=== PATIENT | male | born 1935 | race Caucasian/White ===

== ENCOUNTER → 2016-10-26 | Outpatient (CLI) | payer OTHER ==
[~2016-10-26] MED LIST: ACET-1256 PO; CHOL1000 PO; CYAN500T PO; Enteral Nutrition Formula PO; FLM4 PO; HYDR-3983 PO; NUTR-7 PO; SILO4CAP PO; THIA50TA3 PO
[2016-10-26 16:58] LABS: MEAN PLATELET VOLUME 10.1 fL (7.4-10.4); PLATELET COUNT 310 K/uL (130-400)
[2016-10-26 17:02] LABS: URINE APPEARANCE CLEAR (CLEAR); URINE BILIRUBIN NEG (NEG); URINE COLOR YELLOW; URINE EPITHELIAL CELL AUTO >30 /lpf (0-5); URINE NITRITE NEG (NEG); URINE SPECIFIC GRAVITY 1.007 (1.000-1.030); UROBILINOGEN NEG (NEG); ZZUR CULT IF INDIC CLEAN CATCH YES
[2016-10-26 17:05] LABS: MANUAL MICROSCOPIC REQUIRED? NO; REVIEW REQ? YES
[2016-10-26 17:27] LABS: BASO % 0.4 %; BASO ABS # 0.03 K/uL (0-0.2); COMPLETE YES; HEMATOCRIT 34.8 % (42-52); IG% 0.1 %; LYMPH % 36.6 %; LYMPH ABS # 2.55 K/uL (1.2-3.4); MEAN CELL VOLUME 92.8 fL (80-100); MEAN CORPUSCULAR HEMOGLOBIN 30.7 pg (25-34); MONO % 6.3 %; NEUT % 53.6 %; RED BLOOD COUNT 3.75 M/uL (4.7-6.1); WHITE BLOOD COUNT 6.97 K/uL (4.8-10.8)
[2016-10-26 17:58] LABS: BLOOD UREA NITROGEN 43 mg/dl (7-18); BUN/CREATININE RATIO 15.5 (10-20); CALCIUM 8.6 mg/dl (8.5-10.1); CARBON DIOXIDE 25 mmol/L (21-32); CHLORIDE 103 mmol/L (98-107); GLUCOSE 100 mg/dl (70-99); POTASSIUM 4.4 mmol/L (3.5-5.1); SODIUM 139 mmol/L (136-145)
== END | disposition home or self-care (01) ==
LOC: C.LABBC 12:56
PROVIDERS: ATTEND Internal Medicine Geriatric Medicine
DX: N18.3 Chronic kidney disease, stage 3 (moderate) (principal); I12.9 Hypertensive chronic kidney disease with stage 1 through stage 4 chronic kidney disease, or unspecified chronic kidney disease; M19.90 Unspecified osteoarthritis, unspecified site; E55.9 Vitamin D deficiency, unspecified; F09 Unspecified mental disorder due to known physiological condition; I48.0 Paroxysmal atrial fibrillation; R73.9 Hyperglycemia, unspecified

== ENCOUNTER 2016-11-11 14:41 | Inpatient (IN) | payer OTHER ==
[~2016-11-11] VITALS: Ht 165.1 cm; Wt 57.2 kg
[~2016-11-11 14:41] MED LIST changes: -ACET-1256 PO; -CHOL1000 PO; -CYAN500T PO; -NUTR-7 PO; -SILO4CAP PO; -THIA50TA3 PO
--- NOTE | 2016-11-11 15:22 | EMERGENCY ROOM VISIT NOTE ---
History Report prepared by Kunal: Beth Maria Under the Supervision of: Dr. Rafat Smith D.O. First contact with patient: 15:11 Chief Complaint: CONFUSION Stated Complaint: CONFUSION Nursing Triage Summary: Pt lives at [facility], EMS reports confusion x3 days and poor appetite x2 days. Pt oriented to person, , and place only. EMS also reports he fell 2 days ago. History of Present Illness The patient is an 81 year old male who presents to the Emergency Room with complaints of persistent confusion that began three days ago. The patient's family notes that the patient has had a decrease in appetite as well. They note that the patient was recently in the emergency department and evaluated for dehydration. The family notes that the patient was sent to the [facility] and then was discharged from there. They note that the patient fell and hit his head two days ago. The patient denies any headaches, fever, nausea, vomiting, melena, or hematochezia. He notes a productive cough today. The patient is a previous heavy drinker. Source of History: patient, family Onset: three days ago Position: other (global) Quality: other (confusion) Timing: other (persistent) Associated Symptoms: + cough, No fevers, No headache, No hematochezia, No melena, No nausea, No vomiting Note: Associated Symptoms: decrease in appetite, recent fall Review of Systems See HPI for pertinent positives & negatives. A total of 10 systems reviewed and were otherwise negative. Past Medical & Surgical Medical Problems: (1) Acute on chronic renal failure (2) Altered mental status (3) UTI (urinary tract infection) Family History Cancer (prostate, laryngeal) Diabetes mellitus Heart disease Social History Smoking Status: Never Smoker Alcohol Use: none Drug Use: none Marital Status: Housing Status: lives with significant other Occupation Status: retired Current/Historical Medications Scheduled Cholecalciferol (Vitamin D3), 2 TABS PO DAILY Nutritional Supplements (Boost), 1-2 CAN PO DAILY Silodosin (Rapaflo), 4 MG PO DAILY Scheduled PRN Acetaminophen (Tylenol), 1,000 MG PO BID PRN for Pain or Fever Allergies Coded Allergies: Finasteride (Verified Allergy, Unknown, GYNOCOMASTIA, 11/11/16) FROM [facility] Gabapentin (Verified Allergy, Unknown, UNKNOWN, 11/11/16) [facility] Levofloxacin (Verified Allergy, Unknown, SWELLINNG, 11/11/16) INFO FORM [facility] Sulfamethoxazole w/Trimethoprim (Verified Allergy, Unknown, SWELLING, 11/11) Tamsulosin (Verified Allergy, Unknown, GYNOCOMASTIA, 11/11/16) [facility] Tramadol (Verified Allergy, Unknown, PURITIS, 11/11/16) [facility] Uncoded Allergies: IV DYE (Allergy, Unknown, [facility], 11/11/16) Physical Exam Vital Signs Date Time Temp Pulse Resp B/P Pulse Ox O2 Delivery O2 Flow Rate FiO2 11/11/16 17:32 66 109/67 95 Room Air 11/11/16 15:40 74 92/56 78 89/49 11/11/16 15:33 97 Room Air 11/11/16 15:11 82 11/11/16 14:54 36.7 90 20 106/56 98 Room Air 11/11/16 14:54 98 Room Air Physical Exam GENERAL: Patient is cachectic and listless appearing. Answers to verbal commands intermittently. Follows commands somewhat. EYES: The pupils are equal round and reactive to light. Cloudy appearance to the left pupil. EARS, NOSE, MOUTH AND THROAT: The nose is without any evidence of any deformity. Mucous membranes are dry tongue is midline NECK: The neck is nontender and supple. RESPIRATORY: Lung sounds are diminished throughout with scattered rhonchi noted. CARDIOVASCULAR: Regular rate and rhythm noted there no murmurs rubs or gallops normal S1 normal S2 GASTROINTESTINAL: The abdomen is soft. Bowel sounds are present in all quadrants. Abdomen is nontender MUSCULOSKELETAL/EXTREMITIES: There is no evidence of gross deformity full range of motion is noted in the hips and shoulders SKIN: There is no obvious evidence of any rash. There are no petechiae, pallor or cyanosis noted. NEUROLOGIC: Patient is oriented to person and place, but not time or situation. Strength is symmetric, but diminished. Medical Decision & Procedures ER Provider Diagnostic Interpretation: Radiology results as stated below per my review and radiologist interpretation: PELVIS 1 OR 2 VIEW ROUTINE CLINICAL HISTORY: fall pain COMPARISON: None. DISCUSSION: Generalized degenerative change of the sacroiliac joints and hips bilaterally. No well-defined acute bony abnormality. Cortical margins are intact. There is no evidence for soft tissue swelling. IMPRESSION: Degenerative change. No acute bony abnormality. Electronically signed by: Norberto Haddad M.D. 11/11/2016 4:17 PM Dictated Date/Time: 11/11/2016 4:[address] NON[address]AST CT DOSE: 614.27 mGy.cm HISTORY: Mental status change EVALUATE ALTERED MENTAL STATUS/WEAKNESS TECHNIQUE: Multiaxial CT images of the head were performed without the use of intravenous contrast. Comparison: 10/05/2016 Findings: The paranasal sinuses and mastoid air cells are clear. Generalized atrophy. Old left frontal infarct. Mild compensatory prominence left lateral ventricle. No midline shift. No acute intracranial hemorrhage. Impression: Chronic change. No acute process. Electronically signed by: Norberto Haddad M.D. 11/11/2016 4:20 PM Dictated Date/Time: 11/11/2016 4:18 PM CHEST ONE VIEW PORTABLE CLINICAL HISTORY: EVALUATE ALTERED MENTAL STATUS/WEAKNESS COMPARISON STUDY: No previous studies for comparison. FINDINGS: The bones soft tissues and hemidiaphragms are normal. The cardiomediastinal silhouette is normal. The lungs are clear. The pulmonary vasculature is normal. IMPRESSION: Negative chest. Electronically signed by: Norberto Haddad M.D. 11/11/2016 4:17 PM Dictated Date/Time: 11/11/2016 4:16 PM Laboratory Results Test 11/11/16 14:35 11/11/16 15:44 11/11/16 18:20 Osmolality 310 mOsm/kg (280-300) Phosphorus Level 2.5 mg/dl (2.5-4.9) Total Creatine Kinase 45 U/L (39-308) Creatine Kinase MB 0.9 ng/ml (0.5-3.6) Creatine Kinase MB Ratio 2.0 (0-3.0) Troponin I < 0.015 ng/ml (0-0.045) Lipase 242 U/L (73-393) Thyroid Stimulating Hormone (TSH) 1.380 uIu/ml (0.300-4.500) Venous Blood pH 7.42 (7.36-7.41) Venous Blood Partial Pressure CO2 35 mmHg (38.0-50.0) Venous Blood Partial Pressure O2 27 mmHg Venous Blood HCO3 22 mmol/L Venous Blood Oxygen Saturation < 60.0 % Venous Blood Base Excess -1.8 mmol/L Ammonia 24.0 umol/L (11-32) Urine Color YELLOW Urine Appearance TURBID (CLEAR) Urine pH 6.0 (4.5-7.5) Urine Specific [place] 1.010 (1.000-1.030) Urine Protein 2+ (NEG) Urine Glucose (UA) NEG (NEG) Urine Ketones NEG (NEG) Urine Occult Blood 2+ (NEG) Urine Nitrite NEG (NEG) Urine Bilirubin NEG (NEG) Urine Urobilinogen NEG (NEG) Urine Leukocyte Esterase LARGE (NEG) Urine WBC (Auto) >30 /hpf (0-5) Urine RBC (Auto) 10-30 /hpf (0-4) Urine Hyaline Casts (Auto) /lpf (0-5) Urine Epithelial Cells (Auto) 0-5 /lpf (0-5) Urine Bacteria (Auto) 4+ (NEG) Urine Pathogenic Casts /lpf (0) Urine Yeast (Auto) (NONE PRSENT) Urine Osmolality 332 mOms/kg (500-800) Urine Opiates Screen NEG (NEG) Urine Methadone, Qualitative NEG (NEG) Urine Barbiturates NEG (NEG) Urine Phencyclidine (PCP) Level NEG (NEG) Ur Amphetamine/Methamphetamine NEG (NEG) MDMA (Ecstasy) Screen NEG (NEG) Urine Benzodiazepines Screen NEG (NEG) Urine Cocaine Metabolite NEG (NEG) Urine Marijuana (THC) NEG (NEG) Laboratory results per my review. Medications Administered Medications (Trade) Dose Ordered Sig/Naima Route Start Time Stop Time Status Last Admin Dose Admin Sodium Chloride 1,000 ml @ 999 mls/hr Q1H1M STAT IV 11/11/16 16:32 11/11/16 17:32 DC 11/11/16 16:45 999 MLS/HR Sodium Chloride (Nss 1000ml) 1,000 ml @ 250 mls/hr Q4H STAT IV 11/11/16 16:32 11/11/16 19:16 DC 11/11/16 17:31 250 MLS/HR Ceftriaxone Sodium (Rocephin Inj) 1 gm NOW STAT IV 11/11/16 18:20 11/11/16 18:21 DC 11/11/16 19:03 1 GM ECG Indication: other (confusion) Rate (beats per minute): 80 Rhythm: normal sinus Findings: no ectopy, other (no acute ST segment abnormalities) Comparison ECG Date: 10/05/16 Change: no significant change ED Course 1512: The patient was evaluated in room B11A. A complete history and physical examination were performed. 1632: Ordered Sodium Chloride 1000 ml @ 250 mls/hr IV, Sodium Chloride 1000 ml @ 999 mls/hr IV. 1716: I reevaluated the patient and he is resting comfortably. I discussed the exam findings with him and his family and I discussed the treatment plan. They verbalized complete understanding and agreement. The patient will be evaluated for further treatment. 1720: I discussed the patients case with DANNA Vargas. He is going to evaluate the patient for further treatment. Medical Decision Differential diagnosis: Etiologies such as metabolic, infection, hypoglycemia, electrolyte abnormalities , cardiac sources, intracerebral event, toxicologic, neurologic, as well as others were entertained. Nursing notes reviewed. Additional history is obtained from the patient's significant other as well as other family matters. The patient is an 81-year-old male who presented to the emergency department for an evaluation of confusion. The patient presented to the [facility] department with family members for confusion. The patient had a similar episode at the beginning of the year. At that time it sounds as though he was found have a urinary tract infection with obstructive uropathy. The patient was placed on prostate medications but it does not sound as though he started these medications. The patient was treated with IV fluids in the emergency department. He was also placed on IV antibiotics for presumed urinary tract infection. A Flores catheter was placed. The patient was reevaluated multiple times and was feeling much better. I discussed the patient's laboratory and radiographic studies with the family members as well as the patient. I also discussed his case with the on-call [facility] hospitalist group. They have agreed to evaluate the patient in the emergency department for further management and disposition. Consults Time Called: 1716 Consulting Physician: DANNA Vargas Returned Call: 1720 I discussed the patients case with DANNA Vargas. He is going to evaluate the patient for further treatment. Impression Primary Impression: Altered mental status Additional Impressions: Dehydration Kidney failure Scribe Attestation The scribe's documentation has been prepared under my direction and personally reviewed by me in its entirety. I confirm that the note above accurately reflects all work, treatment, procedures, and medical decision making performed by me. Departure Information Dispostion Being Evaluated By Hospitalist Referrals Rudi Cueva M.D. (PCP) Problem Qualifiers Primary Impression: Altered mental status Altered mental status type: unspecified Qualified Codes: R41.82 - Altered mental status, unspecified
[2016-11-11 16:11] LABS: INR 1.2 (0.9-1.1); PROTHROMBIN TIME (PATIENT) 12.4 SECONDS (9.0-12.0)
--- NOTE | 2016-11-11 16:18 | DIAGNOSTIC IMAGING REPORT ---
CHEST ONE VIEW PORTABLE CLINICAL HISTORY: EVALUATE ALTERED MENTAL STATUS/WEAKNESS COMPARISON STUDY: No previous studies for comparison. FINDINGS: The bones soft tissues and hemidiaphragms are normal. The cardiomediastinal silhouette is normal. The lungs are clear. The pulmonary vasculature is normal. IMPRESSION: Negative chest. Electronically signed by: Norberto Haddad M.D. 11/11/2016 4:17 PM Dictated Date/Time: 11/11/2016 4:16 PM
--- NOTE | 2016-11-11 16:19 | DIAGNOSTIC IMAGING REPORT ---
PELVIS 1 OR 2 VIEW ROUTINE CLINICAL HISTORY: fall pain COMPARISON: None. DISCUSSION: Generalized degenerative change of the sacroiliac joints and hips bilaterally. No well-defined acute bony abnormality. Cortical margins are intact. There is no evidence for soft tissue swelling. IMPRESSION: Degenerative change. No acute bony abnormality. Electronically signed by: Norberto Haddad M.D. 11/11/2016 4:17 PM Dictated Date/Time: 11/11/2016 4:17 PM
--- NOTE | 2016-11-11 16:21 | DIAGNOSTIC IMAGING REPORT ---
HEAD CT NONCONTRAST CT DOSE: 614.27 mGy.cm HISTORY: Mental status change EVALUATE ALTERED MENTAL STATUS/WEAKNESS TECHNIQUE: Multiaxial CT images of the head were performed without the use of intravenous contrast. Comparison: 10/05/2016 Findings: The paranasal sinuses and mastoid air cells are clear. Generalized atrophy. Old left frontal infarct. Mild compensatory prominence left lateral ventricle. No midline shift. No acute intracranial hemorrhage. Impression: Chronic change. No acute process. Electronically signed by: Norberto Haddad M.D. 11/11/2016 4:20 PM Dictated Date/Time: 11/11/2016 4:18 PM
[2016-11-11 16:27] LABS: VEN BLD GAS O2 SATURATION < 60.0 %; VEN BLOOD GAS BASE EXCESS -1.8 mmol/L; VENOUS BLOOD GAS PCO2 35 mmHg (38.0-50.0); VENOUS BLOOD GAS PO2 27 mmHg
[2016-11-11 16:29] LABS: ALKALINE PHOSPHATASE 101 U/L (45-117); ALT/SGPT 41 U/L (12-78); AST/SGOT 26 U/L (15-37); BLOOD UREA NITROGEN 107 mg/dl (7-18); BUN/CREATININE RATIO 20.5 (10-20); CARBON DIOXIDE 22 mmol/L (21-32); CHLORIDE 93 mmol/L (98-107); GLUCOSE 150 mg/dl (70-99); MAGNESIUM 2.1 mg/dl (1.8-2.4); PHOSPHORUS 2.5 mg/dl (2.5-4.9); POTASSIUM 5.2 mmol/L (3.5-5.1); SODIUM 129 mmol/L (136-145)
[2016-11-11] MEDS ORDERED: SODIUM CHLORIDE 0.9% 1000ML 1,000 ML IV STA ×2 (16:32)
[2016-11-11] MEDS ORDERED: SILO4CAP PO (17:12)
[2016-11-11] MEDS ORDERED: ACET-1256 PO (17:12)
[2016-11-11] MEDS ORDERED: NUTR-7 PO (17:12)
[2016-11-11] MEDS ORDERED: CHOL1000 PO (17:12)
[2016-11-11 17:42] LABS: HEMATOCRIT 29.9 % (42-52); MEAN CELL VOLUME 88.5 fL (80-100); MEAN CORPUSCULAR HEMOGLOBIN 30.2 pg (25-34); MEAN CORPUSCULAR HGB CONC 34.1 g/dl (32-36); MEAN PLATELET VOLUME 9.4 fL (7.4-10.4); PLATELET COUNT 503 K/uL (130-400); RED BLOOD COUNT 3.38 M/uL (4.7-6.1); WHITE BLOOD COUNT 24.25 K/uL (4.8-10.8)
[2016-11-11 18:04] LABS: BASO ABS # 0.01 K/uL (0-0.2); COMPLETE YES; IG% 0.7 %; LYMPH % 5.2 %; LYMPH ABS # 1.25 K/uL (1.2-3.4); MONO % 2.8 %; NEUT % 91.3 %
[2016-11-11] MEDS ORDERED: CEFTRIAXONE SOD INJ 1 GM ADDVIAL IV STA (18:20)
[2016-11-11 18:36] LABS: URINE APPEARANCE TURBID (CLEAR); URINE BILIRUBIN NEG (NEG); URINE COLOR YELLOW; URINE NITRITE NEG (NEG); UROBILINOGEN NEG (NEG); ZZURINE CULT IF INDIC CATH YES
[2016-11-11] MEDS ORDERED: ZOLPIDEM TARTRATE 5 MG TAB PO PRN (18:45)
[2016-11-11] MEDS ORDERED: ENOXAPARIN 40 MG/0.4 ML SYR SQ SCH (18:45)
[2016-11-11 18:50] LABS: MANUAL MICROSCOPIC REQUIRED? NO; REVIEW REQ? YES
[2016-11-11 18:57] LABS: URINE EPITHELIAL CELL AUTO 0-5 /lpf (0-5)
[2016-11-11] MEDS ORDERED: ONDANSETRON INJ 2 MG/ML 2 ML VIAL IV PRN (19:00)
[2016-11-11 19:30] LABS: BENZODIAZEPINE, URINE NEG (NEG); COCAINE,URINE NEG (NEG); PHENCYCLIDINE, URINE NEG (NEG)
[2016-11-11 19:31] LABS: INR 1.2 (0.9-1.1); PARTIAL THROMBOPLASTIN RATIO 1.1; PROTHROMBIN TIME (PATIENT) 12.6 SECONDS (9.0-12.0)
[2016-11-11] MEDS: SODIUM CHLORIDE 0.9% 1000ML 1,000 ML IV SCH (19:37)
[2016-11-11] MEDS: ACETAMINOPHEN 325 MG TAB PO PRN (19:47)
[2016-11-11 19:54] VITALS: BP 129/86; PULSE 86; TEMP 36.5; O2SAT 98; Ht 165.1 cm; Wt 57.2 kg
--- NOTE | 2016-11-11 20:13 | History and Physical ---
History & Physical Date & Time of Service: Nov 11, 2016 at 19:51 Chief Complaint: Acute On Chronic Renal Failure, Uti Primary Care Physician: Rudi Cueva M.D. History of Present Illness Source: patient, family, spouse The patient is an 81-year-old male, who was most recently hospitalized from October 05 to October 09 for symptoms of confusion secondary to UTI and acute renal failure, who was then discharged to [facility], then discharged home, who presents to the emergency department with similar symptoms. When in the emergency department today, a Flores catheter was eventually able to be placed, which reportedly drained a puslike urine. The patient did reportedly fall and hit his head 2 days ago. He has a history of being a previous heavy drinker. Family History Cancer (prostate, laryngeal) Diabetes mellitus Heart disease Social History Smoking Status: Never Smoker Smokeless Tobacco Use: No Alcohol Use: none Drug Use: none Marital Status: Housing status: lives with family, lives with significant other Occupational Status: retired Multi-Drug Resistant Organisms History of MDRO: No Allergies Coded Allergies: Finasteride (Verified Allergy, Unknown, GYNOCOMASTIA, 11/11/16) [facility] Gabapentin (Verified Allergy, Unknown, UNKNOWN, 11/11/16) [facility] Levofloxacin (Verified Allergy, Unknown, SWELLINNG, 11/11/16) INFO FORM [facility] Sulfamethoxazole w/Trimethoprim (Verified Allergy, Unknown, SWELLING, 11/11) Tamsulosin (Verified Allergy, Unknown, GYNOCOMASTIA, 11/11/16) [facility] Tramadol (Verified Allergy, Unknown, PURITIS, 11/11/16) [facility] Uncoded Allergies: IV DYE (Allergy, Unknown, [facility], 11/11/16) Home Medications Scheduled Cholecalciferol (Vitamin D3), 2 TABS PO DAILY Nutritional Supplements (Boost), 1-2 CAN PO DAILY Silodosin (Rapaflo), 4 MG PO DAILY Scheduled PRN Acetaminophen (Tylenol), 1,000 MG PO BID PRN for Pain or Fever Review of Systems The patient denies chest pain, palpitations, shortness of breath, cough, lower extremity swelling, vision change, hearing change, sore throat, fevers, chills, sweats, weight change, fatigue, nausea, vomiting, abdominal pain, pelvic pain, blood in urine or stool, dysuria, rash, abnormal bruising or bleeding, imbalance, focal weakness, numbness or tingling in arms or legs, arthralgias or myalgias, back or neck pain, night sweats, or allergy symptoms. His responses are not necessarily reliable, but his family who is present, does agree with his answering. The review of systems is otherwise negative other than for that already noted above, and at least 10 systems have been reviewed. Physical Exam Vital Signs Date Time Temp Pulse Resp B/P Pulse Ox O2 Delivery O2 Flow Rate FiO2 11/11/16 18:57 71 19 113/61 99 11/11/16 18:38 71 19 113/61 99 Room Air 11/11/16 17:32 66 109/67 95 Room Air 11/11/16 15:40 74 92/56 78 89/49 11/11/16 15:33 97 Room Air 11/11/16 15:11 82 11/11/16 14:54 36.7 90 20 106/56 98 Room Air 11/11/16 14:54 98 Room Air The patient is awake, disoriented, minimally responsive, normocephalic and atraumatic, lying in bed and in no acute distress. HEENT--PERRL, EOMI, mucous membranes and oropharynx dry. Neck--supple, no JVD or bruits, thyroid normal, trachea midline, no adenopathy. Heart--normal S1 and S2, no extra beats, no murmurs, rubs or gallops. Lungs--clear bilaterally, no respiratory distress, no accessory muscle use. Abdomen--normal bowel sounds and soft, nontender and nondistended, urinary bladder palpated and feels distended. Extremities--no cyanosis, clubbing or edema. There are good distal pulses b/l. Dermatologic--normal skin turgor, normal color, warm and dry, no abnormal lymph nodes, no rash. Neurologic--cranial nerves II through XII grossly intact, motor and sensory examination normal. Psychiatric--flat affect. Diagnostics Laboratory Results Results Past 24 Hours Test 11/11/16 14:35 11/11/16 15:44 11/11/16 17:20 11/11/16 18:20 Range/Units Sodium Level 129 136-145 mmol/L Potassium Level 5.2 3.5-5.1 mmol/L Chloride Level 93 98-107 mmol/L Carbon Dioxide Level 22 21-32 mmol/L Anion Gap 14.0 3-11 mmol/L Blood Urea Nitrogen 107 7-18 mg/dl Creatinine 5.20 0.60-1.40 mg/dl Est Creatinine Clear Calc Drug Dose 7.1 ml/min Estimated GFR () 10.9 Estimated GFR (Non- 9.4 BUN/Creatinine Ratio 20.5 10-20 Random Glucose 150 70-99 mg/dl Osmolality 310 280-300 mOsm/kg Calcium Level 9.0 8.5-10.1 mg/dl Phosphorus Level 2.5 2.5-4.9 mg/dl Magnesium Level 2.1 1.8-2.4 mg/dl Total Bilirubin 0.4 0.2-1 mg/dl Direct Bilirubin 0.2 0-0.2 mg/dl Aspartate Amino Transf (AST/SGOT) 26 15-37 U/L Alanine Aminotransferase (ALT/SGPT) 41 12-78 U/L Alkaline Phosphatase 101 45-117 U/L Total Creatine Kinase 45 39-308 U/L Creatine Kinase MB 0.9 0.5-3.6 ng/ml Creatine Kinase MB Ratio 2.0 0-3.0 Troponin I < 0.015 0-0.045 ng/ml Total Protein 7.9 6.4-8.2 gm/dl Albumin 2.3 3.4-5.0 gm/dl Lipase 242 73-393 U/L Thyroid Stimulating Hormone (TSH) 1.380 0.300-4.500 uIu/ml Prothrombin Time 12.4 9.0-12.0 SECONDS Prothromb Time International Ratio 1.2 0.9-1.1 Activated Partial Thromboplast Time 26.8 21.0-31.0 SECONDS Partial Thromboplastin Ratio 1.0 Venous Blood pH 7.42 7.36-7.41 Venous Blood Partial Pressure CO2 35 38.0-50.0 mmHg Venous Blood Partial Pressure O2 27 mmHg Venous Blood HCO3 22 mmol/L Venous Blood Oxygen Saturation < 60.0 % Venous Blood Base Excess -1.8 mmol/L Ammonia 24.0 11-32 umol/L White Blood Count 24.25 4.8-10.8 K/uL Red Blood Count 3.38 4.7-6.1 M/uL Hemoglobin 10.2 14.0-18.0 g/dL Hematocrit 29.9 42-52 % Mean Corpuscular Volume 88.5 80-100 fL Mean Corpuscular Hemoglobin 30.2 25-34 pg Mean Corpuscular Hemoglobin Concent 34.1 32-36 g/dl Platelet Count 503 130-400 K/uL Mean Platelet Volume 9.4 7.4-10.4 fL Neutrophils (%) (Auto) 91.3 % Lymphocytes (%) (Auto) 5.2 % Monocytes (%) (Auto) 2.8 % Eosinophils (%) (Auto) 0.0 % Basophils (%) (Auto) 0.0 % Neutrophils # (Auto) 22.12 1.4-6.5 K/uL Lymphocytes # (Auto) 1.25 1.2-3.4 K/uL Monocytes # (Auto) 0.69 0.11-0.59 K/uL Eosinophils # (Auto) 0.01 0-0.5 K/uL Basophils # (Auto) 0.01 0-0.2 K/uL RDW Standard Deviation 42.7 36.4-46.3 fL RDW Coefficient of Variation 13.2 11.5-14.5 % Immature Granulocyte % (Auto) 0.7 % Immature Granulocyte # (Auto) 0.17 0.00-0.02 K/uL Urine Color YELLOW Urine Appearance TURBID CLEAR Urine pH 6.0 4.5-7.5 Urine Specific [place] 1.010 1.000-1.030 Urine Protein 2+ NEG Urine Glucose (UA) NEG NEG Urine Ketones NEG NEG Urine Occult Blood 2+ NEG Urine Nitrite NEG NEG Urine Bilirubin NEG NEG Urine Urobilinogen NEG NEG Urine Leukocyte Esterase LARGE NEG Urine WBC (Auto) >30 0-5 /hpf Urine RBC (Auto) 10-30 0-4 /hpf Urine Hyaline Casts (Auto) 0-5 /lpf Urine Epithelial Cells (Auto) 0-5 0-5 /lpf Urine Bacteria (Auto) 4+ NEG Urine Pathogenic Casts 0 /lpf Urine Yeast (Auto) NONE PRSENT Urine Osmolality 332 500-800 mOms/kg Urine Opiates Screen NEG NEG Urine Methadone, Qualitative NEG NEG Urine Barbiturates NEG NEG Urine Phencyclidine (PCP) Level NEG NEG Ur Amphetamine/Methamphetamine NEG NEG MDMA (Ecstasy) Screen NEG NEG Urine Benzodiazepines Screen NEG NEG Urine Cocaine Metabolite NEG NEG Urine Marijuana (THC) NEG NEG Test 11/11/16 18:40 Range/Units Prothrombin Time 12.6 9.0-12.0 SECONDS Prothromb Time International Ratio 1.2 0.9-1.1 Activated Partial Thromboplast Time 27.5 21.0-31.0 SECONDS Partial Thromboplastin Ratio 1.1 Microbiology Results 11/11/16 Blood Culture, Received Pending 11/11/16 Blood Culture, Received Pending 11/11/16 Urine Culture, Received Pending Diagnostic Radiology Patient Name: MANASA DIXON Unit Number: [id number] Dictated: 11/11/161616 Transcribed: 11/11/161616 MS Printed Date/Time: [~ rep prt dt]/[~ rep prt tm] [~ rep ct labl] - [~ rep ct ivnm] [facility] [place] [address] Dictated: 11/11/161616 Transcribed: 11/11/161616 MS Printed Date/Time: [~ rep prt dt]/[~ rep prt tm] [~ rep ct labl] - [~ rep ct ivnm] PELVIS 1 OR 2 VIEW ROUTINE CLINICAL HISTORY: fall pain COMPARISON: None. DISCUSSION: Generalized degenerative change of the sacroiliac joints and hips bilaterally. No well-defined acute bony abnormality. Cortical margins are intact. There is no evidence for soft tissue swelling. IMPRESSION: Degenerative change. No acute bony abnormality. Electronically signed by: Norberto Haddad M.D. 11/11/2016 4:17 PM Dictated Date/Time: 11/11/2016 4:17 PM The status of this report is Signed. Draft = Not yet reviewed or approved by Radiologist. Signed = Reviewed and approved by Radiologist. <AttendingPhy></AttendingPhy> <FamilyPhy>Rudi Cueva M.D.</FamilyPhy> < PrimaryPhy>Rudi Cueva M.D.</PrimaryPhy> <UnitNumber>[id number]</UnitNumber > <VisitNumber>[id number]</VisitNumber> <PatientName>MANASA DIXON</ PatientName> <DateOfBirth>1935</DateOfBirth> <Location>C.EDB</Location> < ServiceDate>11/11/16</ServiceDate> <MNE>ESINDI</MNE> <OrderingPhy>Rafat Smith D.O.</OrderingPhy> <OrderingPhyMNE>f rep ord dr lacy</OrderingPhyMNE> <DictatingPhyMNE>f rep dict dr lacy</DictatingPhyMNE> <CCListMNE>f rep ct mnt[place]</ CCListMNE> <AdmittingPhyMNE>f pt admit dr lacy</AdmittingPhyMNE> <AttendingPhyMNE >f pt attend dr lacy</AttendingPhyMNE> <ConsultingPhyMNE>f pt consult dr lacy</ConsultingPhyMNE> <FamilyPhyMNE>f pt fam dr lacy</FamilyPhyMNE> <OtherPhyMNE>f pt other dr lacy</OtherPhyMNE> < PrimaryPhyMNE>f pt prim care dr lacy</PrimaryPhyMNE> <ReferringPhyMNE>f pt referring dr lacy</ReferringPhyMNE> Patient Name: MANASA DIXON Unit Number: [id number] Dictated: 11/11/161617 Transcribed: 11/11/161617 MS Printed Date/Time: [~ rep prt dt]/[~ rep prt tm] [~ rep ct labl] - [~ rep ct ivnm] [facility] [place] [address] Dictated: 11/11/161617 Transcribed: 11/11/161617 MS Printed Date/Time: [~ rep prt dt]/[~ rep prt tm] [~ rep ct labl] - [~ rep ct ivnm] [~ rep ct add3]] HEAD CT NONCONTRAST CT DOSE: 614.27 mGy.cm HISTORY: Mental status change EVALUATE ALTERED MENTAL STATUS/WEAKNESS TECHNIQUE: Multiaxial CT images of the head were performed without the use of intravenous contrast. Comparison: 10/05/2016 Findings: The paranasal sinuses and mastoid air cells are clear. Generalized atrophy. Old left frontal infarct. Mild compensatory prominence left lateral ventricle. No midline shift. No acute intracranial hemorrhage. Impression: Chronic change. No acute process. Electronically signed by: Norberto Haddad M.D. 11/11/2016 4:20 PM Dictated Date/Time: 11/11/2016 4:18 PM The status of this report is Signed. Draft = Not yet reviewed or approved by Radiologist. Signed = Reviewed and approved by Radiologist. <AttendingPhy></AttendingPhy> <FamilyPhy>Rudi Cueva M.D.</FamilyPhy> < PrimaryPhy>Rudi Cueva M.D.</PrimaryPhy> <UnitNumber>[id number]</UnitNumber > <VisitNumber>[id number]</VisitNumber> <PatientName>MANASA DIXON</ PatientName> <DateOfBirth>1935</DateOfBirth> <Location>C.EDB</Location> < ServiceDate>11/11/16</ServiceDate> <MNE>ESINDI</MNE> <OrderingPhy>Rafat Smith D.O.</OrderingPhy> <OrderingPhyMNE>f rep ord dr lacy</OrderingPhyMNE> <DictatingPhyMNE>f rep dict dr lacy</DictatingPhyMNE> <CCListMNE>f rep ct mne</ CCListMNE> <AdmittingPhyMNE>f pt admit dr lacy</AdmittingPhyMNE> <AttendingPhyMNE >f pt attend dr lacy</AttendingPhyMNE> <ConsultingPhyMNE>f pt consult dr lacy</ConsultingPhyMNE> <FamilyPhyMNE>f pt fam dr lacy</FamilyPhyMNE> <OtherPhyMNE>f pt other dr lacy</OtherPhyMNE> < PrimaryPhyMNE>f pt prim care dr lacy</PrimaryPhyMNE> <ReferringPhyMNE>f pt referring dr lacy</ReferringPhyMNE> Patient Name: MANASA DIXON Unit Number: [id number] Dictated: 11/11/16 1616 Transcribed: 11/11/16 1616 MS Printed Date/Time: [~ rep prt dt]/[~ rep prt tm] [~ rep ct labl] - [~ rep ct ivnm] [facility] [place] [address] Dictated: 11/11/166 Transcribed: 11/11/16 1616 MS Printed Date/Time: [~ rep prt dt]/[~ rep prt tm] [~ rep ct labl] - [~ rep ct ivnm] CHEST ONE VIEW PORTABLE CLINICAL HISTORY: EVALUATE ALTERED MENTAL STATUS/WEAKNESS COMPARISON STUDY: No previous studies for comparison. FINDINGS: The bones soft tissues and hemidiaphragms are normal. The cardiomediastinal silhouette is normal. The lungs are clear. The pulmonary vasculature is normal. IMPRESSION: Negative chest. Electronically signed by: Norberto Haddad M.D. 11/11/2016 4:17 PM Dictated Date/Time: 11/11/2016 4:16 PM The status of this report is Signed. Draft = Not yet reviewed or approved by Radiologist. Signed = Reviewed and approved by Radiologist. <AttendingPhy></AttendingPhy> <FamilyPhy>Rudi Cueva M.D.</FamilyPhy> < PrimaryPhy>Rudi Cueva M.D.</PrimaryPhy> <UnitNumber>[id number]</UnitNumber > <VisitNumber>[id number]</VisitNumber> <PatientName>MANASA DIXON</ PatientName> <DateOfBirth>1935</DateOfBirth> <Location>C.EDB</Location> < ServiceDate>11/11/16</ServiceDate> <MNE>ESINDI</MNE> <OrderingPhy>Rafat Smith D.O.</OrderingPhy> <OrderingPhyMNE>f rep ord dr lacy</OrderingPhyMNE> <DictatingPhyMNE>f rep dict dr lacy</DictatingPhyMNE> <CCListMNE>f rep ct mne</ CCListMNE> <AdmittingPhyMNE>f pt admit dr lacy</AdmittingPhyMNE> <AttendingPhyMNE >f pt attend dr lacy</AttendingPhyMNE> <ConsultingPhyMNE>f pt consult dr lacy</ConsultingPhyMNE> <FamilyPhyMNE>f pt fam dr lacy</FamilyPhyMNE> <OtherPhyMNE>f pt other dr lacy</OtherPhyMNE> < PrimaryPhyMNE>f pt prim care dr lacy</PrimaryPhyMNE> <ReferringPhyMNE>f pt referring dr lacy</ReferringPhyMNE> EKG EKG shows normal sinus rhythm at 80 bpm, with sinus arrhythmia, and no acute ST- T changes Impression Assessment and Plan Acute renal failure/urinary tract infection/prostate cancer with bladder outlet obstruction dehydration/SIRS/confusion--the patient be admitted to the medical floor. We'll continue the ceftriaxone 1 g IV daily begun emergency department, and place on normal saline at 150 ML's per hour. Sodium was 129, potassium is 5.2, creatinine is 5.2 and serum osmolality is 310. We'll follow serial BMP and magnesium levels. He hasn't noted side effect of gynecomastia when on tamsulosin and finasteride. 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 He'll be restarted on tamsulosin 0.4 mg every evening. We'll consult urology. The patient may need to be ultimately discharged with an indwelling Flores catheter. Nutrition--we'll place patient on nutritional drinks 3 times a day. He had not been eating or drinking anything for family over the past 4 days. Level of Care Telemetry Advanced Directives Existing Advance Directive: No Existing Living Will: No Existing Power of Director Television News: No Resuscitation Status FULL RESUSCITATION VTE Prophylaxis VTE Risk Assessment Done? Y/N: Yes Risk Level: High Given or contraindicated: SCD's
[2016-11-11] MEDS ORDERED: TAMSULOSIN HCL 0.4 MG CAP PO SCH (21:00)
[2016-11-11] MEDS: BOOST VANILLA PO SCH ×2 (21:10)
[2016-11-11] MEDS: HEPARIN SOD 5000 UNIT/0.5 ML CARP SQ SCH (21:14)
[2016-11-11 22:54] VITALS: BP 102/50; PULSE 56; TEMP 36.4; O2SAT 97
[2016-11-12] VITALS: O2SAT 98
[2016-11-12] MEDS: SODIUM CHLORIDE 0.9% 1000ML 1,000 ML IV SCH ×3 (01:50→13:49)
[2016-11-12] MEDS: HEPARIN SOD 5000 UNIT/0.5 ML CARP SQ SCH ×2 (06:03→13:33)
[2016-11-12 07:24] VITALS: BP 110/74; PULSE 91; TEMP 37.1; O2SAT 95
--- NOTE | 2016-11-12 08:05 | Clinical Documentation Query ---
QUERY 1 OF [address] RHODES, In your clinical opinion is this patient being managed for: ( x ) possible Sepsis ( ) Other explanation of clinical findings (Please Explain) ( ) Unable to determine (Please Define) ( ) Need to Discuss ( ) Not Agree The medical record reflects the following clinical findings, treatment, and risk factors. Clinical Indicators: 81 yo male presenting with an altered mental status, UTI. WBC 24.25, some hypotension 89/49. H/P indicates pt with SIRS Treatment: 2L NSS bolus then continuous, blood and urine cx, IV rocephin, Risk Factors: age, UTI QUERY 2 OF 3 In your clinical opinion is this patient being managed for: ( x ) possible Metabolic encephalopathy, ( ) Other explanation of clinical findings (Please Explain) ( ) Unable to determine (Please Define) ( ) Need to Discuss ( ) Not Agree The medical record reflects the following clinical findings, treatment, and risk factors. Clinical Indicators: Presented with altered mental status. CT head showed no acute process. Na 129, BUN 107, Cr 5.20, WBC 24.25 Treatment: CT head, IV rocephin, IV fluid bolus then continous, serial CBC/PRP's Risk Factors: UTI, hyponatremia, RAFAT, sepsis QUERY 3 OF 3 In your clinical opinion is this patient being managed for: ( x ) Hyponatremia, ( ) Other explanation of clinical findings (Please Explain) ( ) Unable to determine (Please Define) ( ) Need to Discuss ( ) Not Agree The medical record reflects the following clinical findings, treatment, and risk factors. Clinical Indicators: Na 129 Treatment: IV fluid boluses then continuous, serial PRP's Risk Factors: sepsis, dehydration, RAFAT Please clarify and document your clinical opinion in the progress notes and discharge summary. Terms such as "probable", "suspected", "likely", "questionable", "possible", or "still to be ruled out" are acceptable. IF IN AGREEMENT, YOU MUST DOCUMENT ABOVE DIAGNOSTIC STATEMENT IN DAILY PROGRESS NOTES AND DISCHARGE SUMMARY. This document is not part of the patient's record. Thank You, Kalani Goodwin RN [phone]
[2016-11-12] MEDS: BOOST VANILLA PO SCH ×4 (08:12→13:34)
[2016-11-12] MEDS ORDERED: CHOLECALCIFEROL 1000 INTER.UNIT TAB PO SCH (09:00)
[2016-11-12 09:10] LABS: INR 1.1 (0.9-1.1)
[2016-11-12 09:22] LABS: HEMATOCRIT 35.5 % (42-52); MEAN CELL VOLUME 89.4 fL (80-100); MEAN CORPUSCULAR HEMOGLOBIN 30.5 pg (25-34); MEAN CORPUSCULAR HGB CONC 34.1 g/dl (32-36); MEAN PLATELET VOLUME 9.7 fL (7.4-10.4); PLATELET COUNT 588 K/uL (130-400); RED BLOOD COUNT 3.97 M/uL (4.7-6.1); WHITE BLOOD COUNT 30.83 K/uL (4.8-10.8)
[2016-11-12 09:29] LABS: BASO ABS # 0.01 K/uL (0-0.2); COMPLETE YES; IG% 0.6 %; LYMPH % 2.7 %; LYMPH ABS # 0.84 K/uL (1.2-3.4); MONO % 3.2 %; NEUT % 93.5 %
[2016-11-12 09:33] LABS: ALKALINE PHOSPHATASE 98 U/L (45-117); ALT/SGPT 30 U/L (12-78); AST/SGOT 17 U/L (15-37); BLOOD UREA NITROGEN 90 mg/dl (7-18); BUN/CREATININE RATIO 21.4 (10-20); CALCIUM 8.8 mg/dl (8.5-10.1); CARBON DIOXIDE 18 mmol/L (21-32); CHLORIDE 106 mmol/L (98-107); GLUCOSE 150 mg/dl (70-99); MAGNESIUM 2.1 mg/dl (1.8-2.4); POTASSIUM 4.1 mmol/L (3.5-5.1); SODIUM 137 mmol/L (136-145)
[2016-11-12 10:39] VITALS: O2SAT 98
--- NOTE | 2016-11-12 11:02 | DIAGNOSTIC IMAGING REPORT ---
CT SCAN OF THE ABDOMEN AND PELVIS WITHOUT IV CONTRAST CLINICAL HISTORY: Leukocytosis. Prostate cancer. COMPARISON STUDY: Abdominal CT dated 05/09/2010. TECHNIQUE: CT scan of the abdomen and pelvis is performed from the lung bases to the proximal femora. Images are reviewed in the axial, sagittal, and coronal planes. IV contrast was not administered for this examination as per the referring clinician. Note that the examination was performed in significantly suboptimal fashion without oral and IV contrast. The examination is also degraded by motion artifact. Automated dose control exposure was utilized. CT DOSE: 472.11 mGy.cm FINDINGS: Lung bases: The heart is enlarged and there is a small to moderate pericardial effusion. The coronary arteries are calcified. Emphysema is suspected. There are trace pleural effusions with bibasilar atelectasis. No airspace consolidation is seen typical for pneumonia. Liver: The unenhanced liver is normal in size, contour, and attenuation. Small hepatic cysts measure up to 11 mm. There is no intrahepatic biliary ductal dilatation. Gallbladder: There are numerous calcified gallstones. There is no CT evidence of acute cholecystitis. The gallbladder is mildly distended. Spleen: Normal in size and attenuation. Pancreas: The unenhanced pancreas is moderately atrophic and grossly unremarkable. Adrenal glands: Unremarkable. Kidneys: The left kidney is surgically absent. The unenhanced right kidney is normal in size. There is mild to moderate right hydroureteronephrosis with associated right-sided perinephric stranding. No renal calculi are identified. The ureter is distended to the level of the bladder. There is no evidence of contour deforming renal mass lesion. Abdominal vasculature: The abdominal aorta is normal in course and caliber noting moderate atherosclerotic calcification. Bowel: The small bowel and colon are normal in course and caliber. There is mild to moderate colonic diverticulosis without CT evidence of acute diverticulitis. There is moderate colonic fecal retention. The appendix is not clearly identified. Peritoneum: There is no intraperitoneal free air or abdominal ascites. There is diffuse mesenteric edema, greatest in the left upper quadrant. Lymphadenopathy: None. Pelvic viscera: The bladder is partially decompressed around a Flores catheter. Foci of intraluminal gas are likely related to instrumentation. The bladder wall is markedly thickened and there is significant pericystic inflammatory stranding. The prostate gland is markedly enlarged and heterogeneous. There is significant median lobe hypertrophy. The prostate gland measures 6 cm in transverse diameter. Skeletal structures: The skeletal structures are osteopenic. There is moderate lumbosacral spondylosis. No lytic or blastic lesions are seen. Soft tissues: The patient is cachectic. There is mild body wall edema. IMPRESSION: 1. Significantly suboptimal examination without oral and IV contrast. The examination is also degraded by motion artifact. 2. Although partially decompressed around a Flores catheter, the bladder wall is markedly thickened and there is significant pericystic inflammatory stranding. The appearance is typical for cystitis. Correlation with clinical findings and urinalysis will be required. 3. The left kidney is surgically absent. 4. The right kidney is normal in size. There is mild to moderate right hydroureteronephrosis with associated right-sided perinephric and periureteric stranding. No renal calculi are identified. This may be related to ascending urinary tract infection and/or obstruction at the level of the right ureteropelvic junction. Follow-up with urology is recommended. 5. The prostate gland is markedly enlarged and there is significant median lobe hypertrophy. 6. Cholelithiasis without CT evidence of acute cholecystitis. 7. Cardiomegaly noting a small to moderate pericardial effusion. Emphysema is suspected. 8. Trace pleural effusions with bibasilar atelectasis. 9. There is diffuse nonspecific mesenteric edema, greatest in the left upper abdomen. 10. Mild to moderate colonic diverticulosis without CT evidence of acute diverticulitis. Electronically signed by: Dajuan Carter M.D. 11/12/2016 11:01 AM Dictated Date/Time: 11/12/2016 10:50 AM
--- NOTE | 2016-11-12 11:54 | Medical Consult ---
Consultation Date of Consultation: Nov 12, 2016. Attending Physician: Antione Cruz MD, PhD Reason for Consultation: Leukocytosis History of Present Illness Patient is a very pleasant 81-year-old male who presented to the emergency department with complaints of confusion that began approximately 3 days prior to admission. The patient states that prior to admission, he was not feeling well and had a decreased appetite. He had been in his normal state of health prior. According to previous records, there was slight difficulty placing a Flores catheter on this patient in the emergency department. Since admission, the patient did have a urine culture completed, which is growing gram-negative bacilli. Blood cultures are pending. His white blood cell count on admission was 24.25, and is now 30.83. The patient was initially placed on IV Zosyn and daptomycin, but is currently on IV ceftriaxone alone. His creatinine was 5.20 on admission, and is now 4.20. He has been afebrile since admission. The patient did also report of the have a fall prior to admission, and since admission had a pelvic x-ray, which showed degenerative changes but no bony abnormality. A head CT showed no acute process. A chest x-ray showed no acute process as well. He then had an abdominal/pelvic CT scan completed today, which showed markedly thickened bladder wall with christina cystic inflammatory stranding along with mild to moderate right hydroureteronephrosis with a right- sided perinephric and periureteric stranding. The prostate gland was also noted to be markedly enlarged, and there was also diffuse nonspecific mesenteric edema noted in the left upper abdomen. Upon review of the patient' s past records, it is noted that he has had urinary tract infections in the past with the E coli, Enterococcus, and Klebsiella. These have mostly been santos sensitive. Past Medical/Surgical History Medical Problems: (1) Dehydration Status: Acute (2) Kidney failure Status: Acute (3) Metabolic encephalopathy Status: Acute (4) Sepsis Status: Acute Medical Problems: (1) Acute on chronic renal failure (2) Altered mental status (3) UTI (urinary tract infection) Family History Cancer (prostate, laryngeal) Diabetes mellitus Heart disease Noncontributory Social History Smoking Status: Never Smoker Smokeless Tobacco Use: No Alcohol Use: none Drug Use: none Marital Status: Housing Status: lives with significant other Occupation Status: retired Allergies Coded Allergies: Finasteride (Verified Allergy, Unknown, GYNOCOMASTIA, 11/11/16) FROM [facility] Gabapentin (Verified Allergy, Unknown, UNKNOWN, 11/11/16) [facility] Levofloxacin (Verified Allergy, Unknown, SWELLINNG, 11/11/16) INFO FORM [facility] Sulfamethoxazole w/Trimethoprim (Verified Allergy, Unknown, SWELLING, 11/11) Tamsulosin (Verified Allergy, Unknown, GYNOCOMASTIA, 11/11/16) [facility] Tramadol (Verified Allergy, Unknown, PURITIS, 11/11/16) [facility] Uncoded Allergies: IV DYE (Allergy, Unknown, [facility], 11/11/16) Home Medications Reported Home Medications Medications Dose Route/Sig Max Daily Dose Days Date Category Vitamin D3 (Cholecalciferol) 1,000 Unit Tab 2 Tabs PO DAILY 90 11/11/16 Reported Tylenol (Acetaminophen) 500 Mg Tab 1,000 Mg PO BID PRN 11/11/16 Reported Rapaflo (Silodosin) 4 Mg Cap 4 Mg PO DAILY 11/11/16 Reported Boost (Nutritional Supplements) 1 Liq Liq 1-2 Can PO DAILY 11/11/16 Reported Current Inpatient Medications Current Inpatient Medications Medications (Trade) Dose Ordered Sig/Naima Route Start Time Stop Time Status Last Admin Dose Admin Acetaminophen (Tylenol Tab) 650 mg Q4H PRN PO 11/11/16 18:45 12/11/16 18:44 11/11/16 19:47 650 MG Zolpidem Tartrate (Ambien Tab) 5 mg HSZ PRN PO 11/11/16 18:45 12/11/16 18:44 Cholecalciferol (Vitamin D Tab) 2,000 inter.unit DAILY PO 11/12/16 09:00 12/12/16 08:59 11/12/16 08:07 2,000 INTER.UNIT Enteral Nutritional Formula (Boost) 1 can TID PO 11/11/16 21:00 12/11/16 20:59 11/12/16 08:12 1 CAN Tamsulosin HCl 0.4 mg 0.4 mg HS PO 11/11/16 21:00 12/11/16 20:59 11/11/16 21:14 0.4 MG Ceftriaxone Sodium/Dextrose (Rocephin Inj/ Dextrose Add-[place] 50ML) 50 ml @ 100 mls/hr Q24H IV 11/12/16 19:00 11/20/16 19:29 Ondansetron HCl 4 mg 4 mg Q6H PRN IV 11/11/16 19:00 12/11/16 18:59 Sodium Chloride (Nss 1000ml) 1,000 ml @ 150 mls/hr Q6H40M IV 11/11/16 19:00 12/11/16 18:59 11/12/16 08:08 150 MLS/HR Heparin Sodium (Porcine) (Heparin Sq 5000 Unit/0.5ml) 5,000 unit Q8 SQ 11/11/16 22:00 12/11/16 21:59 11/12/16 06:03 5,000 UNIT Review of Systems Constitutional: + chills, + weakness, No fever Eyes: No worsening of vision ENT: No hearing loss Respiratory: No cough, No shortness of breath Cardiovascular: No chest pain Abdomen: No nausea, No pain, No vomiting Musculoskeletal: No muscle pain Genitourinary - Male: + problem reported (Flores catheter in place-from ER) Integumentary: No itch, No rash Physical Exam Date Time Temp Pulse Resp B/P Pulse Ox O2 Delivery O2 Flow Rate FiO2 11/12/16 10:39 98 Room Air 11/12/16 07:24 37.1 91 16 110/74 95 Room Air 11/12/16 00:00 98 Room Air 11/11/16 22:54 36.4 56 14 102/50 97 Room Air 11/11/16 19:54 36.5 86 18 129/86 98 Room Air 11/11/16 18:57 71 19 113/61 99 11/11/16 18:38 71 19 113/61 99 Room Air 11/11/16 17:32 66 109/67 95 Room Air 11/11/16 15:40 74 92/56 78 89/49 11/11/16 15:33 97 Room Air 11/11/16 15:11 82 11/11/16 14:54 36.7 90 20 106/56 98 Room Air 11/11/16 14:54 98 Room Air General Appearance: no apparent distress, + thin Head: normocephalic, atraumatic Eyes: normal inspection, sclerae normal ENT: hearing grossly normal Neck: supple, trachea midline Respiratory/Chest: chest non-tender, lungs clear, normal breath sounds, no respiratory distress, no accessory muscle use Cardiovascular: regular rate, rhythm Abdomen/GI: normal bowel sounds, non tender, soft Genitourinary - Male: + pertinent finding (Flores catheter in place) Back: normal inspection, no CVA tenderness Neurologic/Psych: alert, normal mood/affect Skin: normal color, warm/dry, no rash Laboratory Results CT SCAN OF THE ABDOMEN AND PELVIS WITHOUT IV CONTRAST CLINICAL HISTORY: Leukocytosis. Prostate cancer. COMPARISON STUDY: Abdominal CT dated 05/09/2010. TECHNIQUE: CT scan of the abdomen and pelvis is performed from the lung bases to the proximal femora. Images are reviewed in the axial, sagittal, and coronal planes. IV contrast was not administered for this examination as per the referring clinician. Note that the examination was performed in significantly suboptimal fashion without oral and IV contrast. The examination is also degraded by motion artifact. Automated dose control exposure was utilized. CT DOSE: 472.11 mGy.cm FINDINGS: Lung bases: The heart is enlarged and there is a small to moderate pericardial effusion. The coronary arteries are calcified. Emphysema is suspected. There are trace pleural effusions with bibasilar atelectasis. No airspace consolidation is seen typical for pneumonia. Liver: The unenhanced liver is normal in size, contour, and attenuation. Small hepatic cysts measure up to 11 mm. There is no intrahepatic biliary ductal dilatation. Gallbladder: There are numerous calcified gallstones. There is no CT evidence of acute cholecystitis. The gallbladder is mildly distended. Spleen: Normal in size and attenuation. Pancreas: The unenhanced pancreas is moderately atrophic and grossly unremarkable. Adrenal glands: Unremarkable. Kidneys: The left kidney is surgically absent. The unenhanced right kidney is normal in size. There is mild to moderate right hydroureteronephrosis with associated right-sided perinephric stranding. No renal calculi are identified. The ureter is distended to the level of the bladder. There is no evidence of contour deforming renal mass lesion. Abdominal vasculature: The abdominal aorta is normal in course and caliber noting moderate atherosclerotic calcification. Bowel: The small bowel and colon are normal in course and caliber. There is mild to moderate colonic diverticulosis without CT evidence of acute diverticulitis. There is moderate colonic fecal retention. The appendix is not clearly identified. Peritoneum: There is no intraperitoneal free air or abdominal ascites. There is diffuse mesenteric edema, greatest in the left upper quadrant. Lymphadenopathy: None. Pelvic viscera: The bladder is partially decompressed around a Flores catheter. Foci of intraluminal gas are likely related to instrumentation. The bladder wall is markedly thickened and there is significant pericystic inflammatory stranding. The prostate gland is markedly enlarged and heterogeneous. There is significant median lobe hypertrophy. The prostate gland measures 6 cm in transverse diameter. Skeletal structures: The skeletal structures are osteopenic. There is moderate lumbosacral spondylosis. No lytic or blastic lesions are seen. Soft tissues: The patient is cachectic. There is mild body wall edema. IMPRESSION: 1. Significantly suboptimal examination without oral and IV contrast. The examination is also degraded by motion artifact. 2. Although partially decompressed around a Flores catheter, the bladder wall is markedly thickened and there is significant pericystic inflammatory stranding. The appearance is typical for cystitis. Correlation with clinical findings and urinalysis will be required. 3. The left kidney is surgically absent. 4. The right kidney is normal in size. There is mild to moderate right hydroureteronephrosis with associated right-sided perinephric and periureteric stranding. No renal calculi are identified. This may be related to ascending urinary tract infection and/or obstruction at the level of the right ureteropelvic junction. Follow-up with urology is recommended. 5. The prostate gland is markedly enlarged and there is significant median lobe hypertrophy. 6. Cholelithiasis without CT evidence of acute cholecystitis. 7. Cardiomegaly noting a small to moderate pericardial effusion. Emphysema is suspected. 8. Trace pleural effusions with bibasilar atelectasis. 9. There is diffuse nonspecific mesenteric edema, greatest in the left upper abdomen. 10. Mild to moderate colonic diverticulosis without CT evidence of acute diverticulitis. RUN DATE: 11/12/16 [facility] LAB PAGE 1 RUN TIME: 5273 Specimen Inquiry PATIENT: MANASA DIXON LOC: [facility] U # : [id number] AGE/SX: 81/M ROOM: [facility] REG : 11/11/[address]: Antione Cruz MD, PhD : 1935 BED: 1 DIS : STATUS: ADM IN TLOC: SPEC #: [id number] LARISSA: 11/11/16 STATUS: RES REQ #: [id number] RECD: 11/11/[address]: Rafat Smith DO SOURCE: URINE CATH ENTR: 11/11/16 [facility] DR: Rudi Cueva M.D. SPDC: Casey Farrell M.D. ORDERED: CULTURE UR CATH Procedure Result Verified Site URINE CULTURE Preliminary 11/12/16-1428 Organism 1 GRAM NEGATIVE BACILLI COLONY COUNT >100,000 CFU/ml SENS SENSITIVITY TO FOLLOW Item Value Date Time Blood Culture Received 11/11/16 1847 Blood Pending Blood Culture Received 11/11/16 1840 Blood Pending Urine Culture - Preliminary Resulted 11/11/16 1820 Urine,Catheterized Gram Negative Bacilli Last 24 Hours Test 11/11/16 14:35 11/11/16 15:44 11/11/16 17:20 11/11/16 18:20 Sodium Level 129 mmol/L Potassium Level 5.2 mmol/L Chloride Level 93 mmol/L Carbon Dioxide Level 22 mmol/L Anion Gap 14.0 mmol/L Blood Urea Nitrogen 107 mg/dl Creatinine 5.20 mg/dl Est Creatinine Clear Calc Drug Dose 7.1 ml/min Estimated GFR () 10.9 Estimated GFR (Non- 9.4 BUN/Creatinine Ratio 20.5 Random Glucose 150 mg/dl Osmolality 310 mOsm/kg Calcium Level 9.0 mg/dl Phosphorus Level 2.5 mg/dl Magnesium Level 2.1 mg/dl Total Bilirubin 0.4 mg/dl Direct Bilirubin 0.2 mg/dl Aspartate Amino Transf (AST/SGOT) 26 U/L Alanine Aminotransferase (ALT/SGPT) 41 U/L Alkaline Phosphatase 101 U/L Total Creatine Kinase 45 U/L Creatine Kinase MB 0.9 ng/ml Creatine Kinase MB Ratio 2.0 Troponin I < 0.015 ng/ml Total Protein 7.9 gm/dl Albumin 2.3 gm/dl Lipase 242 U/L Thyroid Stimulating Hormone (TSH) 1.380 uIu/ml Prothrombin Time 12.4 SECONDS Prothromb Time International Ratio 1.2 Activated Partial Thromboplast Time 26.8 SECONDS Partial Thromboplastin Ratio 1.0 Venous Blood pH 7.42 Venous Blood Partial Pressure CO2 35 mmHg Venous Blood Partial Pressure O2 27 mmHg Venous Blood HCO3 22 mmol/L Venous Blood Oxygen Saturation < 60.0 % Venous Blood Base Excess -1.8 mmol/L Ammonia 24.0 umol/L White Blood Count 24.25 K/uL Red Blood Count 3.38 M/uL Hemoglobin 10.2 g/dL Hematocrit 29.9 % Mean Corpuscular Volume 88.5 fL Mean Corpuscular Hemoglobin 30.2 pg Mean Corpuscular Hemoglobin Concent 34.1 g/dl Platelet Count 503 K/uL Mean Platelet Volume 9.4 fL Neutrophils (%) (Auto) 91.3 % Lymphocytes (%) (Auto) 5.2 % Monocytes (%) (Auto) 2.8 % Eosinophils (%) (Auto) 0.0 % Basophils (%) (Auto) 0.0 % Neutrophils # (Auto) 22.12 K/uL Lymphocytes # (Auto) 1.25 K/uL Monocytes # (Auto) 0.69 K/uL Eosinophils # (Auto) 0.01 K/uL Basophils # (Auto) 0.01 K/uL RDW Standard Deviation 42.7 fL RDW Coefficient of Variation 13.2 % Immature Granulocyte % (Auto) 0.7 % Immature Granulocyte # (Auto) 0.17 K/uL Urine Color YELLOW Urine Appearance TURBID Urine pH 6.0 Urine Specific [place] 1.010 Urine Protein 2+ Urine Glucose (UA) NEG Urine Ketones NEG Urine Occult Blood 2+ Urine Nitrite NEG Urine Bilirubin NEG Urine Urobilinogen NEG Urine Leukocyte Esterase LARGE Urine WBC (Auto) >30 /hpf Urine RBC (Auto) 10-30 /hpf Urine Hyaline Casts (Auto) /lpf Urine Epithelial Cells (Auto) 0-5 /lpf Urine Bacteria (Auto) 4+ Urine Pathogenic Casts /lpf Urine Yeast (Auto) Urine Osmolality 332 mOms/kg Urine Opiates Screen NEG Urine Methadone, Qualitative NEG Urine Barbiturates NEG Urine Phencyclidine (PCP) Level NEG Ur Amphetamine/Methamphetamine NEG MDMA (Ecstasy) Screen NEG Urine Benzodiazepines Screen NEG Urine Cocaine Metabolite NEG Urine Marijuana (THC) NEG Test 11/11/16 18:40 11/12/16 06:56 11/12/16 08:40 11/12/16 11:19 Prothrombin Time 12.6 SECONDS 12.0 SECONDS Prothromb Time International Ratio 1.2 1.1 Activated Partial Thromboplast Time 27.5 SECONDS 26.8 SECONDS Partial Thromboplastin Ratio 1.1 1.0 Bedside Glucose 117 mg/dl 222 mg/dl White Blood Count 30.83 K/uL Red Blood Count 3.97 M/uL Hemoglobin 12.1 g/dL Hematocrit 35.5 % Mean Corpuscular Volume 89.4 fL Mean Corpuscular Hemoglobin 30.5 pg Mean Corpuscular Hemoglobin Concent 34.1 g/dl Platelet Count 588 K/uL Mean Platelet Volume 9.7 fL Neutrophils (%) (Auto) 93.5 % Lymphocytes (%) (Auto) 2.7 % Monocytes (%) (Auto) 3.2 % Eosinophils (%) (Auto) 0.0 % Basophils (%) (Auto) 0.0 % Neutrophils # (Auto) 28.79 K/uL Lymphocytes # (Auto) 0.84 K/uL Monocytes # (Auto) 1.00 K/uL Eosinophils # (Auto) 0.00 K/uL Basophils # (Auto) 0.01 K/uL RDW Standard Deviation 44.2 fL RDW Coefficient of Variation 13.4 % Immature Granulocyte % (Auto) 0.6 % Immature Granulocyte # (Auto) 0.19 K/uL Sodium Level 137 mmol/L Potassium Level 4.1 mmol/L Chloride Level 106 mmol/L Carbon Dioxide Level 18 mmol/L Anion Gap 13.0 mmol/L Blood Urea Nitrogen 90 mg/dl Creatinine 4.20 mg/dl Est Creatinine Clear Calc Drug Dose 10.8 ml/min Estimated GFR () 14.2 Estimated GFR (Non- 12.2 BUN/Creatinine Ratio 21.4 Random Glucose 150 mg/dl Calcium Level 8.8 mg/dl Magnesium Level 2.1 mg/dl Total Bilirubin 0.3 mg/dl Direct Bilirubin < 0.1 mg/dl Aspartate Amino Transf (AST/SGOT) 17 U/L Alanine Aminotransferase (ALT/SGPT) 30 U/L Alkaline Phosphatase 98 U/L Total Protein 7.3 gm/dl Albumin 2.0 gm/dl Assessment & Plan Patient with confusion on presentation and now found to have UTI with probable right-sided pyelonephritis. Urine culture is growing gram negative bacilli, and blood cultures is pending. He is currently on IV Ceftriaxone, but will change to IV Zosyn pending culture results. We will follow. PROVIDER ADDENDUM: Patient examined and reviewed with Ms. Rico. Agree with above assessment.
[2016-11-12] MEDS ORDERED: PIPERACILL/TAZOBAC CONSULT ACTIVE PRN (12:30)
[2016-11-12] MEDS ORDERED: PIPERACILL/TAZOBAC IV 3.375 GM in DEXTROSE 5% 100ML 100 ML IV SCH (13:00)
--- NOTE | 2016-11-12 15:23 | Discharge Instructions ---
Discharge Instructions Admission Reason for Admission: Acute On Chronic Renal Failure, Uti Discharge Discharge Diagnosis / Problem: urosepsis , renal failure, ureter retention, prostate enlargement Discharge Goals Goal(s): Decrease discomfort, Improve function, Increase independence, Improve disease control, Improve nutritional status, Learn about illness, Diagnostic testing, Therapeutic intervention, Prevent Disease Progression, Specific goals Activity Recommendations Activity Limitations: as noted below (bed rest) . Instructions / Follow-Up Instructions / Follow-Up you have urosepsis , renal failure, ureter retention, prostate enlargement we are transferring you to [facility] hospitalist service please follow up with your pcp after discharging from [facility] Current Hospital Diet Patient's current hospital diet: Diabetes Type 2 Diet Discharge Diet Recommended Diet: N/A (NPO) Pending Studies Studies pending at discharge: no Medical Emergencies . Who to Call and When: Medical Emergencies: If at any time you feel your situation is an emergency, please call 911 immediately. . Non-Emergent Contact Non-Emergency issues call your: Primary Care Provider . . "Provider Documentation" section prepared by Antione Cruz. VTE Core Measure Inpt VTE Proph given/why not?: SCD's
[2016-11-12 16:02] LABS: FREE PSA 1.08 ng/ml; PROSTATE SPECIFIC ANTIGEN 7.18 ng/ml (0.000-4.000)
--- NOTE | 2016-11-12 16:13 | GENITOURINARY CONSULTATION ---
DATE OF CONSULTATION: 11/12/2016 REASON FOR THE CONSULT: Pyelonephritis, hydronephrosis, presumed prostate cancer, and urosepsis. HISTORY OF PRESENTATION: The patient is an 81-year-old male who had increasing difficulties voiding with a slowly rising creatinine. He was admitted a month ago with an elevated white blood cell count and a creatinine that was elevated at the 2 range who has been losing weight and appeared chronically ill. He also was noted to have altered mental status on his admission a month ago. He was given antibiotics and appeared to improve. Urology was not consulted even though he did at that time have a renal sonogram that showed right hydronephrosis and a solitary kidney. 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 More recently, the patient has continued to be sick. His creatinine worsened and he was admitted last night increasingly ill appearing with increasing confusion and decreased appetite, weight loss and dehydration. The patient apparently fell and hit his head several days ago. He denies any headaches, fever, nausea, vomiting, or melena. He does have a productive cough. The patient has a previous history of heavy drinking. Source of this information was from the family in the Emergency Room. On admission, his white blood cell count was 24,000 and overnight has increased to 30,000. His creatinine yesterday on admission was 5.2 and has improved somewhat to 4.2. They had a lot of trouble getting a catheter in the patient but the Emergency Room doctor was and the patient has pyuria and is growing out gram negative rods in initial culture results. ALLERGIES: THE PATIENT HAS AN ALLERGY TO FINASTERIDE, GABAPENTIN, IV DIET, LEVOFLOXACIN, SULFAMETHOXAZOLE, TRIMETHOPRIM, TAMSULOSIN, AND TRAMADOL. PAST MEDICAL HISTORY: Includes chronic renal failure, altered mental status, and previous UTI. MEDICATIONS: Include vitamin D3, and Rapaflo. PHYSICAL EXAMINATION: GENERAL: The patient looks remarkably well considering ileus, although he is quite thin. HEENT: Dentition is poor with majority of his teeth being gone. HEENT is unremarkable. ABDOMEN: He has no definite flank pain to percussion. Abdomen is somewhat distended without significant focal tenderness and is certainly not rigid. He has a Flores catheter in place. GENITALIA: Normal male phallus. Testes descended bilaterally without mass. RECTAL: Shows a massively enlarged prostate without distinct induration but clearly enlarged. EXTREMITIES: Unremarkable. NEUROLOGIC: The patient is alert and responsive but appears to be somewhat confused. IMAGING DATA: The patient's CAT scan shows solitary right kidney, hydronephrosis and stranding that goes all the way down to the bladder with stranding. He is not completely obstructed because he is making some urine with a solitary kidney, but there is clearly significant inflammation around the bladder. Inside the bladder is a massively enlarged prostate, which would make finding the ureteral orifice impossible, especially given the inflammation certainly going to be there. ASSESSMENT AND PLAN: The patient has urosepsis with a chronically obstructed kidney secondary to probable prostate cancer. He is clearly uroseptic with the rising white blood cell count. I have discussed the situation with Dr. Bazan from [facility] and requested that the patient be transferred for percutaneous nephrostomy and treatment there. The hospitalists have accepted the patient. The patient is to be transferred there this evening. Dr. Bazan understands the severity and is going to contact interventional radiology. 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 I have discussed with the family explained why the patient needs to be transferred. Certainly after the patient has a nephrostomy tube, consideration may be given to giving him a treatment with Lupron and some hormonal therapy, although the patient does note significant amount of blood loss and this could be ultimately long-term problematic for him. We appreciate the help and input from [facility]. FRANCESCA
--- NOTE | 2016-11-12 16:44 | Discharge Summary ---
Discharge Summary Admission Date: Nov 11, 2016 at 18:37 Discharge Date: Nov 12, 2016 Discharge Disposition: Acute care facility Principal Diagnosis: chronically obstructed, ureteral blockages with hydronephros possible from Problems/Secondary Diagnoses: chronically obstructed kidney secondary to probable prostate cancer. uroseptic with worsening leukocytosis. Acute kidney failure Procedures: No Consultations: Urologist Discharge Exam Frail, chronically ill-looking, but awake and alert and orientated, conversational Review of Systems: Constitutional: + fatigue, + weakness, + weight loss, No fever Eyes: No diplopia, No discharge, No eye pain, No problem reported, No redness, No worsening of vision ENT: No dental problems, No hearing loss, No nasal symptoms, No problem reported, No sore throat, No tinnitus, No trouble swallowing, No unusual epistaxis Respiratory: No cough, No dyspnea at rest, No dyspnea on exertion, No hemoptysis, No problem reported, No shortness of breath, No sputum, No wheezing Cardiovascular: No PND, No chest pain, No claudication, No edema, No orthopnea, No palpitations, No problem reported Abdomen: No GI bleeding, No constipation, No diarrhea, No nausea, No pain, No problem reported, No vomiting Musculoskeletal: No calf pain, No joint pain, No muscle pain, No problem reported, No swelling Genitourinary - Male: + urinary retention Neurologic: + memory loss Psychiatric: No anhedonism, No anxiety, No depression symptoms, No insomnia , No problem reported, No substance abuse Endocrine: No excessive thirst, No excessive urination, No fatigue, No problem reported Hematologic / Lymphatic: No abnormal bleeding/bruising, No clotting problems , No night sweats, No problem reported, No swollen lymph nodes Physical Exam: General Appearance: + cachetic, + thin, + pertinent finding (chronic ill- looking, cooperative in physical exam) Eyes: normal inspection, PERRL ENT: normal ENT inspection, hearing grossly normal Neck: supple, no adenopathy Respiratory/Chest: chest non-tender, normal breath sounds, no respiratory distress, no accessory muscle use, + decreased breath sounds Cardiovascular: regular rate, rhythm, no edema, no gallop, no JVD Abdomen / GI: normal bowel sounds, non tender, soft, no organomegaly, no pulsatile mass, + pertinent finding (urologist did the rectal exam report ed has enlarged prostate) Extremities: normal inspection, no calf tenderness Neurologic/Psychiatric: nurse transition II-XII nml as tested, no motor/sensory deficits , normal mood/affect, normal reflexes Skin: normal color, warm/dry Hospital Course 81-year-old white female admitted on November 022016 because of Acute renal failure/urinary tract infection/prostate cancer with bladder outlet obstruction dehydration/SIRS/confusion the patient be admitted to the medical floor. has been continue the ceftriaxone 1 g IV daily changed to Zosyn cont normal saline at 150 ML's per hour. Sodium was 129, potassium is 5.2, acute renal failure with a creatinine is 5.2 which ended up improving today's morning that Hyponatremia with serum osmolality is 310, which is a little be improving Urology saw patient, he recommend to transfer to convincing current [facility] for subcutaneous percutaneous nephrostomy for drainage and release of there ureter obstruction and hydronephrosis. Urology talked to Dr. Bazan from [facility] and requested that the patient be transferred for percutaneous nephrostomy and treatment there. Discussed with patient and family about care plan, discussed the risk and benefit of transferring, and he understood and agreed, and consent is signed Hyponatremia, possible Metabolic encephalopathy, possible Sepsis during this hospitalization I did told him to follow-up with primary care physician after discharging from [facility] Total Time Spent: Greater than 30 minutes This includes examination of the patient, discharge planning, medication reconciliation, and communication with other providers. Discharge Instructions Please refer to the electronic Patient Visit Report (Discharge Instructions) for additional information. Additional Copies To Rudi Cueva M.D.
[2016-11-12 18:30] VITALS: BP 110/74; PULSE 91; TEMP 37.1; O2SAT 98
[2016-11-12 18:52] VITALS: BP 110/74; PULSE 91; TEMP 37.1; O2SAT 98
[2016-11-12] MEDS ORDERED: CEFTRIAXONE SOD INJ 1 GM in DEXTROSE 5% ADD-VANTAGE 50ML 50 ML IV SCH (19:00)
[2016-11-12] MEDS: ACETAMINOPHEN 325 MG TAB PO PRN (19:19)
== END 2016-11-12 20:15 | disposition short-term general hospital (02) | DRG 871 ==
LOC: ENRESERVDT → ENRESERVTM → EDBD 14:41 → C.EDB 14:44 → C.MS2W 18:37
PROVIDERS: ADMIT Hospitalist; ATTEND Hospitalist
DX: A41.9 Sepsis, unspecified organism (principal); G93.41 Metabolic encephalopathy; N17.9 Acute kidney failure, unspecified; E87.1 Hypo-osmolality and hyponatremia; N13.30 Unspecified hydronephrosis; N12 Tubulo-interstitial nephritis, not specified as acute or chronic; Z68.1 Body mass index [BMI] 19.9 or less, adult; C61 Malignant neoplasm of prostate; N28.89 Other specified disorders of kidney and ureter; N32.0 Bladder-neck obstruction; E86.0 Dehydration; R63.4 Abnormal weight loss; N18.9 Chronic kidney disease, unspecified; Z91.81 History of falling; Z90.5 Acquired absence of kidney; Z79.899 Other long term (current) drug therapy

== ENCOUNTER → 2016-12-09 | Outpatient (CLI) | payer OTHER ==
[~2016-12-09] MED LIST changes: +ACET-1256 PO; +CHOL1000 PO; -Enteral Nutrition Formula PO; -FLM4 PO; -HYDR-3983 PO; +NUTR-7 PO; +SILO4CAP PO
[2016-12-09 12:55] LABS: BLOOD UREA NITROGEN 44 mg/dl (7-18); BUN/CREATININE RATIO 18.2 (10-20); CALCIUM 8.9 mg/dl (8.5-10.1); CARBON DIOXIDE 26 mmol/L (21-32); CHLORIDE 101 mmol/L (98-107); GLUCOSE 100 mg/dl (70-99); POTASSIUM 4.4 mmol/L (3.5-5.1); SODIUM 135 mmol/L (136-145)
== END | disposition home or self-care (01) ==
LOC: C.LABSPEC 12:02
PROVIDERS: ATTEND Urology
DX: N39.0 Urinary tract infection, site not specified (principal)

== ENCOUNTER → 2017-04-28 | Outpatient (CLI) | payer OTHER ==
[2017-04-28 16:59] LABS: HEMATOCRIT 41.1 % (42-52); MEAN CELL VOLUME 93.8 fL (80-100); MEAN CORPUSCULAR HGB CONC 30.9 g/dl (32-36); MEAN PLATELET VOLUME 9.9 fL (7.4-10.4); PLATELET COUNT 342 K/uL (130-400); RED BLOOD COUNT 4.38 M/uL (4.7-6.1); WHITE BLOOD COUNT 9.78 K/uL (4.8-10.8)
[2017-04-28 17:08] LABS: BLOOD UREA NITROGEN 39 mg/dl (7-18); BUN/CREATININE RATIO 20.4 (10-20); CALCIUM 9.1 mg/dl (8.5-10.1); CARBON DIOXIDE 32 mmol/L (21-32); CHLORIDE 110 mmol/L (98-107); GLUCOSE 102 mg/dl (70-99); POTASSIUM 4.7 mmol/L (3.5-5.1); SODIUM 144 mmol/L (136-145)
[2017-04-29 06:17] LABS: ESTIMATED AVERAGE GLUCOSE 126 mg/dl; HA1C FLAG Normal (Normal)
--- NOTE | 2017-05-04 12:40 | CODING QUERY MEDICAL NECESSITY ---
SUPPORTING DIAGNOSIS NEEDED A supporting diagnosis is required for the test/procedure performed on this patient in order for us to be reimbursed by the patient's insurance. Please provide a supporting diagnosis for the following test/procedure listed below next to the test name along with your signature. *If there is no additional diagnosis for this patient that would support the following test/procedure please document that below next to the test/procedure. Test(s)/Procedure(s) that require a supporting diagnosis: * VITAMIN B12 DIAGNOSIS: Provider Signature: Date: Thank you Amna Bennett [employer] Once completed, please kindly fax back to [phone] For questions please call [phone]
== END | disposition home or self-care (01) ==
LOC: C.LABBC 14:59
PROVIDERS: ATTEND Internal Medicine Geriatric Medicine
DX: R73.9 Hyperglycemia, unspecified (principal); N18.4 Chronic kidney disease, stage 4 (severe); R26.9 Unspecified abnormalities of gait and mobility

== ENCOUNTER 2017-11-27 15:00 | Inpatient (IN) | payer OTHER ==
[2017-11-27] VITALS (7 sets, daily range): BP systolic 88–113; BP diastolic 39–63; PULSE 66–83; TEMP 36.5–36.6; O2SAT 97–99; BMI 18.3
[~2017-11-27] VITALS: Ht 165.1 cm; Wt 56.0 kg
[2017-11-27] MEDS ORDERED: SODIUM CHLORIDE 0.9% 1000ML 1,000 ML IV STA ×4 (15:10→18:29)
--- NOTE | 2017-11-27 15:10 | EMERGENCY ROOM VISIT NOTE ---
History Report prepared by Kunal: Ricky Lees Under the Supervision of: Dr. Christiano Milton M.D. First contact with patient: 15:02 Stated Complaint: FALL/ HYPOTENSION History of Present Illness The patient is an 82 year old male who presents to the Emergency Room via EMS with a sudden presumed fall that occurred prior to arrival earlier today. Per EMS, the patient was found in his apartment on the bathroom floor by his who had been taking a nap and who is also a poor historian as well. The patient upon EMS arrival was hypotensive and tachycardic, with sinus arrhythmia. The patient states that he does not know how he got on the floor. He says that nothing is bothering him currently. Per EMS, the patient had a prior Flores catheter inserted a few weeks ago which has been torn out since then. He has not been seen by a physician since this was pulled out. History limited secondary to patient's altered mental status. 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 Denies any current pain or discomfort. Review of Systems ROS limited secondary to patient's poor responsiveness. Past Medical & Surgical Medical Problems: (1) Acute on chronic renal failure (2) Altered mental status (3) sepsis, UTI, acute kidney failure, hyperkalemia, acidosis (4) UTI (urinary tract infection) Family History Cancer (prostate, laryngeal) Diabetes mellitus Heart disease Social History Smoking Status: Never Smoker Alcohol Use: none Drug Use: none Marital Status: Housing Status: lives with significant other Occupation Status: retired Current/Historical Medications Scheduled Cholecalciferol (Vitamin D3), 2 TABS PO DAILY Nutritional Supplements (Boost), 1-2 CAN PO DAILY Silodosin (Rapaflo), 4 MG PO DAILY Scheduled PRN Acetaminophen (Tylenol), 1,000 MG PO BID PRN for Pain or Fever Allergies Coded Allergies: Finasteride (Verified Allergy, Unknown, GYNOCOMASTIA, 11/11/16) [facility] Gabapentin (Verified Allergy, Unknown, UNKNOWN, 11/11/16) [facility] Levofloxacin (Verified Allergy, Unknown, SWELLINNG, 11/11/16) INFO FORM [facility] Sulfamethoxazole w/Trimethoprim (Verified Allergy, Unknown, SWELLING, 11/11) Tamsulosin (Verified Allergy, Unknown, GYNOCOMASTIA, 11/11/16) [facility] Tramadol (Verified Allergy, Unknown, PURITIS, 11/11/16) [facility] Uncoded Allergies: IV DYE (Allergy, Unknown, [facility], 11/11/16) Physical Exam Vital Signs Date Time Temp Pulse Resp B/P (MAP) Pulse Ox O2 Delivery O2 Flow Rate FiO2 11/27/17 18:02 68 20 121/60 100 Room Air 11/27/17 17:38 68 100 11/27/17 17:32 114/66 11/27/17 16:38 90 21 100 11/27/17 16:36 89 11/27/17 16:33 36.5 113 18 121/67 100 Room Air 11/27/17 16:19 83 19 100 11/27/17 16:14 104 18 115/74 100 Room Air 11/27/17 16:00 79 16 100 11/27/17 15:31 93/64 11/27/17 15:27 35.7 144 20 93/64 98 Room Air 11/27/17 15:05 142/107 Physical Exam GENERAL: Awake, alert, fatigued and cachetic appearing. HENT: Normocephalic, atraumatic. Dry cracked mucous membranes. Poor dentition. EYES: Normal conjunctiva. Sclera non-icteric. NECK: Supple. No nuchal rigidity. FROM. No JVD. RESPIRATORY: Clear to auscultation. CARDIAC: Irregularly irregular, tachycardic. Extremities warm and well perfused. Pulses equal. ABDOMEN: Soft, non-distended. No tenderness to palpation. No rebound or guarding. No masses. RECTAL: Deferred. MUSCULOSKELETAL: Chest examination reveals no tenderness. The back is symmetrical on inspection without obvious abnormality. There is no CVA tenderness to palpation. No joint edema. LOWER EXTREMITIES: Calves are equal size bilaterally and non-tender. No edema. No discoloration. NEURO: Normal sensorium. No sensory or motor deficits noted. SKIN: No rash or jaundice noted. Medical Decision & Procedures ER Provider Diagnostic Interpretation: Radiology results as stated below per my review and radiologist interpretation: HEAD WITHOUT CONTRAST (CT) CLINICAL HISTORY: 82 years-old Male presenting with Altered mental status, fall. TECHNIQUE: Multidetector CT imaging of the head was performed without the use of intravenous contrast. IV contrast: None. A dose lowering technique was used consistent with the principles of ALARA (as low as reasonably achievable). COMPARISON: 11/11/2016. CT DOSE (mGy.cm): The estimated cumulative dose is 1055.69. FINDINGS: Verification Lead topogram: Unremarkable. Proportional ventricular and sulcal prominence, likely age-related parenchymal volume loss. 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 This is unchanged from prior. No mass effect or midline shift. No hemorrhage or acute territorial infarct. Unchanged bilateral low density collections over the bilateral cerebellar hemispheres unchanged in size from prior. Paranasal sinuses and mastoid air cells clear. Calvarium intact. IMPRESSION: 1. 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 2. Chronic bilateral subdural hematomas/hygromas. 3. No acute intracranial abnormality. No acute hemorrhage. Electronically signed by: Kulwant Bledsoe M.D. 11/27/2017 3:52 PM Dictated Date/Time: 11/27/2017 3:49 PM CHEST ONE VIEW PORTABLE CLINICAL HISTORY: 82 years-old Male presenting with Evaluate Fever/Sepsis. TECHNIQUE: Portable upright AP view of the chest was obtained. COMPARISON: 11/11/2016. FINDINGS: Atherosclerosis of the aortic arch. Cardiac silhouette normal in size. Lungs and pleural spaces clear. Degenerative changes of the thoracic spine. Degenerative changes of the right acromioclavicular joint. Upper abdomen normal. IMPRESSION: 1. No acute cardiopulmonary disease. Electronically signed by: Kulwant Bledsoe M.D. 11/27/2017 4:47 PM Dictated Date/Time: 11/27/2017 4:46 PM CERVICAL SPINE W/O CLINICAL HISTORY: 82 years-old Male presenting with pain falls. TECHNIQUE: Multidetector CT of the cervical spine was performed without the use of intravenous contrast. IV contrast: None. A dose lowering technique was used consistent with the principles of ALARA (as low as reasonably achievable). COMPARISON: Plain radiographs from 2010. CT DOSE (mGy.cm): The estimated cumulative dose is 1055.69 mGy.cm. FINDINGS: Verification Lead topogram: Unremarkable. Straightening of normal cervical lordosis. Vertebral bodies maintain normal height and alignment. Diffuse intervertebral disc height loss secondary to the presence of disc osteophyte complexes at nearly every level. Multilevel osseous neural foraminal narrowing noted. Mild posterior bony spurring also noted at nearly every level to varying degrees. No acute fracture or subluxation. Degenerative changes of the atlantoaxial articulation. IMPRESSION: 1. No acute osseous injury of the cervical spine. 2. Multilevel degenerative changes. Electronically signed by: Kulwant Bledsoe M.D. 11/27/2017 3:55 PM Dictated Date/Time: 11/27/2017 3:52 PM (CHEST) THORAX WITHOUT CLINICAL HISTORY: 82 years-old Male presenting with sepsis/syncope. TECHNIQUE: Multidetector CT imaging of the chest was performed without the use of intravenous contrast. IV contrast: None. A dose lowering technique was used consistent with the principles of ALARA (as low as reasonably achievable). COMPARISON: Chest x-ray performed earlier the same day. CT DOSE (mGy.cm): The estimated cumulative dose is 670.41. FINDINGS: Verification Lead topogram: Cachexia. On soft tissue windows, normal thyroid and thoracic inlet. No axillary, supraclavicular, or mediastinal lymphadenopathy. Evaluation of the tiffanie limited without intravenous contrast. Atherosclerosis of the aorta. Normal heart size. Coronary artery calcification. No pericardial or pleural effusion. Upper abdomen normal. On lung windows, minimal dependent changes likely atelectasis. No other focal nodule or infiltrate. Airways patent. On bone windows, degenerative changes of the spine. IMPRESSION: 1. No acute intrathoracic pathology. Electronically signed by: Kulwant Bledsoe M.D. 11/27/2017 5:13 PM Dictated Date/Time: 11/27/2017 5:10 PM ABD/PELVIS NO IV OR ORAL CONT CLINICAL HISTORY: 82 years-old Male presenting with urosepsis,right hip, RLQ pain, found down. TECHNIQUE: Multidetector CT of the abdomen and pelvis was performed without the use of intravenous contrast. IV contrast: None. A dose lowering technique was used consistent with the principles of ALARA (as low as reasonably achievable). COMPARISON: 11/12/2016. CT DOSE (mGy.cm): The estimated cumulative dose is 670.41 mGy.cm. FINDINGS: Verification Lead topogram: Cachexia. Lung bases: Minimal basilar opacities, likely atelectasis. Normal heart size. Coronary artery calcification. No pericardial or pleural effusion. Liver: Normal morphology. Normal density. Subcentimeter hypodensity at the inferior right hepatic lobe, indeterminate but likely hepatic cyst or hamartoma. Biliary: No gross biliary ductal dilatation allowing for noncontrast technique. Gallbladder contains gallstones. The gallbladder is physiologically distended. Pancreas: Normal noncontrast appearance. Spleen: Normal noncontrast appearance. Adrenal glands: Normal noncontrast appearance. Kidneys and ureters: The left kidney is surgically absent. Interval decrease in right perinephric fat infiltration and decreased right pelvocaliectasis. Persistent urothelial thickening. The right ureter is only mildly dilated. Bladder: Polypoid intraluminal mass may be the exophytic median lobe hypertrophy of the prostate. Significant circumferential bladder wall thickening likely indicating chronic outlet obstruction. Pelvic organs: Prostate enlargement likely secondary to benign prostatic hyperplasia. Bowel: Diverticulosis of the sigmoid colon. Scattered diverticula elsewhere in the colon. No bowel obstruction. Peritoneal cavity: No free fluid or intraperitoneal gas. Lymph nodes: No gross lymphadenopathy allowing for noncontrast technique. Vasculature: Atherosclerosis of the normal caliber abdominal aorta. Abdominal wall: Cachexia. Musculoskeletal: Degenerative changes of the spine. Degenerative changes of the sacral iliac joints and hips. IMPRESSION: 1. No acute intra-abdominal pathology. 2. Interval resolution of right hydroureteronephrosis. Persistent right urothelial thickening may indicate acute or chronic infection or or chronic inflammation such as secondary to reflux. 3. Significant circumferential bladder wall thickening may be due to chronic bladder outlet obstruction. Underlying neoplasm is difficult to exclude. The apparent intraluminal mass likely represents median lobe hypertrophy of the prostate. 4. Prostatomegaly. 5. Diverticulosis. 6. Cholelithiasis. 7. Cachexia. Electronically signed by: Kulwant Bledsoe M.D. 11/27/2017 5:20 PM Dictated Date/Time: 11/27/2017 5:13 PM Laboratory Results 11/27/17 17:26 Red Blood Count 4.53, Mean Corpuscular Volume 84.1, Mean Corpuscular Hemoglobin 30.0, Mean Corpuscular Hemoglobin Concent 35.7, Mean Platelet Volume 10.4, Neutrophils (%) (Auto) 93.5, Lymphocytes (%) (Auto) 3.7, Monocytes (%) (Auto) 2.5, Eosinophils (%) (Auto) 0.0, Basophils (%) (Auto) 0.0, Neutrophils # (Auto) 17.09, Lymphocytes # (Auto) 0.67, Monocytes # (Auto) 0.46, Eosinophils # (Auto) 0.00, Basophils # (Auto) 0.00 Test 11/27/17 15:40 11/27/17 16:03 11/27/17 16:07 11/27/17 16:15 Influenza Type A Antigen Neg for Influ A (NEG) Influenza Type B Antigen Neg for Influ B (NEG) Prothrombin Time 10.3 SECONDS (9.0-12.0) Prothromb Time International Ratio 1.0 (0.9-1.1) Venous Blood pH 7.22 (7.36-7.41) Venous Blood Partial Pressure CO2 46 mmHg (38.0-50.0) Venous Blood Partial Pressure O2 28 mmHg Venous Blood HCO3 18 mmol/L Venous Blood Oxygen Saturation < 60.0 % Venous Blood Base Excess -9.4 mEq/L Total Bilirubin 0.6 mg/dl (0.2-1) Direct Bilirubin 0.1 mg/dl (0-0.2) Aspartate Amino Transf (AST/SGOT) 29 U/L (15-37) Alanine Aminotransferase (ALT/SGPT) 23 U/L (12-78) Alkaline Phosphatase 79 U/L (45-117) Pro-B-Type Natriuretic Peptide 2057 pg/ml (0-1800) Total Protein 8.5 gm/dl (6.4-8.2) Albumin 3.7 gm/dl (3.4-5.0) Lipase 805 U/L (73-393) Ethyl Alcohol mg/dL < 3.0 mg/dl (0-3) Bedside Hemoglobin 16.7 g/dl (14.0-18.0) Bedside Hematocrit 49 % (42-52) Bedside Sodium 123 mEq/L (135-144) Bedside Potassium 6.8 mEq/L (3.3-5.0) Bedside Chloride 93 mEq/L (101-112) Bedside Total CO2 19 mEq/l (24-31) Bedside Blood Urea Nitrogen > 140 mg/dl (7-18) Bedside Creatinine 5.8 mg/dl (0.6-1.3) Bedside Glucose (other) 207 mg/dl (70-99) Bedside Ionized Calcium (Zachary) 1.14 mmol/l (1.12-1.32) Urine Color DK YELLOW Urine Appearance TURBID (CLEAR) Urine pH 5.5 (4.5-7.5) Urine Specific Girard 1.013 (1.000-1.030) Urine Protein 3+ (NEG) Urine Glucose (UA) NEG (NEG) Urine Ketones TRACE (NEG) Urine Occult Blood 3+ (NEG) Urine Nitrite NEG (NEG) Urine Bilirubin NEG (NEG) Urine Urobilinogen NEG (NEG) Urine Leukocyte Esterase LARGE (NEG) Urine WBC (Auto) >30 /hpf (0-5) Urine RBC (Auto) >30 /hpf (0-4) Urine Hyaline Casts (Auto) /lpf (0-5) Urine Epithelial Cells (Auto) >30 /lpf (0-5) Urine Bacteria (Auto) 4+ (NEG) Urine Pathogenic Casts /lpf (0) Urine Yeast (Auto) (NONE PRSENT) Test 11/27/17 17:26 White Blood Count 18.27 K/uL (4.8-10.8) Red Blood Count 4.53 M/uL (4.7-6.1) Hemoglobin 13.6 g/dL (14.0-18.0) Hematocrit 38.1 % (42-52) Mean Corpuscular Volume 84.1 fL (80-100) Mean Corpuscular Hemoglobin 30.0 pg (25-34) Mean Corpuscular Hemoglobin Concent 35.7 g/dl (32-36) Platelet Count 239 K/uL (130-400) Mean Platelet Volume 10.4 fL (7.4-10.4) Neutrophils (%) (Auto) 93.5 % Lymphocytes (%) (Auto) 3.7 % Monocytes (%) (Auto) 2.5 % Eosinophils (%) (Auto) 0.0 % Basophils (%) (Auto) 0.0 % Neutrophils # (Auto) 17.09 K/uL (1.4-6.5) Lymphocytes # (Auto) 0.67 K/uL (1.2-3.4) Monocytes # (Auto) 0.46 K/uL (0.11-0.59) Eosinophils # (Auto) 0.00 K/uL (0-0.5) Basophils # (Auto) 0.00 K/uL (0-0.2) RDW Standard Deviation 39.4 fL (36.4-46.3) RDW Coefficient of Variation 13.0 % (11.5-14.5) Immature Granulocyte % (Auto) 0.3 % Immature Granulocyte # (Auto) 0.05 K/uL (0.00-0.02) Hypersegmented Polys 1+ Laboratory results reviewed by me Medications Administered Medications (Trade) Dose Ordered Sig/Naima Route Start Time Stop Time Status Last Admin Dose Admin Sodium Chloride 1,000 ml @ 999 mls/hr Q1H1M STAT IV 11/27/17 15:10 11/27/17 16:10 DC 11/27/17 15:51 999 MLS/HR Sodium Chloride 1,000 ml @ 999 mls/hr Q1H1M STAT IV 11/27/17 16:14 11/27/17 17:14 DC 11/27/17 16:46 999 MLS/HR Piperacillin Sod/ Tazobactam Sod (Zosyn Iv) 3.375 gm NOW STAT IV 11/27/17 16:21 11/27/17 16:24 DC 11/27/17 17:23 3.375 GM Vancomycin HCl (Vancomycin 1gm/ 270ml Nss) 1 gm NOW STAT IV 11/27/17 16:21 11/27/17 16:24 DC 11/27/17 16:46 1 GM Calcium Gluconate 2000 mg/Sodium Chloride 70 ml @ 240 mls/hr TODAY@1614 IV 11/27/17 16:14 11/27/17 20:00 DC 11/27/17 17:23 240 MLS/HR Sodium Chloride 1,000 ml @ 999 mls/hr Q1H1M STAT IV 11/27/17 16:46 11/27/17 17:46 DC 11/27/17 17:33 999 MLS/HR Insulin Human Regular 10 units/ Syringe 10 ml @ 20 mls/min NOW STAT IV 11/27/17 17:41 11/27/17 17:44 DC 11/27/17 17:41 20 MLS/MIN Dextrose (Dextrose 50% 50ML Syringe) 50 ml NOW STAT IV 11/27/17 17:41 11/27/17 17:45 DC 11/27/17 18:59 50 ML Sodium Polystyrene Sulfonate (Kayexalate Susp) 15 gm NOW STAT PO 11/27/17 17:41 11/27/17 17:45 DC 11/27/17 19:00 15 GM Sodium Chloride 1,000 ml @ 125 mls/hr Q8H STAT IV 11/27/17 18:29 11/27/17 21:14 DC 11/27/17 18:59 125 MLS/HR Sodium Chloride 1,000 ml @ 200 mls/hr Q5H IV 11/27/17 18:27 12/27/17 18:26 11/27/17 18:27 200 MLS/HR Morphine Sulfate (MoRPHine SULFATE INJ) 2 mg Q2H PRN IV 11/27/17 18:30 12/11/17 18:29 11/27/17 22:09 2 MG ECG Per My Interpretation Indication: weakness Rate (beats per minute): 156 Rhythm: atrial fibrillation (with RVR) Findings: no acute ischemic change, other (normal axis) ED Course 1502: The patient was evaluated in room A10. A limited history and physical exam was performed. 0: I reevaluated the patient. 1744: Upon reexamination, the patient was resting. I discussed the test results and treatment plan with him. The patient will be evaluated for further management. 1747: I discussed the patient with Dr. San - Hansa high wire artist - will evaluate the patient for further treatment. Medical Decision I reviewed the patient's past medical history, medications, and the nursing notes as described above. Differential diagnosis: Etiologies such as metabolic, infection, hypo/hyperglycemia, electrolyte abnormalities, cardiac sources, intracerebral event, toxicologic, neurologic, as well as others were entertained. The patient is an 82-year-old gentleman with a past medical history of renal failure and sepsis with hospitalization one year ago in the setting of prostate cancer presents emergency department after being found on his bathroom floor by his after she woke up from a nap per hpi. History from the to EMS as well as from patient is limited secondary to poor historians and patient confusion. Rather the patient is fatigued appearing, poorly kept, with dry cracked mucous membranes. He is afebrile however tachycardic to the 160s, with systolic blood pressure in the 90s. Patient however is mentating albeit confused, is alert to self and place. I-STAT chemistry demonstrates acute renal failure with a creatinine of 5.8 BUN greater than 140 potassium of 6.8. Patient is being given IV fluid hydration and as well as calcium gluconate. EKG appears to be in A. fib with QRS of 74 without any peaked T waves. Patient' s Flores catheter was placed and demonstrates purulent appearing urine output in the setting of a apparent report of the patient pulling out his own Flores catheter recently and never following up with his doctor. Serum potassium confirms hyperkalemia and thus was ordered for insulin and dextrose as well as Kayexalate. WBC elevated to 24k and lactate is 4.3. PH 7.22. Patient was given empiric broad-spectrum antibiotics with vancomycin and Zosyn. CT chest and abdomen pelvis negative for acute findings albeit limited secondary to lack of contrast. The patient shows steady improvement hemodynamically with heart rate improved to the 100s and systolic blood pressure 110s-120s after 3 L NS. No change in respiratory status sating 98% on room air with clear lungs. Given evidence of UOP and patient able to tolerate IVF hydration does not need emergent HD at this time. Case was discussed with Dr. Cruz, LOREN hospitalist, who will admit the patient to the ICU for further management. Case additionally discussed with Dr. Edouard, ICU distribution warehouse manager who will manage the patient in the ICU. *Review of patient's discharge from 1 year ago the patient was apparently transferred to [facility] for nephrostomy placement at that time. Medication Reconcilliation Current Medication List: was personally reviewed by me Blood Pressure Screening Patient's blood pressure: Low blood pressure Referred to hospitalist. Consults Time Called: 1755 Consulting Physician: Dr. Nancy CLAY high wire artist Returned Call: 1800 I discussed the patient with Dr. Nancy CLAY high wire artist - will evaluate the patient for further treatment. Impression Primary Impression: Sepsis Additional Impressions: UTI (urinary tract infection) Renal failure, acute Critical Care I have personally spent greater than 90 minutes of critical care time in the direct management of this patient. This includes bedside care, interpretation of diagnostic studies, and testing, discussion with consultants, patient, and family members, and other required patient management activities. This 90 minutes is in excess of all separately billable procedures. Scribe Attestation The scribe's documentation has been prepared under my direction and personally reviewed by me in its entirety. I confirm that the note above accurately reflects all work, treatment, procedures, and medical decision making performed by me. Departure Information Dispostion Being Evaluated By Hospitalist Referrals Rudi Cueva M.D. (PCP) Problem Qualifiers
--- NOTE | 2017-11-27 15:53 | DIAGNOSTIC IMAGING REPORT ---
HEAD WITHOUT CONTRAST (CT) CLINICAL HISTORY: 82 years-old Male presenting with Altered mental status, fall. TECHNIQUE: Multidetector CT imaging of the head was performed without the use of intravenous contrast. IV contrast: None. A dose lowering technique was used consistent with the principles of ALARA (as low as reasonably achievable). COMPARISON: 11/11/2016. CT DOSE (mGy.cm): The estimated cumulative dose is 1055.69. FINDINGS: Drain Tile Press Operator topogram: Unremarkable. Proportional ventricular and sulcal prominence, likely age-related parenchymal volume loss. 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 This is unchanged from prior. No mass effect or midline shift. No hemorrhage or acute territorial infarct. Unchanged bilateral low density collections over the bilateral cerebellar hemispheres unchanged in size from prior. Paranasal sinuses and mastoid air cells clear. Calvarium intact. IMPRESSION: 1. 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 2. Chronic bilateral subdural hematomas/hygromas. 3. No acute intracranial abnormality. No acute hemorrhage. Electronically signed by: Kulwant Bledsoe M.D. 11/27/2017 3:52 PM Dictated Date/Time: 11/27/2017 3:49 PM
--- NOTE | 2017-11-27 15:56 | DIAGNOSTIC IMAGING REPORT ---
CERVICAL SPINE W/O CLINICAL HISTORY: 82 years-old Male presenting with pain falls. TECHNIQUE: Multidetector CT of the cervical spine was performed without the use of intravenous contrast. IV contrast: None. A dose lowering technique was used consistent with the principles of ALARA (as low as reasonably achievable). COMPARISON: Plain radiographs from 2010. CT DOSE (mGy.cm): The estimated cumulative dose is 1055.69 mGy.cm. FINDINGS: Big Data Hadoop Developer topogram: Unremarkable. Straightening of normal cervical lordosis. Vertebral bodies maintain normal height and alignment. Diffuse intervertebral disc height loss secondary to the presence of disc osteophyte complexes at nearly every level. Multilevel osseous neural foraminal narrowing noted. Mild posterior bony spurring also noted at nearly every level to varying degrees. No acute fracture or subluxation. Degenerative changes of the atlantoaxial articulation. IMPRESSION: 1. No acute osseous injury of the cervical spine. 2. Multilevel degenerative changes. Electronically signed by: Kulwant Bledsoe M.D. 11/27/2017 3:55 PM Dictated Date/Time: 11/27/2017 3:52 PM
[2017-11-27] MEDS ORDERED: CALCIUM GLUCONATE 10% 2,000 MG in SODIUM CHLORIDE 0.9% 50ML 50 ML IV SCH (16:14)
[2017-11-27] MEDS ORDERED: CALCIUM GLUCONATE 10% 10 ML VIAL IV STA (16:14)
[2017-11-27 16:20] LABS: ISTAT CREATININE 5.8 mg/dl (0.6-1.3); ISTAT IONIZED CALCIUM 1.14 mmol/l (1.12-1.32); ISTAT POTASSIUM 6.8 mEq/L (3.3-5.0); ISTAT SODIUM 123 mEq/L (135-144)
[2017-11-27] MEDS ORDERED: VANCOMYCIN 1GM ED/ASU OMNICELL IV STA (16:21)
[2017-11-27] MEDS ORDERED: PIPERACILLIN/TAZOBACTAM 3.375 GM/100ML D5W IV STA (16:21)
[2017-11-27 16:23] LABS: INFLUENZA B ANTIGEN Neg for Influ B (NEG)
[2017-11-27 16:26] LABS: HEMATOCRIT 44.8 % (42-52); HEMOGLOBIN 16.3 g/dL (14.0-18.0); MEAN CELL VOLUME 84.4 fL (80-100); MEAN CORPUSCULAR HEMOGLOBIN 30.7 pg (25-34); MEAN CORPUSCULAR HGB CONC 36.4 g/dl (32-36); MEAN PLATELET VOLUME 10.9 fL (7.4-10.4); PLATELET COUNT 271 K/uL (130-400); RED CELL DISTRIBUTION WIDTH SD 38.9 fL (36.4-46.3); WHITE BLOOD COUNT 24.12 K/uL (4.8-10.8)
--- NOTE | 2017-11-27 16:48 | DIAGNOSTIC IMAGING REPORT ---
CHEST ONE VIEW PORTABLE CLINICAL HISTORY: 82 years-old Male presenting with Evaluate Fever/Sepsis. TECHNIQUE: Portable upright AP view of the chest was obtained. COMPARISON: 11/11/2016. FINDINGS: Atherosclerosis of the aortic arch. Cardiac silhouette normal in size. Lungs and pleural spaces clear. Degenerative changes of the thoracic spine. Degenerative changes of the right acromioclavicular joint. Upper abdomen normal. IMPRESSION: 1. No acute cardiopulmonary disease. Electronically signed by: Kulwant Bledsoe M.D. 11/27/2017 4:47 PM Dictated Date/Time: 11/27/2017 4:46 PM
[2017-11-27 17:03] LABS: ALBUMIN 3.7 gm/dl (3.4-5.0); BASO % 0.1 %; BASO ABS # 0.02 K/uL (0-0.2); CALCIUM 9.4 mg/dl (8.5-10.1); CREATININE 5.5 mg/dl (0.60-1.40); EOS ABS # 0.01 K/uL (0-0.5); IG# 0.13 K/uL (0.00-0.02); LYMPH % 6.1 %; LYMPH ABS # 1.47 K/uL (1.2-3.4); MONO % 4.1 %; MONO ABS # 0.99 K/uL (0.11-0.59); NEUT % 89.2 %; PHOSPHORUS 8.5 mg/dl (2.5-4.9); POTASSIUM 6.7 mmol/L (3.5-5.1); TOTAL PROTEIN 8.5 gm/dl (6.4-8.2)
--- NOTE | 2017-11-27 17:14 | DIAGNOSTIC IMAGING REPORT ---
(CHEST) THORAX WITHOUT CLINICAL HISTORY: 82 years-old Male presenting with sepsis/syncope. TECHNIQUE: Multidetector CT imaging of the chest was performed without the use of intravenous contrast. IV contrast: None. A dose lowering technique was used consistent with the principles of ALARA (as low as reasonably achievable). COMPARISON: Chest x-ray performed earlier the same day. CT DOSE (mGy.cm): The estimated cumulative dose is 670.41. FINDINGS: Auto Camp Attendant topogram: Cachexia. On soft tissue windows, normal thyroid and thoracic inlet. No axillary, supraclavicular, or mediastinal lymphadenopathy. Evaluation of the tiffanie limited without intravenous contrast. Atherosclerosis of the aorta. Normal heart size. Coronary artery calcification. No pericardial or pleural effusion. Upper abdomen normal. On lung windows, minimal dependent changes likely atelectasis. No other focal nodule or infiltrate. Airways patent. On bone windows, degenerative changes of the spine. IMPRESSION: 1. No acute intrathoracic pathology. Electronically signed by: Kulwant Bledsoe M.D. 11/27/2017 5:13 PM Dictated Date/Time: 11/27/2017 5:10 PM
--- NOTE | 2017-11-27 17:21 | DIAGNOSTIC IMAGING REPORT ---
ABD/PELVIS NO IV OR ORAL CONT CLINICAL HISTORY: 82 years-old Male presenting with urosepsis,right hip, RLQ pain, found down. TECHNIQUE: Multidetector CT of the abdomen and pelvis was performed without the use of intravenous contrast. IV contrast: None. A dose lowering technique was used consistent with the principles of ALARA (as low as reasonably achievable). COMPARISON: 11/12/2016. CT DOSE (mGy.cm): The estimated cumulative dose is 670.41 mGy.cm. FINDINGS: Group Billing Coordinator topogram: Cachexia. Lung bases: Minimal basilar opacities, likely atelectasis. Normal heart size. Coronary artery calcification. No pericardial or pleural effusion. Liver: Normal morphology. Normal density. Subcentimeter hypodensity at the inferior right hepatic lobe, indeterminate but likely hepatic cyst or hamartoma. Biliary: No gross biliary ductal dilatation allowing for noncontrast technique. Gallbladder contains gallstones. The gallbladder is physiologically distended. Pancreas: Normal noncontrast appearance. Spleen: Normal noncontrast appearance. Adrenal glands: Normal noncontrast appearance. Kidneys and ureters: The left kidney is surgically absent. Interval decrease in right perinephric fat infiltration and decreased right pelvocaliectasis. Persistent urothelial thickening. The right ureter is only mildly dilated. Bladder: Polypoid intraluminal mass may be the exophytic median lobe hypertrophy of the prostate. Significant circumferential bladder wall thickening likely indicating chronic outlet obstruction. Pelvic organs: Prostate enlargement likely secondary to benign prostatic hyperplasia. Bowel: Diverticulosis of the sigmoid colon. Scattered diverticula elsewhere in the colon. No bowel obstruction. Peritoneal cavity: No free fluid or intraperitoneal gas. Lymph nodes: No gross lymphadenopathy allowing for noncontrast technique. Vasculature: Atherosclerosis of the normal caliber abdominal aorta. Abdominal wall: Cachexia. Musculoskeletal: Degenerative changes of the spine. Degenerative changes of the sacral iliac joints and hips. IMPRESSION: 1. No acute intra-abdominal pathology. 2. Interval resolution of right hydroureteronephrosis. Persistent right urothelial thickening may indicate acute or chronic infection or or chronic inflammation such as secondary to reflux. 3. Significant circumferential bladder wall thickening may be due to chronic bladder outlet obstruction. Underlying neoplasm is difficult to exclude. The apparent intraluminal mass likely represents median lobe hypertrophy of the prostate. 4. Prostatomegaly. 5. Diverticulosis. 6. Cholelithiasis. 7. Cachexia. Electronically signed by: Kulwant Bledsoe M.D. 11/27/2017 5:20 PM Dictated Date/Time: 11/27/2017 5:13 PM
[2017-11-27] MEDS ORDERED: INSULIN HUMAN REGULAR PER UNIT 10 UNITS in SYRINGE 9.9 ML IV STA (17:41)
[2017-11-27] MEDS ORDERED: SODIUM POLYST. SULF SUSP 15G/60ML PO STA (17:41)
[2017-11-27] MEDS ORDERED: DEXTROSE 50% 50 ML SYR IV STA (17:41)
[2017-11-27] MEDS: SODIUM CHLORIDE 0.9% 1000ML 1,000 ML IV SCH (18:27)
[2017-11-27] MEDS ORDERED: SODIUM CHLORIDE 0.9% 1000ML 500 ML IV ONE (18:27)
[2017-11-27] MEDS ORDERED: ICU PROTOCOL FOR HYPERGLYCEMIA PRN (18:30)
[2017-11-27] MEDS ORDERED: ALUMINUM/MAGNESIUM/SIMETH (MAALOX MAX) 30 ML UDC PO PRN (18:30)
[2017-11-27] MEDS ORDERED: ACETAMINOPHEN 325 MG TAB PO PRN (18:30)
[2017-11-27] MEDS ORDERED: ONDANSETRON INJ 2 MG/ML 2 ML VIAL IV PRN (18:30)
[2017-11-27] MEDS ORDERED: PIPERACILL/TAZOBAC CONSULT ACTIVE PRN (18:30)
[2017-11-27] MEDS ORDERED: MoRPHine SULFATE 2 MG/ML CARP IV PRN (18:30)
[2017-11-27] MEDS ORDERED: NovoLIN-R INSULIN PER UNIT CHARGE ONE (18:54)
--- NOTE | 2017-11-27 19:11 | History and Physical ---
History & Physical Date of Service Nov 27, 2017. History & Physical sepsis, UTI, acute kidney failure, hyperkalemia, acidosis, [id number]
[2017-11-27 20:05] LABS: HEMATOCRIT 38.1 % (42-52); HEMOGLOBIN 13.6 g/dL (14.0-18.0); MEAN CELL VOLUME 84.1 fL (80-100); MEAN CORPUSCULAR HGB CONC 35.7 g/dl (32-36); MEAN PLATELET VOLUME 10.4 fL (7.4-10.4); PLATELET COUNT 239 K/uL (130-400); RED CELL DISTRIBUTION WIDTH SD 39.4 fL (36.4-46.3); WHITE BLOOD COUNT 18.27 K/uL (4.8-10.8)
[2017-11-27 20:32] LABS: IG# 0.05 K/uL (0.00-0.02); LYMPH % 3.7 %; LYMPH ABS # 0.67 K/uL (1.2-3.4); MONO % 2.5 %; MONO ABS # 0.46 K/uL (0.11-0.59); NEUT % 93.5 %; NEUT ABS # 17.09 K/uL (1.4-6.5)
[2017-11-27 20:42] LABS: CALCIUM 8.9 mg/dl (8.5-10.1); CKMB 8.9 ng/ml (0.5-3.6); CREATININE 4.54 mg/dl (0.60-1.40); POTASSIUM 5.6 mmol/L (3.5-5.1)
[2017-11-27 20:43] LABS: PHOSPHORUS 5.4 mg/dl (2.5-4.9)
[2017-11-27] MEDS ORDERED: INFLUENZA ADMINISTRATION CHARGE ONE (21:00)
[2017-11-27] MEDS ORDERED: INFLUENZA VACCINE HIGH DOSE 65+ 0.5 ML SYR IM. ONE (21:00)
[2017-11-27] MEDS ORDERED: PNEUMOCOCCAL ADMINISTRATION CHARGE ONE (21:00)
[2017-11-27] MEDS: INSULIN ASPART 100 UNITS/ML 3 ML PEN SC SCH (21:00)
[2017-11-27] MEDS ORDERED: PNEUMOCOCCAL POLYSACCHARIDES 25 MCG/0.5 ML VIAL/SYR IM. ONE (21:00)
[2017-11-27] MEDS ORDERED: VANCOMYCIN CONSULT ACTIVE PRN (21:27)
[2017-11-27] MEDS ORDERED: GLUCOSE 40% GEL 15 GM TUBE PO PRN (21:30)
[2017-11-27] MEDS ORDERED: GLUCAGON FOR INJ 1 MG VIAL SQ PRN (21:30)
[2017-11-27] MEDS ORDERED: DEXTROSE 50% 50 ML SYR IV PRN (21:30)
[2017-11-27] MEDS ORDERED: GLUCOSE 10 TABS/TUBE PO PRN (21:30)
[2017-11-27] MEDS: HEPARIN SOD 5000 UNIT/0.5 ML CARP SQ SCH (22:30)
--- NOTE | 2017-11-27 22:52 | Progress Note ---
Progress Note Date of Service Nov 27, 2017. Progress Note Contacted regarding slightly elevated troponin. Most likely secondary to arrhythmia. On chart review of PCP the following was documented: "He has a history of repeated closed head trauma and underwent craniotomy in the past at [facility]. Chronic cognitive difficulty. EEG was unremarkable. 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 CT scan in hospital 10/05/2016 unchanged. Carotid Doppler study February 2014 unremarkable. He had cardiology evaluation with Dr. Guadarrama March 2014. Event recorder was done which showed several short episodes of possible atrial fibrillation versus paroxysmal atrial tachycardia.. Anticoagulation was not recommended." - EKG repeat, defer full anticoag with heparin drip at this time and reassess need with upcoming troponin
[2017-11-27 23:42] LABS: CALCIUM 8.6 mg/dl (8.5-10.1); CREATININE 4.24 mg/dl (0.60-1.40); POTASSIUM 5.2 mmol/L (3.5-5.1)
[2017-11-27 23:51] LABS: HEMATOCRIT 37.9 % (42-52); HEMOGLOBIN 13.5 g/dL (14.0-18.0)
[2017-11-28] VITALS (22 sets, daily range): BP systolic 86–111; BP diastolic 43–65; PULSE 49–73; TEMP 36.6–36.7; O2SAT 95–100; Ht 165.1 cm; Wt 56.0 kg
[2017-11-28] MEDS: SODIUM CHLORIDE 0.9% 1000ML 1,000 ML IV SCH ×4 (00:11→17:37)
[2017-11-28] MEDS: PIPERACILL/TAZOBAC IV 3.375 GM in DEXTROSE 5% 100ML 100 ML IV SCH ×2 (02:07→14:23)
[2017-11-28 03:22] LABS: CKMB 8.7 ng/ml (0.5-3.6)
[2017-11-28 05:33] LABS: ALBUMIN 2.6 gm/dl (3.4-5.0); CALCIUM 8.2 mg/dl (8.5-10.1); CREATININE 3.67 mg/dl (0.60-1.40); POTASSIUM 4.7 mmol/L (3.5-5.1)
[2017-11-28 05:39] LABS: PHOSPHORUS 5.4 mg/dl (2.5-4.9)
[2017-11-28 05:51] LABS: BASO % 0.1 %; BASO ABS # 0.01 K/uL (0-0.2); EOS % 0.2 %; EOS ABS # 0.03 K/uL (0-0.5); HEMATOCRIT 35.1 % (42-52); HEMOGLOBIN 12.4 g/dL (14.0-18.0); IG# 0.03 K/uL (0.00-0.02); LYMPH ABS # 2.06 K/uL (1.2-3.4); MEAN CORPUSCULAR HGB CONC 35.3 g/dl (32-36); MONO % 6.4 %; MONO ABS # 0.83 K/uL (0.11-0.59); NEUT % 77.1 %; NEUT ABS # 9.92 K/uL (1.4-6.5); PLATELET COUNT 233 K/uL (130-400); WHITE BLOOD COUNT 12.88 K/uL (4.8-10.8)
[2017-11-28] MEDS: INSULIN ASPART 100 UNITS/ML 3 ML PEN SC SCH ×4 (07:24→21:00)
--- NOTE | 2017-11-28 08:11 | HISTORY & PHYSICAL EXAMINATION ---
DATE OF ADMISSION: 11/27/2017 This is level 3 inpatient admission, 35 minutes. CHIEF COMPLAINT: Fall, generalized weakness, was found to have urosepsis, acute kidney failure and severe hypokalemia. HISTORY OF PRESENT ILLNESS: The patient is an 82-year-old white male with significant past medical history of kidney failure, prostate cancer, bladder outlet obstruction, deconditioning, UTI, was sent to the hospital Emergency Department because of the above chief complaint. Medical information was obtained from ED physician, the patient/family and medical record. He was sent to hospital Emergency Room by EMS because of sudden occurred fall prior to arrival to the hospital. When I interviewed the patient, the patient's and family were at bedside. Reportedly, he was found in the apartment on bathroom floor by his . was taking a nap. Patient and both are poor historian. When EMS arrived to the apartment, the patient was hypotensive and tachycardic which was sinus tachycardia. The patient reported he does not know how he got on the floor. He was reporting no pain, nothing bothering him. reported he had a Flores catheter inserted a few weeks ago. The patient has been getting sick and generally weak for about 1 week or 10 days. In the Emergency Room, he was found has hypotensive, tachycardic, urosepsis, acute kidney failure, hyperkalemia. ED physician treated by giving Zosyn, IV fluid, calcium gluconate, Kayexalate and insulin. When I interviewed the patient, he confirmed the above information, did not hit anywhere, reported generalized weakness and decreased appetite. He was shivering and shaking because of cold. Denied facial droop, slurry speech or local weakness. Denied cough, sputum, shortness of breath, palpitations. Denied wheezing. Denied chest pain or lower extremity swelling. Recently had abdominal pain but currently has no pain. Reported dysuria, has Flores catheter and using diaper. Denies skin rashes or open wound. Lower extremities, no swelling. PAST MEDICAL HISTORY: Like I mentioned above which include metabolic encephalopathy secondary to sepsis, recurrent UTI, prostate cancer, bladder outlet obstruction, sepsis, kidney failure. ALLERGIES: ALLERGIC TO FINASTERIDE, GABAPENTIN, IV DYE, LEVAQUIN, BACTRIM, TAMSULOSIN, TRAMADOL. FAMILY HISTORY: Includes cancer, diabetes and heart disease. SOCIAL HISTORY: Never smoked. Denied alcohol abuse disorder, denied illicit drug abuse. The patient is and lives with family. MEDICATIONS: Taking at home include vitamin D3 two tabs p.o. daily, nutritional supplementation 1-2 cans daily, Tylenol 1000 mg p.o. b.i.d. p.r.n. for pain or fever. PHYSICAL EXAMINATION: VITAL SIGNS: Temperature 35.7 upon arriving, heart rate was 144 upon arriving, currently is 89 beats per minute, respiratory rate was 20, blood pressure was 93/64 upon arriving, currently is 121/64, pulse ox was 98% on room air. GENERAL: The patient was awake, alert, lethargic,chronic ill and cachectic appearing, fatigued. HEAD: Normocephalic, atraumatic. EYES: Pupils equal, round, responding to light. Sclerae nonicteric. EARS: Normal. NOSE: Normal. MOUTH: The patient has poor dentition. NECK: Supple. Thyroid, no enlargement. No limited range of motion. No JVD. LUNGS: Decreased breathing sounds. There is no wheezing, rhonchi or crackles. HEART: Regular rhythm, S1, S2. No murmurs. ABDOMEN: Soft, nontender. Flores in place with mild pink urine. RECTAL: Deferred. BACK: Bilateral CVA nontender. CHEST WALL: No tenderness. EXTREMITIES: Upper and lower extremities and joints have no limited range of motion. Calf is nontender. There is no clubbing, no cyanosis in the toes. NEUROLOGICAL: There is no facial droop. Moving upper and lower extremities. MUSCULOSKELETAL: Muscle strength is normal. SKIN: Has no rashes or open wound. IMAGING STUDIES: Head CT was done in the Emergency Room, there was no acute disease. Chest x-ray, no acute cardiopulmonary disease. Cervical spine, no acute osseous injuries of the cervical spine. Chest CT studies, no acute intrathoracic pathologies. Abdominopelvic CT studies, there were no acute pathologies. There was interval resolve of right hydroureteronephrosis. There was persistent right urothelial thickening. Significant circumferential bladder wall thickening. There was prostatomegaly and diverticulosis. LABORATORY STUDIES: WBC 24, hemoglobin 16, platelet 271. Sodium 121, potassium 6.7, BUN 180, creatinine 5.5, blood glucose 203. Influenzae A and B were negative. ASSESSMENT AND PLAN: An 82-year-old white male with conditions as below: 1. Urinary tract infection, urosepsis, septic, possible pending septic shock. 2. Acute kidney failure, hyperkalemia, hyponatremia. 3. Severe leukocytosis, possibly from sepsis. 4. Hyperglycemia. 5. Possible falls. He has no obvious injuries. 6. Metabolic acidosis, possibly from acute kidney failure. 7. hx of bladder outlet obstruction possible from prostate cancer, urosepsis, acute kidney failure last year, was transferred to [facility] for nephrostomy placement 8. Possible new onset of Afib PLAN: The patient is in critical condition which is sepsis pending septic shock, acute kidney failure likely because of sepsis and severe dehydration. reported the patient only eating baby food and sipping hall. The patient has acute kidney failure likely because of volume depletion, plus post renal conditions such as bladder outlet obstruction. and the hyperkalemia, hyponatremia and metabolic acidosis were secondary to acute kidney failure and sepsis. His critical situation discussed with ED physician and powerhouse helper, will have ICU admission. ED physician has started antibiotic and IV fluid. We will continue IV fluid, check lactase levels, continue antibiotic with Zosyn because of infectious source likely from UTI and urosepsis. I will add vancomycin because we are not sure what kind of infection and I want to have broad-spectrum antibiotic coverage. Check labs stat including BMP, CBC, magnesium and phosphorus. We will treat for hyperkalemia if potassium is still high. Per information from the ED physician, EKG initially showing AFib with heart rate 156 beats per minute which has been improved to 74 beats per minute, currently still in AFib. The patient has no history of AFib. Will need continued followup. In the past, the patient was seen almost in a similar situation 1 year ago and he was transferred to [facility] for nephrostomy placement at that time. At the same time, therefore I request both and renal consults. Gastrointestinal prophylaxis will be by Protonix. Deep venous thrombosis prophylaxis will be by heparin. Discussed with the patient and family about the condition and care plan. I answered all their questions. is at the bedside, wants to have him in full code. [facility]
[2017-11-28] MEDS ORDERED: VANCOMYCIN IV 750 MG in SODIUM CHLORIDE 0.9% 250ML 250 ML IV ONE (09:00)
--- NOTE | 2017-11-28 10:00 | ECHOCARDIOGRAM REPORT ---
*NOTICE TO RECEIVING [employer] This information is strictly Confidential and protected under [place] law. [place] law prohibits you from making any further disclosure of this information unless further disclosure is expressly permitted by the written consent of the person to whom it pertains or is authorized by law. A general authorization for the release of medical or other information is not sufficient for this purpose. Hospital accepts no responsibility if the information is made available to any other person, INCLUDING THE PATIENT. Interpretation Summary * Name: MANASA DIXON Study Date: 11/28/2017 06:37 AM BP: 93/43 mmHg * Patient Location: .MSICU\S\E103\S\1 HR: 62 * : 1935 (M/d/yyyy) Gender: Male Height: 62 in * Age: 82 yrs Ethnicity: CA Weight: 113 lb * Ordering Physician: Antione Cruz * Performed By: Sandra Worthington RDCS * * Reason For Study: Sepsis * BSA: 1.5 m2 * -- Conclusions -- * The left ventricle is normal in size. * There is normal left ventricular wall thickness. * Ejection Fraction = 60-65%. * Left ventricular systolic function is normal. * The left ventricular wall motion is normal. * The right ventricle is normal in size and function. * The right ventricular systolic function is normal as assessed by tricuspid annular plane systolic excursion (TAPSE) (normal >1.5 cm). * Grade I diastolic dysfunction, (abnormal relaxation pattern). Procedure Details * A complete two-dimensional transthoracic echocardiogram was performed (2D, M-mode, Doppler and color flow Doppler). Left Ventricle * The left ventricle is normal in size. * There is normal left ventricular wall thickness. * Ejection Fraction = 60-65%. * Left ventricular systolic function is normal. * The left ventricular wall motion is normal. Right Ventricle * The right ventricle is normal in size and function. * The right ventricular systolic function is normal as assessed by tricuspid annular plane systolic excursion (TAPSE) (normal >1.5 cm). Atria * The left atrial size is normal. * Right atrial size is normal. Mitral Valve * The mitral valve is grossly normal. * There is no mitral regurgitation noted. Tricuspid Valve * The tricuspid valve is not well visualized, but is grossly normal. * No tricuspid regurgitation. Aortic Valve * The aortic valve is trileaflet. * No aortic regurgitation is present. Pulmonic Valve * The pulmonic valve is not well seen, but is grossly normal. Great Vessels * The aortic root is normal size. Pericardium/Pleural * There is no pericardial effusion. Great Vessels * Normal inferior vena cava diameter and respiratory variation suggests normal central venous pressure. Left Ventricular Diastolic Function * Grade I diastolic dysfunction, (abnormal relaxation pattern). MMode 2D Measurements and Calculations IVSd 1.1 cm IVSs 1.2 cm LVIDd 3.5 cm LVIDs 2.3 cm LVPWd 1.1 cm LVPWs 1.4 cm IVS/LVPW 0.92 FS 32.8 % EDV(Teich) 49.8 ml ESV(Teich) 18.7 ml EF(Teich) 62.4 % EDV(cubed) 41.8 ml ESV(cubed) 12.7 ml EF(cubed) 69.7 % % IVS thick 14.5 % % LVPW thick 18.4 % LV mass(C)d 117.7 grams LV mass(C)dI 78.5 grams/m\S\2 LV mass(C)s 87.8 grams LV mass(C)sI 58.5 grams/m\S\2 SV(Teich) 31.1 ml SI(Teich) 20.7 ml/m\S\2 SV(cubed) 29.1 ml SI(cubed) 19.4 ml/m\S\2 Ao root diam 3.2 cm Ao root area 7.9 cm\S\2 ACS 1.6 cm LA dimension 2.0 cm LA/Ao 0.64 LVAd ap4 19.6 cm\S\2 LVLd ap4 6.9 cm EDV(MOD-sp4) 49.9 ml EDV(sp4-el) 47.2 ml LVAs ap4 9.4 cm\S\2 LVLs ap4 5.0 cm ESV(MOD-sp4) 15.4 ml ESV(sp4-el) 15.0 ml EF(MOD-sp4) 69.2 % EF(sp4-el) 68.3 % LVAd ap2 22.8 cm\S\2 LVLd ap2 7.4 cm EDV(MOD-sp2) 62.8 ml EDV(sp2-el) 59.7 ml LVAs ap2 10.5 cm\S\2 LVLs ap2 5.7 cm ESV(MOD-sp2) 16.9 ml ESV(sp2-el) 16.2 ml EF(MOD-sp2) 73.1 % EF(sp2-el) 72.8 % LVLd %diff 6.3 % EDV(MOD-bp) 57.9 ml LVLs %diff 12.9 % ESV(MOD-bp) 17.2 ml EF(MOD-bp) 70.2 % SV(MOD-sp4) 34.5 ml SI(MOD-sp4) 23.0 ml/m\S\2 SV(MOD-sp2) 45.9 ml SI(MOD-sp2) 30.6 ml/m\S\2 SV(MOD-bp) 40.7 ml SI(MOD-bp) 27.1 ml/m\S\2 SV(sp4-el) 32.2 ml SI(sp4-el) 21.5 ml/m\S\2 SV(sp2-el) 43.4 ml SI(sp2-el) 29.0 ml/m\S\2 Doppler Measurements and Calculations MV E max brennon 75.0 cm/sec MV A max brennon 104.1 cm/sec MV E/A 0.72 MV dec time 0.29 sec Ao V2 max 126.8 cm/sec Ao max PG 6.4 mmHg Ao max PG (full) 0.70 mmHg LV V1 max PG 5.7 mmHg LV V1 max 119.7 cm/sec PA V2 max 126.0 cm/sec PA max PG 6.3 mmHg
[2017-11-28] MEDS: HEPARIN SOD 5000 UNIT/0.5 ML CARP SQ SCH ×2 (11:10→22:37)
[2017-11-28] MEDS: PANTOprazole INJ 40 MG in SYRINGE 0 ML IV SCH (11:11)
--- NOTE | 2017-11-28 11:48 | Nephrology Consultation ---
Nephrology Consultation Date & Providers Date of Consultation: Nov 28, 2017. Primary Care Provider: No Doctor, Assigned Referring Provider: Reason for Consultation Evaluation management for acute kidney injury. History of Present Illness Mr. Guevara is a 82-year-old gentlemen with past medical history significant for hypertension, stage 3 chronic kidney disease, solitary right kidney, history of prostate cancer presented to the hospital with an episode fall at home, urosepsis and acute kidney injury. Electronic medical records including labs and imaging are reviewed in detail during patient's visit. Family was at bedside during the visit. Mr. Guevara was brought to the hospital yesterday by EMS after he was found by his lying at bathroom floor. Patient does not recall what happened prior to that and he was not sure why he was on the floor. By the time EMS arrived he was otherwise awake and alert and asymptomatic. He ahs not been eating for last almost 8 days, as per family. His was brought to the emergency room for further evaluation. Lab in ER showed acute kidney injury, creatinine was 5.6, BUN 180 and had other electrolyte abnormality including metabolic acidosis and he was found to be volume depleted and hypotensive. Was started with IV hydration. Renal function started to improve, creatinine came down to 3.8 this morning. Has been voiding normally. Currently electrolyte improved. Blood pressure electively soft but asymptomatic. Was started on vancomycin Zosyn empirically. Has history of stage 3 chronic kidney disease baseline creatinine has been 1.4- 1.5. He had congenital left atrophic kidney and at age 33 he had pyelonephritis of left kidney and had left nephrectomy. Since then his renal function has been stable and creatinine was around 1.4-1.5. In Oct 2016 he was found to have right-sided hydronephrosis and prostate cancer. Was transferred to [facility] from [facility] for perc nephrostomy and further evaluation. Recently he had several episodes of acute kidney injury in August 2017 when creatinine peaked to > 5 which eventually improved and stayed around 1.9. He had a indwelling Flores catheter however he took it out by himself few weeks ago. On admission CT abdomen pelvis was negative for postrenal obstruction. He previously was treated for prostate ca. He has been loosing weight over last few months. His hypertension, seems to be well controlled. No history of coronary artery disease. Allergies Coded Allergies: Finasteride (Verified Allergy, Unknown, GYNOCOMASTIA, 11/11/16) FROM [facility] Gabapentin (Verified Allergy, Unknown, UNKNOWN, 11/11/16) [facility] Levofloxacin (Verified Allergy, Unknown, SWELLINNG, 11/11/16) INFO FORM [facility] Sulfamethoxazole w/Trimethoprim (Verified Allergy, Unknown, SWELLING, 11/11) Tamsulosin (Verified Allergy, Unknown, GYNOCOMASTIA, 11/11/16) [facility] Tramadol (Verified Allergy, Unknown, PURITIS, 11/11/16) [facility] Uncoded Allergies: IV DYE (Allergy, Unknown, [facility], 11/11/16) Inpatient Medications Current Inpatient Medications Medications (Trade) Dose Ordered Sig/Naima Route Start Time Stop Time Status Last Admin Dose Admin Heparin Sodium (Porcine) (Heparin Sq 5000 Unit/0.5ml) 5,000 unit Q12H SQ 11/27/17 22:00 12/27/17 21:59 11/27/17 22:30 5,000 UNIT Sodium Chloride 1,000 ml @ 200 mls/hr Q5H IV 11/27/17 18:27 12/27/17 18:26 11/28/17 04:46 200 MLS/HR Acetaminophen (Tylenol Tab) 650 mg Q4H PRN PO 11/27/17 18:30 12/27/17 18:29 Al Hydrox/Mg Hydrox/Simethicone (Maalox Max Susp) 15 ml Q4H PRN PO 11/27/17 18:30 12/27/17 18:29 Ondansetron HCl (Zofran Inj) 4 mg Q6H PRN IV 11/27/17 18:30 12/27/17 18:29 Pantoprazole Sodium 40 mg/ Syringe 10 ml @ 5 mls/min DAILY@1100 IV 11/28/17 11:00 12/01/17 11:01 Morphine Sulfate (MoRPHine SULFATE INJ) 2 mg Q2H PRN IV 11/27/17 18:30 12/11/17 18:29 11/27/17 22:09 2 MG Miscellaneous Information (Icu Protocol For Hyperglycemia) 1 ea PRN PRN N/A 11/27/17 18:30 11/29/17 18:29 Piperacillin Sod/ Tazobactam Sod 3.375 gm/Dextrose 115 ml @ 28.75 mls/ hr Q12H IV 11/28/17 02:00 12/08/17 01:59 11/28/17 02:07 28.75 MLS/HR Miscellaneous Information (Consult) 1 ea UD PRN N/A 11/27/17 18:30 12/27/17 18:29 Insulin Aspart (novoLOG ASPART) SLIDING SCALE G... ACHS SC 11/27/17 21:00 12/27/17 20:59 Miscellaneous Information (Consult) 1 ea UD PRN N/A 11/27/17 21:27 12/27/17 21:26 Glucose (Glucose 40% Gel) 15-30 GRAMS 15 GRAMS... UD PRN PO 11/27/17 21:30 12/27/17 21:29 Glucose (Glucose Chew Tab) 4-8 Tablets 4 Tabl... UD PRN PO 11/27/17 21:30 12/27/17 21:29 Dextrose (Dextrose 50% 50ML Syringe) 25-50ML OF 50% DW IV FOR... UD PRN IV 11/27/17 21:30 12/27/17 21:29 Glucagon (Glucagon Inj) 1 mg UD PRN SQ 11/27/17 21:30 12/27/17 21:29 Vancomycin HCl 750 mg/Sodium Chloride 265 ml @ 125 mls/hr TODAY@0900 ONCE IV 11/28/17 09:00 11/28/17 11:07 11/28/17 09:02 125 MLS/HR Family History Cancer (prostate, laryngeal) Diabetes mellitus Heart disease Social History Smoking Status: Former Smoker Drug Use: none Marital Status: Housing Status: lives with family, lives with significant other Occupation: retired Review of Systems A complete review of systems was performed. Pertinent positives are noted above. All other systems are negative. Physical Exam Date Time Temp Pulse Resp B/P (MAP) Pulse Ox O2 Delivery O2 Flow Rate FiO2 11/28/17 08:00 36.7 69 25 107/56 (73) 98 11/28/17 08:00 Room Air 11/28/17 06:01 67 18 102/56 (71) 98 11/28/17 06:01 36.6 67 18 102/56 (71) 98 11/28/17 06:00 64 16 97 11/28/17 05:01 59 15 93/50 (64) 99 18 05:01 59 15 93/50 (64) 99 18 05:00 70 16 98 18 04:04 Room Air 11/28/17 04:01 62 13 93/43 (60) 99 18 04:01 62 13 93/43 (60) 99 18 04:00 60 14 98 11/28/17 03:01 73 14 94/51 (65) 98 11/28/17 03:01 73 14 94/51 (65) 98 18 03:00 70 15 95 11/28/17 02:02 62 10 89/49 (62) 98 11/28/17 02:02 62 10 89/49 (62) 98 11/28/17 02:00 61 17 100 11/28/17 01:02 63 16 86/56 (66) 100 11/28/17 01:02 63 16 86/56 (66) 100 11/28/17 01:00 70 15 98 11/28/17 00:23 Room Air 11/28/17 00:01 65 15 99/52 (68) 98 11/28/17 00:01 65 15 99/52 (68) 98 11/28/17 00:00 66 12 99 11/27/17 23:02 67 14 102/46 (64) 97 11/27/17 22:47 66 19 88/39 (55) 97 11/27/17 22:05 81 15 113/60 (77) 99 11/27/17 21:03 81 20 92/46 (61) 11/27/17 20:01 36.6 74 15 99/56 (70) 11/27/17 20:01 36.5 73 18 99/56 99 Room Air 11/27/17 19:35 83 16 113/63 (80) 11/27/17 19:02 82 19 112/59 (76) 11/27/17 19:02 81 18 112/59 95 11/27/17 18:02 68 20 121/60 100 Room Air 11/27/17 17:38 68 100 11/27/17 17:32 114/66 11/27/17 16:38 90 21 100 11/27/17 16:36 89 11/27/17 16:33 36.5 113 18 121/67 100 Room Air 11/27/17 16:19 83 19 100 11/27/17 16:14 104 18 115/74 100 Room Air 11/27/17 16:00 79 16 100 11/27/17 15:31 93/64 11/27/17 15:27 35.7 144 20 93/64 98 Room Air 11/27/17 15:05 142/107 GENERAL: Elderly male, AAA x 3, cachectic, ill-appearing, not in any distress. HEENT: Atraumatic, normocephalic. NECK: Supple, no JVD, no carotid bruit appreciated. ENT: No sinus tenderness MOUTH and THROAT: poor oral hygiene, broken teeth RESPIRATORY: Normal breathing efforts, no accessory muscle use, clear to auscultation bilaterally, no wheezes or rales. CARDIOVASCULAR: S1, S2 normal, rate rhythm regular. ABDOMEN: Soft, nontender, positive bowel sound. MUSCULOSKELETAL: No joint swelling, erythema or tenderness. Normal range of motion. muscle wasting. SKIN: No skin rash EXTREMITY: No lower extremity edema NEURO: No gross focal neurological deficit, speech fluent. PSYCHIATRY: Normal mood and judgment Laboratory Results Last 24 Hours Test 11/27/17 15:40 11/27/17 16:03 11/27/17 16:07 11/27/17 16:15 Influenza Type A Antigen Neg for Influ A Influenza Type B Antigen Neg for Influ B White Blood Count 24.12 K/uL Red Blood Count 5.31 M/uL Hemoglobin 16.3 g/dL Hematocrit 44.8 % Mean Corpuscular Volume 84.4 fL Mean Corpuscular Hemoglobin 30.7 pg Mean Corpuscular Hemoglobin Concent 36.4 g/dl Platelet Count 271 K/uL Mean Platelet Volume 10.9 fL Neutrophils (%) (Auto) 89.2 % Lymphocytes (%) (Auto) 6.1 % Monocytes (%) (Auto) 4.1 % Eosinophils (%) (Auto) 0.0 % Basophils (%) (Auto) 0.1 % Neutrophils # (Auto) 21.50 K/uL Lymphocytes # (Auto) 1.47 K/uL Monocytes # (Auto) 0.99 K/uL Eosinophils # (Auto) 0.01 K/uL Basophils # (Auto) 0.02 K/uL RDW Standard Deviation 38.9 fL RDW Coefficient of Variation 13.0 % Immature Granulocyte % (Auto) 0.5 % Immature Granulocyte # (Auto) 0.13 K/uL Hypersegmented Polys 1+ Prothrombin Time 10.3 SECONDS Prothromb Time International Ratio 1.0 Venous Blood pH 7.22 Venous Blood Partial Pressure CO2 46 mmHg Venous Blood Partial Pressure O2 28 mmHg Venous Blood HCO3 18 mmol/L Venous Blood Oxygen Saturation < 60.0 % Venous Blood Base Excess -9.4 mEq/L Sodium Level 121 mmol/L Potassium Level 6.7 mmol/L Chloride Level 88 mmol/L Carbon Dioxide Level 18 mmol/L Anion Gap 15.0 mmol/L 19.0 mmol/L Blood Urea Nitrogen 180 mg/dl Creatinine 5.50 mg/dl Est Creatinine Clear Calc Drug Dose 7.3 ml/min Estimated GFR () 10.2 Estimated GFR (Non- 8.8 BUN/Creatinine Ratio 33.0 Random Glucose 203 mg/dl Lactic Acid Level 4.3 mmol/L Calcium Level 9.4 mg/dl Phosphorus Level 8.5 mg/dl Magnesium Level 3.2 mg/dl Total Bilirubin 0.6 mg/dl Direct Bilirubin 0.1 mg/dl Aspartate Amino Transf (AST/SGOT) 29 U/L Alanine Aminotransferase (ALT/SGPT) 23 U/L Alkaline Phosphatase 79 U/L Total Creatine Kinase 319 U/L Troponin I 0.034 ng/ml Pro-B-Type Natriuretic Peptide 2057 pg/ml Total Protein 8.5 gm/dl Albumin 3.7 gm/dl Lipase 805 U/L Ethyl Alcohol mg/dL < 3.0 mg/dl Bedside Hemoglobin 16.7 g/dl Bedside Hematocrit 49 % Bedside Sodium 123 mEq/L Bedside Potassium 6.8 mEq/L Bedside Chloride 93 mEq/L Bedside Total CO2 19 mEq/l Bedside Blood Urea Nitrogen > 140 mg/dl Bedside Creatinine 5.8 mg/dl Bedside Glucose (other) 207 mg/dl Bedside Ionized Calcium (Zachary) 1.14 mmol/l Urine Color DK YELLOW Urine Appearance TURBID Urine pH 5.5 Urine Specific [place] 1.013 Urine Protein 3+ Urine Glucose (UA) NEG Urine Ketones TRACE Urine Occult Blood 3+ Urine Nitrite NEG Urine Bilirubin NEG Urine Urobilinogen NEG Urine Leukocyte Esterase LARGE Urine WBC (Auto) >30 /hpf Urine RBC (Auto) >30 /hpf Urine Hyaline Casts (Auto) /lpf Urine Epithelial Cells (Auto) >30 /lpf Urine Bacteria (Auto) 4+ Urine Pathogenic Casts /lpf Urine Yeast (Auto) Test 11/27/17 17:26 11/27/17 18:27 11/27/17 19:55 11/27/17 21:49 White Blood Count 18.27 K/uL Red Blood Count 4.53 M/uL Hemoglobin 13.6 g/dL Hematocrit 38.1 % Mean Corpuscular Volume 84.1 fL Mean Corpuscular Hemoglobin 30.0 pg Mean Corpuscular Hemoglobin Concent 35.7 g/dl Platelet Count 239 K/uL Mean Platelet Volume 10.4 fL Neutrophils (%) (Auto) 93.5 % Lymphocytes (%) (Auto) 3.7 % Monocytes (%) (Auto) 2.5 % Eosinophils (%) (Auto) 0.0 % Basophils (%) (Auto) 0.0 % Neutrophils # (Auto) 17.09 K/uL Lymphocytes # (Auto) 0.67 K/uL Monocytes # (Auto) 0.46 K/uL Eosinophils # (Auto) 0.00 K/uL Basophils # (Auto) 0.00 K/uL RDW Standard Deviation 39.4 fL RDW Coefficient of Variation 13.0 % Immature Granulocyte % (Auto) 0.3 % Immature Granulocyte # (Auto) 0.05 K/uL Hypersegmented Polys 1+ Creatine Kinase MB Ratio 2.6 Sodium Level 128 mmol/L Potassium Level 5.6 mmol/L Chloride Level 99 mmol/L Carbon Dioxide Level 18 mmol/L Anion Gap 11.0 mmol/L Blood Urea Nitrogen 154 mg/dl Creatinine 4.54 mg/dl Est Creatinine Clear Calc Drug Dose 8.6 ml/min Estimated GFR () 12.8 Estimated GFR (Non- 11.0 BUN/Creatinine Ratio 33.6 Random Glucose 104 mg/dl Lactic Acid Level 2.4 mmol/L Calcium Level 8.9 mg/dl Phosphorus Level 5.4 mg/dl Magnesium Level 2.8 mg/dl Total Creatine Kinase 347 U/L Creatine Kinase MB 8.9 ng/ml Troponin I 0.054 ng/ml Prostate Specific Antigen 7.310 ng/ml Bedside Glucose 73 mg/dl Test 11/27/17 22:56 11/27/17 23:42 11/28/17 00:04 11/28/17 02:50 Sodium Level 131 mmol/L Potassium Level 5.2 mmol/L Chloride Level 100 mmol/L Carbon Dioxide Level 17 mmol/L Anion Gap 14.0 mmol/L Blood Urea Nitrogen 153 mg/dl Creatinine 4.24 mg/dl Est Creatinine Clear Calc Drug Dose 9.2 ml/min Estimated GFR () 13.9 Estimated GFR (Non- 12.0 BUN/Creatinine Ratio 36.0 Random Glucose 44 mg/dl Calcium Level 8.6 mg/dl Hemoglobin 13.5 g/dL Hematocrit 37.9 % Bedside Glucose 82 mg/dl Total Creatine Kinase 337 U/L Creatine Kinase MB 8.7 ng/ml Creatine Kinase MB Ratio 2.6 Troponin I 0.051 ng/ml Test 11/28/17 04:50 11/28/17 06:23 White Blood Count 12.88 K/uL Red Blood Count 4.13 M/uL Hemoglobin 12.4 g/dL Hematocrit 35.1 % Mean Corpuscular Volume 85.0 fL Mean Corpuscular Hemoglobin 30.0 pg Mean Corpuscular Hemoglobin Concent 35.3 g/dl Platelet Count 233 K/uL Neutrophils (%) (Auto) 77.1 % Lymphocytes (%) (Auto) 16.0 % Monocytes (%) (Auto) 6.4 % Eosinophils (%) (Auto) 0.2 % Basophils (%) (Auto) 0.1 % Neutrophils # (Auto) 9.92 K/uL Lymphocytes # (Auto) 2.06 K/uL Monocytes # (Auto) 0.83 K/uL Eosinophils # (Auto) 0.03 K/uL Basophils # (Auto) 0.01 K/uL Immature Granulocyte % (Auto) 0.2 % Immature Granulocyte # (Auto) 0.03 K/uL Sodium Level 133 mmol/L Potassium Level 4.7 mmol/L Chloride Level 104 mmol/L Carbon Dioxide Level 20 mmol/L Anion Gap 9.0 mmol/L Blood Urea Nitrogen 140 mg/dl Creatinine 3.67 mg/dl Est Creatinine Clear Calc Drug Dose 10.6 ml/min Estimated GFR () 16.6 Estimated GFR (Non- 14.3 BUN/Creatinine Ratio 38.0 Random Glucose 93 mg/dl Calcium Level 8.2 mg/dl Phosphorus Level 5.4 mg/dl Magnesium Level 2.6 mg/dl Total Bilirubin 0.4 mg/dl Direct Bilirubin 0.2 mg/dl Aspartate Amino Transf (AST/SGOT) 31 U/L Alanine Aminotransferase (ALT/SGPT) 19 U/L Alkaline Phosphatase 55 U/L Pro-B-Type Natriuretic Peptide 1655 pg/ml Total Protein 6.0 gm/dl Albumin 2.6 gm/dl Lipase 396 U/L Procalcitonin 0.68 ng/ml Random Vancomycin Level 17.3 mcg/ml Bedside Glucose 108 mg/dl Impression (1) Renal failure, acute (2) Metabolic acidosis (3) Hypertension (4) Anemia (5) Altered mental status (6) Acute on chronic renal failure (7) sepsis, UTI, acute kidney failure, hyperkalemia, acidosis Mr. Guevara is a 82-year-old gentlemen admitted with acute kidney injury after he was found to have a fall at home. On admission he was found to be hypotensive and volume depleted. 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 Baseline stage III CKD creatinine 1.4-1.5. Had history of recurrent acute kidney injury over last 1 year, had hydronephrosis with prostate cancer treated , had nephrostomy and recently was having Flores catheter which patient removed himself. On admission creatinine was 5.6 which then started to improve creatinine of 3.6 this morning. Blood pressure soft but stable. He is continued on IV hydration , has been tolerating well. No history of coronary artery disease or CHF. Started on IV antibiotic empirically for possible urosepsis. Acute kidney injury most likely prerenal with volume depletion, currently renal function improving rapidly with IV hydration, remain non-oliguric. CT abdomen pelvis negative for postrenal obstruction. Recommendations --agree with continue on IV fluid, would decrease the rate to 75 and if blood pressure remained stable, p.o. intake adequate, IV fluid soon can be stopped --continue to hold antihypertensive medication to improve blood pressure --dose medications for GFR less than 30 --monitor bicarb if bicarb continues to be low will consider starting on sodium bicarbonate however as renal function started to improve, expect electrolyte abnormality to resolve --monitor intake and output Thank you for allowing me to participate in your patient's care. It was a pleasure to see Mr. Guevara
--- NOTE | 2017-11-28 12:24 | Urology Consultation ---
History General Date of Service: Nov 28, 2017. Primary Care Physician: No Doctor, Assigned History of Present Illness Patient is an 82-year-old white male admitted to the hospital with urinary tract infection/sepsis and acute kidney injury. He was admitted for a similar episode approximately 1 year ago. At that time he was transferred to another facility with interventional radiology for nephrostomy tube. That has since been removed. Apparently from the little history I can get he had a Flores catheter in which he pulled out himself since that time has been having trouble urinating although the patient is an extremely poor historian. His son also really notes no medical history about his dad. Currently he is not having any flank pain he does have a Flores catheter in now which is draining clear urine. Volume of urine seems adequate Laboratory Last 24 Hours Test 11/27/17 15:40 11/27/17 16:03 11/27/17 16:07 11/27/17 16:15 Influenza Type A Antigen Neg for Influ A Influenza Type B Antigen Neg for Influ B White Blood Count 24.12 K/uL Red Blood Count 5.31 M/uL Hemoglobin 16.3 g/dL Hematocrit 44.8 % Mean Corpuscular Volume 84.4 fL Mean Corpuscular Hemoglobin 30.7 pg Mean Corpuscular Hemoglobin Concent 36.4 g/dl Platelet Count 271 K/uL Mean Platelet Volume 10.9 fL Neutrophils (%) (Auto) 89.2 % Lymphocytes (%) (Auto) 6.1 % Monocytes (%) (Auto) 4.1 % Eosinophils (%) (Auto) 0.0 % Basophils (%) (Auto) 0.1 % Neutrophils # (Auto) 21.50 K/uL Lymphocytes # (Auto) 1.47 K/uL Monocytes # (Auto) 0.99 K/uL Eosinophils # (Auto) 0.01 K/uL Basophils # (Auto) 0.02 K/uL RDW Standard Deviation 38.9 fL RDW Coefficient of Variation 13.0 % Immature Granulocyte % (Auto) 0.5 % Immature Granulocyte # (Auto) 0.13 K/uL Hypersegmented Polys 1+ Prothrombin Time 10.3 SECONDS Prothromb Time International Ratio 1.0 Venous Blood pH 7.22 Venous Blood Partial Pressure CO2 46 mmHg Venous Blood Partial Pressure O2 28 mmHg Venous Blood HCO3 18 mmol/L Venous Blood Oxygen Saturation < 60.0 % Venous Blood Base Excess -9.4 mEq/L Sodium Level 121 mmol/L Potassium Level 6.7 mmol/L Chloride Level 88 mmol/L Carbon Dioxide Level 18 mmol/L Anion Gap 15.0 mmol/L 19.0 mmol/L Blood Urea Nitrogen 180 mg/dl Creatinine 5.50 mg/dl Est Creatinine Clear Calc Drug Dose 7.3 ml/min Estimated GFR () 10.2 Estimated GFR (Non- 8.8 BUN/Creatinine Ratio 33.0 Random Glucose 203 mg/dl Lactic Acid Level 4.3 mmol/L Calcium Level 9.4 mg/dl Phosphorus Level 8.5 mg/dl Magnesium Level 3.2 mg/dl Total Bilirubin 0.6 mg/dl Direct Bilirubin 0.1 mg/dl Aspartate Amino Transf (AST/SGOT) 29 U/L Alanine Aminotransferase (ALT/SGPT) 23 U/L Alkaline Phosphatase 79 U/L Total Creatine Kinase 319 U/L Troponin I 0.034 ng/ml Pro-B-Type Natriuretic Peptide 2057 pg/ml Total Protein 8.5 gm/dl Albumin 3.7 gm/dl Lipase 805 U/L Ethyl Alcohol mg/dL < 3.0 mg/dl Bedside Hemoglobin 16.7 g/dl Bedside Hematocrit 49 % Bedside Sodium 123 mEq/L Bedside Potassium 6.8 mEq/L Bedside Chloride 93 mEq/L Bedside Total CO2 19 mEq/l Bedside Blood Urea Nitrogen > 140 mg/dl Bedside Creatinine 5.8 mg/dl Bedside Glucose (other) 207 mg/dl Bedside Ionized Calcium (Zachary) 1.14 mmol/l Urine Color DK YELLOW Urine Appearance TURBID Urine pH 5.5 Urine Specific [place] 1.013 Urine Protein 3+ Urine Glucose (UA) NEG Urine Ketones TRACE Urine Occult Blood 3+ Urine Nitrite NEG Urine Bilirubin NEG Urine Urobilinogen NEG Urine Leukocyte Esterase LARGE Urine WBC (Auto) >30 /hpf Urine RBC (Auto) >30 /hpf Urine Hyaline Casts (Auto) /lpf Urine Epithelial Cells (Auto) >30 /lpf Urine Bacteria (Auto) 4+ Urine Pathogenic Casts /lpf Urine Yeast (Auto) Test 11/27/17 17:26 11/27/17 18:27 11/27/17 19:55 11/27/17 21:49 White Blood Count 18.27 K/uL Red Blood Count 4.53 M/uL Hemoglobin 13.6 g/dL Hematocrit 38.1 % Mean Corpuscular Volume 84.1 fL Mean Corpuscular Hemoglobin 30.0 pg Mean Corpuscular Hemoglobin Concent 35.7 g/dl Platelet Count 239 K/uL Mean Platelet Volume 10.4 fL Neutrophils (%) (Auto) 93.5 % Lymphocytes (%) (Auto) 3.7 % Monocytes (%) (Auto) 2.5 % Eosinophils (%) (Auto) 0.0 % Basophils (%) (Auto) 0.0 % Neutrophils # (Auto) 17.09 K/uL Lymphocytes # (Auto) 0.67 K/uL Monocytes # (Auto) 0.46 K/uL Eosinophils # (Auto) 0.00 K/uL Basophils # (Auto) 0.00 K/uL RDW Standard Deviation 39.4 fL RDW Coefficient of Variation 13.0 % Immature Granulocyte % (Auto) 0.3 % Immature Granulocyte # (Auto) 0.05 K/uL Hypersegmented Polys 1+ Creatine Kinase MB Ratio 2.6 Sodium Level 128 mmol/L Potassium Level 5.6 mmol/L Chloride Level 99 mmol/L Carbon Dioxide Level 18 mmol/L Anion Gap 11.0 mmol/L Blood Urea Nitrogen 154 mg/dl Creatinine 4.54 mg/dl Est Creatinine Clear Calc Drug Dose 8.6 ml/min Estimated GFR () 12.8 Estimated GFR (Non- 11.0 BUN/Creatinine Ratio 33.6 Random Glucose 104 mg/dl Lactic Acid Level 2.4 mmol/L Calcium Level 8.9 mg/dl Phosphorus Level 5.4 mg/dl Magnesium Level 2.8 mg/dl Total Creatine Kinase 347 U/L Creatine Kinase MB 8.9 ng/ml Troponin I 0.054 ng/ml Prostate Specific Antigen 7.310 ng/ml Bedside Glucose 73 mg/dl Test 11/27/17 22:56 11/27/17 23:42 11/28/17 00:04 11/28/17 02:50 Sodium Level 131 mmol/L Potassium Level 5.2 mmol/L Chloride Level 100 mmol/L Carbon Dioxide Level 17 mmol/L Anion Gap 14.0 mmol/L Blood Urea Nitrogen 153 mg/dl Creatinine 4.24 mg/dl Est Creatinine Clear Calc Drug Dose 9.2 ml/min Estimated GFR () 13.9 Estimated GFR (Non- 12.0 BUN/Creatinine Ratio 36.0 Random Glucose 44 mg/dl Calcium Level 8.6 mg/dl Hemoglobin 13.5 g/dL Hematocrit 37.9 % Bedside Glucose 82 mg/dl Total Creatine Kinase 337 U/L Creatine Kinase MB 8.7 ng/ml Creatine Kinase MB Ratio 2.6 Troponin I 0.051 ng/ml Test 11/28/17 04:50 11/28/17 06:23 11/28/17 10:27 White Blood Count 12.88 K/uL Red Blood Count 4.13 M/uL Hemoglobin 12.4 g/dL Hematocrit 35.1 % Mean Corpuscular Volume 85.0 fL Mean Corpuscular Hemoglobin 30.0 pg Mean Corpuscular Hemoglobin Concent 35.3 g/dl Platelet Count 233 K/uL Neutrophils (%) (Auto) 77.1 % Lymphocytes (%) (Auto) 16.0 % Monocytes (%) (Auto) 6.4 % Eosinophils (%) (Auto) 0.2 % Basophils (%) (Auto) 0.1 % Neutrophils # (Auto) 9.92 K/uL Lymphocytes # (Auto) 2.06 K/uL Monocytes # (Auto) 0.83 K/uL Eosinophils # (Auto) 0.03 K/uL Basophils # (Auto) 0.01 K/uL Immature Granulocyte % (Auto) 0.2 % Immature Granulocyte # (Auto) 0.03 K/uL Sodium Level 133 mmol/L Potassium Level 4.7 mmol/L Chloride Level 104 mmol/L Carbon Dioxide Level 20 mmol/L Anion Gap 9.0 mmol/L Blood Urea Nitrogen 140 mg/dl Creatinine 3.67 mg/dl Est Creatinine Clear Calc Drug Dose 10.6 ml/min Estimated GFR () 16.6 Estimated GFR (Non- 14.3 BUN/Creatinine Ratio 38.0 Random Glucose 93 mg/dl Calcium Level 8.2 mg/dl Phosphorus Level 5.4 mg/dl Magnesium Level 2.6 mg/dl Total Bilirubin 0.4 mg/dl Direct Bilirubin 0.2 mg/dl Aspartate Amino Transf (AST/SGOT) 31 U/L Alanine Aminotransferase (ALT/SGPT) 19 U/L Alkaline Phosphatase 55 U/L Pro-B-Type Natriuretic Peptide 1655 pg/ml Total Protein 6.0 gm/dl Albumin 2.6 gm/dl Lipase 396 U/L Procalcitonin 0.68 ng/ml Random Vancomycin Level 17.3 mcg/ml Bedside Glucose 108 mg/dl Creatine Kinase MB Ratio Problem List Medical Problems: (1) Dehydration Status: Acute (2) Kidney failure Status: Acute (3) Metabolic encephalopathy Status: Acute (4) Renal failure, acute Status: Acute (5) Sepsis Status: Acute (6) Sepsis Status: Acute Family History Cancer (prostate, laryngeal) Diabetes mellitus Heart disease Social History Hx Tobacco Use In Past Year?: Yes Marital status: Housing status: lives with family, lives with significant other Occupation status: retired History of MDRO No Allergies Coded Allergies: Finasteride (Verified Allergy, Unknown, GYNOCOMASTIA, 11/11/16) FROM [facility] Gabapentin (Verified Allergy, Unknown, UNKNOWN, 11/11/16) [facility] Levofloxacin (Verified Allergy, Unknown, SWELLINNG, 11/11/16) INFO FORM [facility] Sulfamethoxazole w/Trimethoprim (Verified Allergy, Unknown, SWELLING, 11/11) Tamsulosin (Verified Allergy, Unknown, GYNOCOMASTIA, 11/11/16) [facility] Tramadol (Verified Allergy, Unknown, PURITIS, 11/11/16) [facility] Uncoded Allergies: IV DYE (Allergy, Unknown, [facility], 11/11/16) Medications Home Medications: Home Meds and Scripts Medications Dose Route/Sig Max Daily Dose Days Date Category Vitamin D3 (Cholecalciferol) 1,000 Unit Tab 2 Tabs PO DAILY 90 11/11/16 Reported Tylenol (Acetaminophen) 500 Mg Tab 1,000 Mg PO BID PRN 11/11/16 Reported Rapaflo (Silodosin) 4 Mg Cap 4 Mg PO DAILY 11/11/16 Reported Boost (Nutritional Supplements) 1 Liq Liq 1-2 Can PO DAILY 11/11/16 Reported Inpatient Medications: Current Inpatient Medications Medications (Trade) Dose Ordered Sig/Naima Route Start Time Stop Time Status Last Admin Dose Admin Heparin Sodium (Porcine) (Heparin Sq 5000 Unit/0.5ml) 5,000 unit Q12H SQ 11/27/17 22:00 12/27/17 21:59 11/28/17 11:10 5,000 UNIT Sodium Chloride 1,000 ml @ 200 mls/hr Q5H IV 11/27/17 18:27 12/27/17 18:26 11/28/17 04:46 200 MLS/HR Acetaminophen (Tylenol Tab) 650 mg Q4H PRN PO 11/27/17 18:30 12/27/17 18:29 Al Hydrox/Mg Hydrox/Simethicone (Maalox Max Susp) 15 ml Q4H PRN PO 11/27/17 18:30 12/27/17 18:29 Ondansetron HCl (Zofran Inj) 4 mg Q6H PRN IV 11/27/17 18:30 12/27/17 18:29 Pantoprazole Sodium 40 mg/ Syringe 10 ml @ 5 mls/min DAILY@1100 IV 11/28/17 11:00 12/01/17 11:01 11/28/17 11:11 5 MLS/MIN Morphine Sulfate (MoRPHine SULFATE INJ) 2 mg Q2H PRN IV 11/27/17 18:30 12/11/17 18:29 11/27/17 22:09 2 MG Miscellaneous Information (Icu Protocol For Hyperglycemia) 1 ea PRN PRN N/A 11/27/17 18:30 11/29/17 18:29 Piperacillin Sod/ Tazobactam Sod 3.375 gm/Dextrose 115 ml @ 28.75 mls/ hr Q12H IV 11/28/17 02:00 12/08/17 01:59 11/28/17 02:07 28.75 MLS/HR Miscellaneous Information (Consult) 1 ea UD PRN N/A 11/27/17 18:30 12/27/17 18:29 Insulin Aspart (novoLOG ASPART) SLIDING SCALE G... ACHS SC 11/27/17 21:00 12/27/17 20:59 Miscellaneous Information (Consult) 1 ea UD PRN N/A 11/27/17 21:27 12/27/17 21:26 Glucose (Glucose 40% Gel) 15-30 GRAMS 15 GRAMS... UD PRN PO 11/27/17 21:30 12/27/17 21:29 Glucose (Glucose Chew Tab) 4-8 Tablets 4 Tabl... UD PRN PO 11/27/17 21:30 12/27/17 21:29 Dextrose (Dextrose 50% 50ML Syringe) 25-50ML OF 50% DW IV FOR... UD PRN IV 11/27/17 21:30 12/27/17 21:29 Glucagon (Glucagon Inj) 1 mg UD PRN SQ 11/27/17 21:30 12/27/17 21:29 Review of Systems Review of Systems Additional Comments: Review of systems reviewed from his admitting history and physical and ER notes Physical Exam Vital Signs: Vital Signs Past 12 Hours Date Time Temp Pulse Resp B/P (MAP) Pulse Ox O2 Delivery O2 Flow Rate FiO2 11/28/17 12:00 36.7 69 18 91/44 (60) 98 Room Air 11/28/17 10:08 63 18 111/56 (74) 98 Room Air 11/28/17 08:00 36.7 69 25 107/56 (73) 98 11/28/17 08:00 Room Air 11/28/17 06:01 67 18 102/56 (71) 98 11/28/17 06:01 36.6 67 18 102/56 (71) 98 11/28/17 06:00 64 16 97 11/28/17 05:01 59 15 93/50 (64) 99 11/28/17 05:01 59 15 93/50 (64) 99 11/28/17 05:00 70 16 98 11/28/17 04:04 Room Air 11/28/17 04:01 62 13 93/43 (60) 99 11/28/17 04:01 62 13 93/43 (60) 99 11/28/17 04:00 60 14 98 11/28/17 03:01 73 14 94/51 (65) 98 11/28/17 03:01 73 14 94/51 (65) 98 11/28/17 03:00 70 15 95 11/28/17 02:02 62 10 89/49 (62) 98 11/28/17 02:02 62 10 89/49 (62) 98 11/28/17 02:00 61 17 100 11/28/17 01:02 63 16 86/56 (66) 100 11/28/17 01:02 63 16 86/56 (66) 100 11/28/17 01:00 70 15 98 11/28/17 00:23 Room Air Physical Exam: General Appearance: no apparent distress ENT: hearing grossly normal Neck: no JVD Respiratory/Chest: no respiratory distress, no accessory muscle use Cardiovascular: no edema Gastrointestinal: Abdomen: normal abdomen Bladder: normal bladder Renal: normal renal Genitourinary - Male: Urethral Meatus: normal urethral meatus Testes: normal testes Epididymides: normal epididymides Scrotum: normal scrotum Prostate: size (60-70 grams-no obvious nodules although prostate is firm) Seminal Vesicles: normal seminal vesicles Assessment & Plan Assessment & Plan Assessment Patient admitted with a urinary tract infection sepsis and acute kidney injury Family tells me that he pulled out his Flores about a month or so ago and really has only been dribbling urine for that period of time Prior to that he had a Flores catheter he was being changed at Dr. Carr office. Current Flores is draining clear urine volume seems adequate I did review his CT scan which shows a solitary right kidney there is really no hydronephrosis there are no stones he does have a very large prostate For now I would continue him with the Flores should be changed every 4-6 weeks. Since the patient's urologist is Dr. Carr I would have him make an appointment to see her after he is discharged.
--- NOTE | 2017-11-28 12:34 | Hospitalist Progress Note ---
Hospitalist Progress Note Date of Service Nov 28, 2017. Subjective Pt evaluation today including: conversation w/ patient, physical exam, chart review, lab review, review of studies, conversation w/ operations consultant (Electrostatic Powder Coating Technician) , review of inpatient medication list Patient seen and evaluated. Patient is generally a poor historian and mostly saying things in a low tone that is heard to comprehend. Mostly answering "I don't know" to questions. Or repeating words I saw. Told him he looks dry as a bone and then would say that after asking him other questions. Complaining of initially numbness in the b/l legs but it appears he is having muscle cramping. Kept smacking his lips and it stating they are dry. Also wanted a drink of water. Barely took a sip and starting coughing. However per staff he ate breakfast without issue/coughing. Went to palpate his stomach and he said not to. Ask if it was hurting and he no. Additional Comments: ROS deferred as patient mostly stating "I don't know". Medications Current Inpatient Medications Medications (Trade) Dose Ordered Sig/Naima Route Start Time Stop Time Status Last Admin Dose Admin Heparin Sodium (Porcine) (Heparin Sq 5000 Unit/0.5ml) 5,000 unit Q12H SQ 11/27/17 22:00 12/27/17 21:59 11/28/17 11:10 5,000 UNIT Sodium Chloride 1,000 ml @ 200 mls/hr Q5H IV 11/27/17 18:27 12/27/17 18:26 11/28/17 04:46 200 MLS/HR Acetaminophen (Tylenol Tab) 650 mg Q4H PRN PO 11/27/17 18:30 12/27/17 18:29 Al Hydrox/Mg Hydrox/Simethicone (Maalox Max Susp) 15 ml Q4H PRN PO 11/27/17 18:30 12/27/17 18:29 Ondansetron HCl (Zofran Inj) 4 mg Q6H PRN IV 11/27/17 18:30 12/27/17 18:29 Pantoprazole Sodium 40 mg/ Syringe 10 ml @ 5 mls/min DAILY@1100 IV 11/28/17 11:00 12/01/17 11:01 11/28/17 11:11 5 MLS/MIN Morphine Sulfate (MoRPHine SULFATE INJ) 2 mg Q2H PRN IV 11/27/17 18:30 12/11/17 18:29 11/27/17 22:09 2 MG Miscellaneous Information (Icu Protocol For Hyperglycemia) 1 ea PRN PRN N/A 11/27/17 18:30 11/29/17 18:29 Piperacillin Sod/ Tazobactam Sod 3.375 gm/Dextrose 115 ml @ 28.75 mls/ hr Q12H IV 11/28/17 02:00 12/08/17 01:59 11/28/17 02:07 28.75 MLS/HR Miscellaneous Information (Consult) 1 ea UD PRN N/A 11/27/17 18:30 12/27/17 18:29 Insulin Aspart (novoLOG ASPART) SLIDING SCALE G... ACHS SC 11/27/17 21:00 12/27/17 20:59 Miscellaneous Information (Consult) 1 ea UD PRN N/A 11/27/17 21:27 12/27/17 21:26 Glucose (Glucose 40% Gel) 15-30 GRAMS 15 GRAMS... UD PRN PO 11/27/17 21:30 12/27/17 21:29 Glucose (Glucose Chew Tab) 4-8 Tablets 4 Tabl... UD PRN PO 11/27/17 21:30 12/27/17 21:29 Dextrose (Dextrose 50% 50ML Syringe) 25-50ML OF 50% DW IV FOR... UD PRN IV 11/27/17 21:30 12/27/17 21:29 Glucagon (Glucagon Inj) 1 mg UD PRN SQ 11/27/17 21:30 12/27/17 21:29 Objective Vital Signs Date Time Temp Pulse Resp B/P (MAP) Pulse Ox O2 Delivery O2 Flow Rate FiO2 11/28/17 12:00 Room Air 11/28/17 12:00 36.7 69 18 91/44 (60) 98 Room Air 11/28/17 10:08 63 18 111/56 (74) 98 Room Air 11/28/17 08:00 36.7 69 25 107/56 (73) 98 11/28/17 08:00 Room Air 11/28/17 06:01 67 18 102/56 (71) 98 11/28/17 06:01 36.6 67 18 102/56 (71) 98 318 06:00 64 16 97 /18 05:01 59 15 93/50 (64) 99 18 05:01 59 15 93/50 (64) 99 18 05:00 70 16 98 18 04:04 Room Air 11/28/17 04:01 62 13 93/43 (60) 99 18 04:01 62 13 93/43 (60) 99 18 04:00 60 14 98 18 03:01 73 14 94/51 (65) 98 18 03:01 73 14 94/51 (65) 98 18 03:00 70 15 95 18 02:02 62 10 89/49 (62) 98 18 02:02 62 10 89/49 (62) 98 18 02:00 61 17 100 11/28/17 01:02 63 16 86/56 (66) 100 18 01:02 63 16 86/56 (66) 100 18 01:00 70 15 98 18 00:23 Room Air 11/28/17 00:01 65 15 99/52 (68) 98 18 00:01 65 15 99/52 (68) 98 18 00:00 66 12 99 11/27/17 23:02 67 14 102/46 (64) 97 18 22:47 66 19 88/39 (55) 97 11/27/17 22:05 81 15 113/60 (77) 99 18 21:03 81 20 92/46 (61) 18 20:01 36.6 74 15 99/56 (70) 18 20:01 36.5 73 18 99/56 99 Room Air 11/27/17 19:35 83 16 113/63 (80) 11/27/17 19:02 82 19 112/59 (76) 11/27/17 19:02 81 18 112/59 95 11/27/17 18:02 68 20 121/60 100 Room Air 11/27/17 17:38 68 100 11/27/17 17:32 114/66 11/27/17 16:38 90 21 100 11/27/17 16:36 89 11/27/17 16:33 36.5 113 18 121/67 100 Room Air 11/27/17 16:19 83 19 100 11/27/17 16:14 104 18 115/74 100 Room Air 11/27/17 16:00 79 16 100 11/27/17 15:31 93/64 11/27/17 15:27 35.7 144 20 93/64 98 Room Air 11/27/17 15:05 142/107 Physical Exam General Appearance: no apparent distress, + cachetic, + pertinent finding ( disheveled; poor grooming) ENT: + pertinent finding (extemely dry oral mucosa and poor dentition) Neck: supple, no JVD, trachea midline Respiratory/Chest: lungs clear (limited exam as patient continued to talk/ mumble when trying to listen), normal breath sounds, no respiratory distress, no accessory muscle use Cardiovascular: regular rate, rhythm Abdomen: normal bowel sounds, non tender, soft Extremities: no pedal edema, no calf tenderness Neurologic/Psychiatric: alert Skin: normal color Laboratory Results Last 24 Hours Test 11/27/17 15:40 11/27/17 16:03 11/27/17 16:07 11/27/17 16:15 Influenza Type A Antigen Neg for Influ A Influenza Type B Antigen Neg for Influ B White Blood Count 24.12 K/uL Red Blood Count 5.31 M/uL Hemoglobin 16.3 g/dL Hematocrit 44.8 % Mean Corpuscular Volume 84.4 fL Mean Corpuscular Hemoglobin 30.7 pg Mean Corpuscular Hemoglobin Concent 36.4 g/dl Platelet Count 271 K/uL Mean Platelet Volume 10.9 fL Neutrophils (%) (Auto) 89.2 % Lymphocytes (%) (Auto) 6.1 % Monocytes (%) (Auto) 4.1 % Eosinophils (%) (Auto) 0.0 % Basophils (%) (Auto) 0.1 % Neutrophils # (Auto) 21.50 K/uL Lymphocytes # (Auto) 1.47 K/uL Monocytes # (Auto) 0.99 K/uL Eosinophils # (Auto) 0.01 K/uL Basophils # (Auto) 0.02 K/uL RDW Standard Deviation 38.9 fL RDW Coefficient of Variation 13.0 % Immature Granulocyte % (Auto) 0.5 % Immature Granulocyte # (Auto) 0.13 K/uL Hypersegmented Polys 1+ Prothrombin Time 10.3 SECONDS Prothromb Time International Ratio 1.0 Venous Blood pH 7.22 Venous Blood Partial Pressure CO2 46 mmHg Venous Blood Partial Pressure O2 28 mmHg Venous Blood HCO3 18 mmol/L Venous Blood Oxygen Saturation < 60.0 % Venous Blood Base Excess -9.4 mEq/L Sodium Level 121 mmol/L Potassium Level 6.7 mmol/L Chloride Level 88 mmol/L Carbon Dioxide Level 18 mmol/L Anion Gap 15.0 mmol/L 19.0 mmol/L Blood Urea Nitrogen 180 mg/dl Creatinine 5.50 mg/dl Est Creatinine Clear Calc Drug Dose 7.3 ml/min Estimated GFR () 10.2 Estimated GFR (Non- 8.8 BUN/Creatinine Ratio 33.0 Random Glucose 203 mg/dl Lactic Acid Level 4.3 mmol/L Calcium Level 9.4 mg/dl Phosphorus Level 8.5 mg/dl Magnesium Level 3.2 mg/dl Total Bilirubin 0.6 mg/dl Direct Bilirubin 0.1 mg/dl Aspartate Amino Transf (AST/SGOT) 29 U/L Alanine Aminotransferase (ALT/SGPT) 23 U/L Alkaline Phosphatase 79 U/L Total Creatine Kinase 319 U/L Troponin I 0.034 ng/ml Pro-B-Type Natriuretic Peptide 2057 pg/ml Total Protein 8.5 gm/dl Albumin 3.7 gm/dl Lipase 805 U/L Ethyl Alcohol mg/dL < 3.0 mg/dl Bedside Hemoglobin 16.7 g/dl Bedside Hematocrit 49 % Bedside Sodium 123 mEq/L Bedside Potassium 6.8 mEq/L Bedside Chloride 93 mEq/L Bedside Total CO2 19 mEq/l Bedside Blood Urea Nitrogen > 140 mg/dl Bedside Creatinine 5.8 mg/dl Bedside Glucose (other) 207 mg/dl Bedside Ionized Calcium (Zachary) 1.14 mmol/l Urine Color DK YELLOW Urine Appearance TURBID Urine pH 5.5 Urine Specific [place] 1.013 Urine Protein 3+ Urine Glucose (UA) NEG Urine Ketones TRACE Urine Occult Blood 3+ Urine Nitrite NEG Urine Bilirubin NEG Urine Urobilinogen NEG Urine Leukocyte Esterase LARGE Urine WBC (Auto) >30 /hpf Urine RBC (Auto) >30 /hpf Urine Hyaline Casts (Auto) /lpf Urine Epithelial Cells (Auto) >30 /lpf Urine Bacteria (Auto) 4+ Urine Pathogenic Casts /lpf Urine Yeast (Auto) Test 11/27/17 17:26 11/27/17 18:27 11/27/17 19:55 11/27/17 21:49 White Blood Count 18.27 K/uL Red Blood Count 4.53 M/uL Hemoglobin 13.6 g/dL Hematocrit 38.1 % Mean Corpuscular Volume 84.1 fL Mean Corpuscular Hemoglobin 30.0 pg Mean Corpuscular Hemoglobin Concent 35.7 g/dl Platelet Count 239 K/uL Mean Platelet Volume 10.4 fL Neutrophils (%) (Auto) 93.5 % Lymphocytes (%) (Auto) 3.7 % Monocytes (%) (Auto) 2.5 % Eosinophils (%) (Auto) 0.0 % Basophils (%) (Auto) 0.0 % Neutrophils # (Auto) 17.09 K/uL Lymphocytes # (Auto) 0.67 K/uL Monocytes # (Auto) 0.46 K/uL Eosinophils # (Auto) 0.00 K/uL Basophils # (Auto) 0.00 K/uL RDW Standard Deviation 39.4 fL RDW Coefficient of Variation 13.0 % Immature Granulocyte % (Auto) 0.3 % Immature Granulocyte # (Auto) 0.05 K/uL Hypersegmented Polys 1+ Creatine Kinase MB Ratio 2.6 Sodium Level 128 mmol/L Potassium Level 5.6 mmol/L Chloride Level 99 mmol/L Carbon Dioxide Level 18 mmol/L Anion Gap 11.0 mmol/L Blood Urea Nitrogen 154 mg/dl Creatinine 4.54 mg/dl Est Creatinine Clear Calc Drug Dose 8.6 ml/min Estimated GFR () 12.8 Estimated GFR (Non- 11.0 BUN/Creatinine Ratio 33.6 Random Glucose 104 mg/dl Lactic Acid Level 2.4 mmol/L Calcium Level 8.9 mg/dl Phosphorus Level 5.4 mg/dl Magnesium Level 2.8 mg/dl Total Creatine Kinase 347 U/L Creatine Kinase MB 8.9 ng/ml Troponin I 0.054 ng/ml Prostate Specific Antigen 7.310 ng/ml Bedside Glucose 73 mg/dl Test 11/27/17 22:56 11/27/17 23:42 11/28/17 00:04 11/28/17 02:50 Sodium Level 131 mmol/L Potassium Level 5.2 mmol/L Chloride Level 100 mmol/L Carbon Dioxide Level 17 mmol/L Anion Gap 14.0 mmol/L Blood Urea Nitrogen 153 mg/dl Creatinine 4.24 mg/dl Est Creatinine Clear Calc Drug Dose 9.2 ml/min Estimated GFR () 13.9 Estimated GFR (Non- 12.0 BUN/Creatinine Ratio 36.0 Random Glucose 44 mg/dl Calcium Level 8.6 mg/dl Hemoglobin 13.5 g/dL Hematocrit 37.9 % Bedside Glucose 82 mg/dl Total Creatine Kinase 337 U/L Creatine Kinase MB 8.7 ng/ml Creatine Kinase MB Ratio 2.6 Troponin I 0.051 ng/ml Test 11/28/17 04:50 11/28/17 06:23 11/28/17 10:27 White Blood Count 12.88 K/uL Red Blood Count 4.13 M/uL Hemoglobin 12.4 g/dL Hematocrit 35.1 % Mean Corpuscular Volume 85.0 fL Mean Corpuscular Hemoglobin 30.0 pg Mean Corpuscular Hemoglobin Concent 35.3 g/dl Platelet Count 233 K/uL Neutrophils (%) (Auto) 77.1 % Lymphocytes (%) (Auto) 16.0 % Monocytes (%) (Auto) 6.4 % Eosinophils (%) (Auto) 0.2 % Basophils (%) (Auto) 0.1 % Neutrophils # (Auto) 9.92 K/uL Lymphocytes # (Auto) 2.06 K/uL Monocytes # (Auto) 0.83 K/uL Eosinophils # (Auto) 0.03 K/uL Basophils # (Auto) 0.01 K/uL Immature Granulocyte % (Auto) 0.2 % Immature Granulocyte # (Auto) 0.03 K/uL Sodium Level 133 mmol/L Potassium Level 4.7 mmol/L Chloride Level 104 mmol/L Carbon Dioxide Level 20 mmol/L Anion Gap 9.0 mmol/L Blood Urea Nitrogen 140 mg/dl Creatinine 3.67 mg/dl Est Creatinine Clear Calc Drug Dose 10.6 ml/min Estimated GFR () 16.6 Estimated GFR (Non- 14.3 BUN/Creatinine Ratio 38.0 Random Glucose 93 mg/dl Calcium Level 8.2 mg/dl Phosphorus Level 5.4 mg/dl Magnesium Level 2.6 mg/dl Total Bilirubin 0.4 mg/dl Direct Bilirubin 0.2 mg/dl Aspartate Amino Transf (AST/SGOT) 31 U/L Alanine Aminotransferase (ALT/SGPT) 19 U/L Alkaline Phosphatase 55 U/L Pro-B-Type Natriuretic Peptide 1655 pg/ml Total Protein 6.0 gm/dl Albumin 2.6 gm/dl Lipase 396 U/L Procalcitonin 0.68 ng/ml Random Vancomycin Level 17.3 mcg/ml Bedside Glucose 108 mg/dl Creatine Kinase MB Ratio Assessment and Plan Severe Sepsis 2/2 Group B Beta Strep UTI: - Appears condition is largely from being severely volume depleted as fluids alone have made significant improvements - patient is cachectic and poorly groomed, likely not taking good care of himself - Upon review of previous admissions patient tends to have low normal BPs - mostly systolics in low 100s - Zosyn and Vanc pending UCx - Urology following - appreciate recommendations - Intensivists following - discussed with Dr. Edouard - possible transition out of ICU Metabolic Acidosis: ANION GAP CLOSED - Presented with multiple electrolyte abnormalities that are resolving - Kayexalate given in ED - continue to monitor and address electrolyte issues as necessary RAFAT on CKD Stage III and S/P L Nephrectomy: Baseline 1.4-1.5 - IMPROVING - Continue IVF - reduced to 75 mL/hr per nephrology recommendation - Continue to monitor with BMP and avoid nephrotoxins - Nephrology following - appreciate recommendations - consideration for addition of bicarb is this remains low Deconditioning/Multiple Falls/Previous CVA/Craniotomy: sTABLE - Head CT reveals L frontal lobe changes and 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 Carr as outpatient Paroxysmal Atrial Fibrillation: Currently NSR - Review of records show that he has had intermittent paroxysmal A Fib vs atrial tach and decision was to defer anticoagulation - Will defer on anticoagulation at this time given multiple falls, closed head injuries, chronic subdural hematomas... - Initial arrhythmia may have been triggered given electrolyte imbalances; mild elevations in troponins appear to be demand ischemia - at this time no need for further intervention DVT Prophylaxis: Heparin 5000 units SC Q12H Code Status: FULL RESUSCITATION Disposition: - Remains acutely ill - will continue to monitor and will need safe - Has required transfer to tertiary center in the past for similar issues - Family to discuss possible comfort measures Continued [facility] stay due to: multiple IV medications needed Discharge planning: uncertain
--- NOTE | 2017-11-28 14:33 | Critical Care Consultation ---
Critical Care Consultation Date of Consultation: Nov 28, 2017. Attending Physician: Antione Cruz MD, PhD Reason for Consultation: Acute kidney injury, hyperkalemia, possible septic shock secondary to a urinary source History of Present Illness History obtained partially from the patient large portions obtained from prior records because the patient appears to have some cognitive deficits. Patient is a 82-year-old gentleman who is brought to [place] in the emergency department for reported fall. Reportedly the patient lives with his he went to the bathroom and she had been taking a nap after she awoke she found the patient on the floor next to the commode. Upon arrival in the emergency department patient was found to be hyperkalemic, 6.7, improved with IV fluid and Flores placement currently 4.7. Possible sepsis secondary to hypotension with a likely source being urinary, Current culture results group B strep. He was administered 3 L of fluid and had significant improvement in his blood pressure and started to have increasing urine output. He was placed on broad- spectrum antibiotics and sent to the ICU for further observation and management. Patient had no events overnight, his blood pressure had stabilized and appeared to be hemodynamically stable and afebrile. During my evaluation today the patient was mildly conversant, hard of hearing, disoriented to time. He was not complaining of any abdominal pain, chest pain, shortness of breath, nausea. Past Medical/Surgical History Per outpatient records: Chronic kidney disease stage IV Osteoarthritis Chronic pain Cognitive disorder Hyperglycemia Hypertension Paroxysmal atrial fibrillation Chronic indwelling Flores catheter Congenital left atrophic kidney at age 33 Pyelonephritis left kidney and left nephrectomy. PCP Rudi Cueva Family History Cancer (prostate, laryngeal) Diabetes mellitus Heart disease Social History Smoking Status: Former Smoker Drug Use: none Marital Status: Housing Status: lives with significant other Occupation Status: retired Allergies Coded Allergies: Finasteride (Verified Allergy, Unknown, GYNOCOMASTIA, 11/11/16) FROM [facility] Gabapentin (Verified Allergy, Unknown, UNKNOWN, 11/11/16) [facility] Levofloxacin (Verified Allergy, Unknown, SWELLINNG, 11/11/16) INFO FORM [facility] Sulfamethoxazole w/Trimethoprim (Verified Allergy, Unknown, SWELLING, 11/11) Tamsulosin (Verified Allergy, Unknown, GYNOCOMASTIA, 11/11/16) [facility] Tramadol (Verified Allergy, Unknown, PURITIS, 11/11/16) [facility] Uncoded Allergies: IV DYE (Allergy, Unknown, [facility], 11/11/16) Home Medications Scheduled Cholecalciferol (Vitamin D3), 2 TABS PO DAILY Nutritional Supplements (Boost), 1-2 CAN PO DAILY Silodosin (Rapaflo), 4 MG PO DAILY Scheduled PRN Acetaminophen (Tylenol), 1,000 MG PO BID PRN for Pain or Fever Current Inpatient Medications Current Inpatient Medications Medications (Trade) Dose Ordered Sig/Naima Route Start Time Stop Time Status Last Admin Dose Admin Heparin Sodium (Porcine) (Heparin Sq 5000 Unit/0.5ml) 5,000 unit Q12H SQ 11/27/17 22:00 12/27/17 21:59 11/28/17 11:10 5,000 UNIT Sodium Chloride 1,000 ml @ 75 mls/hr [id number] IV 11/27/17 18:27 12/27/17 18:26 11/28/17 04:46 200 MLS/HR Acetaminophen (Tylenol Tab) 650 mg Q4H PRN PO 11/27/17 18:30 12/27/17 18:29 Al Hydrox/Mg Hydrox/Simethicone (Maalox Max Susp) 15 ml Q4H PRN PO 11/27/17 18:30 12/27/17 18:29 Ondansetron HCl (Zofran Inj) 4 mg Q6H PRN IV 11/27/17 18:30 12/27/17 18:29 Pantoprazole Sodium 40 mg/ Syringe 10 ml @ 5 mls/min DAILY@1100 IV 11/28/17 11:00 12/01/17 11:01 11/28/17 11:11 5 MLS/MIN Morphine Sulfate (MoRPHine SULFATE INJ) 2 mg Q2H PRN IV 11/27/17 18:30 12/11/17 18:29 11/27/17 22:09 2 MG Miscellaneous Information (Icu Protocol For Hyperglycemia) 1 ea PRN PRN N/A 11/27/17 18:30 11/29/17 18:29 Piperacillin Sod/ Tazobactam Sod 3.375 gm/Dextrose 115 ml @ 28.75 mls/ hr Q12H IV 11/28/17 02:00 12/08/17 01:59 3/4/18 02:07 28.75 MLS/HR Miscellaneous Information (Consult) 1 ea UD PRN N/A 11/27/17 18:30 12/27/17 18:29 Insulin Aspart (novoLOG ASPART) SLIDING SCALE G... ACHS SC 11/27/17 21:00 12/27/17 20:59 Miscellaneous Information (Consult) 1 ea UD PRN N/A 11/27/17 21:27 12/27/17 21:26 Glucose (Glucose 40% Gel) 15-30 GRAMS 15 GRAMS... UD PRN PO 11/27/17 21:30 12/27/17 21:29 Glucose (Glucose Chew Tab) 4-8 Tablets 4 Tabl... UD PRN PO 11/27/17 21:30 12/27/17 21:29 Dextrose (Dextrose 50% 50ML Syringe) 25-50ML OF 50% DW IV FOR... UD PRN IV 11/27/17 21:30 12/27/17 21:29 Glucagon (Glucagon Inj) 1 mg UD PRN SQ 11/27/17 21:30 12/27/17 21:29 Review of Systems Unable to obtain complete 10 point review of systems despite being asked secondary to cognitive deficit Respiratory: No cough Cardiovascular: No chest pain Abdomen: No pain Physical Exam Date Time Temp Pulse Resp B/P (MAP) Pulse Ox O2 Delivery O2 Flow Rate FiO2 11/28/17 12:00 Room Air 11/28/17 12:00 36.7 69 18 91/44 (60) 98 Room Air 11/28/17 10:08 63 18 111/56 (74) 98 Room Air 11/28/17 08:00 36.7 69 25 107/56 (73) 98 11/28/17 08:00 Room Air 11/28/17 06:01 67 18 102/56 (71) 98 11/28/17 06:01 36.6 67 18 102/56 (71) 98 11/28/17 06:00 64 16 97 11/28/17 05:01 59 15 93/50 (64) 99 11/28/17 05:01 59 15 93/50 (64) 99 11/28/17 05:00 70 16 98 11/28/17 04:04 Room Air 11/28/17 04:01 62 13 93/43 (60) 99 18 04:01 62 13 93/43 (60) 99 18 04:00 60 14 98 18 03:01 73 14 94/51 (65) 98 18 03:01 73 14 94/51 (65) 98 11/28/17 03:00 70 15 95 11/28/17 02:02 62 10 89/49 (62) 98 18 02:02 62 10 89/49 (62) 98 18 02:00 61 17 100 11/28/17 01:02 63 16 86/56 (66) 100 11/28/17 01:02 63 16 86/56 (66) 100 11/28/17 01:00 70 15 98 11/28/17 00:23 Room Air 11/28/17 00:01 65 15 99/52 (68) 98 11/28/17 00:01 65 15 99/52 (68) 98 11/28/17 00:00 66 12 99 11/27/17 23:02 67 14 102/46 (64) 97 11/27/17 22:47 66 19 88/39 (55) 97 11/27/17 22:05 81 15 113/60 (77) 99 11/27/17 21:03 81 20 92/46 (61) 11/27/17 20:01 36.6 74 15 99/56 (70) 11/27/17 20:01 36.5 73 18 99/56 99 Room Air 11/27/17 19:35 83 16 113/63 (80) 11/27/17 19:02 82 19 112/59 (76) 11/27/17 19:02 81 18 112/59 95 11/27/17 18:02 68 20 121/60 100 Room Air 11/27/17 17:38 68 100 11/27/17 17:32 114/66 11/27/17 16:38 90 21 100 11/27/17 16:36 89 11/27/17 16:33 36.5 113 18 121/67 100 Room Air 11/27/17 16:19 83 19 100 11/27/17 16:14 104 18 115/74 100 Room Air 11/27/17 16:00 79 16 100 11/27/17 15:31 93/64 11/27/17 15:27 35.7 144 20 93/64 98 Room Air 11/27/17 15:05 142/107 General Appearance: no apparent distress Head: normocephalic Eyes: PERRLA ENT: poor dentition (Widespread), dental caries Neck: trachea midline, supple, no thyromegaly Cardiovasular: regular rate/rhythm, normal S1S2 Abdomen: non tender, normal bowel sounds Upper Extremities: no edema Neuro: alert, confused, other (Disoriented to time, fails Mini-Mental Status exam) Psychiatric: normal affect Laboratory Results Last 24 Hours Test 11/27/17 15:40 11/27/17 16:03 11/27/17 16:07 11/27/17 16:15 Influenza Type A Antigen Neg for Influ A Influenza Type B Antigen Neg for Influ B White Blood Count 24.12 K/uL Red Blood Count 5.31 M/uL Hemoglobin 16.3 g/dL Hematocrit 44.8 % Mean Corpuscular Volume 84.4 fL Mean Corpuscular Hemoglobin 30.7 pg Mean Corpuscular Hemoglobin Concent 36.4 g/dl Platelet Count 271 K/uL Mean Platelet Volume 10.9 fL Neutrophils (%) (Auto) 89.2 % Lymphocytes (%) (Auto) 6.1 % Monocytes (%) (Auto) 4.1 % Eosinophils (%) (Auto) 0.0 % Basophils (%) (Auto) 0.1 % Neutrophils # (Auto) 21.50 K/uL Lymphocytes # (Auto) 1.47 K/uL Monocytes # (Auto) 0.99 K/uL Eosinophils # (Auto) 0.01 K/uL Basophils # (Auto) 0.02 K/uL RDW Standard Deviation 38.9 fL RDW Coefficient of Variation 13.0 % Immature Granulocyte % (Auto) 0.5 % Immature Granulocyte # (Auto) 0.13 K/uL Hypersegmented Polys 1+ Prothrombin Time 10.3 SECONDS Prothromb Time International Ratio 1.0 Venous Blood pH 7.22 Venous Blood Partial Pressure CO2 46 mmHg Venous Blood Partial Pressure O2 28 mmHg Venous Blood HCO3 18 mmol/L Venous Blood Oxygen Saturation < 60.0 % Venous Blood Base Excess -9.4 mEq/L Sodium Level 121 mmol/L Potassium Level 6.7 mmol/L Chloride Level 88 mmol/L Carbon Dioxide Level 18 mmol/L Anion Gap 15.0 mmol/L 19.0 mmol/L Blood Urea Nitrogen 180 mg/dl Creatinine 5.50 mg/dl Est Creatinine Clear Calc Drug Dose 7.3 ml/min Estimated GFR () 10.2 Estimated GFR (Non- 8.8 BUN/Creatinine Ratio 33.0 Random Glucose 203 mg/dl Lactic Acid Level 4.3 mmol/L Calcium Level 9.4 mg/dl Phosphorus Level 8.5 mg/dl Magnesium Level 3.2 mg/dl Total Bilirubin 0.6 mg/dl Direct Bilirubin 0.1 mg/dl Aspartate Amino Transf (AST/SGOT) 29 U/L Alanine Aminotransferase (ALT/SGPT) 23 U/L Alkaline Phosphatase 79 U/L Total Creatine Kinase 319 U/L Troponin I 0.034 ng/ml Pro-B-Type Natriuretic Peptide 2057 pg/ml Total Protein 8.5 gm/dl Albumin 3.7 gm/dl Lipase 805 U/L Ethyl Alcohol mg/dL < 3.0 mg/dl Bedside Hemoglobin 16.7 g/dl Bedside Hematocrit 49 % Bedside Sodium 123 mEq/L Bedside Potassium 6.8 mEq/L Bedside Chloride 93 mEq/L Bedside Total CO2 19 mEq/l Bedside Blood Urea Nitrogen > 140 mg/dl Bedside Creatinine 5.8 mg/dl Bedside Glucose (other) 207 mg/dl Bedside Ionized Calcium (Zachary) 1.14 mmol/l Urine Color DK YELLOW Urine Appearance TURBID Urine pH 5.5 Urine Specific [place] 1.013 Urine Protein 3+ Urine Glucose (UA) NEG Urine Ketones TRACE Urine Occult Blood 3+ Urine Nitrite NEG Urine Bilirubin NEG Urine Urobilinogen NEG Urine Leukocyte Esterase LARGE Urine WBC (Auto) >30 /hpf Urine RBC (Auto) >30 /hpf Urine Hyaline Casts (Auto) /lpf Urine Epithelial Cells (Auto) >30 /lpf Urine Bacteria (Auto) 4+ Urine Pathogenic Casts /lpf Urine Yeast (Auto) Test 11/27/17 17:26 11/27/17 18:27 11/27/17 19:55 11/27/17 21:49 White Blood Count 18.27 K/uL Red Blood Count 4.53 M/uL Hemoglobin 13.6 g/dL Hematocrit 38.1 % Mean Corpuscular Volume 84.1 fL Mean Corpuscular Hemoglobin 30.0 pg Mean Corpuscular Hemoglobin Concent 35.7 g/dl Platelet Count 239 K/uL Mean Platelet Volume 10.4 fL Neutrophils (%) (Auto) 93.5 % Lymphocytes (%) (Auto) 3.7 % Monocytes (%) (Auto) 2.5 % Eosinophils (%) (Auto) 0.0 % Basophils (%) (Auto) 0.0 % Neutrophils # (Auto) 17.09 K/uL Lymphocytes # (Auto) 0.67 K/uL Monocytes # (Auto) 0.46 K/uL Eosinophils # (Auto) 0.00 K/uL Basophils # (Auto) 0.00 K/uL RDW Standard Deviation 39.4 fL RDW Coefficient of Variation 13.0 % Immature Granulocyte % (Auto) 0.3 % Immature Granulocyte # (Auto) 0.05 K/uL Hypersegmented Polys 1+ Creatine Kinase MB Ratio 2.6 Sodium Level 128 mmol/L Potassium Level 5.6 mmol/L Chloride Level 99 mmol/L Carbon Dioxide Level 18 mmol/L Anion Gap 11.0 mmol/L Blood Urea Nitrogen 154 mg/dl Creatinine 4.54 mg/dl Est Creatinine Clear Calc Drug Dose 8.6 ml/min Estimated GFR () 12.8 Estimated GFR (Non- 11.0 BUN/Creatinine Ratio 33.6 Random Glucose 104 mg/dl Lactic Acid Level 2.4 mmol/L Calcium Level 8.9 mg/dl Phosphorus Level 5.4 mg/dl Magnesium Level 2.8 mg/dl Total Creatine Kinase 347 U/L Creatine Kinase MB 8.9 ng/ml Troponin I 0.054 ng/ml Prostate Specific Antigen 7.310 ng/ml Bedside Glucose 73 mg/dl Test 11/27/17 22:56 11/27/17 23:42 11/28/17 00:04 11/28/17 02:50 Sodium Level 131 mmol/L Potassium Level 5.2 mmol/L Chloride Level 100 mmol/L Carbon Dioxide Level 17 mmol/L Anion Gap 14.0 mmol/L Blood Urea Nitrogen 153 mg/dl Creatinine 4.24 mg/dl Est Creatinine Clear Calc Drug Dose 9.2 ml/min Estimated GFR () 13.9 Estimated GFR (Non- 12.0 BUN/Creatinine Ratio 36.0 Random Glucose 44 mg/dl Calcium Level 8.6 mg/dl Hemoglobin 13.5 g/dL Hematocrit 37.9 % Bedside Glucose 82 mg/dl Total Creatine Kinase 337 U/L Creatine Kinase MB 8.7 ng/ml Creatine Kinase MB Ratio 2.6 Troponin I 0.051 ng/ml Test 11/28/17 04:50 11/28/17 06:23 11/28/17 10:27 White Blood Count 12.88 K/uL Red Blood Count 4.13 M/uL Hemoglobin 12.4 g/dL Hematocrit 35.1 % Mean Corpuscular Volume 85.0 fL Mean Corpuscular Hemoglobin 30.0 pg Mean Corpuscular Hemoglobin Concent 35.3 g/dl Platelet Count 233 K/uL Neutrophils (%) (Auto) 77.1 % Lymphocytes (%) (Auto) 16.0 % Monocytes (%) (Auto) 6.4 % Eosinophils (%) (Auto) 0.2 % Basophils (%) (Auto) 0.1 % Neutrophils # (Auto) 9.92 K/uL Lymphocytes # (Auto) 2.06 K/uL Monocytes # (Auto) 0.83 K/uL Eosinophils # (Auto) 0.03 K/uL Basophils # (Auto) 0.01 K/uL Immature Granulocyte % (Auto) 0.2 % Immature Granulocyte # (Auto) 0.03 K/uL Sodium Level 133 mmol/L Potassium Level 4.7 mmol/L Chloride Level 104 mmol/L Carbon Dioxide Level 20 mmol/L Anion Gap 9.0 mmol/L Blood Urea Nitrogen 140 mg/dl Creatinine 3.67 mg/dl Est Creatinine Clear Calc Drug Dose 10.6 ml/min Estimated GFR () 16.6 Estimated GFR (Non- 14.3 BUN/Creatinine Ratio 38.0 Random Glucose 93 mg/dl Calcium Level 8.2 mg/dl Phosphorus Level 5.4 mg/dl Magnesium Level 2.6 mg/dl Total Bilirubin 0.4 mg/dl Direct Bilirubin 0.2 mg/dl Aspartate Amino Transf (AST/SGOT) 31 U/L Alanine Aminotransferase (ALT/SGPT) 19 U/L Alkaline Phosphatase 55 U/L Pro-B-Type Natriuretic Peptide 1655 pg/ml Total Protein 6.0 gm/dl Albumin 2.6 gm/dl Lipase 396 U/L Procalcitonin 0.68 ng/ml Random Vancomycin Level 17.3 mcg/ml Bedside Glucose 108 mg/dl Creatine Kinase MB Ratio Diagnostic Results I reviewed the CT radiology report of the chest as well as the abdomen and pelvis dated October 30, 2017 I have reviewed the nephrology and urology consultations I have reviewed the echocardiogram report Assessment & Plan Reason Critically Ill: 82-year-old male with history of chronic kidney disease who presented with acute kidney injury and hyperkalemia PLAN: Neuro: Cognitive deficit * Unclear etiology at this time, are reviewed CT scan, no acute findings CV: Hypotension * Resolved likely prerenal Fluids/Renal: Reviewed nephrology consultation * Volume expansion and fluid administration * Flores present, no evidence of postobstructive uropathy at this time ID: Severe sepsis secondary to urinary source * Continue broad-spectrum antibiotics until speciation and sensitivities GI/Nutrition: Diet ordered Heme: Anemia NOS DVT prophylaxis with 5000 units heparin twice daily Endocrine: ICU glycemic protocol Patient stable for downgrade, hyperkalemia resolved, sepsis improved on antibiotic coverage for urinary pathogens
--- NOTE | 2017-11-28 15:19 | Pharmacy Progress Note ---
Pharmacy Antibiotic Consult Date of Service: Nov 28, 2017. Pharmacy Dosing Scope Pharmacy is consulted to initiate vancomycin/zosyn IV dosing therapy, order appropriate labs and adjust drug dose/frequency. Subjective The patient is a 82 year old male admitted on Nov 27, 2017 at 18:40. Objective Height (Feet): 5 Height (Inches): 5.00 Weight (Kilograms): 52.800 Lab Results (24hrs): Test 11/27/17 15:40 11/27/17 16:03 11/27/17 16:07 11/27/17 16:15 Influenza Type A Antigen Neg for Influ A (NEG) Influenza Type B Antigen Neg for Influ B (NEG) RDW Standard Deviation 38.9 fL (36.4-46.3) RDW Coefficient of Variation 13.0 % (11.5-14.5) White Blood Count 24.12 K/uL (4.8-10.8) Red Blood Count 5.31 M/uL (4.7-6.1) Hemoglobin 16.3 g/dL (14.0-18.0) Hematocrit 44.8 % (42-52) Mean Corpuscular Volume 84.4 fL (80-100) Mean Corpuscular Hemoglobin 30.7 pg (25-34) Mean Corpuscular Hemoglobin Concent 36.4 g/dl (32-36) Platelet Count 271 K/uL (130-400) Mean Platelet Volume 10.9 fL (7.4-10.4) Neutrophils (%) (Auto) 89.2 % Lymphocytes (%) (Auto) 6.1 % Monocytes (%) (Auto) 4.1 % Eosinophils (%) (Auto) 0.0 % Basophils (%) (Auto) 0.1 % Neutrophils # (Auto) 21.50 K/uL (1.4-6.5) Lymphocytes # (Auto) 1.47 K/uL (1.2-3.4) Monocytes # (Auto) 0.99 K/uL (0.11-0.59) Eosinophils # (Auto) 0.01 K/uL (0-0.5) Basophils # (Auto) 0.02 K/uL (0-0.2) Hypersegmented Polys 1+ Prothrombin Time 10.3 SECONDS (9.0-12.0) Prothromb Time International Ratio 1.0 (0.9-1.1) Venous Blood pH 7.22 (7.36-7.41) Venous Blood Partial Pressure CO2 46 mmHg (38.0-50.0) Venous Blood Partial Pressure O2 28 mmHg Venous Blood HCO3 18 mmol/L Venous Blood Oxygen Saturation < 60.0 % Venous Blood Base Excess -9.4 mEq/L Lactic Acid Level 4.3 mmol/L (0.4-2.0) Total Bilirubin 0.6 mg/dl (0.2-1) Direct Bilirubin 0.1 mg/dl (0-0.2) Aspartate Amino Transf (AST/SGOT) 29 U/L (15-37) Alanine Aminotransferase (ALT/SGPT) 23 U/L (12-78) Alkaline Phosphatase 79 U/L (45-117) Pro-B-Type Natriuretic Peptide 2057 pg/ml (0-1800) Total Protein 8.5 gm/dl (6.4-8.2) Albumin 3.7 gm/dl (3.4-5.0) Lipase 805 U/L (73-393) Ethyl Alcohol mg/dL < 3.0 mg/dl (0-3) Bedside Hemoglobin 16.7 g/dl (14.0-18.0) Bedside Hematocrit 49 % (42-52) Bedside Sodium 123 mEq/L (135-144) Bedside Potassium 6.8 mEq/L (3.3-5.0) Bedside Chloride 93 mEq/L (101-112) Bedside Total CO2 19 mEq/l (24-31) Bedside Blood Urea Nitrogen > 140 mg/dl (7-18) Bedside Creatinine 5.8 mg/dl (0.6-1.3) Bedside Glucose (other) 207 mg/dl (70-99) Bedside Ionized Calcium (Zachary) 1.14 mmol/l (1.12-1.32) Urine Color DK YELLOW Urine Appearance TURBID (CLEAR) Urine pH 5.5 (4.5-7.5) Urine Specific [place] 1.013 (1.000-1.030) Urine Protein 3+ (NEG) Urine Glucose (UA) NEG (NEG) Urine Ketones TRACE (NEG) Urine Occult Blood 3+ (NEG) Urine Nitrite NEG (NEG) Urine Bilirubin NEG (NEG) Urine Urobilinogen NEG (NEG) Urine Leukocyte Esterase LARGE (NEG) Urine WBC (Auto) >30 /hpf (0-5) Urine RBC (Auto) >30 /hpf (0-4) Urine Hyaline Casts (Auto) /lpf (0-5) Urine Epithelial Cells (Auto) >30 /lpf (0-5) Urine Bacteria (Auto) 4+ (NEG) Urine Pathogenic Casts /lpf (0) Urine Yeast (Auto) (NONE PRSENT) Test 11/27/17 17:26 11/27/17 19:55 11/27/17 22:56 11/27/17 23:42 White Blood Count 18.27 K/uL (4.8-10.8) Red Blood Count 4.53 M/uL (4.7-6.1) Hemoglobin 13.6 g/dL (14.0-18.0) 13.5 g/dL (14.0-18.0) Hematocrit 38.1 % (42-52) 37.9 % (42-52) Mean Corpuscular Volume 84.1 fL (80-100) Mean Corpuscular Hemoglobin 30.0 pg (25-34) Mean Corpuscular Hemoglobin Concent 35.7 g/dl (32-36) Platelet Count 239 K/uL (130-400) Mean Platelet Volume 10.4 fL (7.4-10.4) Neutrophils (%) (Auto) 93.5 % Lymphocytes (%) (Auto) 3.7 % Monocytes (%) (Auto) 2.5 % Eosinophils (%) (Auto) 0.0 % Basophils (%) (Auto) 0.0 % Neutrophils # (Auto) 17.09 K/uL (1.4-6.5) Lymphocytes # (Auto) 0.67 K/uL (1.2-3.4) Monocytes # (Auto) 0.46 K/uL (0.11-0.59) Eosinophils # (Auto) 0.00 K/uL (0-0.5) Basophils # (Auto) 0.00 K/uL (0-0.2) RDW Standard Deviation 39.4 fL (36.4-46.3) RDW Coefficient of Variation 13.0 % (11.5-14.5) Immature Granulocyte % (Auto) 0.3 % Immature Granulocyte # (Auto) 0.05 K/uL (0.00-0.02) Hypersegmented Polys 1+ Lactic Acid Level 2.4 mmol/L (0.4-2.0) Phosphorus Level 5.4 mg/dl (2.5-4.9) Magnesium Level 2.8 mg/dl (1.8-2.4) Total Creatine Kinase 347 U/L (39-308) Creatine Kinase MB 8.9 ng/ml (0.5-3.6) Troponin I 0.054 ng/ml (0-0.045) Prostate Specific Antigen 7.310 ng/ml (0.000-4.000) Sodium Level 131 mmol/L (136-145) Potassium Level 5.2 mmol/L (3.5-5.1) Chloride Level 100 mmol/L (98-107) Carbon Dioxide Level 17 mmol/L (21-32) Anion Gap 14.0 mmol/L (3-11) Blood Urea Nitrogen 153 mg/dl (7-18) Creatinine 4.24 mg/dl (0.60-1.40) Est Creatinine Clear Calc Drug Dose 9.2 ml/min Estimated GFR () 13.9 Estimated GFR (Non- 12.0 BUN/Creatinine Ratio 36.0 (10-20) Random Glucose 44 mg/dl (70-99) Calcium Level 8.6 mg/dl (8.5-10.1) Test 11/28/17 00:04 11/28/17 02:50 11/28/17 04:50 11/28/17 06:23 Bedside Glucose 82 mg/dl (70-99) 108 mg/dl (70-99) Total Creatine Kinase 337 U/L (39-308) Creatine Kinase MB 8.7 ng/ml (0.5-3.6) Creatine Kinase MB Ratio 2.6 (0-3.0) Troponin I 0.051 ng/ml (0-0.045) White Blood Count 12.88 K/uL (4.8-10.8) Red Blood Count 4.13 M/uL (4.7-6.1) Hemoglobin 12.4 g/dL (14.0-18.0) Hematocrit 35.1 % (42-52) Mean Corpuscular Volume 85.0 fL (80-100) Mean Corpuscular Hemoglobin 30.0 pg (25-34) Mean Corpuscular Hemoglobin Concent 35.3 g/dl (32-36) Platelet Count 233 K/uL (130-400) Neutrophils (%) (Auto) 77.1 % Lymphocytes (%) (Auto) 16.0 % Monocytes (%) (Auto) 6.4 % Eosinophils (%) (Auto) 0.2 % Basophils (%) (Auto) 0.1 % Neutrophils # (Auto) 9.92 K/uL (1.4-6.5) Lymphocytes # (Auto) 2.06 K/uL (1.2-3.4) Monocytes # (Auto) 0.83 K/uL (0.11-0.59) Eosinophils # (Auto) 0.03 K/uL (0-0.5) Basophils # (Auto) 0.01 K/uL (0-0.2) Immature Granulocyte % (Auto) 0.2 % Immature Granulocyte # (Auto) 0.03 K/uL (0.00-0.02) Sodium Level 133 mmol/L (136-145) Potassium Level 4.7 mmol/L (3.5-5.1) Chloride Level 104 mmol/L (98-107) Carbon Dioxide Level 20 mmol/L (21-32) Anion Gap 9.0 mmol/L (3-11) Blood Urea Nitrogen 140 mg/dl (7-18) Creatinine 3.67 mg/dl (0.60-1.40) Est Creatinine Clear Calc Drug Dose 10.6 ml/min Estimated GFR () 16.6 Estimated GFR (Non- 14.3 BUN/Creatinine Ratio 38.0 (10-20) Random Glucose 93 mg/dl (70-99) Calcium Level 8.2 mg/dl (8.5-10.1) Phosphorus Level 5.4 mg/dl (2.5-4.9) Magnesium Level 2.6 mg/dl (1.8-2.4) Total Bilirubin 0.4 mg/dl (0.2-1) Direct Bilirubin 0.2 mg/dl (0-0.2) Aspartate Amino Transf (AST/SGOT) 31 U/L (15-37) Alanine Aminotransferase (ALT/SGPT) 19 U/L (12-78) Alkaline Phosphatase 55 U/L (45-117) Pro-B-Type Natriuretic Peptide 1655 pg/ml (0-1800) Total Protein 6.0 gm/dl (6.4-8.2) Albumin 2.6 gm/dl (3.4-5.0) Lipase 396 U/L (73-393) Procalcitonin 0.68 ng/ml (0-0.5) Random Vancomycin Level 17.3 mcg/ml Test 11/28/17 10:27 Creatine Kinase MB Ratio (0-3.0) Micro Results: Date/Time Source Procedure Growth Status 11/27/17 16:03 Blood Blood Culture Pending Received 11/27/17 16:03 Blood Blood Culture Pending Received 11/27/17 20:00 Nasal MRSA DNA Surveillance Screen - Final Specimen Negative for MRSA by DNA Probe Complete 11/27/17 16:15 Urine,Catheterized Urine Culture - Preliminary Group B Beta Strep Resulted Assessment & Plan Assessment: 82 yo admitted for urosepsis Vancomycin/zosyn for empiric coverage RAFAT on admission, SCr decreased to 3.67 this AM, baseline 1.4-1.5 BC pending, Urine culture preliminary group B beta strep, nasal swab (-) MRSA WBC 12.8 this AM, afebrile Plan: Patient received 1000 mg loading dose in the ED on 11/27 Random level this AM 17.3, redosed with 750 mg (15 mg/kg) x 1 Will continue to dose by levels with goal trough 15-20 mcg/ml Good urine output throughout the day. Will recheck random level in AM with rapidly improving renal function. Pharmacy will continue to follow and will adjust dose/frequency as necessary. Thank you
[2017-11-29] VITALS (11 sets, daily range): BP systolic 89–131; BP diastolic 54–74; PULSE 54–87; TEMP 36.5–37.4; O2SAT 97–100
[2017-11-29] MEDS: PIPERACILL/TAZOBAC IV 3.375 GM in DEXTROSE 5% 100ML 100 ML IV SCH ×2 (02:55→13:57)
[2017-11-29] MEDS: SODIUM CHLORIDE 0.9% 1000ML 1,000 ML IV SCH ×2 (04:42→21:27)
[2017-11-29 05:55] LABS: EOS % 0.8 %; EOS ABS # 0.07 K/uL (0-0.5); HEMATOCRIT 34.5 % (42-52); HEMOGLOBIN 12.3 g/dL (14.0-18.0); IG# 0.02 K/uL (0.00-0.02); LYMPH ABS # 2.32 K/uL (1.2-3.4); MEAN CELL VOLUME 85.2 fL (80-100); MEAN CORPUSCULAR HEMOGLOBIN 30.4 pg (25-34); MEAN CORPUSCULAR HGB CONC 35.7 g/dl (32-36); MEAN PLATELET VOLUME 10.4 fL (7.4-10.4); MONO % 7.2 %; MONO ABS # 0.67 K/uL (0.11-0.59); NEUT % 66.8 %; NEUT ABS # 6.21 K/uL (1.4-6.5); PLATELET COUNT 206 K/uL (130-400); RED CELL DISTRIBUTION WIDTH CV 13.4 % (11.5-14.5); WHITE BLOOD COUNT 9.29 K/uL (4.8-10.8)
[2017-11-29 06:49] LABS: ALBUMIN 2.4 gm/dl (3.4-5.0); CREATININE 2.4 mg/dl (0.60-1.40); PHOSPHORUS 3.5 mg/dl (2.5-4.9); TOTAL PROTEIN 5.7 gm/dl (6.4-8.2)
[2017-11-29] MEDS ORDERED: POTASSIUM CHLORIDE 20 MEQ/15 ML UDC PO STA (07:14)
[2017-11-29] MEDS ORDERED: VANCOMYCIN IV 750 MG in SODIUM CHLORIDE 0.9% 250ML 250 ML IV ONE (07:15)
[2017-11-29] MEDS: INSULIN ASPART 100 UNITS/ML 3 ML PEN SC SCH ×3 (07:38→16:00)
--- NOTE | 2017-11-29 07:54 | Clinical Documentation Query ---
CRISTINA Echevarria : CLINICAL DOCUMENTATION QUERY Patient is an 82 year old male admitted for sepsis secondary to a UTI. Documentation regarding mental status since admission includes "confused" and "altered mental status". CT scan of the head was negative for acute process. Urine culture positive for group B Beta Strep species. He is being treated with IV Zosyn. In your clinical opinion is this patient being managed for: (x ) Metabolic encephalopathy ( ) Not Agree ( ) Other explanation of clinical findings (Please Explain) ( ) Unable to determine (Please Define) ( ) Need to Discuss The medical record reflects the following clinical findings, treatment, and risk factors. Clinical Indicators: AMS in the setting of sepsis due to UTI Treatment: IVF, cultures, antibiotics, ICU standard of care, CT scan of the head, electrolyte repletion. Risk Factors: Age, electrolyte abnormalities, infection, dehydration, acidosis, severe sepsis Please clarify and document your clinical opinion in the progress notes and discharge summary. Terms such as "probable", "suspected", "likely", "questionable", "possible", or "still to be ruled out" are acceptable. IF IN AGREEMENT, YOU MUST DOCUMENT ABOVE DIAGNOSTIC STATEMENT IN DAILY PROGRESS NOTES AND DISCHARGE SUMMARY. This document is not part of the patient's record. Thank You, Anup Herrera, RN [phone]
--- NOTE | 2017-11-29 10:06 | Nephrology Progress Note ---
Nephrology Progress Note Date of Service Nov 29, 2017. Chief Complaint F/U for acute kidney injury. Subjective Mr. Guevara was seen and examined in his room this morning. He has been overall doing well denies any specific symptoms. Renal function improved to creatinine 2.4. Potassium was low. Blood pressure stable. Has been non- oliguric. Review of Systems A complete review of systems was performed. Pertinent positives are noted above. All other systems are negative. Vital Signs Last 8 Hrs Date Time Temp Pulse Resp B/P (MAP) Pulse Ox O2 Delivery O2 Flow Rate FiO2 11/29/17 04:39 99 Room Air 11/29/17 04:15 36.6 60 14 112/61 (78) 98 Room Air 11/29/17 00:43 99 Room Air Last Recorded Weight Weight (Kilograms): 53.000 Physical Exam GENERAL: Elderly male, AAA x 3, cachectic, not in any distress. NECK: Supple, no JVD. RESPIRATORY: Normal breathing efforts, no accessory muscle use, clear to auscultation bilaterally, no wheezes or rales. CARDIOVASCULAR: S1, S2 normal, rate rhythm regular. EXTREMITY: No lower extremity edema NEURO: speech fluent. PSYCHIATRY: Normal mood and judgment Family History Cancer (prostate, laryngeal) Diabetes mellitus Heart disease Social History Drug Use: none Marital Status: Housing Status: lives with family, lives with significant other Occupation: retired Laboratory Results Past 24 Hours 11/29/17 05:15 Red Blood Count 4.05, Mean Corpuscular Volume 85.2, Mean Corpuscular Hemoglobin 30.4, Mean Corpuscular Hemoglobin Concent 35.7, Mean Platelet Volume 10.4, Neutrophils (%) (Auto) 66.8, Lymphocytes (%) (Auto) 25.0, Monocytes (%) (Auto) 7.2, Eosinophils (%) (Auto) 0.8, Basophils (%) (Auto) 0.0, Neutrophils # (Auto) 6.21, Lymphocytes # (Auto) 2.32, Monocytes # (Auto) 0.67, Eosinophils # (Auto) 0.07, Basophils # (Auto) 0.00 11/29/17 05:15 Test 11/28/17 10:27 11/28/17 15:55 11/28/17 21:23 11/29/17 05:15 Creatine Kinase MB Ratio (0-3.0) Bedside Glucose 91 mg/dl (70-99) 83 mg/dl (70-99) White Blood Count 9.29 K/uL (4.8-10.8) Red Blood Count 4.05 M/uL (4.7-6.1) Hemoglobin 12.3 g/dL (14.0-18.0) Hematocrit 34.5 % (42-52) Mean Corpuscular Volume 85.2 fL (80-100) Mean Corpuscular Hemoglobin 30.4 pg (25-34) Mean Corpuscular Hemoglobin Concent 35.7 g/dl (32-36) Platelet Count 206 K/uL (130-400) Mean Platelet Volume 10.4 fL (7.4-10.4) Neutrophils (%) (Auto) 66.8 % Lymphocytes (%) (Auto) 25.0 % Monocytes (%) (Auto) 7.2 % Eosinophils (%) (Auto) 0.8 % Basophils (%) (Auto) 0.0 % Neutrophils # (Auto) 6.21 K/uL (1.4-6.5) Lymphocytes # (Auto) 2.32 K/uL (1.2-3.4) Monocytes # (Auto) 0.67 K/uL (0.11-0.59) Eosinophils # (Auto) 0.07 K/uL (0-0.5) Basophils # (Auto) 0.00 K/uL (0-0.2) RDW Standard Deviation 41.0 fL (36.4-46.3) RDW Coefficient of Variation 13.4 % (11.5-14.5) Immature Granulocyte % (Auto) 0.2 % Immature Granulocyte # (Auto) 0.02 K/uL (0.00-0.02) Anion Gap 11.0 mmol/L (3-11) Est Creatinine Clear Calc Drug Dose 17.2 ml/min Estimated GFR () 27.7 Estimated GFR (Non- 23.9 BUN/Creatinine Ratio 34.1 (10-20) Calcium Level 8.0 mg/dl (8.5-10.1) Phosphorus Level 3.5 mg/dl (2.5-4.9) Magnesium Level 2.0 mg/dl (1.8-2.4) Total Bilirubin 0.5 mg/dl (0.2-1) Direct Bilirubin 0.1 mg/dl (0-0.2) Aspartate Amino Transf (AST/SGOT) 31 U/L (15-37) Alanine Aminotransferase (ALT/SGPT) 19 U/L (12-78) Alkaline Phosphatase 48 U/L (45-117) Total Protein 5.7 gm/dl (6.4-8.2) Albumin 2.4 gm/dl (3.4-5.0) Random Vancomycin Level 15.1 mcg/ml Allergies Coded Allergies: Finasteride (Verified Allergy, Unknown, GYNOCOMASTIA, 11/11/16) [facility] Gabapentin (Verified Allergy, Unknown, UNKNOWN, 11/11/16) [facility] Levofloxacin (Verified Allergy, Unknown, SWELLINNG, 11/11/16) INFO FORM [facility] Sulfamethoxazole w/Trimethoprim (Verified Allergy, Unknown, SWELLING, 11/11) Tamsulosin (Verified Allergy, Unknown, GYNOCOMASTIA, 11/11/16) [facility] Tramadol (Verified Allergy, Unknown, PURITIS, 11/11/16) [facility] Uncoded Allergies: IV DYE (Allergy, Unknown, [facility], 11/11/16) Medications Current Inpatient Medications Medications (Trade) Dose Ordered Sig/Naima Route Start Time Stop Time Status Last Admin Dose Admin Heparin Sodium (Porcine) (Heparin Sq 5000 Unit/0.5ml) 5,000 unit Q12H SQ 11/27/17 22:00 12/27/17 21:59 11/28/17 22:37 5,000 UNIT Sodium Chloride 1,000 ml @ 75 mls/hr [id number] IV 11/27/17 18:27 12/27/17 18:26 11/29/17 04:42 75 MLS/HR Acetaminophen (Tylenol Tab) 650 mg Q4H PRN PO 11/27/17 18:30 12/27/17 18:29 Al Hydrox/Mg Hydrox/Simethicone (Maalox Max Susp) 15 ml Q4H PRN PO 11/27/17 18:30 12/27/17 18:29 Ondansetron HCl (Zofran Inj) 4 mg Q6H PRN IV 11/27/17 18:30 12/27/17 18:29 Pantoprazole Sodium 40 mg/ Syringe 10 ml @ 5 mls/min DAILY@1100 IV 11/28/17 11:00 12/01/17 11:01 11/28/17 11:11 5 MLS/MIN Morphine Sulfate (MoRPHine SULFATE INJ) 2 mg Q2H PRN IV 11/27/17 18:30 12/11/17 18:29 11/27/17 22:09 2 MG Piperacillin Sod/ Tazobactam Sod 3.375 gm/Dextrose 115 ml @ 28.75 mls/ hr Q12H IV 11/28/17 02:00 12/08/17 01:59 11/29/17 02:55 28.75 MLS/HR Miscellaneous Information (Consult) 1 ea UD PRN N/A 11/27/17 18:30 12/27/17 18:29 Insulin Aspart (novoLOG ASPART) SLIDING SCALE G... ACHS SC 11/27/17 21:00 12/27/17 20:59 Miscellaneous Information (Consult) 1 ea UD PRN N/A 11/27/17 21:27 12/27/17 21:26 Glucose (Glucose 40% Gel) 15-30 GRAMS 15 GRAMS... UD PRN PO 11/27/17 21:30 12/27/17 21:29 Glucose (Glucose Chew Tab) 4-8 Tablets 4 Tabl... UD PRN PO 11/27/17 21:30 12/27/17 21:29 Dextrose (Dextrose 50% 50ML Syringe) 25-50ML OF 50% DW IV FOR... UD PRN IV 11/27/17 21:30 12/27/17 21:29 Glucagon (Glucagon Inj) 1 mg UD PRN SQ 11/27/17 21:30 12/27/17 21:29 Vancomycin HCl 750 mg/Sodium Chloride 265 ml @ 125 mls/hr TODAY@0715 ONCE IV 11/29/17 07:15 11/29/17 09:22 11/29/17 07:39 125 MLS/HR Impression (1) Renal failure, acute (2) Metabolic acidosis (3) Hypertension (4) Anemia (5) Altered mental status (6) Acute on chronic renal failure (7) sepsis, UTI, acute kidney failure, hyperkalemia, acidosis Mr. Guevara is a 82-year-old gentlemen admitted with acute kidney injury after he was found to have a fall at home. On admission he was found to be hypotensive and volume depleted. 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 Baseline stage III CKD creatinine 1.4-1.5. Had history of recurrent acute kidney injury over last 1 year, had hydronephrosis with prostate cancer treated , had nephrostomy and recently was having Flores catheter which patient removed himself. On admission creatinine was 5.6 which then started to improve creatinine of 3.6 this morning. Blood pressure soft but stable. He is continued on IV hydration , has been tolerating well. No history of coronary artery disease or CHF. Started on IV antibiotic empirically for possible urosepsis. Acute kidney injury most likely prerenal with volume depletion, currently renal function improving rapidly with IV hydration, remain non-oliguric. CT abdomen pelvis negative for postrenal obstruction. Recommendations --acute kidney injury resolving, creatinine improved to 2.4, expect renal function to continue to improve ( baseline creatinine 1.4-1.5) --potassium chloride 40 milliequivalent given this morning --dose medications for GFR less than 30 --monitor intake and output Will follow.
--- NOTE | 2017-11-29 10:39 | Pharmacy Progress Note ---
Pharmacy Abx Dose Short Note Date of Service Nov 29, 2017. Assessment & Plan Assessment * 82 year old male receiving VANCOMYCIN and ZOSYN IV for treatment of sepsis / complicated UTI * Day # 3 of antimicrobial therapy * Thus far, only cx with growth is urine which is growing GBS; sensitivities are pending * Leukocytosis is resolving, he remains afebrile, BP is improving * Renal fxn also appears to be improving, SCr 4.5 -->3.67 -->2.7 (today); UO 2800mL last 24 hrs * Might consider deescalation of ABX today, possibly to Zosyn monotherapy if he continues to improve? Prior urine cx's reviewed over last several years and he has grown pansensitive klebsiella as well as enterococcus that was penicillin sensitive Plan Vancomycin * Random level this AM = 15.1 * Last dose = 750mg (15mg/kg) given at 0902 yesterday * Redose w/ 750mg IV x 1 this AM and repeat random level w/ AM labs tomorrow. * Estimated half-life still 24+ hours so would not anticipate a need to redose until tomorrow AM * Goal trough level for sepsis : 15 to 20 mcg/mL Zosyn * Continue 3.375gm ext-infusion Q 12 hours for eCrCl < 20cc/min and BMI 19.4 Pharmacy will continue to follow and will adjust dose/frequency as necessary. Thank you.
[2017-11-29] MEDS: PANTOprazole INJ 40 MG in SYRINGE 0 ML IV SCH (10:52)
[2017-11-29] MEDS: HEPARIN SOD 5000 UNIT/0.5 ML CARP SQ SCH ×2 (10:54→22:41)
[2017-11-29] MEDS ORDERED: NURSING VERBAL MED ORDER ONE (18:00)
--- NOTE | 2017-11-29 20:08 | Hospitalist Progress Note ---
Hospitalist Progress Note Date of Service Nov 29, 2017. Subjective Pt evaluation today including: conversation w/ patient, physical exam, chart review, lab review, review of studies, review of inpatient medication list Patient seen and evaluated. No acute events overnight. Looks a little more hydrated today. Electrolytes continue to stabilize and Cr. improving. Reporting pain with his teeth. Patient has poor dentition and part of his poor nutrition may be from this. Cannot get a thorough ROS and patient reports "I don't know" to a lot of questions. Mood seems to be labile, fluctuating between cooperative/pleasant to easily agitated No family at bedside during visit. Will need to address living situation and ability to care for himself or others caring for him. Mental capacity appears limited. May benefit from OOA evaluation. Additional Comments: ROS deferred as patient gives limited answers. Mostly "i dont know" Medications Current Inpatient Medications Medications (Trade) Dose Ordered Sig/Naima Route Start Time Stop Time Status Last Admin Dose Admin Heparin Sodium (Porcine) (Heparin Sq 5000 Unit/0.5ml) 5,000 unit Q12H SQ 11/27/17 22:00 12/27/17 21:59 11/29/17 10:54 5,000 UNIT Sodium Chloride 1,000 ml @ 75 mls/hr [id number] IV 11/27/17 18:27 12/27/17 18:26 11/29/17 04:42 75 MLS/HR Acetaminophen (Tylenol Tab) 650 mg Q4H PRN PO 11/27/17 18:30 12/27/17 18:29 Al Hydrox/Mg Hydrox/Simethicone (Maalox Max Susp) 15 ml Q4H PRN PO 11/27/17 18:30 12/27/17 18:29 Ondansetron HCl (Zofran Inj) 4 mg Q6H PRN IV 11/27/17 18:30 12/27/17 18:29 Pantoprazole Sodium 40 mg/ Syringe 10 ml @ 5 mls/min DAILY@1100 IV 11/28/17 11:00 12/01/17 11:01 11/29/17 10:52 5 MLS/MIN Morphine Sulfate (MoRPHine SULFATE INJ) 2 mg Q2H PRN IV 11/27/17 18:30 12/11/17 18:29 11/27/17 22:09 2 MG Piperacillin Sod/ Tazobactam Sod 3.375 gm/Dextrose 115 ml @ 28.75 mls/ hr Q12H IV 11/28/17 02:00 12/08/17 01:59 11/29/17 13:57 28.75 MLS/HR Miscellaneous Information (Consult) 1 ea UD PRN N/A 11/27/17 18:30 12/27/17 18:29 Miscellaneous Information (Consult) 1 ea UD PRN N/A 11/27/17 21:27 12/27/17 21:26 Glucose (Glucose 40% Gel) 15-30 GRAMS 15 GRAMS... UD PRN PO 11/27/17 21:30 12/27/17 21:29 Glucose (Glucose Chew Tab) 4-8 Tablets 4 Tabl... UD PRN PO 11/27/17 21:30 12/27/17 21:29 Dextrose (Dextrose 50% 50ML Syringe) 25-50ML OF 50% DW IV FOR... UD PRN IV 11/27/17 21:30 12/27/17 21:29 Glucagon (Glucagon Inj) 1 mg UD PRN SQ 11/27/17 21:30 12/27/17 21:29 Objective Vital Signs Date Time Temp Pulse Resp B/P (MAP) Pulse Ox O2 Delivery O2 Flow Rate FiO2 11/29/17 19:28 36.5 63 18 96/54 (68) 98 Room Air 11/29/17 18:40 127/74 (91) 11/29/17 17:30 37.4 74 16 89/56 (67) 98 Room Air 11/29/17 17:03 36.6 87 18 100 11/29/17 16:00 36.6 87 18 107/58 (74) 100 Room Air 11/29/17 16:00 Room Air 11/29/17 12:00 Room Air 11/29/17 12:00 36.5 80 18 100/62 (75) 100 Room Air 11/29/17 08:00 36.6 71 18 131/61 (84) 99 Room Air 11/29/17 08:00 Room Air 11/29/17 04:39 99 Room Air 11/29/17 04:15 36.6 60 14 112/61 (78) 98 Room Air 11/29/17 00:43 99 Room Air 11/29/17 00:02 36.6 54 17 99/57 (71) 97 Room Air 11/28/17 20:11 99 Room Air Physical Exam General Appearance: no apparent distress, + cachetic Eyes: sclerae normal ENT: + pertinent finding (poor dentition) Neck: supple, no JVD, trachea midline Respiratory/Chest: lungs clear, no respiratory distress, no accessory muscle use, + decreased breath sounds Cardiovascular: regular rate, rhythm Abdomen: normal bowel sounds, non tender, soft Extremities: no calf tenderness Neurologic/Psychiatric: alert Laboratory Results Last 24 Hours Test 11/28/17 21:23 11/29/17 05:15 11/29/17 11:00 11/29/17 15:42 Bedside Glucose 83 mg/dl 88 mg/dl 145 mg/dl White Blood Count 9.29 K/uL Red Blood Count 4.05 M/uL Hemoglobin 12.3 g/dL Hematocrit 34.5 % Mean Corpuscular Volume 85.2 fL Mean Corpuscular Hemoglobin 30.4 pg Mean Corpuscular Hemoglobin Concent 35.7 g/dl Platelet Count 206 K/uL Mean Platelet Volume 10.4 fL Neutrophils (%) (Auto) 66.8 % Lymphocytes (%) (Auto) 25.0 % Monocytes (%) (Auto) 7.2 % Eosinophils (%) (Auto) 0.8 % Basophils (%) (Auto) 0.0 % Neutrophils # (Auto) 6.21 K/uL Lymphocytes # (Auto) 2.32 K/uL Monocytes # (Auto) 0.67 K/uL Eosinophils # (Auto) 0.07 K/uL Basophils # (Auto) 0.00 K/uL RDW Standard Deviation 41.0 fL RDW Coefficient of Variation 13.4 % Immature Granulocyte % (Auto) 0.2 % Immature Granulocyte # (Auto) 0.02 K/uL Sodium Level 138 mmol/L Potassium Level 3.0 mmol/L Chloride Level 107 mmol/L Carbon Dioxide Level 19 mmol/L Anion Gap 11.0 mmol/L Blood Urea Nitrogen 82 mg/dl Creatinine 2.40 mg/dl Est Creatinine Clear Calc Drug Dose 17.2 ml/min Estimated GFR () 27.7 Estimated GFR (Non- 23.9 BUN/Creatinine Ratio 34.1 Random Glucose 87 mg/dl Calcium Level 8.0 mg/dl Phosphorus Level 3.5 mg/dl Magnesium Level 2.0 mg/dl Total Bilirubin 0.5 mg/dl Direct Bilirubin 0.1 mg/dl Aspartate Amino Transf (AST/SGOT) 31 U/L Alanine Aminotransferase (ALT/SGPT) 19 U/L Alkaline Phosphatase 48 U/L Total Protein 5.7 gm/dl Albumin 2.4 gm/dl Random Vancomycin Level 15.1 mcg/ml Assessment and Plan Severe Sepsis 2/2 Group B Beta Strep UTI: - Appears condition is largely from being severely volume depleted as fluids alone have made significant improvements - patient is cachectic and poorly groomed, likely not taking good care of himself - Zosyn and Vanc - cx with only group B strep and alpha strep - could consider D /C of antibiotics given afebrile and no leukocytosis however had indwelling catheter and known chronic issues - fall may have been more from volume depletion and overall decline in health - Urology following - appreciate recommendations Metabolic Acidosis: ANION GAP CLOSED - Presented with multiple electrolyte abnormalities that are resolving - continue to monitor and address electrolyte issues as necessary RAFAT on CKD Stage III and S/P L Nephrectomy: Baseline 1.4-1.5 - IMPROVING - Continue IVF - reduced to 75 mL/hr per nephrology recommendation - Continue to monitor with BMP and avoid nephrotoxins - Nephrology following - appreciate recommendations Deconditioning/Multiple Falls/Previous CVA/Craniotomy: STABLE - Head CT reveals L frontal lobe changes and chronic subdural hematomas/hygromas - Overall appears to not be thriving well - may need assistance of OOA - given poor dentition and what he describes as possible pain may reduce his ability to eat; also appears as he may be having sensitivities to cold drinks from this - ultimately resulting in continue decline in nutrition/health Prostate CA with Bladder Outlet Obstruction: - CT Abd/Pelvis - interval resolution of R hydroureteronephrosis and R urothelial thickening possible acute vs chronic - Keep fournier and follows with Dr. Carr as outpatient Paroxysmal Atrial Fibrillation: Currently NSR - Review of records show that he has had intermittent paroxysmal A Fib vs atrial tach and decision was to defer anticoagulation - Will defer on anticoagulation at this time given multiple falls, closed head injuries, chronic subdural hematomas... - Initial arrhythmia may have been triggered given electrolyte imbalances; mild elevations in troponins appear to be demand ischemia - at this time no need for further intervention DVT Prophylaxis: Heparin 5000 units SC Q12H Code Status: FULL RESUSCITATION Disposition: - Clinically improving - will be important to have appropriate disposition - unsure of ability to thrive safely at home Continued [facility] stay due to: multiple IV medications needed Discharge planning: uncertain
[2017-11-29] MEDS ORDERED: BENZOCAINE 20% (ORAJEL) 11.9 GM TUBE MT PRN (22:15)
[2017-11-30] VITALS (7 sets, daily range): BP systolic 105–116; BP diastolic 51–72; PULSE 56–74; TEMP 36.6–37; O2SAT 96–99
[2017-11-30] MEDS: PIPERACILL/TAZOBAC IV 3.375 GM in DEXTROSE 5% 100ML 100 ML IV SCH ×3 (02:05→19:08)
[2017-11-30 06:43] LABS: BASO % 0.1 %; BASO ABS # 0.01 K/uL (0-0.2); EOS % 0.9 %; EOS ABS # 0.08 K/uL (0-0.5); HEMATOCRIT 32.6 % (42-52); HEMOGLOBIN 11.2 g/dL (14.0-18.0); IG# 0.01 K/uL (0.00-0.02); LYMPH % 29.8 %; MEAN CORPUSCULAR HEMOGLOBIN 29.6 pg (25-34); MEAN CORPUSCULAR HGB CONC 34.4 g/dl (32-36); MEAN PLATELET VOLUME 10.3 fL (7.4-10.4); MONO % 7.6 %; MONO ABS # 0.69 K/uL (0.11-0.59); NEUT % 61.5 %; NEUT ABS # 5.57 K/uL (1.4-6.5); PLATELET COUNT 168 K/uL (130-400); RED CELL DISTRIBUTION WIDTH CV 13.6 % (11.5-14.5); RED CELL DISTRIBUTION WIDTH SD 42.4 fL (36.4-46.3); WHITE BLOOD COUNT 9.06 K/uL (4.8-10.8)
[2017-11-30 07:21] LABS: ALBUMIN 2.3 gm/dl (3.4-5.0); CALCIUM 7.5 mg/dl (8.5-10.1); CREATININE 1.87 mg/dl (0.60-1.40); POTASSIUM 2.7 mmol/L (3.5-5.1)
[2017-11-30 07:25] LABS: PHOSPHORUS 2.2 mg/dl (2.5-4.9); TOTAL PROTEIN 5.2 gm/dl (6.4-8.2)
[2017-11-30] MEDS: POTASSIUM CHLORIDE INJ 40 MEQ in SODIUM CHLORIDE 0.9% 1000ML 1,000 ML IV SCH ×2 (09:45→21:16)
[2017-11-30] MEDS: POTASSIUM CHLORIDE 20 MEQ TABCR PO SCH ×3 (09:46→18:35)
[2017-11-30] MEDS: HEPARIN SOD 5000 UNIT/0.5 ML CARP SQ SCH (09:53)
[2017-11-30] MEDS ORDERED: VANCOMYCIN IV 750 MG in SODIUM CHLORIDE 0.9% 250ML 250 ML IV ONE (10:15)
--- NOTE | 2017-11-30 11:32 | Nephrology Progress Note ---
Nephrology Progress Note Date of Service Nov 30, 2017. Chief Complaint F/U for acute kidney injury. Subjective Mr. Guevara was seen and examined in his room this morning. Overall his them feeling fine, denies any symptoms. Renal function continues to improve creatinine 1.9, potassium was low at 2.7 this morning. Currently getting replaced with oral and IV. Blood pressure stable. Urine output decent. Review of Systems A complete review of systems was performed. Pertinent positives are noted above. All other systems are negative. Vital Signs Last 8 Hrs Date Time Temp Pulse Resp B/P (MAP) Pulse Ox O2 Delivery O2 Flow Rate FiO2 11/30/17 07:15 37.0 59 20 109/62 (78) 97 Room Air 11/30/17 04:55 37.0 60 18 105/51 (69) 97 11/30/17 04:00 Room Air Last Recorded Weight Weight (Kilograms): 56.300 Physical Exam GENERAL: Elderly male, AAA x 3, cachectic, not in any distress. NECK: Supple, no JVD. RESPIRATORY: Normal breathing efforts, no accessory muscle use, clear to auscultation bilaterally, no wheezes or rales. CARDIOVASCULAR: S1, S2 normal, rate rhythm regular. EXTREMITY: No lower extremity edema NEURO: speech fluent. PSYCHIATRY: Normal mood and judgment Family History Cancer (prostate, laryngeal) Diabetes mellitus Heart disease Social History Drug Use: none Marital Status: Housing Status: lives with family, lives with significant other Occupation: retired Laboratory Results Past 24 Hours 11/30/17 06:27 Red Blood Count 3.79, Mean Corpuscular Volume 86.0, Mean Corpuscular Hemoglobin 29.6, Mean Corpuscular Hemoglobin Concent 34.4, Mean Platelet Volume 10.3, Neutrophils (%) (Auto) 61.5, Lymphocytes (%) (Auto) 29.8, Monocytes (%) (Auto) 7.6, Eosinophils (%) (Auto) 0.9, Basophils (%) (Auto) 0.1, Neutrophils # (Auto) 5.57, Lymphocytes # (Auto) 2.70, Monocytes # (Auto) 0.69, Eosinophils # (Auto) 0.08, Basophils # (Auto) 0.01 11/30/17 06:27 Test 11/29/17 11:00 11/29/17 15:42 11/30/17 06:27 Bedside Glucose 88 mg/dl (70-99) 145 mg/dl (70-99) White Blood Count 9.06 K/uL (4.8-10.8) Red Blood Count 3.79 M/uL (4.7-6.1) Hemoglobin 11.2 g/dL (14.0-18.0) Hematocrit 32.6 % (42-52) Mean Corpuscular Volume 86.0 fL (80-100) Mean Corpuscular Hemoglobin 29.6 pg (25-34) Mean Corpuscular Hemoglobin Concent 34.4 g/dl (32-36) Platelet Count 168 K/uL (130-400) Mean Platelet Volume 10.3 fL (7.4-10.4) Neutrophils (%) (Auto) 61.5 % Lymphocytes (%) (Auto) 29.8 % Monocytes (%) (Auto) 7.6 % Eosinophils (%) (Auto) 0.9 % Basophils (%) (Auto) 0.1 % Neutrophils # (Auto) 5.57 K/uL (1.4-6.5) Lymphocytes # (Auto) 2.70 K/uL (1.2-3.4) Monocytes # (Auto) 0.69 K/uL (0.11-0.59) Eosinophils # (Auto) 0.08 K/uL (0-0.5) Basophils # (Auto) 0.01 K/uL (0-0.2) RDW Standard Deviation 42.4 fL (36.4-46.3) RDW Coefficient of Variation 13.6 % (11.5-14.5) Immature Granulocyte % (Auto) 0.1 % Immature Granulocyte # (Auto) 0.01 K/uL (0.00-0.02) Anion Gap 8.0 mmol/L (3-11) Est Creatinine Clear Calc Drug Dose 23.4 ml/min Estimated GFR () 37.4 Estimated GFR (Non- 32.3 BUN/Creatinine Ratio 27.5 (10-20) Calcium Level 7.5 mg/dl (8.5-10.1) Phosphorus Level 2.2 mg/dl (2.5-4.9) Magnesium Level 1.6 mg/dl (1.8-2.4) Total Bilirubin 0.6 mg/dl (0.2-1) Direct Bilirubin 0.2 mg/dl (0-0.2) Aspartate Amino Transf (AST/SGOT) 27 U/L (15-37) Alanine Aminotransferase (ALT/SGPT) 18 U/L (12-78) Alkaline Phosphatase 42 U/L (45-117) Total Protein 5.2 gm/dl (6.4-8.2) Albumin 2.3 gm/dl (3.4-5.0) Random Vancomycin Level 17.3 mcg/ml Allergies Coded Allergies: Finasteride (Verified Allergy, Unknown, GYNOCOMASTIA, 11/11/16) [facility] Gabapentin (Verified Allergy, Unknown, UNKNOWN, 11/11/16) [facility] Levofloxacin (Verified Allergy, Unknown, SWELLINNG, 11/11/16) INFO FORM [facility] Sulfamethoxazole w/Trimethoprim (Verified Allergy, Unknown, SWELLING, 11/11) Tamsulosin (Verified Allergy, Unknown, GYNOCOMASTIA, 11/11/16) [facility] Tramadol (Verified Allergy, Unknown, PURITIS, 11/11/16) [facility] Uncoded Allergies: IV DYE (Allergy, Unknown, [facility], 11/11/16) Medications Current Inpatient Medications Medications (Trade) Dose Ordered Sig/Naima Route Start Time Stop Time Status Last Admin Dose Admin Heparin Sodium (Porcine) (Heparin Sq 5000 Unit/0.5ml) 5,000 unit Q12H SQ 11/27/17 22:00 12/27/17 21:59 11/29/17 22:41 5,000 UNIT Acetaminophen (Tylenol Tab) 650 mg Q4H PRN PO 11/27/17 18:30 12/27/17 18:29 Al Hydrox/Mg Hydrox/Simethicone (Maalox Max Susp) 15 ml Q4H PRN PO 11/27/17 18:30 12/27/17 18:29 Ondansetron HCl (Zofran Inj) 4 mg Q6H PRN IV 11/27/17 18:30 12/27/17 18:29 Morphine Sulfate (MoRPHine SULFATE INJ) 2 mg Q2H PRN IV 11/27/17 18:30 12/11/17 18:29 11/27/17 22:09 2 MG Piperacillin Sod/ Tazobactam Sod 3.375 gm/Dextrose 115 ml @ 28.75 mls/ hr Q12H IV 11/28/17 02:00 12/08/17 01:59 11/30/17 02:05 28.75 MLS/HR Miscellaneous Information (Consult) 1 ea UD PRN N/A 11/27/17 18:30 12/27/17 18:29 Miscellaneous Information (Consult) 1 ea UD PRN N/A 11/27/17 21:27 12/27/17 21:26 Glucose (Glucose 40% Gel) 15-30 GRAMS 15 GRAMS... UD PRN PO 11/27/17 21:30 12/27/17 21:29 Glucose (Glucose Chew Tab) 4-8 Tablets 4 Tabl... UD PRN PO 11/27/17 21:30 12/27/17 21:29 Dextrose (Dextrose 50% 50ML Syringe) 25-50ML OF 50% DW IV FOR... UD PRN IV 11/27/17 21:30 12/27/17 21:29 Glucagon (Glucagon Inj) 1 mg UD PRN SQ 11/27/17 21:30 12/27/17 21:29 Benzocaine (Orajel 20% Oral Gel) 1 appln Q2H PRN MT 11/29/17 22:15 12/29/17 22:14 Potassium Chloride 40 meq/ Sodium Chloride 1,020 ml @ 80 mls/hr [id number] IV 11/30/17 08:30 12/30/17 08:29 Potassium Chloride (Klor-Con Tab) 20 meq TID PO 11/30/17 09:00 12/30/17 08:59 Impression (1) Renal failure, acute (2) Metabolic acidosis (3) Hypertension (4) Anemia (5) Altered mental status (6) Acute on chronic renal failure (7) sepsis, UTI, acute kidney failure, hyperkalemia, acidosis Mr. Guevara is a 82-year-old gentlemen admitted with acute kidney injury after he was found to have a fall at home. On admission he was found to be hypotensive and volume depleted. 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 Baseline stage III CKD creatinine 1.4-1.5. Had history of recurrent acute kidney injury over last 1 year, had hydronephrosis with prostate cancer treated , had nephrostomy and recently was having Flores catheter which patient removed himself. On admission creatinine was 5.6 which then started to improve creatinine of 3.6 this morning. Blood pressure soft but stable. He is continued on IV hydration , has been tolerating well. No history of coronary artery disease or CHF. Started on IV antibiotic empirically for possible urosepsis. Acute kidney injury most likely prerenal with volume depletion, currently renal function improving rapidly with IV hydration, remain non-oliguric. CT abdomen pelvis negative for postrenal obstruction. Recommendations --acute kidney injury resolving, creatinine improved to 1.9, expect renal function to continue to improve ( baseline creatinine 1.4-1.5) --potassium chloride being replaced with p.o. and IV given this morning --dose medications for GFR less than 30 --monitor intake and output Will follow.
--- NOTE | 2017-11-30 11:54 | Pharmacy Progress Note ---
Pharmacy Abx Dose Short Note Date of Service Nov 30, 2017. Assessment & Plan Assessment * 82 year old male receiving VANCOMYCIN and ZOSYN IV for treatment of sepsis / complicated UTI * Day # 4 of antimicrobial therapy * Thus far, only cx with growth is urine cx: growing GBS and alpha strep (not enterococcus) * Leukocytosis is resolved, he remains afebrile, BP is improved * Renal fxn also appears to be improving, SCr 4.5 -->3.67 -->2.7 -->1.87 (today) ; baseline SCr reported to be ~1.4-1.5; UO 2800mL last 24 hrs * Might consider deescalation of ABX today, possibly to Rocephin monotherapy if he continues to improve? Rocephin should cover both strep species in his urine cx Plan Vancomycin * Random level = 17.3 this AM * Will redose with 750mg (~15mg/kg) IV x 1 this AM and repeat random level w/ AM labs. * Based upon current levels and dosing frequency, it appears he may require 750mg IV Q 24 hours. * His renal fxn is changing however, so I will continue to dose based upon random AM levels * Goal trough level for sepsis : 15 to 20 mcg/mL; however now that patient is improving a level of 10 to 20 mcg/mL may also be acceptable Zosyn * eCrCl now greater than 20cc/min; increase dose to 3.375gm ext infusion Q 8 hours Pharmacy will continue to follow and will adjust dose/frequency as necessary. Thank you.
[2017-11-30] MEDS ORDERED: POTASSIUM PHOS 3 MMOL/1 ML INFUSION IV STA (15:58)
--- NOTE | 2017-11-30 15:58 | Progress Note ---
Subjective Date of Service: Nov 30, 2017. Subjective Pt evaluation today including: conversation w/ patient, physical exam, lab review, review of inpatient medication list Pain: no pain PO Intake: adequate Voiding: fournier catheter in place patient more alert, feeling a lot better c/o weakness, does not complaint of pain ready to get up to a chair Problem List Medical Problems: (1) Dehydration Status: Acute (2) Kidney failure Status: Acute (3) Metabolic encephalopathy Status: Acute (4) Renal failure, acute Status: Acute (5) Sepsis Status: Acute (6) Sepsis Status: Acute Review of Systems Constitutional: + weakness, + fatigue All Other Systems: Reviewed and Negative Medications Current Inpatient Medications Medications (Trade) Dose Ordered Sig/Naima Route Start Time Stop Time Status Last Admin Dose Admin Acetaminophen (Tylenol Tab) 650 mg Q4H PRN PO 11/27/17 18:30 12/27/17 18:29 Al Hydrox/Mg Hydrox/Simethicone (Maalox Max Susp) 15 ml Q4H PRN PO 11/27/17 18:30 12/27/17 18:29 Ondansetron HCl (Zofran Inj) 4 mg Q6H PRN IV 11/27/17 18:30 12/27/17 18:29 Morphine Sulfate (MoRPHine SULFATE INJ) 2 mg Q2H PRN IV 11/27/17 18:30 12/11/17 18:29 11/27/17 22:09 2 MG Miscellaneous Information (Consult) 1 ea UD PRN N/A 11/27/17 18:30 12/27/17 18:29 Miscellaneous Information (Consult) 1 ea UD PRN N/A 11/27/17 21:27 12/27/17 21:26 Glucose (Glucose 40% Gel) 15-30 GRAMS 15 GRAMS... UD PRN PO 11/27/17 21:30 12/27/17 21:29 Glucose (Glucose Chew Tab) 4-8 Tablets 4 Tabl... UD PRN PO 11/27/17 21:30 12/27/17 21:29 Dextrose (Dextrose 50% 50ML Syringe) 25-50ML OF 50% DW IV FOR... UD PRN IV 11/27/17 21:30 12/27/17 21:29 Glucagon (Glucagon Inj) 1 mg UD PRN SQ 11/27/17 21:30 12/27/17 21:29 Benzocaine (Orajel 20% Oral Gel) 1 appln Q2H PRN MT 11/29/17 22:15 12/29/17 22:14 Potassium Chloride 40 meq/ Sodium Chloride 1,020 ml @ 80 mls/hr [id number] IV 11/30/17 08:30 12/30/17 08:29 11/30/17 09:45 80 MLS/HR Potassium Chloride (Klor-Con Tab) 20 meq TID PO 11/30/17 09:00 12/30/17 08:59 11/30/17 13:39 20 MEQ Piperacillin Sod/ Tazobactam Sod 3.375 gm/Dextrose 115 ml @ 28.75 mls/ hr Q8H IV 11/30/17 12:00 12/08/17 01:59 11/30/17 14:18 28.75 MLS/HR Objective Vital Signs Date Time Temp Pulse Resp B/P (MAP) Pulse Ox O2 Delivery O2 Flow Rate FiO2 11/30/17 12:00 37.0 74 14 106/56 (73) 96 Room Air 11/30/17 12:00 Room Air 11/30/17 08:00 Room Air 11/30/17 07:15 37.0 59 20 109/62 (78) 97 Room Air 11/30/17 04:55 37.0 60 18 105/51 (69) 97 11/30/17 04:00 Room Air 11/30/17 00:08 36.8 68 18 116/60 (78) 97 11/29/17 23:59 Room Air 11/29/17 20:00 Room Air 11/29/17 19:28 36.5 63 18 96/54 (68) 98 Room Air 11/29/17 18:40 127/74 (91) 11/29/17 17:30 37.4 74 16 89/56 (67) 98 Room Air 11/29/17 17:03 36.6 87 18 100 11/29/17 16:00 36.6 87 18 107/58 (74) 100 Room Air 11/29/17 16:00 Room Air Physical Exam General Appearance: no apparent distress, + thin Eyes: normal inspection, EOMI, sclerae normal ENT: normal ENT inspection, hearing grossly normal, pharynx normal Neck: supple, no adenopathy, no JVD, trachea midline Respiratory/Chest: chest non-tender, lungs clear, no respiratory distress, no accessory muscle use, + decreased breath sounds Cardiovascular: regular rate, rhythm, no edema, no gallop, no JVD, no murmur Abdomen: normal bowel sounds, non tender, soft, no organomegaly Extremities: normal range of motion, non-tender, normal inspection, no pedal edema, no calf tenderness, pelvis stable Neurologic/Psychiatric: 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, alert, normal mood/affect, oriented x 3, + motor weakness (generalized) Skin: normal color, warm/dry, no rash Laboratory Results Last 24 Hours Test 11/30/17 06:27 White Blood Count 9.06 K/uL Red Blood Count 3.79 M/uL Hemoglobin 11.2 g/dL Hematocrit 32.6 % Mean Corpuscular Volume 86.0 fL Mean Corpuscular Hemoglobin 29.6 pg Mean Corpuscular Hemoglobin Concent 34.4 g/dl Platelet Count 168 K/uL Mean Platelet Volume 10.3 fL Neutrophils (%) (Auto) 61.5 % Lymphocytes (%) (Auto) 29.8 % Monocytes (%) (Auto) 7.6 % Eosinophils (%) (Auto) 0.9 % Basophils (%) (Auto) 0.1 % Neutrophils # (Auto) 5.57 K/uL Lymphocytes # (Auto) 2.70 K/uL Monocytes # (Auto) 0.69 K/uL Eosinophils # (Auto) 0.08 K/uL Basophils # (Auto) 0.01 K/uL RDW Standard Deviation 42.4 fL RDW Coefficient of Variation 13.6 % Immature Granulocyte % (Auto) 0.1 % Immature Granulocyte # (Auto) 0.01 K/uL Sodium Level 141 mmol/L Potassium Level 2.7 mmol/L Chloride Level 112 mmol/L Carbon Dioxide Level 21 mmol/L Anion Gap 8.0 mmol/L Blood Urea Nitrogen 51 mg/dl Creatinine 1.87 mg/dl Est Creatinine Clear Calc Drug Dose 23.4 ml/min Estimated GFR () 37.4 Estimated GFR (Non- 32.3 BUN/Creatinine Ratio 27.5 Random Glucose 107 mg/dl Calcium Level 7.5 mg/dl Phosphorus Level 2.2 mg/dl Magnesium Level 1.6 mg/dl Total Bilirubin 0.6 mg/dl Direct Bilirubin 0.2 mg/dl Aspartate Amino Transf (AST/SGOT) 27 U/L Alanine Aminotransferase (ALT/SGPT) 18 U/L Alkaline Phosphatase 42 U/L Total Protein 5.2 gm/dl Albumin 2.3 gm/dl Random Vancomycin Level 17.3 mcg/ml Assessment and Plan Severe Sepsis 2/2 Group B Beta Strep UTI sepsis resolved with IV fluids and antibiotics, afebrile, vitals stable continue Zosyn and d/c Vanco today check CBC tomorrow, WBC normal today Metabolic Acidosis: due to severe sepsis, renal failure resolved with supportive care RAFAT on CKD Stage III and S/P L Nephrectomy: Baseline 1.4-1.5 - IMPROVING Cr is 1.87 today, continue IV fluids today avoid nephrotoxins, nephrology on the case Hypokalemia: lower today at 2.7 PO supplementation at 20mEq TID and add K to fluids at 80cc/hr Hypophosphatemia: 21mmol of K phos ordered, repeat tomorrow Deconditioning/Multiple Falls/Previous CVA/Craniotomy: STABLE - Head CT reveals L frontal lobe changes and chronic subdural hematomas/hygromas - Overall appears to not be thriving well - may need assistance of OOA Prostate CA with Bladder Outlet Obstruction: - CT Abd/Pelvis - interval resolution of R hydroureteronephrosis and R urothelial thickening possible acute vs chronic - Keep fournier and follows with Dr. Carr as outpatient Paroxysmal Atrial Fibrillation: Currently NSR - holding anticoagulation due to h/o falls, subdural hematomas DVT Prophylaxis: Heparin 5000 units SC Q12H Code Status: FULL RESUSCITATION Disposition: - Clinically improving - will be important to have appropriate disposition - unsure of ability to thrive safely at home Continued [facility] stay due to: multiple IV medications needed Discharge planning: uncertain
[2017-11-30] MEDS ORDERED: POTASSIUM PHOSPHATE INJ 21 MMOL in SODIUM CHLORIDE 0.9% 500ML 500 ML IV ONE (16:15)
[2017-12-01] VITALS (7 sets, daily range): BP systolic 104–144; BP diastolic 48–83; PULSE 54–68; TEMP 36.3–36.9; O2SAT 92–99
[2017-12-01] MEDS: PIPERACILL/TAZOBAC IV 3.375 GM in DEXTROSE 5% 100ML 100 ML IV SCH (04:28)
[2017-12-01] MEDS: POTASSIUM CHLORIDE 20 MEQ TABCR PO SCH ×3 (07:39→20:25)
--- NOTE | 2017-12-01 08:04 | Hospitalist Progress Note ---
Hospitalist Progress Note Date of Service Dec 01, 2017. Subjective Pt evaluation today including: conversation w/ patient, physical exam, chart review, lab review, review of inpatient medication list Objective Vital Signs Date Time Temp Pulse Resp B/P (MAP) Pulse Ox O2 Delivery O2 Flow Rate FiO2 12/01/17 07:52 36.5 56 13 125/57 (79) 95 Room Air 12/01/17 03:10 36.9 54 18 104/48 (66) 92 Room Air 12/01/17 03:10 Room Air 12/01/17 00:10 Room Air 11/30/17 23:25 36.7 56 12 115/72 (86) 98 Room Air 11/30/17 20:00 Room Air 11/30/17 19:46 36.6 59 16 113/68 (83) 99 Room Air 11/30/17 16:00 Room Air 11/30/17 16:00 37.0 71 14 110/59 (76) 98 Room Air 11/30/17 12:00 37.0 74 14 106/56 (73) 96 Room Air 11/30/17 12:00 Room Air Laboratory Results Last 24 Hours Test 11/30/17 20:19 12/01/17 04:44 Bedside Glucose 98 mg/dl Assessment and Plan Severe Sepsis 2/2 Group B Beta Strep UTI: - Appears condition is largely from being severely volume depleted as fluids alone have made significant improvements - patient is cachectic and poorly groomed, likely not taking good care of himself - Will continue Zosyn and Vanc at this time - cx with only group B strep and alpha strep - could consider D/C of antibiotics given afebrile and no leukocytosis however had indwelling catheter and known chronic issues - fall may have been more from volume depletion and overall decline in health - Urology following - appreciate recommendations Metabolic Acidosis: ANION GAP CLOSED RAFAT on CKD Stage III and S/P L Nephrectomy: Baseline 1.4-1.5 - IMPROVING - Continue IVF - reduced to 75 mL/hr per nephrology recommendation - Continue to monitor with BMP and avoid nephrotoxins - Nephrology following - appreciate recommendations Deconditioning/Multiple Falls/Previous CVA/Craniotomy: STABLE - Head CT reveals L frontal lobe changes and chronic subdural hematomas/hygromas - Overall appears to not be thriving well - may need assistance of OOA - given poor dentition and what he describes as possible pain may reduce his ability to eat; also appears as he may be having sensitivities to cold drinks from this - ultimately resulting in continue decline in nutrition/health Prostate CA with Bladder Outlet Obstruction: - CT Abd/Pelvis - interval resolution of R hydroureteronephrosis and R urothelial thickening possible acute vs chronic - Keep fournier and follows with Dr. Carr as outpatient Paroxysmal Atrial Fibrillation: Currently NSR - Review of records show that he has had intermittent paroxysmal A Fib vs atrial tach and decision was to defer anticoagulation - Will defer on anticoagulation at this time given multiple falls, closed head injuries, chronic subdural hematomas... - Initial arrhythmia may have been triggered given electrolyte imbalances; mild elevations in troponins appear to be demand ischemia - at this time no need for further intervention DVT Prophylaxis: Heparin 5000 units SC Q12H Code Status: FULL RESUSCITATION Disposition: - Clinically improving - will be important to have appropriate disposition - unsure of ability to thrive safely at home Continued [facility] stay due to: home environment unsafe for pt Discharge planning: [facility]
[2017-12-01] MEDS ORDERED: CEPHALEXIN MONOHYDRATE 250 MG CAP PO ONE (10:15)
[2017-12-01 10:17] LABS: BASO % 0.1 %; BASO ABS # 0.01 K/uL (0-0.2); EOS % 1.9 %; EOS ABS # 0.18 K/uL (0-0.5); HEMATOCRIT 33.9 % (42-52); HEMOGLOBIN 11.5 g/dL (14.0-18.0); IG# 0.02 K/uL (0.00-0.02); LYMPH % 33.5 %; LYMPH ABS # 3.17 K/uL (1.2-3.4); MEAN CELL VOLUME 87.6 fL (80-100); MEAN CORPUSCULAR HEMOGLOBIN 29.7 pg (25-34); MEAN CORPUSCULAR HGB CONC 33.9 g/dl (32-36); MEAN PLATELET VOLUME 9.8 fL (7.4-10.4); MONO % 7.1 %; MONO ABS # 0.67 K/uL (0.11-0.59); NEUT % 57.2 %; NEUT ABS # 5.41 K/uL (1.4-6.5); PLATELET COUNT 149 K/uL (130-400); RED CELL DISTRIBUTION WIDTH CV 13.8 % (11.5-14.5); RED CELL DISTRIBUTION WIDTH SD 44.3 fL (36.4-46.3); WHITE BLOOD COUNT 9.46 K/uL (4.8-10.8)
--- NOTE | 2017-12-01 10:30 | Hospitalist Progress Note ---
Hospitalist Progress Note Date of Service Dec 01, 2017. Subjective Pt evaluation today including: conversation w/ patient, physical exam, chart review, lab review, review of studies, review of inpatient medication list Patient seen and evaluated. Appearing clinically better. Oral mucosa not as dry. Verbalizes no complaints. States he isn't having any mouth pain today. Agreeing to rehab which was recommended by PT/OT. Family planning on coming in today. Will discuss as goals of care will be important with him. Unsure if being home is a safe option. When asking about his family he states "I am not sure if my son is or alive " but supposedly live with his and son. Also states he has a daughter but doesn't know much about her. Additional Comments: ROS not obtained as normally just says he doesn't know. States he is having no pain. Medications Current Inpatient Medications Medications (Trade) Dose Ordered Sig/Naima Route Start Time Stop Time Status Last Admin Dose Admin Acetaminophen (Tylenol Tab) 650 mg Q4H PRN PO 11/27/17 18:30 12/27/17 18:29 Al Hydrox/Mg Hydrox/Simethicone (Maalox Max Susp) 15 ml Q4H PRN PO 11/27/17 18:30 12/27/17 18:29 Ondansetron HCl (Zofran Inj) 4 mg Q6H PRN IV 11/27/17 18:30 12/27/17 18:29 Morphine Sulfate (MoRPHine SULFATE INJ) 2 mg Q2H PRN IV 11/27/17 18:30 12/11/17 18:29 11/27/17 22:09 2 MG Miscellaneous Information (Consult) 1 ea UD PRN N/A 11/27/17 18:30 12/27/17 18:29 Glucose (Glucose 40% Gel) 15-30 GRAMS 15 GRAMS... UD PRN PO 11/27/17 21:30 12/27/17 21:29 Glucose (Glucose Chew Tab) 4-8 Tablets 4 Tabl... UD PRN PO 11/27/17 21:30 12/27/17 21:29 Dextrose (Dextrose 50% 50ML Syringe) 25-50ML OF 50% DW IV FOR... UD PRN IV 11/27/17 21:30 12/27/17 21:29 Glucagon (Glucagon Inj) 1 mg UD PRN SQ 3/3/18 21:30 12/27/17 21:29 Benzocaine (Orajel 20% Oral Gel) 1 appln Q2H PRN MT 11/29/17 22:15 12/29/17 22:14 Potassium Chloride 40 meq/ Sodium Chloride 1,020 ml @ 80 mls/hr [id number] IV 11/30/17 08:30 12/30/17 08:29 11/30/17 21:16 80 MLS/HR Potassium Chloride (Klor-Con Tab) 20 meq TID PO 11/30/17 09:00 12/30/17 08:59 12/01/17 07:39 20 MEQ Piperacillin Sod/ Tazobactam Sod 3.375 gm/Dextrose 115 ml @ 28.75 mls/ hr Q8H IV 11/30/17 12:00 12/08/17 01:59 12/01/17 04:28 28.75 MLS/HR Objective Vital Signs Date Time Temp Pulse Resp B/P (MAP) Pulse Ox O2 Delivery O2 Flow Rate FiO2 12/01/17 07:52 36.5 56 13 125/57 (79) 95 Room Air 12/01/17 03:10 36.9 54 18 104/48 (66) 92 Room Air 12/01/17 03:10 Room Air 12/01/17 00:10 Room Air 11/30/17 23:25 36.7 56 12 115/72 (86) 98 Room Air 11/30/17 20:00 Room Air 11/30/17 19:46 36.6 59 16 113/68 (83) 99 Room Air 11/30/17 16:00 Room Air 11/30/17 16:00 37.0 71 14 110/59 (76) 98 Room Air 11/30/17 12:00 37.0 74 14 106/56 (73) 96 Room Air 11/30/17 12:00 Room Air Physical Exam General Appearance: no apparent distress Eyes: sclerae normal ENT: + pertinent finding (oral mucosa not as dry; poor dentition) Neck: supple, no JVD, trachea midline Respiratory/Chest: lungs clear, normal breath sounds, no respiratory distress, no accessory muscle use Cardiovascular: + irregularly irregular Abdomen: normal bowel sounds, non tender, soft Extremities: no pedal edema Neurologic/Psychiatric: alert, + disoriented Skin: normal color, warm/dry Laboratory Results Last 24 Hours Test 11/30/17 20:19 12/01/17 10:04 Bedside Glucose 98 mg/dl White Blood Count 9.46 K/uL Red Blood Count 3.87 M/uL Hemoglobin 11.5 g/dL Hematocrit 33.9 % Mean Corpuscular Volume 87.6 fL Mean Corpuscular Hemoglobin 29.7 pg Mean Corpuscular Hemoglobin Concent 33.9 g/dl Platelet Count 149 K/uL Mean Platelet Volume 9.8 fL Neutrophils (%) (Auto) 57.2 % Lymphocytes (%) (Auto) 33.5 % Monocytes (%) (Auto) 7.1 % Eosinophils (%) (Auto) 1.9 % Basophils (%) (Auto) 0.1 % Neutrophils # (Auto) 5.41 K/uL Lymphocytes # (Auto) 3.17 K/uL Monocytes # (Auto) 0.67 K/uL Eosinophils # (Auto) 0.18 K/uL Basophils # (Auto) 0.01 K/uL RDW Standard Deviation 44.3 fL RDW Coefficient of Variation 13.8 % Immature Granulocyte % (Auto) 0.2 % Immature Granulocyte # (Auto) 0.02 K/uL Assessment and Plan Severe Sepsis 2/2 Group B Beta Strep UTI: RESOLVED - Will D/C IV Abx and cover with Keflex 250 mg BID to complete 10 day course - given indwelling catheter and prostate enlargement - Awaiting labs and will consider cessation of IVF - will continue to monitor oral intake Metabolic Acidosis 2/2 Severe Sepsis and RAFAT: RESOLVED RAFAT on CKD Stage III and S/P L Nephrectomy: Baseline 1.4-1.5 - IMPROVING - Labs pending at this time; continue to avoid nephrotoxins and renally dose meds - Nephrology following - appreciate recommendations Hypokalemia and Hypophosphatemia: - Continue to monitor and replete as necessary Deconditioning/Multiple Falls/Previous CVA/Craniotomy: STABLE - Head CT reveals L frontal lobe changes and chronic subdural hematomas/hygromas - Overall appears to not be thriving well - may need assistance of OOA Prostate CA with Bladder Outlet Obstruction: - CT Abd/Pelvis - interval resolution of R hydroureteronephrosis and R urothelial thickening possible acute vs chronic - Keep fournier and follows with Dr. Carr as outpatient - recommend outpatient F /U Paroxysmal Atrial Fibrillation: Currently NSR - Hold AC due to h/o falls, subdural hematomas DVT Prophylaxis: Heparin 5000 units SC Q12H Code Status: FULL RESUSCITATION Disposition: - Suspect patient is at baseline - PT/OT recommending SNF and patient agrees to this but overall poor memory/understanding - Labs are pending for today but if RAFAT resolving and taking in orals possibly medically can be D/Cd in the next day or so - Likely will need permanent placement and will discuss with family - would benefit from goals of care and this could even be arranged as outpatient - Suitable for transfer to medical [facility] stay due to: multiple IV medications needed Discharge planning: care home facility
[2017-12-01] MEDS: POTASSIUM CHLORIDE INJ 40 MEQ in SODIUM CHLORIDE 0.9% 1000ML 1,000 ML IV SCH ×2 (10:41→22:30)
[2017-12-01 11:00] LABS: ALBUMIN 2.3 gm/dl (3.4-5.0); CALCIUM 7.7 mg/dl (8.5-10.1); CREATININE 1.54 mg/dl (0.60-1.40); POTASSIUM 4.1 mmol/L (3.5-5.1)
[2017-12-01 11:05] LABS: PHOSPHORUS 1.1 mg/dl (2.5-4.9); TOTAL PROTEIN 5.3 gm/dl (6.4-8.2)
[2017-12-01] MEDS ORDERED: SODIUM PHOSPHATE 3 MMOL/1 ML INFUSION IV STA ×2 (11:06→11:19)
[2017-12-01] MEDS ORDERED: SODIUM PHOSPHATE INJ 24 MMOL in SODIUM CHLORIDE 0.9% 500ML 500 ML IV ONE (12:00)
[2017-12-01] MEDS ORDERED: SODIUM PHOSPHATE INJ 21 MMOL in SODIUM CHLORIDE 0.9% 500ML 500 ML IV ONE (12:00)
--- NOTE | 2017-12-01 12:25 | Nephrology Progress Note ---
Nephrology Progress Note Date of Service Dec 01, 2017. Chief Complaint F/U for acute kidney injury. Subjective Mr. Guevara was seen and examined in his room this morning. He has been otherwise feeling well, resting in bed comfortably. Renal function improve, creatinine 1.5, electrolyte acceptable.. Urine output has been decent. Blood pressure stable. Review of Systems A complete review of systems was performed. Pertinent positives are noted above. All other systems are negative. Vital Signs Last 8 Hrs Date Time Temp Pulse Resp B/P (MAP) Pulse Ox O2 Delivery O2 Flow Rate FiO2 12/01/17 07:52 36.5 56 13 125/57 (79) 95 Room Air 12/01/17 03:10 36.9 54 18 104/48 (66) 92 Room Air 12/01/17 03:10 Room Air Last Recorded Weight Weight (Kilograms): 56.000 Physical Exam GENERAL: Elderly male, AAA x 3, cachectic, not in any distress. NECK: Supple, no JVD. RESPIRATORY: Normal breathing efforts, no accessory muscle use, clear to auscultation bilaterally, no wheezes or rales. CARDIOVASCULAR: S1, S2 normal, rate rhythm regular. EXTREMITY: No lower extremity edema NEURO: speech fluent. PSYCHIATRY: Normal mood and judgment Family History Cancer (prostate, laryngeal) Diabetes mellitus Heart disease Social History Drug Use: none Marital Status: Housing Status: lives with family, lives with significant other Occupation: retired Laboratory Results Past 24 Hours Test 11/30/17 20:19 12/01/17 04:44 Bedside Glucose 98 mg/dl (70-99) Allergies Coded Allergies: Tramadol (Verified Allergy, Mild, PRURITIS, 12/01/17) [facility] Gabapentin (Verified Allergy, Unknown, UNKNOWN, 11/11/16) [facility] Iodinated Diagnostic Agents (Verified Allergy, Unknown, IVP DYE, 12/01/17) Levofloxacin (Verified Allergy, Unknown, SWELLING, 12/01/17) INFO FORM [facility] Sulfamethoxazole w/Trimethoprim (Verified Allergy, Unknown, SWELLING, 11/11) Finasteride (Verified Adverse Reaction, Unknown, GYNECOMASTIA, 12/01/17) [facility] Tamsulosin (Verified Adverse Reaction, Unknown, GYNECOMASTIA, 12/01/17) [facility] Medications Current Inpatient Medications Medications (Trade) Dose Ordered Sig/Naima Route Start Time Stop Time Status Last Admin Dose Admin Acetaminophen (Tylenol Tab) 650 mg Q4H PRN PO 11/27/17 18:30 12/27/17 18:29 Al Hydrox/Mg Hydrox/Simethicone (Maalox Max Susp) 15 ml Q4H PRN PO 11/27/17 18:30 12/27/17 18:29 Ondansetron HCl (Zofran Inj) 4 mg Q6H PRN IV 11/27/17 18:30 12/27/17 18:29 Morphine Sulfate (MoRPHine SULFATE INJ) 2 mg Q2H PRN IV 11/27/17 18:30 12/11/17 18:29 11/27/17 22:09 2 MG Miscellaneous Information (Consult) 1 ea UD PRN N/A 11/27/17 18:30 12/27/17 18:29 Miscellaneous Information (Consult) 1 ea UD PRN N/A 11/27/17 21:27 12/27/17 21:26 Glucose (Glucose 40% Gel) 15-30 GRAMS 15 GRAMS... UD PRN PO 11/27/17 21:30 12/27/17 21:29 Glucose (Glucose Chew Tab) 4-8 Tablets 4 Tabl... UD PRN PO 11/27/17 21:30 12/27/17 21:29 Dextrose (Dextrose 50% 50ML Syringe) 25-50ML OF 50% DW IV FOR... UD PRN IV 11/27/17 21:30 12/27/17 21:29 Glucagon (Glucagon Inj) 1 mg UD PRN SQ 11/27/17 21:30 12/27/17 21:29 Benzocaine (Orajel 20% Oral Gel) 1 appln Q2H PRN MT 11/29/17 22:15 12/29/17 22:14 Potassium Chloride 40 meq/ Sodium Chloride 1,020 ml @ 80 mls/hr [id number] IV 11/30/17 08:30 12/30/17 08:29 11/30/17 21:16 80 MLS/HR Potassium Chloride (Klor-Con Tab) 20 meq TID PO 11/30/17 09:00 12/30/17 08:59 12/01/17 07:39 20 MEQ Piperacillin Sod/ Tazobactam Sod 3.375 gm/Dextrose 115 ml @ 28.75 mls/ hr Q8H IV 11/30/17 12:00 12/08/17 01:59 12/01/17 04:28 28.75 MLS/HR Impression (1) Renal failure, acute (2) Metabolic acidosis (3) Hypertension (4) Anemia (5) Altered mental status (6) Acute on chronic renal failure (7) sepsis, UTI, acute kidney failure, hyperkalemia, acidosis Mr. Guevara is a 82-year-old gentlemen admitted with acute kidney injury after he was found to have a fall at home. On admission he was found to be hypotensive and volume depleted. 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 Baseline stage III CKD creatinine 1.4-1.5. Had history of recurrent acute kidney injury over last 1 year, had hydronephrosis with prostate cancer treated , had nephrostomy and recently was having Flores catheter which patient removed himself. On admission creatinine was 5.6 which then started to improve creatinine of 3.6 this morning. Blood pressure soft but stable. He is continued on IV hydration , has been tolerating well. No history of coronary artery disease or CHF. Started on IV antibiotic empirically for possible urosepsis. Acute kidney injury most likely prerenal with volume depletion, currently renal function improving rapidly with IV hydration, remain non-oliguric. CT abdomen pelvis negative for postrenal obstruction. Recommendations --acute kidney injury resolving, creatinine 1.5 which is close to his baseline, ( baseline creatinine 1.4-1.5), blood pressure, volume status and electrolyte acceptable, remain non-oliguric. --continue to monitor renal function while inpatient --if discharge is planned patient should have lab done in few days after discharge --sould avoid NSAIDs going forward, keep well hydrated Will follow.
[2017-12-01] MEDS: CEPHALEXIN MONOHYDRATE 250 MG CAP PO SCH (20:25)
[2017-12-02 06:53] VITALS: BP 133/56; PULSE 56; TEMP 36.3; O2SAT 97
[2017-12-02 08:13] LABS: BASO % 0.2 %; BASO ABS # 0.02 K/uL (0-0.2); EOS % 1.9 %; EOS ABS # 0.21 K/uL (0-0.5); HEMATOCRIT 36.7 % (42-52); HEMOGLOBIN 12.3 g/dL (14.0-18.0); IG# 0.01 K/uL (0.00-0.02); LYMPH % 26.1 %; LYMPH ABS # 2.82 K/uL (1.2-3.4); MEAN CELL VOLUME 87.8 fL (80-100); MEAN CORPUSCULAR HEMOGLOBIN 29.4 pg (25-34); MEAN CORPUSCULAR HGB CONC 33.5 g/dl (32-36); MEAN PLATELET VOLUME 10.3 fL (7.4-10.4); MONO % 5.7 %; MONO ABS # 0.61 K/uL (0.11-0.59); NEUT ABS # 7.12 K/uL (1.4-6.5); PLATELET COUNT 168 K/uL (130-400); RED CELL DISTRIBUTION WIDTH SD 44.9 fL (36.4-46.3); WHITE BLOOD COUNT 10.79 K/uL (4.8-10.8)
[2017-12-02 08:40] VITALS: O2SAT 97
[2017-12-02 08:46] LABS: ALBUMIN 2.4 gm/dl (3.4-5.0); CALCIUM 7.7 mg/dl (8.5-10.1); CREATININE 1.18 mg/dl (0.60-1.40); POTASSIUM 4.4 mmol/L (3.5-5.1)
[2017-12-02 08:54] LABS: PHOSPHORUS 1.4 mg/dl (2.5-4.9); TOTAL PROTEIN 5.6 gm/dl (6.4-8.2)
[2017-12-02] MEDS: CEPHALEXIN MONOHYDRATE 250 MG CAP PO SCH ×2 (08:58→21:12)
[2017-12-02] MEDS: POTASSIUM CHLORIDE 20 MEQ TABCR PO SCH (08:59)
[2017-12-02] MEDS ORDERED: SODIUM PHOSPHATE 3 MMOL/1 ML INFUSION IV STA (10:19)
[2017-12-02] MEDS ORDERED: SODIUM PHOSPHATE INJ 21 MMOL in SODIUM CHLORIDE 0.9% 500ML 500 ML IV ONE (10:30)
--- NOTE | 2017-12-02 10:37 | Nephrology Progress Note ---
Nephrology Progress Note Date of Service Dec 02, 2017. Chief Complaint F/U for acute kidney injury. Subjective Mr. Guevara was seen and examined in his room this morning. He has been otherwise feeling well, resting in bed comfortably. Renal function improve, creatinine 1.2, electrolyte acceptable.. Urine output has been decent. Blood pressure stable. Review of Systems A complete review of systems was performed. Pertinent positives are noted above. All other systems are negative. Vital Signs Last 8 Hrs Date Time Temp Pulse Resp B/P (MAP) Pulse Ox O2 Delivery O2 Flow Rate FiO2 12/02/17 06:53 36.3 56 18 133/56 (81) 97 Room Air Last Recorded Weight Weight (Kilograms): 56.000 Physical Exam GENERAL: Elderly male, AAA x 3, cachectic, not in any distress. NECK: Supple, no JVD. RESPIRATORY: Normal breathing efforts, no accessory muscle use, clear to auscultation bilaterally, no wheezes or rales. CARDIOVASCULAR: S1, S2 normal, rate rhythm regular. EXTREMITY: No lower extremity edema NEURO: speech fluent. PSYCHIATRY: Normal mood and judgment Family History Cancer (prostate, laryngeal) Diabetes mellitus Heart disease Social History Drug Use: none Marital Status: Housing Status: lives with family, lives with significant other Occupation: retired Laboratory Results Past 24 Hours 12/02/17 07:37 Red Blood Count 4.18, Mean Corpuscular Volume 87.8, Mean Corpuscular Hemoglobin 29.4, Mean Corpuscular Hemoglobin Concent 33.5, Mean Platelet Volume 10.3, Neutrophils (%) (Auto) 66.0, Lymphocytes (%) (Auto) 26.1, Monocytes (%) (Auto) 5.7, Eosinophils (%) (Auto) 1.9, Basophils (%) (Auto) 0.2, Neutrophils # (Auto) 7.12, Lymphocytes # (Auto) 2.82, Monocytes # (Auto) 0.61, Eosinophils # (Auto) 0.21, Basophils # (Auto) 0.02 12/02/17 07:37 Test 12/02/17 07:37 12/02/17 10:19 White Blood Count 10.79 K/uL (4.8-10.8) Red Blood Count 4.18 M/uL (4.7-6.1) Hemoglobin 12.3 g/dL (14.0-18.0) Hematocrit 36.7 % (42-52) Mean Corpuscular Volume 87.8 fL (80-100) Mean Corpuscular Hemoglobin 29.4 pg (25-34) Mean Corpuscular Hemoglobin Concent 33.5 g/dl (32-36) Platelet Count 168 K/uL (130-400) Mean Platelet Volume 10.3 fL (7.4-10.4) Neutrophils (%) (Auto) 66.0 % Lymphocytes (%) (Auto) 26.1 % Monocytes (%) (Auto) 5.7 % Eosinophils (%) (Auto) 1.9 % Basophils (%) (Auto) 0.2 % Neutrophils # (Auto) 7.12 K/uL (1.4-6.5) Lymphocytes # (Auto) 2.82 K/uL (1.2-3.4) Monocytes # (Auto) 0.61 K/uL (0.11-0.59) Eosinophils # (Auto) 0.21 K/uL (0-0.5) Basophils # (Auto) 0.02 K/uL (0-0.2) RDW Standard Deviation 44.9 fL (36.4-46.3) RDW Coefficient of Variation 14.0 % (11.5-14.5) Immature Granulocyte % (Auto) 0.1 % Immature Granulocyte # (Auto) 0.01 K/uL (0.00-0.02) Anion Gap 5.0 mmol/L (3-11) Est Creatinine Clear Calc Drug Dose 36.9 ml/min Estimated GFR () 65.3 Estimated GFR (Non- 56.3 BUN/Creatinine Ratio 14.0 (10-20) Calcium Level 7.7 mg/dl (8.5-10.1) Phosphorus Level 1.4 mg/dl (2.5-4.9) Total Bilirubin 0.4 mg/dl (0.2-1) Direct Bilirubin 0.1 mg/dl (0-0.2) Aspartate Amino Transf (AST/SGOT) 20 U/L (15-37) Alanine Aminotransferase (ALT/SGPT) 17 U/L (12-78) Alkaline Phosphatase 51 U/L (45-117) Total Protein 5.6 gm/dl (6.4-8.2) Albumin 2.4 gm/dl (3.4-5.0) Allergies Coded Allergies: Tramadol (Verified Allergy, Mild, PRURITIS, 12/01/17) [facility] Gabapentin (Verified Allergy, Unknown, UNKNOWN, 11/11/16) [facility] Iodinated Diagnostic Agents (Verified Allergy, Unknown, IVP DYE, 12/01/17) Levofloxacin (Verified Allergy, Unknown, SWELLING, 12/01/17) INFO FORM [facility] Sulfamethoxazole w/Trimethoprim (Verified Allergy, Unknown, SWELLING, 11/11) Finasteride (Verified Adverse Reaction, Unknown, GYNECOMASTIA, 12/01/17) [facility] Tamsulosin (Verified Adverse Reaction, Unknown, GYNECOMASTIA, 12/01/17) [facility] Medications Current Inpatient Medications Medications (Trade) Dose Ordered Sig/Naima Route Start Time Stop Time Status Last Admin Dose Admin Acetaminophen (Tylenol Tab) 650 mg Q4H PRN PO 11/27/17 18:30 12/27/17 18:29 Al Hydrox/Mg Hydrox/Simethicone (Maalox Max Susp) 15 ml Q4H PRN PO 11/27/17 18:30 12/27/17 18:29 Ondansetron HCl (Zofran Inj) 4 mg Q6H PRN IV 11/27/17 18:30 12/27/17 18:29 Morphine Sulfate (MoRPHine SULFATE INJ) 2 mg Q2H PRN IV 11/27/17 18:30 12/11/17 18:29 11/27/17 22:09 2 MG Glucose (Glucose 40% Gel) 15-30 GRAMS 15 GRAMS... UD PRN PO 11/27/17 21:30 12/27/17 21:29 Glucose (Glucose Chew Tab) 4-8 Tablets 4 Tabl... UD PRN PO 11/27/17 21:30 12/27/17 21:29 Dextrose (Dextrose 50% 50ML Syringe) 25-50ML OF 50% DW IV FOR... UD PRN IV 11/27/17 21:30 12/27/17 21:29 Glucagon (Glucagon Inj) 1 mg UD PRN SQ 11/27/17 21:30 12/27/17 21:29 Benzocaine (Orajel 20% Oral Gel) 1 appln Q2H PRN MT 11/29/17 22:15 4/4/18 22:14 Cephalexin Monohydrate (Keflex Cap) 250 mg BID PO 12/01/17 21:00 12/11/17 20:59 12/02/17 08:58 250 MG Potassium Chloride (Klor-Con Tab) 20 meq DAILY PO 12/03/17 09:00 12/30/17 08:59 Sodium Phosphate 21 mmol/Sodium Chloride 507 ml @ 88 mls/hr ONE ONCE IV 12/02/17 10:30 12/02/17 16:15 Impression (1) Renal failure, acute (2) Metabolic acidosis (3) Hypertension (4) Anemia (5) Altered mental status (6) Acute on chronic renal failure (7) sepsis, UTI, acute kidney failure, hyperkalemia, acidosis Mr. Guevara is a 82-year-old gentlemen admitted with acute kidney injury after he was found to have a fall at home. On admission he was found to be hypotensive and volume depleted. 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 Baseline stage III CKD creatinine 1.4-1.5. Had history of recurrent acute kidney injury over last 1 year, had hydronephrosis with prostate cancer treated , had nephrostomy and recently was having Flores catheter which patient removed himself. On admission creatinine was 5.6 which then started to improve creatinine of 3.6 this morning. Blood pressure soft but stable. He is continued on IV hydration , has been tolerating well. No history of coronary artery disease or CHF. Started on IV antibiotic empirically for possible urosepsis. Acute kidney injury most likely prerenal with volume depletion, currently renal function improving rapidly with IV hydration, remain non-oliguric. CT abdomen pelvis negative for postrenal obstruction. Recommendations --acute kidney injury resolved, creatinine 1.2 ( baseline creatinine 1.4-1.5), blood pressure, volume status and electrolyte acceptable, remain non-oliguric. --should avoid NSAIDs going forward, keep well hydrated Will sign off, please contact if any concern. Thanks!
--- NOTE | 2017-12-02 14:29 | Hospitalist Progress Note ---
Hospitalist Progress Note Date of Service Dec 02, 2017. Subjective Pt evaluation today including: conversation w/ patient, physical exam, chart review, lab review, review of studies, review of inpatient medication list Patient seen and evaluated. No acute events overnight. Patient clinically looking better each day. Still with poor recall and mostly giving vague answers as "good" and "i dont know" Continues to have low phosphorus. May be an ongoing issue given poor intake. Medically suitable for D/C Additional Comments: ROS not obtained due to vague non-specific answers. Saying no to pain. Medications Current Inpatient Medications Medications (Trade) Dose Ordered Sig/Naima Route Start Time Stop Time Status Last Admin Dose Admin Acetaminophen (Tylenol Tab) 650 mg Q4H PRN PO 11/27/17 18:30 12/27/17 18:29 Al Hydrox/Mg Hydrox/Simethicone (Maalox Max Susp) 15 ml Q4H PRN PO 11/27/17 18:30 12/27/17 18:29 Ondansetron HCl (Zofran Inj) 4 mg Q6H PRN IV 11/27/17 18:30 12/27/17 18:29 Morphine Sulfate (MoRPHine SULFATE INJ) 2 mg Q2H PRN IV 11/27/17 18:30 12/11/17 18:29 11/27/17 22:09 2 MG Glucose (Glucose 40% Gel) 15-30 GRAMS 15 GRAMS... UD PRN PO 11/27/17 21:30 12/27/17 21:29 Glucose (Glucose Chew Tab) 4-8 Tablets 4 Tabl... UD PRN PO 11/27/17 21:30 12/27/17 21:29 Dextrose (Dextrose 50% 50ML Syringe) 25-50ML OF 50% DW IV FOR... UD PRN IV 11/27/17 21:30 12/27/17 21:29 Glucagon (Glucagon Inj) 1 mg UD PRN SQ 11/27/17 21:30 12/27/17 21:29 Benzocaine (Orajel 20% Oral Gel) 1 appln Q2H PRN MT 11/29/17 22:15 12/29/17 22:14 Cephalexin Monohydrate (Keflex Cap) 250 mg BID PO 12/01/17 21:00 12/11/17 20:59 12/02/17 08:58 250 MG Potassium Chloride (Klor-Con Tab) 20 meq DAILY PO 12/03/17 09:00 12/30/17 08:59 Sodium Phosphate 21 mmol/Sodium Chloride 507 ml @ 88 mls/hr ONE ONCE IV 12/02/17 10:30 12/02/17 16:15 12/02/17 11:07 88 MLS/HR Objective Vital Signs Date Time Temp Pulse Resp B/P (MAP) Pulse Ox O2 Delivery O2 Flow Rate FiO2 12/02/17 08:40 97 Room Air 12/02/17 06:53 36.3 56 18 133/56 (81) 97 Room Air 12/02/17 00:00 Room Air 12/01/17 23:40 36.6 58 18 144/74 (97) 98 Room Air 12/01/17 16:46 Room Air 12/01/17 15:13 36.3 61 20 127/77 (94) 99 Room Air Physical Exam General Appearance: no apparent distress, + cachetic Neck: supple, no JVD Respiratory/Chest: lungs clear, normal breath sounds, no respiratory distress, no accessory muscle use Cardiovascular: regular rate, rhythm Abdomen: normal bowel sounds, non tender, soft Extremities: no pedal edema Neurologic/Psychiatric: alert Skin: normal color, warm/dry Laboratory Results Last 24 Hours Test 12/02/17 07:37 White Blood Count 10.79 K/uL Red Blood Count 4.18 M/uL Hemoglobin 12.3 g/dL Hematocrit 36.7 % Mean Corpuscular Volume 87.8 fL Mean Corpuscular Hemoglobin 29.4 pg Mean Corpuscular Hemoglobin Concent 33.5 g/dl Platelet Count 168 K/uL Mean Platelet Volume 10.3 fL Neutrophils (%) (Auto) 66.0 % Lymphocytes (%) (Auto) 26.1 % Monocytes (%) (Auto) 5.7 % Eosinophils (%) (Auto) 1.9 % Basophils (%) (Auto) 0.2 % Neutrophils # (Auto) 7.12 K/uL Lymphocytes # (Auto) 2.82 K/uL Monocytes # (Auto) 0.61 K/uL Eosinophils # (Auto) 0.21 K/uL Basophils # (Auto) 0.02 K/uL RDW Standard Deviation 44.9 fL RDW Coefficient of Variation 14.0 % Immature Granulocyte % (Auto) 0.1 % Immature Granulocyte # (Auto) 0.01 K/uL Sodium Level 141 mmol/L Potassium Level 4.4 mmol/L Chloride Level 113 mmol/L Carbon Dioxide Level 23 mmol/L Anion Gap 5.0 mmol/L Blood Urea Nitrogen 17 mg/dl Creatinine 1.18 mg/dl Est Creatinine Clear Calc Drug Dose 36.9 ml/min Estimated GFR () 65.3 Estimated GFR (Non- 56.3 BUN/Creatinine Ratio 14.0 Random Glucose 81 mg/dl Calcium Level 7.7 mg/dl Phosphorus Level 1.4 mg/dl Magnesium Level 1.2 mg/dl Total Bilirubin 0.4 mg/dl Direct Bilirubin 0.1 mg/dl Aspartate Amino Transf (AST/SGOT) 20 U/L Alanine Aminotransferase (ALT/SGPT) 17 U/L Alkaline Phosphatase 51 U/L Total Protein 5.6 gm/dl Albumin 2.4 gm/dl Assessment and Plan Severe Sepsis 2/2 Group B Beta Strep UTI: RESOLVED - Keflex 250 mg BID to complete 10 day course - given indwelling catheter and prostate enlargement Metabolic Acidosis 2/2 Severe Sepsis and RAFAT: RESOLVED RAFAT on CKD Stage III and S/P L Nephrectomy: Baseline 1.4-1.5 - RESOLVED - Continue to avoid nephrotoxins and renally dose meds - Nephrology following - appreciate recommendations Hypokalemia and Hypophosphatemia: - Continue to monitor and replete as necessary Deconditioning/Multiple Falls/Previous CVA/Craniotomy: STABLE - Head CT reveals L frontal lobe changes and chronic subdural hematomas/hygromas - Overall appears to not be thriving well - may need assistance of OOA Prostate CA with Bladder Outlet Obstruction: - CT Abd/Pelvis - interval resolution of R hydroureteronephrosis and R urothelial thickening possible acute vs chronic - Keep fournier and follows with Dr. Carr as outpatient - recommend outpatient F /U Paroxysmal Atrial Fibrillation: Currently NSR - Hold AC due to h/o falls, subdural hematomas DVT Prophylaxis: Heparin 5000 units SC Q12H Code Status: FULL RESUSCITATION Disposition: - Medically suitable for D/C to SNF tomorrow Discharge planning: shelter facility
[2017-12-02 15:47] VITALS: BP 102/65; PULSE 82; TEMP 36.9; O2SAT 97
[2017-12-02] MEDS ORDERED: MAGNESIUM SULFATE 1GM / D5W 1 GM in PREMIXED IN D5W 100 ML IV ONE (16:30)
[2017-12-02] MEDS: MAGNESIUM OXIDE 400 MG TAB PO SCH (21:28)
[2017-12-02 23:14] VITALS: BP 130/70; PULSE 62; TEMP 36.7; O2SAT 98
[2017-12-03 07:06] VITALS: BP 117/71; PULSE 57; TEMP 36.9; O2SAT 98
[2017-12-03 07:53] LABS: BASO % 0.1 %; BASO ABS # 0.01 K/uL (0-0.2); EOS ABS # 0.24 K/uL (0-0.5); HEMATOCRIT 34.2 % (42-52); HEMOGLOBIN 11.3 g/dL (14.0-18.0); IG# 0.01 K/uL (0.00-0.02); LYMPH % 31.6 %; LYMPH ABS # 2.55 K/uL (1.2-3.4); MEAN CELL VOLUME 87.9 fL (80-100); MEAN PLATELET VOLUME 10.3 fL (7.4-10.4); MONO % 6.9 %; MONO ABS # 0.56 K/uL (0.11-0.59); NEUT % 58.3 %; NEUT ABS # 4.69 K/uL (1.4-6.5); PLATELET COUNT 171 K/uL (130-400); RED CELL DISTRIBUTION WIDTH CV 13.9 % (11.5-14.5); RED CELL DISTRIBUTION WIDTH SD 45.1 fL (36.4-46.3); WHITE BLOOD COUNT 8.06 K/uL (4.8-10.8)
[2017-12-03] MEDS ORDERED: KFL250 PO (07:59)
[2017-12-03] MEDS ORDERED: MULTTAB58 PO (07:59)
[2017-12-03 08:08] LABS: CALCIUM 7.6 mg/dl (8.5-10.1); CREATININE 1.05 mg/dl (0.60-1.40); POTASSIUM 4.3 mmol/L (3.5-5.1)
--- NOTE | 2017-12-03 08:14 | Discharge Instructions ---
Discharge Instructions Date of Service Dec 03, 2017. Admission Reason for Admission: Sepsis, Uti, Acute Kidney Failure, Hyperkalemia Discharge Discharge Diagnosis / Problem: Sepsis with UTI and RAFAT; Significant Dehydration Discharge Goals Goal(s): Decrease discomfort, Improve function, Increase independence Activity Recommendations Activity Level: Assistance Required Therapies: Physical Therapy, Occupational Therapy . Additional Information Patient informed of condition: Yes Advance Directives: No DNR: No Level of Care: Skilled Communicable Disease: No Prognosis: Improving Fournier Catheter: Yes Instructions / Follow-Up Instructions / Follow-Up Severe Sepsis 2/2 Group B Beta Strep UTI: RESOLVED - Keflex 250 mg BID until 12/06 - given indwelling catheter and prostate enlargement -- Had one dose this AM on 12/03 and will just need PM dose then resume twice a day on 12/04 Metabolic Acidosis 2/2 Severe Sepsis and RAFAT: RESOLVED RAAFT on CKD Stage III and S/P L Nephrectomy: Baseline 1.4-1.5 - RESOLVED - Continue to avoid nephrotoxins and renally dose meds - This seems to be the result of possibly extremely poor oral intake; may partially be from poor dentition vs cognitive decline vs general deconditioning Hypokalemia and Hypophosphatemia: - Suspect this is chronic in nature given poor intake - electrolytes were high on admission 2/2 dehydration Deconditioning/Multiple Falls/Previous CVA/Craniotomy: STABLE - Head CT reveals L frontal lobe changes and chronic subdural hematomas/hygromas - Overall appears to not be thriving well - may need assistance of OOA ultimately vs long-term placement - Given cachectic appearance and poor grooming it appears that he may not be able to appropriately care for himself - He is only oriented to self - doesn't contribute much with conversation and states "I don't know" alot; Intermittently forgets whether his and son are or alive Prostate CA with Bladder Outlet Obstruction: - CT Abd/Pelvis - interval resolution of R hydroureteronephrosis and R urothelial thickening possible acute vs chronic - Keep fournier and follows with Dr. Carr as outpatient - recommend outpatient F /U Paroxysmal Atrial Fibrillation: Currently NSR - Hold AC due to h/o falls, subdural hematomas - This is normally self-aborting and was present on admission likely due to electrolyte abnormalities sepsis Code Status: FULL RESUSCITATION Disposition: - Would benefit from goals of care - family on admission wanted FULL CODE but may benefit from outpatient palliative assessment - Utilized pureed diet in hospital due to poor dentition and lack of dentition - may be able to change consistency if tolerated - recommend outpatient dental care/denture fitting Current Hospital Diet Patient's current hospital diet: Regular Diet Discharge Diet Recommended Diet: Regular Diet Diet Texture: Pureed (blended smooth) Pending Studies Studies pending at discharge: no Physician Orders On Transfer POLST Discussion: without POLST completion Laboratory Results Hemoglobin A1c Test 11/28/17 04:50 Range/Units Estimated Average Glucose 154 mg/dl Hemoglobin A1c 7.0 H 4.5-5.6 % Medical Emergencies . Who to Call and When: Medical Emergencies: If at any time you feel your situation is an emergency, please call 911 immediately. . Non-Emergent Contact Non-Emergency issues call your: Primary Care Provider Call Non-Emergent contact if: you have a fever, your pain is concerning you, you have any medication questions . . "Provider Documentation" section prepared by Leida Draper. . Core Measure Problem Core Measures: None
[2017-12-03 08:21] LABS: PHOSPHORUS 1.4 mg/dl (2.5-4.9)
[2017-12-03] MEDS ORDERED: POTASSIUM CHLORIDE 20 MEQ TABCR PO SCH (09:00)
[2017-12-03] MEDS: CEPHALEXIN MONOHYDRATE 250 MG CAP PO SCH (09:14)
[2017-12-03] MEDS: MAGNESIUM OXIDE 400 MG TAB PO SCH (09:14)
[2017-12-03 12:17] VITALS: BP 117/71; PULSE 57; TEMP 36.9; O2SAT 98
--- NOTE | 2017-12-03 13:44 | Discharge Summary ---
Discharge Summary Date of Service Dec 03, 2017. Discharge Summary Admission Date: Nov 27, 2017 at 18:40 Discharge Date: Dec 03, 2017 Discharge Disposition: correction facility Principal Diagnosis: Severe Sepsis and Metabolic Acidosis Problems/Secondary Diagnoses: 1. Metabolic Encephalopathy 2. Recurrent UTI - Indwelling Flores 3. Prostate CA 4. Bladder Outlet Obstruction 5. CKD Stage III S/P L Nephrectomy 6. Poor Dentition 7. Chronic Subdural Hematomas 8. Protein-Calorie Malnutrition 9. Paroxysmal Atrial Fibrillation Procedures: HEAD WITHOUT CONTRAST (CT) FINDINGS: Ferry Captain topogram: Unremarkable. Proportional ventricular and sulcal prominence, likely age-related parenchymal volume loss. 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 This is unchanged from prior. No mass effect or midline shift. No hemorrhage or acute territorial infarct. Unchanged bilateral low density collections over the bilateral cerebellar hemispheres unchanged in size from prior. Paranasal sinuses and mastoid air cells clear. Calvarium intact. IMPRESSION: 1. 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 2. Chronic bilateral subdural hematomas/hygromas. 3. No acute intracranial abnormality. No acute hemorrhage. ABD/PELVIS NO IV OR ORAL CONT FINDINGS: Ferry Captain topogram: Cachexia. Lung bases: Minimal basilar opacities, likely atelectasis. Normal heart size. Coronary artery calcification. No pericardial or pleural effusion. Liver: Normal morphology. Normal density. Subcentimeter hypodensity at the inferior right hepatic lobe, indeterminate but likely hepatic cyst or hamartoma. Biliary: No gross biliary ductal dilatation allowing for noncontrast technique. Gallbladder contains gallstones. The gallbladder is physiologically distended. Pancreas: Normal noncontrast appearance. Spleen: Normal noncontrast appearance. Adrenal glands: Normal noncontrast appearance. Kidneys and ureters: The left kidney is surgically absent. Interval decrease in right perinephric fat infiltration and decreased right pelvocaliectasis. Persistent urothelial thickening. The right ureter is only mildly dilated. Bladder: Polypoid intraluminal mass may be the exophytic median lobe hypertrophy of the prostate. Significant circumferential bladder wall thickening likely indicating chronic outlet obstruction. Pelvic organs: Prostate enlargement likely secondary to benign prostatic hyperplasia. Bowel: Diverticulosis of the sigmoid colon. Scattered diverticula elsewhere in the colon. No bowel obstruction. Peritoneal cavity: No free fluid or intraperitoneal gas. Lymph nodes: No gross lymphadenopathy allowing for noncontrast technique. Vasculature: Atherosclerosis of the normal caliber abdominal aorta. Abdominal wall: Cachexia. Musculoskeletal: Degenerative changes of the spine. Degenerative changes of the sacral iliac joints and hips. IMPRESSION: 1. No acute intra-abdominal pathology. 2. Interval resolution of right hydroureteronephrosis. Persistent right urothelial thickening may indicate acute or chronic infection or or chronic inflammation such as secondary to reflux. 3. Significant circumferential bladder wall thickening may be due to chronic bladder outlet obstruction. Underlying neoplasm is difficult to exclude. The apparent intraluminal mass likely represents median lobe hypertrophy of the prostate. 4. Prostatomegaly. 5. Diverticulosis. 6. Cholelithiasis. 7. Cachexia. ECHOCARDIOGRAM * -- Conclusions -- * The left ventricle is normal in size. * There is normal left ventricular wall thickness. * Ejection Fraction = 60-65%. * Left ventricular systolic function is normal. * The left ventricular wall motion is normal. * The right ventricle is normal in size and function. * The right ventricular systolic function is normal as assessed by tricuspid annular plane systolic excursion (TAPSE) (normal >1.5 cm). * Grade I diastolic dysfunction, (abnormal relaxation pattern). Consultations: 1. Intensivists 2. Nephrology 3. Urology Medication Reconciliation New Medications: Multiple Vitamin (Multivitamin) 1 Tab Tab 1 TAB PO DAILY for 30 Days, #30 TAB Cephalexin Monohydrate (Cephalexin) 250 Mg Cap 250 MG PO BID, #7 CAP Take one dose on 12/03 then resume twice a day on 12/04 Continued Medications: Acetaminophen (Tylenol) 500 Mg Tab 1000 MG PO BID PRN for Pain or Fever, TAB Cholecalciferol (Vitamin D3) 1,000 Unit Tab 2 TABS PO DAILY for 90 Days, TAB 3 Refills Nutritional Supplements (Boost) 1 Liq Liq 1-2 CAN PO DAILY Silodosin (Rapaflo) 4 Mg Cap 4 MG PO DAILY Discharge Exam Review of Systems: Constitutional: No fever, No chills Respiratory: No cough, No shortness of breath Cardiovascular: No chest pain Abdomen: No pain, No nausea, No vomiting, No diarrhea, No constipation Musculoskeletal: No calf pain Genitourinary - Male: No dysuria Hematologic / Lymphatic: No abnormal bleeding/bruising Physical Exam: General Appearance: no apparent distress, + cachetic Eyes: sclerae normal ENT: + pertinent finding (oral mucosa moist; poor dentition) Neck: supple, no JVD, trachea midline Respiratory/Chest: lungs clear, normal breath sounds, no respiratory distress, no accessory muscle use Cardiovascular: regular rate, rhythm Abdomen / GI: normal bowel sounds, non tender, soft Extremities: no pedal edema Neurologic/Psychiatric: alert Skin: normal color, warm/dry Hospital Course ADMISSION: The patient is an 82-year-old white male with significant past medical history of kidney failure, prostate cancer, bladder outlet obstruction, deconditioning, UTI, was sent to the hospital Emergency Department because of the above chief complaint. Medical information was obtained from ED physician, the patient/family and medical record. He was sent to hospital Emergency Room by EMS because of sudden occurred fall prior to arrival to the hospital. When I interviewed the patient, the patient's and family were at bedside. Reportedly, he was found in the apartment on bathroom floor by his . was taking a nap. Patient and both are poor historian. When EMS arrived to the apartment, the patient was hypotensive and tachycardic which was sinus tachycardia. The patient reported he does not know how he got on the floor. He was reporting no pain, nothing bothering him. reported he had a Flores catheter inserted a few weeks ago. The patient has been getting sick and generally weak for about 1 week or 10 days. In the Emergency Room, he was found has hypotensive, tachycardic, urosepsis, acute kidney failure, hyperkalemia. ED physician treated by giving Zosyn, IV fluid, calcium gluconate, Kayexalate and insulin. When I interviewed the patient, he confirmed the above information, did not hit anywhere, reported generalized weakness and decreased appetite. He was shivering and shaking because of cold. Denied facial droop, slurry speech or local weakness. Denied cough, sputum, shortness of breath, palpitations. Denied wheezing. Denied chest pain or lower extremity swelling. Recently had abdominal pain but currently has no pain. Reported dysuria, has Flores catheter and using diaper. Denies skin rashes or open wound. Lower extremities, no swelling. HOSPITAL COURSE: Mr. Guevara was admitted for severe sepsis and hypovolemic shock secondary to UTI and poor oral intake. Urine culture revealed group B beta strep and alpha strep. Given indwelling Flores catheter and prostate enlargement will complete a course of antibiotics with Keflex 250 BID with renal dosing. Upon presentation he had multiple electrolyte abnormalities and evidence of metabolic acidosis. This significantly improved with aggressive hydration. Due to these electrolyte abnormalities he did have some atrial fibrillation on admission however this resolved with correction. Per outpatient records, Holter monitor revealed paroxysmal atrial fibrillation but given frequent falls anticoagulation was deferred. However continues to have hypophosphatemia and hypomagnesemia even with supplementation. RAFAT is currently resolved and producing adequate urine. Flores catheter will remain in place with follow-up with Dr. Carr with urology. Patient appears generally deconditioned with multiple falls at home. He is cachectic which may be from underlying prostate CA versus poor dentition preventing adequate oral intake. Patient is only alert to self and unsure of his ability to thrive at home. Patient appears poorly groomed. During admission he did not know if his or son are still living however currently lives at home with them. May benefit ultimately from permanent placement versus home assistance. Total Time Spent: Greater than 30 minutes This includes examination of the patient, discharge planning, medication reconciliation, and communication with other providers. Discharge Instructions Please refer to the electronic Patient Visit Report (Discharge Instructions) for additional information. Additional Copies To [facility]; [place] [facility]; [facility]
--- NOTE | 2017-12-06 11:48 | EDITING REQUIRED CODING QUERY ---
CODING QUERY To promote full compliance with coding requirements relating to patient care, provider participation is requested in all cases of director of publications uncertainty. Please assist us with the question(s) below: Coding Question(s): Pt with UTI and Indwelling Fournier Catheter. Can you please clarify below if there is an established relationship between the two. Physician's Response(s): (x ) uti d/t indweling fournier ( ) uti not Due to indwelling fournier ( ) Other (please Specify) Thank you Binta Keita Principal Diagnosis: "_that condition established after study, to be chiefly responsible for occasioning the admission of the patient to the hospital for care." Co-Existing Principal Diagnosis: "_when two or more diagnoses equally meet the criteria for principal diagnosis as determined by the circumstances of admission, diagnostic work up, and/or therapy provided, and the Alphabetic Index, Tabular List, or another coding guideline does not provide sequencing direction, any one of the diagnoses may be sequenced first." "When the physician has documented what appears to be a current diagnosis in the body of the record, but has not included the diagnosis in the final diagnostic statement, the physician should be asked whether the diagnosis should be added." (Source Coding [facility] 2 QTR90. p3-4)
== END 2017-12-03 16:05 | DRG 698 ==
LOC: EDBD 15:00 → C.EDA 15:01 → C.MSICU 18:40 → ENRESERV 18:49 → C.2E 11-29 17:51 → ENRESERV 12-01 10:58 → C.MS2W 12-01 12:54
PROVIDERS: ADMIT Hospitalist; ATTEND Internal Medicine
DX: T83.511A Infection and inflammatory reaction due to indwelling urethral catheter, initial encounter (principal); A41.9 Sepsis, unspecified organism; R65.20 Severe sepsis without septic shock; N17.9 Acute kidney failure, unspecified; E87.1 Hypo-osmolality and hyponatremia; E87.2 Acidosis; N39.0 Urinary tract infection, site not specified; E87.5 Hyperkalemia; D72.829 Elevated white blood cell count, unspecified; E11.65 Type 2 diabetes mellitus with hyperglycemia; Y84.6 Urinary catheterization as the cause of abnormal reaction of the patient, or of later complication, without mention of misadventure at the time of the procedure; I48.91 Unspecified atrial fibrillation; Z83.3 Family history of diabetes mellitus; Z82.49 Family history of ischemic heart disease and other diseases of the circulatory system; Z80.42 Family history of malignant neoplasm of prostate; Z80.2 Family history of malignant neoplasm of other respiratory and intrathoracic organs

== ENCOUNTER → 2017-12-06 | Outpatient (CLI) | payer OTHER ==
[~2017-12-06] MED LIST changes: +KFL250 PO; +MULTTAB58 PO
[2017-12-06 08:20] LABS: BASO % 0.3 %; BASO ABS # 0.02 K/uL (0-0.2); EOS % 3.4 %; EOS ABS # 0.21 K/uL (0-0.5); HEMOGLOBIN 10.7 g/dL (14.0-18.0); IG# 0.01 K/uL (0.00-0.02); LYMPH % 37.7 %; LYMPH ABS # 2.36 K/uL (1.2-3.4); MEAN CELL VOLUME 89.6 fL (80-100); MEAN CORPUSCULAR HGB CONC 33.4 g/dl (32-36); MONO % 8.9 %; MONO ABS # 0.56 K/uL (0.11-0.59); NEUT % 49.5 %; PLATELET COUNT 195 K/uL (130-400); RED CELL DISTRIBUTION WIDTH CV 13.9 % (11.5-14.5); RED CELL DISTRIBUTION WIDTH SD 45.6 fL (36.4-46.3); WHITE BLOOD COUNT 6.26 K/uL (4.8-10.8)
[2017-12-06 08:32] LABS: ALT/SGPT 14 U/L (12-78); AST/SGOT 12 U/L (15-37); BLOOD UREA NITROGEN 21 mg/dl (7-18); CALCIUM 8.1 mg/dl (8.5-10.1); CARBON DIOXIDE 26 mmol/L (21-32); CREATININE 1.11 mg/dl (0.60-1.40); GLUCOSE 82 mg/dl (70-99); SODIUM 136 mmol/L (136-145)
[2017-12-06 08:34] LABS: ALKALINE PHOSPHATASE 48 U/L (45-117); TOTAL PROTEIN 5.3 gm/dl (6.4-8.2)
== END ==
LOC: C.LABUPNIT 07:52
PROVIDERS: ATTEND Nurse Practitioner Family
DX: I10 Essential (primary) hypertension (principal)

== ENCOUNTER → 2017-12-13 | Outpatient (CLI) | payer OTHER ==
[2017-12-13 09:35] LABS: BLOOD UREA NITROGEN 31 mg/dl (7-18); CREATININE 1.22 mg/dl (0.60-1.40); GLUCOSE 89 mg/dl (70-99)
[2017-12-13 09:36] LABS: CALCIUM 8.2 mg/dl (8.5-10.1); CARBON DIOXIDE 29 mmol/L (21-32); POTASSIUM 4.3 mmol/L (3.5-5.1); SODIUM 136 mmol/L (136-145)
== END ==
LOC: C.LABUPNIT 08:48
PROVIDERS: ATTEND Nurse Practitioner Family
DX: I10 Essential (primary) hypertension (principal)

== ENCOUNTER → 2017-12-23 | Outpatient (CLI) | payer OTHER ==
--- NOTE | 2017-12-23 12:16 | DIAGNOSTIC IMAGING REPORT ---
RIBS BILATERAL WITH PA CHEST CLINICAL HISTORY: Rib pain COMPARISON STUDY: Chest x-ray dated 11/27/2017 FINDINGS: The erect chest reveals no pneumothorax. There is no focal pulmonary consolidation. There is minor left basilar atelectatic change. There is minimal blunting of the lateral costophrenic angles. No acute rib fractures are visualized. There is an old healed right sixth rib fracture. IMPRESSION: No evidence of pneumothorax. No acute rib fractures are visualized. Electronically signed by: Laz Wilson M.D. 12/23/2017 12:14 PM Dictated Date/Time: 12/23/2017 12:12 PM
[2017-12-23 13:09] LABS: BASO % 0.5 %; BASO ABS # 0.04 K/uL (0-0.2); EOS % 3.1 %; EOS ABS # 0.25 K/uL (0-0.5); HEMATOCRIT 37.2 % (42-52); HEMOGLOBIN 12.1 g/dL (14.0-18.0); IG# 0.09 K/uL (0.00-0.02); LYMPH % 33.5 %; LYMPH ABS # 2.74 K/uL (1.2-3.4); MEAN CORPUSCULAR HEMOGLOBIN 30.3 pg (25-34); MEAN CORPUSCULAR HGB CONC 32.5 g/dl (32-36); MONO % 7.7 %; MONO ABS # 0.63 K/uL (0.11-0.59); NEUT % 54.1 %; NEUT ABS # 4.42 K/uL (1.4-6.5); PLATELET COUNT 483 K/uL (130-400); RED CELL DISTRIBUTION WIDTH CV 14.2 % (11.5-14.5); RED CELL DISTRIBUTION WIDTH SD 48.4 fL (36.4-46.3); WHITE BLOOD COUNT 8.17 K/uL (4.8-10.8)
[2017-12-23 14:45] LABS: ALBUMIN 3.1 gm/dl (3.4-5.0); ALT/SGPT 19 U/L (12-78); BLOOD UREA NITROGEN 29 mg/dl (7-18); CALCIUM 9.3 mg/dl (8.5-10.1); CARBON DIOXIDE 29 mmol/L (21-32); GLUCOSE 104 mg/dl (70-99); POTASSIUM 4.1 mmol/L (3.5-5.1); SODIUM 138 mmol/L (136-145)
[2017-12-23 14:48] LABS: ALKALINE PHOSPHATASE 81 U/L (45-117); AST/SGOT 17 U/L (15-37); PHOSPHORUS 2.4 mg/dl (2.5-4.9); TOTAL PROTEIN 7.3 gm/dl (6.4-8.2)
== END | disposition home or self-care (01) ==
LOC: C.RADBC 11:43
PROVIDERS: ATTEND Nurse Practitioner Adult Health
DX: I12.9 Hypertensive chronic kidney disease with stage 1 through stage 4 chronic kidney disease, or unspecified chronic kidney disease (principal); E55.9 Vitamin D deficiency, unspecified; R73.9 Hyperglycemia, unspecified; N18.4 Chronic kidney disease, stage 4 (severe); E83.42 Hypomagnesemia; R07.81 Pleurodynia; E83.39 Other disorders of phosphorus metabolism

== ENCOUNTER → 2018-01-14 | Outpatient (CLI) | payer OTHER ==
--- NOTE | 2018-01-14 16:03 | DIAGNOSTIC IMAGING REPORT ---
KUB HISTORY: Acute right-sided abdominal pain ABDOMINAL PAIN COMPARISON: CT abdomen and pelvis 11/27/2017 FINDINGS: The bowel gas pattern is non-obstructive. There are scattered air-fluid levels throughout the mid and right lower abdomen. Mildly prominent gas-filled nondilated loops of small bowel are seen measuring up to 2.7 cm transversely. There is no organomegaly. Surgical suture material from prior left-sided nephrectomy. No renal or ureteral calculi identified. Catheter projects over the urinary bladder lumen. Moderate stool volume of the rectosigmoid and right hemicolon. No pneumoperitoneum or pneumatosis. No fracture. Levoscoliosis of the lumbar spine. Bones are demineralized. Moderate degenerative changes of the bilateral hips. IMPRESSION: 1. Scattered air-fluid levels within mildly prominent air-filled nondilated loops of small bowel suggests enteritis or ileus. 2. No evidence of high-grade small bowel obstruction, pneumatosis or pneumoperitoneum. Electronically signed by: Sean Hdz M.D. 01/14/2018 4:01 PM Dictated Date/Time: 01/14/2018 3:58 PM
[2018-01-14 17:01] LABS: BASO % 0.4 %; BASO ABS # 0.03 K/uL (0-0.2); EOS ABS # 0.28 K/uL (0-0.5); HEMATOCRIT 33.4 % (42-52); HEMOGLOBIN 10.3 g/dL (14.0-18.0); IG# 0.01 K/uL (0.00-0.02); LYMPH % 35.4 %; MEAN CELL VOLUME 97.1 fL (80-100); MEAN CORPUSCULAR HEMOGLOBIN 29.9 pg (25-34); MEAN CORPUSCULAR HGB CONC 30.8 g/dl (32-36); MEAN PLATELET VOLUME 9.6 fL (7.4-10.4); MONO % 5.7 %; NEUT % 54.4 %; NEUT ABS # 3.85 K/uL (1.4-6.5); PLATELET COUNT 328 K/uL (130-400); RED CELL DISTRIBUTION WIDTH CV 16.2 % (11.5-14.5); RED CELL DISTRIBUTION WIDTH SD 57.4 fL (36.4-46.3); WHITE BLOOD COUNT 7.07 K/uL (4.8-10.8)
[2018-01-14 17:30] LABS: BLOOD UREA NITROGEN 31 mg/dl (7-18); CALCIUM 8.4 mg/dl (8.5-10.1); CARBON DIOXIDE 27 mmol/L (21-32); CREATININE 1.83 mg/dl (0.60-1.40); GLUCOSE 93 mg/dl (70-99); POTASSIUM 4.3 mmol/L (3.5-5.1); SODIUM 144 mmol/L (136-145)
[2018-01-15 06:58] LABS: HEMOGLOBIN A1C 5.6 % (4.5-5.6)
== END ==
LOC: C.RADBC 15:00
PROVIDERS: ATTEND Nurse Practitioner Adult Health
DX: R73.9 Hyperglycemia, unspecified (principal); I12.9 Hypertensive chronic kidney disease with stage 1 through stage 4 chronic kidney disease, or unspecified chronic kidney disease; N18.4 Chronic kidney disease, stage 4 (severe)

== ENCOUNTER → 2018-01-21 | Outpatient (CLI) | payer OTHER ==
--- NOTE | 2018-01-21 12:58 | DIAGNOSTIC IMAGING REPORT ---
ABDOMEN AND PELVIS CT WITHOUT CONTRAST CT DOSE: 315.58 mGy.cm HISTORY: Generalized abdominal pain. TECHNIQUE: Multiaxial CT images of the abdomen and pelvis were performed without contrast. A dose lowering technique was utilized adhering to the principles of ALARA. COMPARISON STUDY: Abdomen and pelvis CT 11/27/2017. FINDINGS: Mild interstitial thickening at the lung bases. Trace pericardial fluid. The heart is mildly enlarged. Small right inguinal hernia containing the cecum. There is a Flores catheter in place. Bladder wall thickening and adjacent fat stranding persists. Intraluminal soft tissue within the posterior aspect of the bladder remains unchanged. This favors median lobe hypertrophy of the prostate gland. However, a bladder mass cannot be excluded. The left kidney is nonfunctioning and severely atrophic within the thin sliver of soft tissue and calcification remaining. No change in the fullness within the right upper pole collecting system. This could be due to parapelvic cysts. Urothelial thickening within the right renal pelvis and right ureter with associated periureteral fat stranding is again noted. There is mild right perinephric fat stranding, unchanged. The right ureter remains mildly distended. No renal or ureteral calculi. Multiple small gallstones. Stable 1 cm hypodense lesion within the right hepatic lobe. The spleen is unremarkable. The pancreas and adrenal glands are unremarkable. Multiple mildly distended and fluid-filled loops of small bowel, within the left side the abdomen. There is suboptimal evaluation for bowel pathology due to the lack of intravenous and oral contrast. However, there is no definite bowel wall thickening or obstruction. Colonic diverticulosis. Moderate well-formed stool within the colon. Normal caliber abdominal aorta. Subcentimeter retroperitoneal lymph nodes are again noted. No suspicious lytic or blastic osseous lesions. Healing right lateral 10th rib fracture. IMPRESSION: 1. Interval development of a small right inguinal hernia containing the majority of the cecum. There are multiple borderline distended and fluid-filled loops of small bowel. However, there is no transition point at this time to suggest an obstruction. 2. Right perinephric and periureteral fat stranding as well as urothelial thickening. There is also fat stranding surrounding the thickened bladder wall. Findings favor an infectious process such as a pyelonephritis/cystitis. 3. Persistent fullness within the right upper pole collecting system. However, this could be due to peripelvic cysts. 4. Trace pericardial effusion. 5. Cholelithiasis. 6. Healing right lateral 10th rib fracture. 7. Soft tissue mass within the posterior bladder. This remains unchanged and therefore favors the prostate gland hypertrophy. An underlying bladder mass cannot be excluded. The Flores catheter is within the bladder. 8. Colonic diverticulosis. Electronically signed by: Nnamdi Cast M.D. 01/21/2018 12:57 PM Dictated Date/Time: 01/21/2018 12:38 PM
== END | disposition home or self-care (01) ==
LOC: C.CTS 10:51
PROVIDERS: ATTEND Nurse Practitioner Adult Health
DX: R10.9 Unspecified abdominal pain (principal); K57.30 Diverticulosis of large intestine without perforation or abscess without bleeding; K80.20 Calculus of gallbladder without cholecystitis without obstruction

== ENCOUNTER 2018-11-17 10:52 | Observation (INO) ==
--- NOTE | 2018-11-03 13:51 | Anesthesiology Consultation ---
Date of Service November 03, 2018 Assessment & Plan (1) Encounter for pre-operative examination: Chart Review Chart Review: Acceptable Risk for Surgery (Pending medical evaluation tomorrow AM prior to surgery. ) and Patient seen in Pre Admission Testing Consults Requested medical (PCP (11/09)) Patient was evaluated by PCP on 11/09. Note from provider states "Using the revised cardiac risk index, patient is at moderate to high risk of adverse outcome with non-cardiac surgery." "He and family members verbalize understanding of risks and are accepting. I am not sure if patient understands due to cognitive impairment, but again he does elect to have surgery due to poor quality of life secondary to discomfort from hernias. At this point, surgery may not be elective due to nature of hernias and severe discomfort." Patient did also have a chest CT to follow up from abnormal CXR results, and it showed resolution of LLL consolidation. Teaching & Discussion Pre-Anesthesia Teaching/Discussion Notes: Instructed NPO after midnight before surgery. History Surgery Operation Date: 11/17/18 13:25 Proposed Procedures p Open Bilateral Inguinal Hernia Repair with Mesh - Ricky Laurent, Height/Weight Height: 5 ft 8 in Weight: 63.049 kg Allergies Allergy/AdvReac Type Severity Reaction Status Date / Time tramadol Allergy Mild PRURITIS Verified 06/24/18 15:45 Bactrim Allergy Unknown SWELLING Verified 11/11/16 17:27 gabapentin Allergy Unknown UNKNOWN Verified 06/24/18 15:45 Iodinated Contrast- Oral and Allergy Unknown IVP DYE - Verified 10/28/18 14:02 IV Dye UNKNOWN REACTION levofloxacin Allergy Unknown SWELLING Verified 06/24/18 15:45 sulfamethoxazole Allergy Unknown SWELLING Verified 06/24/18 15:45 trimethoprim Allergy Unknown SWELLING Verified 06/24/18 15:45 finasteride AdvReac Unknown GYNECOMASTI Verified 06/24/18 15:45 A tamsulosin AdvReac Unknown GYNECOMASTI Verified 06/24/18 15:45 A Medications Home Medications Medication Instructions Recorded Confirmed Last Taken No Known Home Medications 10/28/18 10/28/18 Unknown Past Medical History Medical History Alzheimers disease PT REPORTS "ALZHEIMERS" Anemia Bilateral inguinal hernia Chronic kidney disease, stage IV (severe) Chronic osteoarthritis Cognitive disorder Gait disturbance Glaucoma Headache Hearing loss 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 History of arthritis History of cholelithiasis History of encephalopathy METABOLIC History of heart failure History of impacted cerumen BILAT History of kidney infection History of renal calculi History of sepsis History of stomach ulcers History of stroke LEFT HEMISPHERIC (CORTICAL) History of syncope History of urinary incontinence History of urinary tract infection Hyperglycemia Hypertension Hypomagnesemia Hypophosphatemia Indwelling Flores catheter present Obstructive uropathy Paroxysmal atrial fibrillation Poor historian Prostate cancer Pyuria HX OF Rib pain on right side HX OF Urinary retention Visual impairment of left eye Vitamin D deficiency Past Family History Family History Other Family history of cancer of larynx Family history of diabetes mellitus Family history of heart disease Family history of malignant melanoma of skin Family history of prostate cancer Past Surgical History Surgical History History of craniotomy History of nephrectomy LEFT Past Anesthesia History No Hx of Anesthesia Complications and No Family Hx of Anesthesia Complications History of PONV No Motion Sickness Screening History of Motion Sickness: No Social History Smoking Status: Former smoker Do You Dip or Chew Tobacco: Yes (ADVISED - NPO) Smoking End Date: Quit at age 33 Hx Alcohol Use: Yes Alcohol type: beer alcohol intake frequency: a few times a week substance use type: does not use Exercise / Class Metabolic Activity III < 4 Walking/Shop/Light housework (No stairs where he lives. Limited activity. Does get SOB with activity. ) Hard to illicit due to patients lack of comprehension. Review of Systems Patient denies chest pain, reflux, cough, wheezing, palpitations. +REYNAGA/SOB +joint pain (back) (patient does not really understand the questions) Physical Exam Vital Signs BP: 103/65 P: 65 R: 18 T: 98.2 SPO2: 96% on RA ENMT Mouth: + poor dentition Thyromental Distance: < 3.5 Finger Breadths (2) Mallampati Class: III Neck normal visual inspection, trachea midline and + limited neck extension (? due to patients limited ability to follow directions) Respiratory normal respiratory effort Auscultation: + diminished lung sounds Cardiovascular Rate/Rhythm: regular rate and regular rhythm diminished heart sounds Psychiatric Orientation: alert easily confused. Does not follow all directions. Does not understand questions. Testing Electrocardiogram Date: 11/03/18 Findings: + NSR @ (64) and + no change from (06/24/18) Marked sinus arrhythmia. Premature atrial complexes. Low voltage QRS. Chest X-Ray Date: 11/03/18 FINDINGS: Ill-defined opacity about the left lower lobe measuring up to 4.1 cm appears new from prior study. Lungs are hyperinflated without pneumothorax, pleural effusion or overt pulmonary edema. Calcification of the thoracic aortic arch. Degenerative changes of the shoulders and spine. IMPRESSION: Hyperinflation with ill-defined opacity about the left lower lobe, new from 06/24/2018 suggesting atelectasis or pneumonitis. Other Testing CT SCAN OF THE CHEST WITHOUT IV CONTRAST 11/15/18: CLINICAL HISTORY: Follow-up abnormal chest x-ray. Left lower lobe consolidation. COMPARISON STUDY: Chest x-ray dated 11/03/2018. Chest CT dated 11/27/2017. Abdominal CT dated 05/09/2010. TECHNIQUE: CT scan of the thorax was performed from the thoracic inlet to the upper abdomen. Images are reviewed in the axial, sagittal, and coronal planes. IV contrast was not administered for this examination as per the referring clinician. A dose lowering technique was utilized adhering to the principles of ALARA. CT DOSE: 219.63 mGy.cm FINDINGS: Thyroid: Imaged portions of the thyroid gland are normal in size and attenuation. Thoracic aorta: There is atherosclerotic calcification of the thoracic aorta, which is normal in caliber and demonstrates standard 3-vessel arch anatomy. Heart: The heart is enlarged and there is a small pericardial effusion. The coronary arteries are densely calcified. The pulmonary trunk is normal in caliber. Lungs and pleural spaces: There is no airspace consolidation or pleural effusion. Bibasilar scarring/atelectasis is observed. The trachea and central airways are clear. A low suspicion 3 mm right upper lobe nodule seen on image # 98 is unchanged from 11/27/2017. A 6 mm nodule in the left lower lobe seen on image #196 is unchanged from 2009. This is of doubtful significance. Mediastinum: There is no mediastinal lymphadenopathy. Fiorella: Not well assessed without IV contrast. Axillae: There is no axillary lymphadenopathy. Upper abdomen: There is a small hiatal hernia. Partially visualized upper abdominal viscera is otherwise grossly unremarkable. Skeletal structures: The skeletal structures are osteopenic. Degenerative change is noted in the shoulders and thoracic spine. No lytic or blastic bony lesions are seen. IMPRESSION: 1. The lungs are clear. Left lower lobe consolidation seen on the previous chest x-ray has resolved. 2. Cardiomegaly and small pericardial effusion. 3. Additional findings as above. Laboratory Results 11/03/18 14:15 11/03/18 14:15 Hemoglobin A1c 6.3 % (4.5-5.6) H 11/03/18 14:15
--- NOTE | 2018-11-03 14:44 | XRay Report ---
XR chest Pre-admission PA/Lat HISTORY: 83 years-old Male pat preoperative exam. No acute chest complaints COMPARISON: Chest radiograph 06/24/2018, CT abdomen and pelvis 01/21/2018 TECHNIQUE: PA and lateral views of the chest FINDINGS: Ill-defined opacity about the left lower lobe measuring up to 4.1 cm appears new from prior study. Marixa ngs are hyperinflated without pneumothorax, pleural effusion or overt pulmonary edema. Calcification of the thoracic aortic arch. Degenerative changes of the shoulders and spine. IMPRESSION: Hyperinflation with ill-defined opacity about the left lower lobe, new from 06/24/2018 sug gesting atelectasis or pneumonitis. The above report was generated using voice recognition software. It may contain grammatical, syntax o r spelling errors. Electronically signed by: Sean Hdz M.D. 11/03/2018 2:43 PM
[2018-11-03 15:14] LABS: Basophils # (auto) 0.02 K/uL (0-0.2); Basophils % (auto) 0.2 %; Eosinophils # (auto) 0.21 K/uL (0-0.5); Eosinophils % (auto) 2.6 %; Hemoglobin 12.7 g/dL (14.0-18.0); Immature Granulocytes # (auto) 0.02 K/uL (0.00-0.02); Immature Granulocytes % (auto) 0.2 %; Lymphocytes # (auto) 2.36 K/uL (1.2-3.4); Lymphocytes % (auto) 28.9 %; Mean Corpuscular Hgb Conc 31.8 g/dL (32-36); Mean Platelet Volume 10.2 fL (7.4-10.4); Monocytes # (auto) 0.46 K/uL (0.11-0.59); Monocytes % (auto) 5.6 %; Neutrophils # (auto) 5.11 K/uL (1.4-6.5); Neutrophils % (auto) 62.5 %; Platelet Count 271 K/uL (130-400); RDW Coefficient of Variation 13.4 % (11.5-14.5); RDW Standard Deviation 44.7 fL (36.4-46.3); Red Blood Count 4.35 M/uL (4.7-6.1); White Blood Count 8.18 K/uL (4.8-10.8)
[2018-11-03 15:41] LABS: BUN Creatinine Ratio 17.9 (10-20); Blood Urea Nitrogen 35 mg/dl (7-18); Carbon Dioxide 28 mmol/L (21-32); Chloride 108 mmol/L (98-107); Est GFR (African American) 35.3; Est GFR (Non-African American) 30.5; Glucose 103 mg/dl (70-99); Potassium 4.7 mmol/L (3.5-5.1); Sodium 141 mmol/L (136-145)
[2018-11-04 06:08] LABS: Estimated Average Glucose 134 mg/dl; Hemoglobin A1C 6.3 % (4.5-5.6)
[~2018-11-17 10:52] MED LIST changes: -ACET-1256 PO; +CEFAZOLIN 2000MG 2,000 MG/15 ML SYR IV SCH; -CHOL1000 PO; -KFL250 PO; -MULTTAB58 PO; -NUTR-7 PO; -SILO4CAP PO; +SODIUM CHLORIDE 0.9% 1000ML IV SCH
[2018-11-17] MEDS ORDERED: BUPIVACAINE/EPINEPHRINE 0.5% MPF 1:200,000 30 ML VIAL ONE (13:59)
--- NOTE | 2018-11-17 13:59 | History & Physical Bridge Note ---
Date of Service November 17, 2018 History & Physical Bridge Note I have examined the patient, reviewed the History & Physical and in the interval since the performance of the History & Physical I have noted the following changes of clinical significance: no changes noted
[2018-11-17] MEDS ORDERED: PROPOFOL IV EMULSION 10 MG/ML 20 ML VIAL IV ONE (14:21)
[2018-11-17] MEDS ORDERED: fentaNYL citrate 100 MCG/2 ML VIAL ONE (14:21)
[2018-11-17] MEDS ORDERED: ROCURONIUM BROMIDE 10 MG/ML 5 ML VIAL ONE (14:21)
[2018-11-17] MEDS ORDERED: DiphenhydrAMINE HCL 50 MG/ML VIAL ONE (15:10)
[2018-11-17] MEDS ORDERED: HYDROmorphone INJ 2 MG/ML SYR/VIAL ONE (15:11)
[2018-11-17] MEDS ORDERED: GLYCOPYRROLATE 0.2 MG/ML VIAL ONE (16:01)
[2018-11-17] MEDS ORDERED: ONDANSETRON INJ 2 MG/ML 2 ML VIAL ONE (16:01)
[2018-11-17] MEDS ORDERED: NEOSTIGMINE METHYLSULFATE 5 MG/5 ML SYR ONE (16:01)
--- NOTE | 2018-11-17 16:22 | Operative Report ---
Post Operative Report Pre & Post Diagnosis Operation Date: 11/17/18 13:25 Pre-Op Diagnosis: Bilateral Inguinal Hernias Post-Op Diagnosis: Bilateral Inguinal Hernias. left cord lipoma. Procedure Operation Date: 11/17/18 13:25 Actual Procedures p Open Bilateral Inguinal Hernia Repair with Mesh(Bilateral) excision of cord lipoma on left. ilioinguinal neurolysis on left. - Ricky Laurent DO Surgeon Ricky Laurent DO Small Animal Caretaker fredi Flores Estimated Blood Loss 5 Findings Consistent with Post-Op Diagnosis Specimens none Description of Procedure After informed consent was obtained the patient was taken the operating room and placed in supine position. After successful placement of the laryngeal mask airway the groin was shaved and sterilely prepped and draped in usual fashion. We began on the right side. An inguinal incision was made with a 15 blade scalpel and carried down through the soft tissue using electrocautery. The external oblique aponeurosis was skeletonized. A fresh blade was used to make an incision and then Metzenbaum scissors were used to extend this distally through the external ring as well as for several centimeters proximally. Once in the inguinal canal I used blunt finger dissection to free up the cord and cord structures. I was able to gently tease the cord off of the pubic bone and placed a Radha drain around it. There was no evidence of a direct hernia. We inspected the cord and cord structures using blunt dissection with small amounts of electrocautery. There was a very large chronic hernia sac adhesed tightly to the cord and cord structures. We tediously dissected this back to its neck and then dunked it back into the abdominal cavity. It was able to stay self reduced. We then thoroughly irrigated the wound. Because of the large defect I decided to use a plug and patch technique. We placed the polypropylene plug directly into the discrete defect and secured to surrounding musculature using 0 Ethibond. Next I used a polypropylene salgado-holed mesh as an onlay. It was secured distally to Kostas's ligament, laterally along the shelving portion of Poupart's ligament and medially along the midline musculature. 0 Ethibond was used for the suturing. The "arms" of the mesh were wrapped around behind the cord and cord structures and again secured to underlying muscle. The mesh laid nice and flat and tension-free and did not impinge on the cord structures themselves. We thoroughly irrigated the wound. There was adequate hemostasis. I injected Marcaine around the edges of the mesh for postoperative analgesia. We then closed the external oblique aponeurosis with 2-0 Vicryl in a running fashion. Soft tissue was irrigated and closed in multiple layers using 3-0 Vicryl for the deep layers and 4-0 Monocryl for the skin. Some additional Marcaine was injected around the skin incision. We then used a skin glue as a dressing. My attention then turned to the left side. We used the exact same technique. After opening external oblique aponeurosis we again teased the cord and cord structures off the pubic bone and placed a Crane around it. Again there was no direct defect. There was another chronic sac along the cord and cord structures. We dissected this back to its neck and again dunked into the abdominal cavity where it stayed self reduced. I again used a plug and patch technique. We secured the mesh in exact same manner as the other side. I was able to identify the ilioinguinal nerve on this side and sharply lysed it to prevent future nerve entrapment. I had been unable to find the nerve on the right side. There was also a large cord lipoma. We dissected this back to its neck and excised it as well. Again we laid polypropylene keyholed mesh as an onlay and again secured to Kostas's ligament the shelving portion of Poupart's ligament laterally in the midline musculature medially. Again the arms were wrapped around behind the cord and cord structures and secured. We irrigated the wound and used local around the edges of the mesh. I again closed the external oblique aponeurosis with 2-0 Vicryl. Soft tissue was closed with 3-0 Vicryl and skin with 4-0 Monocryl. Marcaine was injected around the skin. Again Dermabond glue was used as a dressing.The patient was awakened extubated and transferred to recovery in stable condition. My physician's medical billing assistant was present throughout the entire procedure. She helped prep the patient. Helped with retraction throughout the case to aid my dissection, assisted with wound closure as well as dressing placement. I attest to the content of the Intraoperative Record and any orders documented therein. Any exceptions are noted below. I attest to the content of the Intraoperative Record and any orders documented therein. Any exceptions are noted below.
[2018-11-17] MEDS ORDERED: fentaNYL citrate 100 MCG/2 ML VIAL IV PRN (16:49)
[2018-11-17] MEDS ORDERED: ONDANSETRON INJ 2 MG/ML 2 ML VIAL IV PRN ×2 (16:49→17:35)
[2018-11-17] MEDS ORDERED: HYDROmorphone INJ 1 MG/ML SYRINGE IV PRN (16:49)
[2018-11-17] MEDS ORDERED: ATROPINE SULFATE 0.1 MG/ML 10ML SYR IV PRN (16:49)
[2018-11-17] MEDS ORDERED: ePHEDrine sulfate 50 MG/ML AMP IV PRN (16:49)
--- NOTE | 2018-11-17 17:04 | Anesthesiology Progress Note ---
Date of Service November 17, 2018 Anesthesia Post Procedure Vital Signs Vital Signs: Temp Pulse Resp BP Pulse Ox 11/17/18 16:26 36.7 C 83 16 146/72 H 96 11/17/18 11:48 37.0 C 60 20 130/72 97 Notes Mental Status: alert / awake / arousable and participated in evaluation Nausea / Vomiting: adequately controlled Pain: adequately controlled Airway Patency, RR, SpO2: stable & adequate BP & HR: stable & adequate Hydration State: stable & adequate Anesthetic Complications: no major complications apparent and Pt Satisfied with anesthetic care Notes: The patient will be going to telemetry overnight for close monitoring given his significant past medical history of [place] and CVA. He is currently doing well in recovery with no complaints.
[2018-11-17] MEDS ORDERED: HYDROCODONE/ACETAMOPHEN 5/325MG TAB PO PRN ×2 (17:35)
[2018-11-17] MEDS ORDERED: MoRPHine SULFATE 10 MG/ML CARP/VIAL IV PRN (17:35)
[2018-11-17] MEDS ORDERED: CONVERT TO SALINE LOCK ONE (17:35)
[2018-11-17] MEDS ORDERED: MoRPHine SULFATE 4 MG/ML 1 ML CARP\\VIAL ONE (17:40)
[2018-11-17] MEDS: MoRPHine SULFATE 4 MG/ML 1 ML CARP\\VIAL IV PRN (18:27)
[2018-11-18] MEDS: MoRPHine SULFATE 4 MG/ML 1 ML CARP\\VIAL IV PRN ×3 (01:03→10:18)
--- NOTE | 2018-11-18 07:54 | Anesthesiology Progress Note ---
Date of Service November 18, 2018 Anesthesia Post Procedure Vital Signs Vital Signs: Temp Pulse Pulse Resp BP BP Pulse Ox 11/18/18 07:37 69 11/18/18 03:09 36.5 C 61 16 143/71 H 98 11/18/18 00:00 63 11/17/18 23:30 36.5 C 65 17 146/70 H 100 11/17/18 19:59 36.5 C 60 20 95 11/17/18 19:13 36.4 C L 60 22 131/74 98 11/17/18 18:45 58 L 129/65 93 11/17/18 18:15 36.6 C 62 144/71 H 96 11/17/18 17:30 36.4 C L 60 20 158/76 H 94 11/17/18 17:10 58 L 15 91 11/17/18 17:06 58 L 22 137/62 94 11/17/18 17:05 64 21 97 11/17/18 17:01 65 19 136/79 97 11/17/18 17:00 59 L 14 87 L 11/17/18 16:56 61 19 134/72 11/17/18 16:55 59 L 19 93 11/17/18 16:51 66 23 114/72 95 11/17/18 16:50 68 16 94 11/17/18 16:46 67 21 142/67 H 89 L 11/17/18 16:45 65 14 96 11/17/18 16:40 67 20 148/72 H 95 11/17/18 16:35 82 14 143/84 H 83 L 11/17/18 16:34 76 15 143/76 H 91 11/17/18 16:30 74 20 93 11/17/18 16:26 36.7 C 83 16 146/72 H 146/72 H 93 11/17/18 16:25 28 H 95 11/17/18 16:24 95 11/17/18 11:48 37.0 C 60 20 130/72 97 Notes Mental Status: alert / awake / arousable and participated in evaluation Nausea / Vomiting: adequately controlled Pain: adequately controlled Airway Patency, RR, SpO2: stable & adequate BP & HR: stable & adequate Hydration State: stable & adequate
--- NOTE | 2018-11-18 10:58 | Surgery Progress Note ---
Date of Service November 18, 2018 Assessment & Plan (1) Bilateral inguinal hernia (BIH): pod 1 doing ok from sugery standpoint...need case management input for home needs/ evaluation advance diet. transfer to med/surg Dr. Worthy covering for weekend Subjective no complaints. per nursing somewhat confused. enmanuel liquid diet Physical Exam 2 Vital Signs (Past 24 Hours): Last Vital Signs Temp 36.6 C 11/18/18 07:59 Pulse 62 11/18/18 07:59 Resp 19 11/18/18 07:59 BP 126/66 11/18/18 07:59 Pulse Ox 96 11/18/18 07:59 Physical Exam: alert. pleasantly confused. NAD abd: soft. wounds look good.
--- NOTE | 2018-11-19 10:01 | Surgery Progress Note ---
Date of Service November 19, 2018 doing fine, no abdominal pain, no nausea, he tolerated diet, Assessment & Plan (1) Bilateral inguinal hernia (BIH): doing fine, D/C today the post-op care instruction was given, F/U Dr. Laurent i 2 weeks Physical Exam 2 Vital Signs (Past 24 Hours): Last Vital Signs Temp 36.8 C 11/19/18 07:40 Pulse 65 11/19/18 07:40 Resp 12 11/19/18 07:40 BP 138/60 11/19/18 07:40 Pulse Ox 99 11/19/18 07:40 Constitutional: WD/WN, vitals as above Neck: trachea midline, no thyromegaly Respiratory: normal respiratory effort, lungs clear to auscultation Cardiovascular: RRR, no murmur, no edema Gastrointestinal (Abdomen): Percussion/Palpation: abdomen soft NT, ND all incisions heal well, Neurologic: awake Psychiatric: Orientation: alert and oriented x 3
[2018-11-19] MEDS ORDERED: INFLUENZA ADMINISTRATION CHARGE ONE (12:00)
[2018-11-19] MEDS ORDERED: PNEUMOCOCCAL ADMINISTRATION CHARGE ONE (12:00)
[2018-11-19] MEDS ORDERED: INFLUENZA VACCINE HIGH DOSE 65+ 0.5 ML SYR IM ONE (12:00)
[2018-11-19] MEDS ORDERED: PNEUMOCOCCAL POLYSACCHARIDES 25 MCG/0.5 ML VIAL/SYR IM ONE (12:00)
--- NOTE | 2018-11-21 06:11 | Discharge Summary ---
Date of Service November 29, 2018 Discharge Data Consultations 11/18/18 22:22 Consult Case Management - Discharge Planning Routine Procedures Performed Operation Date: 11/17/18 13:25 Actual Procedures p Open Bilateral Inguinal Hernia Repair with Mesh(Bilateral) - Ricky Laurent DO
--- NOTE | 2018-11-28 14:56 | Discharge Summary ---
PRIMARY DISCHARGE DIAGNOSIS: Bilateral inguinal hernias. SECONDARY DISCHARGE DIAGNOSES: 1. Dementia. 2. Hypertension. 3. Prostate cancer. 4. Indwelling catheter with history of urinary tract infections. 5. Chronic kidney disease. PROCEDURE PERFORMED: Open repair of bilateral inguinal hernias with mesh. HOSPITAL COURSE: The patient is an 83-year-old male taken to the operating room for elective repair of bilateral inguinal hernias. The procedure was well tolerated. He was transferred to the surgical floor for overnight observation. Additional discharge needs were identified. nutrition services manager was consulted. He was otherwise doing well. His incisions were clean and dry. He was tolerating diet and oral analgesics. On postoperative day 2, arrangements for home health were made. He was stable for discharge. DISCHARGE INSTRUCTIONS: Discharge home. Follow up with Dr. Laurent in 2 weeks as planned. DISCHARGE MEDICATIONS: [place] 1-2 tablets every 4 hours as needed.
== END 2018-11-19 13:00 | disposition home health service (06) ==
LOC: ASU 10:52 → 2S 16:20 → INTOOBSV 16:20 → 3N 11-18 12:57

== ENCOUNTER 2019-06-05 17:45 | Inpatient (IN) ==
[2019-06-05] MEDS ORDERED: fentaNYL citrate 100 MCG/2 ML VIAL IV PRN (18:18)
[2019-06-05] MEDS ORDERED: ONDANSETRON INJ 2 MG/ML 2 ML VIAL IV STA (18:18)
--- NOTE | 2019-06-05 18:28 | Emergency Department Note ---
Entered by Zachery Ji acting as a scribe for Rafat Smith DO History of Present Illness General Chief complaint: Abdominal Pain Stated complaint: SEVERE LEFT SIDED ABDOMINAL PAIN Source: family History of Present Illness Onset (ago): hour(s) (earlier today) Location: abdomen (left-sided) Pain Consistency: + other (worsening) Relieved By: + none Associated symptoms: + chest pain, + shortness of breath and + other (back pain); no nausea/vomiting The patient is a 84 year old M who presents to the Emergency Room with complaints of worsening left-sided abdominal pain that started earlier today. The majority of the HPI was provided by the patients family. They state that the patient has a history of 2 hernia repair surgeries in the past. The patient notes that he is experiencing chest pain, back pain, and shortness of breath. He denies that he is currently experiencing vomiting. He notes that he has never experienced these symptoms before. His family states that the patient did not take any pain medication at home. They add that the patient did not go to see his PCP today. They note that the patient has a history of stage 4 renal disease and kidney stones. The HPI is limited due to the patients history of Alzheimers disease. Home Medications Home Medications Medication Instructions Recorded Confirmed Type tamsulosin 0.4 mg capsule 0.4 mg PO DAILY #30 cap 03/23/19 06/05/19 Rx donepezil 5 mg tablet 5 mg PO DAILY #30 tab 04/18/19 06/05/19 Rx Allergies Allergy/AdvReac Type Severity Reaction Status Date / Time levofloxacin Allergy Intermediate SWELLING Verified 06/05/19 20:52 sulfamethoxazole Allergy Intermediate SWELLING Verified 06/05/19 20:53 trimethoprim Allergy Intermediate SWELLING Verified 06/05/19 20:53 tramadol Allergy Mild PRURITIS Verified 06/05/19 20:53 Bactrim Allergy Unknown SWELLING Verified 11/11/16 17:27 gabapentin Allergy Unknown UNKNOWN Verified 06/05/19 20:54 Iodinated Contrast- Oral and Allergy Unknown IVP DYE - Verified 06/05/19 20:54 IV Dye UNKNOWN REACTION finasteride AdvReac Severe GYNECOMASTI Verified 06/05/19 20:56 A tamsulosin AdvReac Severe GYNECOMASTI Verified 06/05/19 20:56 A Past Med/Surg History Medical History Bilateral inguinal hernia (Chronic) S/p open bilateral inguinal hernia repair (11/15). Chronic osteoarthritis (Chronic) Obstructive uropathy (Chronic) Paroxysmal atrial fibrillation (Chronic) Found on event recorder in 2013 with short episodes of atrial fibrillation. AC was not recommended History of cholelithiasis (Resolved) Hearing loss (Chronic) No hearing aides Visual impairment of left eye (Chronic) Vitamin D deficiency (Chronic) Not on supplementation. 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 The ROS is limited due to the patients history of Alzheimers disease. Physical Exam Vital Signs Vital Signs - 24 hr 06/05/19 17:58 06/05/19 18:51 Temperature 37 C Temperature Source Oral Sepsis Recent Fever Within 48 Hours No Sepsis Action Taken by Nursing No Action Required Pulse Rate 65 Respiratory Rate 20 Respiratory Effort / Characteristics Non-Labored Respiratory Depth Normal Blood Pressure 120/59 L Blood Pressure Mean 79 Blood Pressure Position Sitting Pulse Oximetry 97 97 Oxygen Delivery Method Room Air Room Air GENERAL: The patient is awake and alert. He is somewhat anxious appearing and appears to be uncomfortable. EYES: The conjunctivae are clear. The pupils are round and reactive. EARS, NOSE, MOUTH AND THROAT: The nose is without any evidence of any deformity. Mucous membranes are dry. NECK: The neck is nontender and supple. RESPIRATORY: Normal respiratory effort is noted there is no evidence of wheezing rhonchi or rales CARDIOVASCULAR: Regular rate and rhythm noted there no murmurs rubs or gallops normal S1 normal S2 GASTROINTESTINAL: The abdomen is soft. There is diffuse tenderness to palpation but no specific guarding or rigidity. Pain appears to be worse on the left side of the abdomen. BACK: No midline tenderness was noted. There was tenderness to percussion over the left flank. MUSCULOSKELETAL/EXTREMITIES: There is no evidence of gross deformity full range of motion is noted in the hips and shoulders SKIN: There is no obvious evidence of any rash. Trace pedal edema was noted bilaterally. NEUROLOGIC: Patient is awake and oriented to person place and situation. Strength was symmetric. Course 1817: The patient was evaluated in room C5. A complete history and physical exam was performed. 2042: I updated the patient's family on the patient's test results. I recommended to them that the patient should be admitted. 2100: I reviewed the patient's case with Dr. Khalil, [facility] Hospitalist. He will evaluate the patient for further management. Consultations Consultation #1: I reviewed the patient's case with Dr. Khalil, [facility] Hospitalist. He will evaluate the patient for further management. Time: 21:00 Administered Medications Discontinued Medications Sodium Chloride (Nss) 500 mls @ 999 mls/hr IV .Q31M IDA Stop: 06/05/19 19:00 Last Infusion: 06/05/19 21:15 Dose: 0 mls/hr Documented by: [id number] Admin: 06/05/19 20:13 Dose: 999 mls/hr Documented by: [id number] Sodium Chloride (Nss 1000ml) 1,000 mls @ 999 mls/hr IV .Q1H1M ONE Stop: 06/05/19 21:41 Last Infusion: 06/05/19 22:32 Dose: 0 mls/hr Documented by: [id number] Admin: 06/05/19 21:21 Dose: 999 mls/hr Documented by: [id number] Cefepime HCl (Maxipime) 2,000 mg in 20 mls @ 5 mls/min IV NOW STA; Protocol Stop: 06/05/19 20:43 Last Admin: 06/05/19 21:21 Dose: 5 mls/min Documented by: [id number] Ondansetron HCl (Zofran) 4 mg IV NOW STA Stop: 06/05/19 18:19 Last Admin: 06/05/19 22:28 Dose: Not Given Documented by: [id number] Medical Decision Making Differential Diagnosis Differential diagnosis: Etiologies such as appendicitis, diverticulitis, PUD, biliary pathology, UTI, pancreatitis, obstruction, mesenteric ischemia, aortic pathology, infections, inflammatory bowel disease, renal colic, as well as others were entertained. Medical Records Attestation: I reviewed the patient's medical records. Home Medications Current Medication List: was personally reviewed by me Laboratory Data Attestation: I reviewed the patient's lab results. Result diagrams: 06/05/19 19:24 06/05/19 19:24 Lab Results 06/05/19 06/05/19 06/05/19 Range/Units 19:24 19:24 19:24 WBC 12.48 H (4.8-10.8) K/uL RBC 4.38 L (4.7-6.1) M/uL Hgb 13.3 L (14.0-18.0) g/dL Hct 40.0 L (42-52) % MCV 91.3 (80-100) fL MCH 30.4 (25-34) pg MCHC 33.3 (32-36) g/dL RDW Std Deviation 46.5 H (36.4-46.3) fL RDW Coeff of Thelma 13.9 (11.5-14.5) % Plt Count 251 (130-400) K/uL MPV 10.4 (7.4-10.4) fL Immature Gran % (Auto) 0.2 % Neut % (Auto) 68.1 % Lymph % (Auto) 24.6 % Warren % (Auto) 5.9 % Eos % (Auto) 1.0 % Baso % (Auto) 0.2 % Immature Gran # (Auto) 0.02 (0.00-0.02) K/uL Neut # (Auto) 8.50 H (1.4-6.5) K/uL Lymph # (Auto) 3.07 (1.2-3.4) K/uL Warren # (Auto) 0.74 H (0.11-0.59) K/uL Eos # (Auto) 0.12 (0-0.5) K/uL Baso # (Auto) 0.03 (0-0.2) K/uL PT 9.8 (9.0-12.0) Seconds INR 1.0 (0.9-1.1) APTT 24.1 (21.0-31.0) Seconds PTT Ratio 0.9 Sodium 139 (136-145) mmol/L Potassium 4.0 (3.5-5.1) mmol/L Chloride 104 (98-107) mmol/L Carbon Dioxide 28 (21-32) mmol/L Anion Gap 7.0 (3-11) BUN 39 H (7-18) mg/dl Creatinine 1.85 H (0.6-1.4) mg/dl Est Cr Clr Drug Dosing Not Reportable Est GFR ( Amer) 37.4 Est GFR (Non-Af Amer) 32.3 BUN/Creatinine Ratio 21.1 H (10-20) Glucose 105 H (70-99) mg/dl Calcium 9.4 (8.5-10.1) mg/dl Total Bilirubin 0.5 (0.2-1) mg/dl AST 21 (15-37) U/L ALT 19 (12-78) U/L Alkaline Phosphatase 78 (45-117) U/L Troponin I < 0.015 (0-0.045) ng/ml Total Protein 7.7 (6.4-8.2) gm/dl Albumin 3.8 (3.4-5.0) gm/dl Globulin 3.9 (2.5-4.0) gm/dl Albumin/Globulin Ratio 1.0 (0.9-2) Lipase 250 (73-393) U/L Urine Color Urine Appearance (Clear) Urine pH (4.5-7.5) Ur Specific [place] (1.000-1.030) Urine Protein (Negative) Urine Glucose (UA) (Negative) Urine Ketones (Negative) Urine Blood (Negative) Urine Nitrite (Negative) Urine Bilirubin (Negative) Urine Urobilinogen (Negative) Ur Leukocyte Esterase (Negative) Urine WBC (Auto) (0-5) /hpf Urine RBC (Auto) (0-4) /hpf U Hyaline Cast (Auto) (0-5) /lpf U Epithel Cells (Auto) (0-5) /lpf Urine Bacteria (Auto) (Negative) 06/05/19 Range/Units 19:25 WBC (4.8-10.8) K/uL RBC (4.7-6.1) M/uL Hgb (14.0-18.0) g/dL Hct (42-52) % MCV (80-100) fL MCH (25-34) pg MCHC (32-36) g/dL RDW Std Deviation (36.4-46.3) fL RDW Coeff of Thelma (11.5-14.5) % Plt Count (130-400) K/uL MPV (7.4-10.4) fL Immature Gran % (Auto) % Neut % (Auto) % Lymph % (Auto) % Warren % (Auto) % Eos % (Auto) % Baso % (Auto) % Immature Gran # (Auto) (0.00-0.02) K/uL Neut # (Auto) (1.4-6.5) K/uL Lymph # (Auto) (1.2-3.4) K/uL Warren # (Auto) (0.11-0.59) K/uL Eos # (Auto) (0-0.5) K/uL Baso # (Auto) (0-0.2) K/uL PT (9.0-12.0) Seconds INR (0.9-1.1) APTT (21.0-31.0) Seconds PTT Ratio Sodium (136-145) mmol/L Potassium (3.5-5.1) mmol/L Chloride (98-107) mmol/L Carbon Dioxide (21-32) mmol/L Anion Gap (3-11) BUN (7-18) mg/dl Creatinine (0.6-1.4) mg/dl Est Cr Clr Drug Dosing Est GFR ( Amer) Est GFR (Non-Af Amer) BUN/Creatinine Ratio (10-20) Glucose (70-99) mg/dl Calcium (8.5-10.1) mg/dl Total Bilirubin (0.2-1) mg/dl AST (15-37) U/L ALT (12-78) U/L Alkaline Phosphatase (45-117) U/L Troponin I (0-0.045) ng/ml Total Protein (6.4-8.2) gm/dl Albumin (3.4-5.0) gm/dl Globulin (2.5-4.0) gm/dl Albumin/Globulin Ratio (0.9-2) Lipase (73-393) U/L Urine Color Yellow Urine Appearance Turbid A (Clear) Urine pH 5.5 (4.5-7.5) Ur Specific [place] 1.016 (1.000-1.030) Urine Protein 2+ H (Negative) Urine Glucose (UA) Negative (Negative) Urine Ketones Negative (Negative) Urine Blood 1+ H (Negative) Urine Nitrite Positive A (Negative) Urine Bilirubin Negative (Negative) Urine Urobilinogen Negative (Negative) Ur Leukocyte Esterase 3+ H (Negative) Urine WBC (Auto) >30 H (0-5) /hpf Urine RBC (Auto) 0-4 (0-4) /hpf U Hyaline Cast (Auto) 1-5 (0-5) /lpf U Epithel Cells (Auto) 10-20 H (0-5) /lpf Urine Bacteria (Auto) 4+ H (Negative) Imaging Data Radiologist's Impression: Radiology results as stated below per my review and the radiologist's interpretation: CT abd pelvis wo con CLINICAL HISTORY: 84 years-old Male presenting with left flank pain. TECHNIQUE: Multidetector CT of the abdomen and pelvis was performed without the use of intravenous contrast. IV contrast: None. One or more dose lowering techniques were used consistent with the principles of ALARA (as low as reasonably achievable), including automatic exposure control, mA or kV adjustment to individual patient size, and/or use of iterative reconstruction. COMPARISON: 04/09/2019. CT DOSE (mGy.cm): The estimated cumulative dose is 263.56 mGy.cm. FINDINGS: Tour Conductor topogram: Flores catheter projects over the pelvis. Lung bases: Normal heart size. Coronary artery calcification. No pericardial or pleural effusion. Minimal dependent changes likely atelectasis. Liver: Normal morphology. Normal density. Biliary: No gross biliary ductal dilatation allowing for noncontrast technique. Gallbladder contains gallstones. Pancreas: Normal noncontrast appearance. Spleen: Normal noncontrast appearance. Adrenal glands: Normal noncontrast appearance. Kidneys and ureters: Mild parenchymal atrophy suggested on the right. Prominent urothelial thickening in the right kidney. The left kidney is absent. No abnormal soft tissue in the operative bed. No right nephrolithiasis. The right ureter is nondistended though extensive urothelial thickening remains present throughout. Bladder: Flores catheter partially decompresses the urinary bladder. Circumferential bladder wall thickening. Prominent median lobe hypertrophy of the prostate resulting in a polypoid bladder filling at the bladder neck. Pelvic organs: Prostate enlargement likely secondary to benign prostatic hyperplasia. Bowel: Mild stool burden in the rectum. Diverticulosis of the proximal to mid sigmoid colon without wall thickening or pericolonic inflammatory change. No bowel obstruction. Peritoneal cavity: No free fluid or intraperitoneal gas. Lymph nodes: No gross lymphadenopathy allowing for noncontrast technique. Vasculature: Atherosclerosis of the normal caliber abdominal aorta. Abdominal wall: Trace fluid noted along the proximal inguinal canals bilaterally, which may suggest postsurgical changes of prior inguinal hernia repairs. Musculoskeletal: Degenerative changes of the spine. IMPRESSION: 1. Right urothelial thickening may relate to chronic reflux uropathy. Correlate with urinalysis to exclude upper tract infection. 2. 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 Significant median lobe hypertrophy of the bladder. 3. Postsurgical changes of left nephrectomy. No pathology in the operative bed allowing for noncontrast technique. 4. Cholelithiasis. 5. Postsurgical changes of inguinal hernia repairs suggested. 6. Additional findings as above. Electronically signed by: Kulwant Bledsoe M.D. 06/05/2019 8:19 PM XR chest 1V portable CLINICAL HISTORY: 84 years-old Male presenting with chest pain. TECHNIQUE: Portable upright AP view of the chest was obtained. COMPARISON: 11/28/2018. FINDINGS: Atherosclerosis of the aortic arch. Cardiac silhouette mildly enlarged. Lungs are hyperinflated with relative radiolucency of the upper lobes. No focal opacity. No pleural effusion or pneumothorax. Degenerative changes of the thoracic spine. Upper abdomen normal. IMPRESSION: 1. Findings suggest emphysema or other obstructive lung disease. No focal infiltrate to suggest pneumonia. 2. Mild cardiomegaly. No volume overload or congestive change. Electronically signed by: Kulwant Bledsoe M.D. 06/05/2019 7:14 PM ECG Data Attestation: I personally reviewed and interpreted this ECG as follows: Indication: abdominal pain Rate (beats per minute): 63 Rhythm: sinus rhythm Findings: + other (no acute ST segments) and + PVC Comparison ECG Date: from (11/28/18) Change: no significant change Blood Pressure Blood Pressure Findings: Low blood pressure Blood Pressure Disposition: further management by hospitalist HAYDEN Chapa The patient is an 84-year-old male who presented to the emergency department with family members for an evaluation of left flank pain. The patient has some underlying dementia and it is somewhat difficult to obtain history from the patient. The patient did have reproducible left-sided pain on physical exam but given his age and comorbidities further laboratory and radiographic studies were obtained to ensure this does not represent a cardiac source of his pain. The patient was treated with IV fluids in the emergency department. He was also treated with IV antibiotics for presumed urinary tract infection. I discussed the patient's laboratory and radiographic studies with the patient and his family member. Given the patient's comorbidities and findings I discussed his case with the on-call [facility] hospitalist group. They have agreed to evaluate the patient in the emergency department for further management disposition. Impression & Plan Pyelonephritis, Left flank pain, RAFAT (acute kidney injury) Discharge Plan Visit Data Chief Complaint: Abdominal Pain Stated Complaint: SEVERE LEFT SIDED ABDOMINAL PAIN ED Provider: Rafat Smith Discharge Problem: Pyelonephritis, Left flank pain, RAFAT (acute kidney injury) Patient Disposition: Admitted As Inpatient Discharge Instructions Interventions: ED Discharge Assessment Last Done: 06/05/19 22:33 The scribe's documentation has been prepared under my direction and personally reviewed by me in its entirety. I confirm that the note above accurately reflects all work, treatment, procedures, and medical decision making performed by me.
[2019-06-05] MEDS ORDERED: SODIUM CHLORIDE 0.9% 500 ML IV SCH (18:30)
--- NOTE | 2019-06-05 19:15 | XRay Report ---
XR chest 1V portable CLINICAL HISTORY: 84 years-old Male presenting with chest pain. TECHNIQUE: Portable upright AP view of the chest was obtained. COMPARISON: 11/28/2018. FINDINGS: Atherosclerosis of the aortic arch. Cardiac silhouette mildly enlarged. Lungs are hyperinflated with relative radiolucency of the upper lobes. No focal opacity. No pleural effusion or pneumothorax. Dege nerative changes of the thoracic spine. Upper abdomen normal. IMPRESSION: 1. Findings suggest emphysema or other obstructive lung disease. No focal infiltrate to suggest pneu monia. 2. Mild cardiomegaly. No volume overload or congestive change. Electronically signed by: Kulwant Bledsoe M.D. 06/05/2019 7:14 PM
[2019-06-05 19:41] LABS: Basophils # (auto) 0.03 K/uL (0-0.2); Basophils % (auto) 0.2 %; Eosinophils # (auto) 0.12 K/uL (0-0.5); Hemoglobin 13.3 g/dL (14.0-18.0); Immature Granulocytes # (auto) 0.02 K/uL (0.00-0.02); Immature Granulocytes % (auto) 0.2 %; Lymphocytes # (auto) 3.07 K/uL (1.2-3.4); Lymphocytes % (auto) 24.6 %; Mean Corpuscular Hemoglobin 30.4 pg (25-34); Mean Corpuscular Hgb Conc 33.3 g/dL (32-36); Mean Corpuscular Volume 91.3 fL (80-100); Mean Platelet Volume 10.4 fL (7.4-10.4); Monocytes # (auto) 0.74 K/uL (0.11-0.59); Monocytes % (auto) 5.9 %; Neutrophils % (auto) 68.1 %; Platelet Count 251 K/uL (130-400); RDW Coefficient of Variation 13.9 % (11.5-14.5); RDW Standard Deviation 46.5 fL (36.4-46.3); Red Blood Count 4.38 M/uL (4.7-6.1); White Blood Count 12.48 K/uL (4.8-10.8)
[2019-06-05 19:57] LABS: Appearance Urine Turbid (Clear); Bacteria Urine Automated 4+ (Negative); Bilirubin Urine Negative (Negative); Blood Urine 1+ (Negative); Color Urine Yellow; Glucose Urine UA Negative (Negative); Ketones Urine Negative (Negative); Leukocyte Esterase Urine 3+ (Negative); Nitrite Urine Positive (Negative); Protein Urine 2+ (Negative); RBC Urine Automated 0-4 /hpf (0-4); Specific Gravity Urine 1.016 (1.000-1.030); Urobilinogen Urine Negative (Negative); WBC Urine Automated >30 /hpf (0-5); pH Urine 5.5 (4.5-7.5)
[2019-06-05 20:00] LABS: Partial Thromboplastin Ratio 0.9; Partial Thromboplastin Time 24.1 Seconds (21.0-31.0); Prothrombin Time 9.8 Seconds (9.0-12.0)
[2019-06-05 20:01] LABS: Alanine Aminotransferase 19 U/L (12-78); Albumin Level 3.8 gm/dl (3.4-5.0); Aspartate Aminotransferase 21 U/L (15-37); BUN Creatinine Ratio 21.1 (10-20); Blood Urea Nitrogen 39 mg/dl (7-18); Calcium 9.4 mg/dl (8.5-10.1); Carbon Dioxide 28 mmol/L (21-32); Chloride 104 mmol/L (98-107); Est GFR (African American) 37.4; Est GFR (Non-African American) 32.3; Glucose 105 mg/dl (70-99); Lipase 250 U/L (73-393); Sodium 139 mmol/L (136-145)
[2019-06-05 20:06] LABS: Alkaline Phosphatase 78 U/L (45-117); Bilirubin,Total 0.5 mg/dl (0.2-1); Globulin 3.9 gm/dl (2.5-4.0); Total Protein 7.7 gm/dl (6.4-8.2); Troponin I < 0.015 ng/ml (0-0.045)
--- NOTE | 2019-06-05 20:20 | CT Scan Report ---
CT abd pelvis wo con CLINICAL HISTORY: 84 years-old Male presenting with left flank pain. TECHNIQUE: Multidetector CT of the abdomen and pelvis was performed without the use of intravenous co ntrast. IV contrast: None. One or more dose lowering techniques were used consistent with the princip les of ALARA (as low as reasonably achievable), including automatic exposure control, mA or kV adjust ment to individual patient size, and/or use of iterative reconstruction. COMPARISON: 04/09/2019. CT DOSE (mGy.cm): The estimated cumulative dose is 263.56 mGy.cm. FINDINGS: Dental Assisting Instructor topogram: Flores catheter projects over the pelvis. Lung bases: Normal heart size. Coronary artery calcification. No pericardial or pleural effusion. Min imal dependent changes likely atelectasis. Liver: Normal morphology. Normal density. Biliary: No gross biliary ductal dilatation allowing for noncontrast technique. Gallbladder contains gallstones. Pancreas: Normal noncontrast appearance. Spleen: Normal noncontrast appearance. Adrenal glands: Normal noncontrast appearance. Kidneys and ureters: Mild parenchymal atrophy suggested on the right. Prominent urothelial thickening in the right kidney. The left kidney is absent. No abnormal soft tissue in the operative bed. No rig ht nephrolithiasis. The right ureter is nondistended though extensive urothelial thickening remains p resent throughout. Bladder: Flores catheter partially decompresses the urinary bladder. Circumferential bladder wall thic kening. Prominent median lobe hypertrophy of the prostate resulting in a polypoid bladder filling at the bladder neck. Pelvic organs: Prostate enlargement likely secondary to benign prostatic hyperplasia. Bowel: Mild stool burden in the rectum. Diverticulosis of the proximal to mid sigmoid colon without w all thickening or pericolonic inflammatory change. No bowel obstruction. Peritoneal cavity: No free fluid or intraperitoneal gas. Lymph nodes: No gross lymphadenopathy allowing for noncontrast technique. Vasculature: Atherosclerosis of the normal caliber abdominal aorta. Abdominal wall: Trace fluid noted along the proximal inguinal canals bilaterally, which may suggest p ostsurgical changes of prior inguinal hernia repairs. Musculoskeletal: Degenerative changes of the spine. IMPRESSION: 1. Right urothelial thickening may relate to chronic reflux uropathy. Correlate with urinalysis to e xclude upper tract infection. 2. 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 Significant median lobe hype rtrophy of the bladder. 3. Postsurgical changes of left nephrectomy. No pathology in the operative bed allowing for noncontr ast technique. 4. Cholelithiasis. 5. Postsurgical changes of inguinal hernia repairs suggested. 6. Additional findings as above. Electronically signed by: Kulwant Bledsoe M.D. 06/05/2019 8:19 PM
[2019-06-05] MEDS ORDERED: CEFEPIME 2,000 MG/20 ML VIAL IV STA (20:40)
[2019-06-05] MEDS ORDERED: SODIUM CHLORIDE 0.9% 1000ML 1,000 ML IV ONE (20:41)
--- NOTE | 2019-06-05 22:06 | History & Physical Report ---
Date of Service June 05, 2019 Assessment & Plan (1) Urinary tract infection: Mr. Guevara is a 84-year-old male with a past medical history of prior left-sided nephrectomy, CKD stage IV, dementia, paroxysmal atrial fibrillation [not on anticoagulation], prediabetes, hypertension, and osteoarthritis who was brought to the emergency department due to left-sided abdominal pain and hematuria. ED course: 1.5L normal saline bolus, 2g IV cefepime Urinary tract infection -Admit to med/surg -UA positive for blood, nitrites, leukocyte esterase, white cells, bacteria -> urine culture ordered -CT abdomen and pelvis revealed right sided urothelial thickening (potentially related to chronic reflux uropathy versus upper urinary tract infection) -Vitals stable in emergency department, benign abdominal exam (no left abdominal pain as previously reported) -WCC elevated at 12.48 -Patient has had a history of several hospital admissions due to urosepsis - last urine culture on November 2018 grew pansensitive pseudomonas aeruginosa and Providencia rettgeri -> pt received 2g IV cefepime in ED -> Continue cefepime 1g every 12 hours for Pseudomonas coverage, tailor abx based on sensitivities Vascular Dementia/CVA -Continue home donepezil -Per review of outpatient records, patient has had chronic cognitive difficulties, secondary to history of repeat closed head traumas, 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), and microvascular ischemic changes -does not appear to be on any secondary prevention medications -per nursing, pt becomes belligerent & delirious when left alone - 1:1 sitter ordered Chronic kidney disease, stage IV -Baseline creatinine appears to be in the 1.82.8 range -Creatinine on admission 1.85, consistent with baseline Urinary retention -Has a chronic indwelling Flores catheter - bag was changed in ED to optimize comfort -Continue daily Flomax Prediabetes -Hemoglobin A1c in October 2018 was 6.3% -continue to monitor, ISS not ordered at this time Paroxysmal atrial fibrillation -History of prior event recorder which showed possible atrial fibrillation versus paroxysmal atrial tachycardia, anticoagulation was not recommended for him -currently in sinus rhythm Hypertension -Per review of outpatient notes, has not required medications Chronic low back pain -f/u arranged with pain management -Lidocaine patch ordered Code status: Full as per discussion with [POA] DVT prophylaxis: Heparin 5000 units SQ twice daily Disposition: Admit to med/surg. Will consult PT/OT/case management for help with ultimate disposition, given is having difficulty caring for patient (2) Prediabetes: (3) Dementia: (4) Chronic kidney disease: (5) Urinary retention: (6) Paroxysmal atrial fibrillation: (7) Chronic osteoarthritis: (8) Hypertension: History of Present Illness Chief Complaint: Left sided abdominal pain Primary Care Provider: PRAKASH Patel Mr. Guevara is a 84-year-old male with a past medical history of prior left- sided nephrectomy, CKD stage IV, dementia, paroxysmal atrial fibrillation [not on anticoagulation], prediabetes, hypertension, and osteoarthritis who was brought to the emergency department due to left-sided abdominal pain and hematuria. The patient has a history of dementia, and is unable to contribute to his history. He himself denies being in any pain, and is unsure why he is in the emergency department. Family is present at bedside, including his , and son. His states that she brought him in due to left-sided abdominal pain. She states that Mr. Guevara has a chronic indwelling catheter, and she noticed blood in his urine, which was new as of yesterday. She denies him having any fever, chills, vomiting, or diarrhea. She states that he has had decreased appetite, however this is typical for him. With regards to his history of nephrectomy, she states that this was due to trauma to his left kidney, that subsequently required removal. She reports that he follows with Dr. Carr, who is his urologist. Past medical history:prior left-sided nephrectomy, CKD stage IV, dementia, paroxysmal atrial fibrillation [not on anticoagulation], prediabetes, hypertension, and osteoarthritis Past surgical history: Left-sided nephrectomy, bilateral hernia repair Medications: Donepezil, tamsulosin Allergies: Levaquin, Bactrim, tramadol, penicillin, oral and IV dye Social history: Lives at home with his , in an assisted living facility. His , she has a history of colon cancer, and is having difficulty caring for him. She states that she now has an aide come in from time to time to assist with his care. History of tobacco abuse, however he has quit chewing tobacco and smoking. No recent alcohol or drug use Allergies Allergy/AdvReac Type Severity Reaction Status Date / Time levofloxacin Allergy Intermediate SWELLING Verified 06/05/19 20:52 sulfamethoxazole Allergy Intermediate SWELLING Verified 06/05/19 20:53 trimethoprim Allergy Intermediate SWELLING Verified 06/05/19 20:53 tramadol Allergy Mild PRURITIS Verified 06/05/19 20:53 Bactrim Allergy Unknown SWELLING Verified 11/11/16 17:27 gabapentin Allergy Unknown UNKNOWN Verified 06/05/19 20:54 Iodinated Contrast- Oral and Allergy Unknown IVP DYE - Verified 06/05/19 20:54 IV Dye UNKNOWN REACTION finasteride AdvReac Severe GYNECOMASTI Verified 06/05/19 20:56 A tamsulosin AdvReac Severe GYNECOMASTI Verified 06/05/19 20:56 A Home Medications Home Medications Medication Instructions Recorded Confirmed Type tamsulosin 0.4 mg capsule 0.4 mg PO DAILY #30 cap 03/23/19 06/05/19 Rx donepezil 5 mg tablet 5 mg PO DAILY #30 tab 04/18/19 06/05/19 Rx Past Med/Surg History Medical History Bilateral inguinal hernia (Chronic) S/p open bilateral inguinal hernia repair (11/15). Chronic osteoarthritis (Chronic) Obstructive uropathy (Chronic) Paroxysmal atrial fibrillation (Chronic) Found on event recorder in 2013 with short episodes of atrial fibrillation. AC was not recommended History of cholelithiasis (Resolved) Hearing loss (Chronic) No hearing aides Visual impairment of left eye (Chronic) Vitamin D deficiency (Chronic) Not on supplementation. Currently Vit D 23 ng/mL (12/12) Hemophilia (Chronic) REPORTED BY Surgical History History of nephrectomy (Chronic) LEFT Social History Preferred Language: Arabic Communication Ability: confused Communication Ability Comment: [place] Visual Impairment: Limited Hearing Ability: Hard of Hearing Machine Feller Required: No Beliefs That Will Affect Care: None marital status: Current Living Situation: Spouse Current Living Situation Comment: in apartment with spouse current occupational status: retired Other Information That Helps Us Care for You: Yes (needs more help at home) Feels Safe at Home: Yes Safety Concerns: Feels Safe At This Time Smoking Status: Former smoker Tobacco Type: smokeless tobacco ; Do You Dip or Chew Tobacco: No ; Second Hand Exposure: No ; Tobacco Cessation Education Requested by Patient: No Hx Alcohol Use: Yes Alcohol type: beer Hx Substance Use: No Review of Systems Review of Systems: Unobtainable due to cognitive status Physical Exam Constitutional: WD/WN, vitals as above cooperative and comfortable; not in distress Eyes: PERRL, conjunctivae normal, anicteric sclerae ENMT: external ear and nose normal, oropharynx normal Respiratory: normal respiratory effort, lungs clear to auscultation Cardiovascular: RRR, no murmur, no edema Extremities: normal capillary refill; no calf tenderness and no pedal edema Gastrointestinal (Abdomen): Percussion/Palpation: abdomen soft; abdomen nontender, no guarding and abdomen not rigid No flank tenderness bilaterally Skin: no rashes, warm and dry Neurologic: Patient is oriented to self only. Patient is confused, but easily redirectable Patient has difficulty following commands, however cranial nerves II through XII grossly intact. Coordination intact 5/5 power in UE and LE Psychiatric: Orientation: oriented to person; + not oriented to place and + not oriented to time Genitourinary: Flores catheter in place draining light yellow urine - bag attached rather tightly to right leg Results & Data Vital Signs (Past 12 Hours) Vital Signs Temp Pulse Resp BP Pulse Ox 06/05/19 18:51 97 06/05/19 17:58 37 C 65 20 120/59 L 97 Code Status & VTE Plan VTE Prophylaxis Plan VTE Prophylaxis will be ordered: Yes Supervising Physician Co-Signing Physician Notes Patient was seen and examined by me personally. I reviewed the chart, the orders, and discussed the case in detail with Dr. Heavenly Denise MD. I read this H&P and agree with its contents to entirety. PG Care Time/CCT Total # of Minutes Spent Total Time Spent with Patient: Total time spent is greater than 50% in coordination of care (as documented) at patient's floor/unit and/or counseling patient: Resident Activity Tracking Resident Involvement: Resident Care Provided Care Provided: Adult Hospital Medicine (1) Dementia Dementia behavioral disturbance: without behavioral disturbance Dementia type: vascular dementia Qualified Code(s): F01.50 - Vascular dementia without behavioral disturbance
[2019-06-05] MEDS ORDERED: ACETAMINOPHEN 325 MG TAB PO PRN (23:23)
[2019-06-06] MEDS ORDERED: PATIENT'S HEIGHT AND/OR WEIGHT NEEDED SCH (01:00)
[2019-06-06] MEDS: LIDOCAINE 5% 1 PATCH TD SCH ×2 (02:00→07:37)
[2019-06-06] MEDS ORDERED: Nursing to Pharmacy Communication ONE (04:56)
[2019-06-06] MEDS: DONEPEZIL HCL 5 MG TAB PO SCH (07:36)
[2019-06-06] MEDS: TAMSULOSIN HCL 0.4 MG CAP PO SCH (07:36)
[2019-06-06] MEDS: HEPARIN SOD 5,000 UNIT/0.5 ML VIAL SQ SCH ×2 (07:36→21:07)
[2019-06-06 07:46] LABS: Basophils # (auto) 0.03 K/uL (0-0.2); Basophils % (auto) 0.3 %; Eosinophils # (auto) 0.17 K/uL (0-0.5); Eosinophils % (auto) 1.9 %; Hematocrit (blood only) 37.9 % (42-52); Hemoglobin 12.2 g/dL (14.0-18.0); Immature Granulocytes # (auto) 0.02 K/uL (0.00-0.02); Immature Granulocytes % (auto) 0.2 %; Lymphocytes # (auto) 1.89 K/uL (1.2-3.4); Lymphocytes % (auto) 21.4 %; Mean Corpuscular Hemoglobin 29.5 pg (25-34); Mean Corpuscular Hgb Conc 32.2 g/dL (32-36); Mean Corpuscular Volume 91.5 fL (80-100); Mean Platelet Volume 10.6 fL (7.4-10.4); Monocytes # (auto) 0.64 K/uL (0.11-0.59); Monocytes % (auto) 7.2 %; Platelet Count 235 K/uL (130-400); RDW Coefficient of Variation 13.9 % (11.5-14.5); RDW Standard Deviation 46.2 fL (36.4-46.3); Red Blood Count 4.14 M/uL (4.7-6.1); White Blood Count 8.85 K/uL (4.8-10.8)
[2019-06-06 07:52] LABS: BUN Creatinine Ratio 20.2 (10-20); Calcium 8.8 mg/dl (8.5-10.1); Est GFR (African American) 41.7
[2019-06-06 10:05] LABS: Appearance Urine Cloudy (Clear); Bacteria Urine Automated 1+ (Negative); Bilirubin Urine Negative (Negative); Blood Urine 1+ (Negative); Color Urine Yellow; Glucose Urine UA Negative (Negative); Ketones Urine Negative (Negative); Leukocyte Esterase Urine 3+ (Negative); Nitrite Urine Negative (Negative); Protein Urine 2+ (Negative); Specific Gravity Urine 1.015 (1.000-1.030); Urobilinogen Urine Negative (Negative); WBC Urine Automated >30 /hpf (0-5); pH Urine 5.5 (4.5-7.5)
--- NOTE | 2019-06-06 17:37 | Urology Consultation ---
Date of Consultation June 06, 2019 Assessment & Plan (1) Urinary retention: Urinary retention- needs to have his fournier changed use a coude fournier and a 16 fr size. inflate the balloon with only 5mL of water. Hub the fournier all the way in prior to inflating balloon as he has a long prost ate. I expect to see some hematuria due to the irritation of the catheter. It was self limiting so no further evaluation planned. I dont suspect sepsis now so do not recommend antibiotics. We can treat the abdominal pain as constipation and add some miralax or other stool softeners of fiber. Dementia- seems severe. i'd suggest clarification of code status with family in light of this advanced dementia. Patient may need to be placed in home as his living situation is unstable. Evaluation ongoing by social services coordinator. Present on Admission?: Yes History of Present Illness Reason for Consultation: Hematuria Requesting Physician: Dr Talavera Attending Physician: Caitie Talavera MD History of Present Illness I am asked by Dr Talavera to evaluate and treat patient for hematuria. patient has chronic urinary retention and lives with a fournier catheter. he has a very large prostate. he has progressing severe dementia. He lives at home. His was called to give HPI because patient cannot answer any of my questions. he was mainly brought in for left abd pain. It is milder now. he is eating well. Bowel habits are unknown at home but appetite fine. He had pink urine on the weekend which resolved on its own. There were no clots and no urethral bleeding. CT scan was done and there is some right sided urothelial thickening. Patient is afebrile and leukocytosis was mildly elevated (12) in ER and normalized the next day. Allergies Allergy/AdvReac Type Severity Reaction Status Date / Time levofloxacin Allergy Intermediate SWELLING Verified 06/05/19 20:52 sulfamethoxazole Allergy Intermediate SWELLING Verified 06/05/19 20:53 trimethoprim Allergy Intermediate SWELLING Verified 06/05/19 20:53 tramadol Allergy Mild PRURITIS Verified 06/05/19 20:53 Bactrim Allergy Unknown SWELLING Verified 11/11/16 17:27 gabapentin Allergy Unknown UNKNOWN Verified 06/05/19 20:54 Iodinated Contrast- Oral and Allergy Unknown IVP DYE - Verified 06/05/19 20:54 IV Dye UNKNOWN REACTION finasteride AdvReac Severe GYNECOMASTI Verified 06/05/19 20:56 A tamsulosin AdvReac Severe GYNECOMASTI Verified 06/05/19 20:56 A Home Medications Home Medications Medication Instructions Recorded Confirmed Type tamsulosin 0.4 mg capsule 0.4 mg PO DAILY #30 cap 03/23/19 06/05/19 Rx donepezil 5 mg tablet 5 mg PO DAILY #30 tab 04/18/19 06/05/19 Rx Patient History Medical History Bilateral inguinal hernia (Chronic) S/p open bilateral inguinal hernia repair (11/15). Chronic osteoarthritis (Chronic) Obstructive uropathy (Chronic) Paroxysmal atrial fibrillation (Chronic) Found on event recorder in 2013 with short episodes of atrial fibrillation. AC was not recommended History of cholelithiasis (Resolved) Hearing loss (Chronic) No hearing aides Visual impairment of left eye (Chronic) Vitamin D deficiency (Chronic) Not on supplementation. Currently Vit D 23 ng/mL (12/12) Hemophilia (Chronic) REPORTED BY Surgical History History of nephrectomy (Chronic) LEFT Social History Preferred Language: [place]an Communication Ability: confused Communication Ability Comment: [place] Visual Impairment: Limited Hearing Ability: Hard of Hearing Wet Process [place] Required: No Beliefs That Will Affect Care: None marital status: Current Living Situation: Spouse Current Living Situation Comment: in apartment with spouse current occupational status: retired Other Information That Helps Us Care for You: Yes (needs more help at home) Feels Safe at Home: Yes Safety Concerns: Feels Safe At This Time Smoking Status: Former smoker Tobacco Type: smokeless tobacco ; Do You Dip or Chew Tobacco: No ; Second Hand Exposure: No ; Tobacco Cessation Education Requested by Patient: No Hx Alcohol Use: Yes Alcohol type: beer Hx Substance Use: No Review of Systems Review of Systems: PMH- afib not on anticoagulation, recurring sepsis from urinary source, inguinal hernia repair, urinary retention, bph, Soc- has adult children, retired, is on hospice for colon cancer Fam hx- not relevant at his age ROS- he cannot provide nor can his provide his ROS. Physical Exam Constitutional: WD/WN, vitals as above + thin and + frail appearing sitting in chair at bedside with a sitter eating his dinner Respiratory: normal respiratory effort, lungs clear to auscultation speaks in incomplete sentences, does not seem to understand questions. Gastrointestinal (Abdomen): normal bowel sounds, soft, nontender, no hepatosplenomegaly he claims the abdomen is tender to touch but there is not guarding with moderately deep palpation and he cannot tell me if it hurts more to push in or release. no masses and soft. Skin: bruising left arm, chins without edema, no calf tenderness, skin warm and without rash Genitourinary: fournier in place draining light yellow urine with small amount white debris. no blood. Results & Data Vital Signs (Past 12 Hours) Vital Signs Temp Pulse Resp BP Pulse Ox 06/06/19 15:28 36.3 C L 51 L 16 123/64 97 06/06/19 07:00 36.8 C 47 L 19 125/66 97
[2019-06-06] MEDS: POLYETHYLENE (MIRALAX) 17 GM PACK PO SCH (17:42)
[2019-06-06] MEDS ORDERED: CEFEPIME 1,000 MG in SYRINGE 0 ML IV SCH (20:00)
--- NOTE | 2019-06-06 20:21 | Hospitalist Progress Note ---
Date of Service June 06, 2019 Assessment & Plan (1) Urinary tract infection: Mr. Guevara is a 84-year-old male with a past medical history of prior left-sided nephrectomy, CKD stage IV, dementia, paroxysmal atrial fibrillation [not on anticoagulation], prediabetes, hypertension, and osteoarthritis who was brought to the emergency department due to left-sided abdominal pain and hematuria. His symptoms had resolved even prior to admission. CT abd/pel without obvious cause for pain. UA was abnormal and had leukocytosis of 12k, but with chronic indwelling catheter. ED course: 1.5L normal saline bolus, 2g IV cefepime Urinary tract infection -UA positive for blood, nitrites, leukocyte esterase, white cells, bacteria -> urine culture ordered -CT abdomen and pelvis revealed right sided urothelial thickening (potentially related to chronic reflux uropathy versus upper urinary tract infection) -Vitals stable in emergency department, benign abdominal exam continues, is doing very well -leukocytosis now resolved -Patient has had a history of several hospital admissions due to urosepsis - last urine culture on November 2018 grew pansensitive pseudomonas aeruginosa and Providencia rettgeri -> pt received 2g IV cefepime in ED Urology recommends stopping antibiotics and exchanging Flores catheter -dc Cefepime No need to treat for UTI, is likely chronically colonized (2) Prediabetes: -Hemoglobin A1c in October 2018 was 6.3% -continue to monitor, ISS not ordered at this time (3) Dementia: Vascular Dementia/CVA -Continue home donepezil -Per review of outpatient records, patient has had chronic cognitive difficulties, secondary to history of repeat closed head traumas, 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), and microvascular ischemic changes -per nursing, pt becomes belligerent & delirious when left alone - 1:1 sitter ordered but not needed now--he is not agitated and is allowed to frequently walk the halls (4) Chronic kidney disease: Chronic kidney disease, stage IV -Baseline creatinine appears to be in the 1.82.8 range -Creatinine on admission 1.85, consistent with baseline, now down actually to 1.6 (5) Urinary retention: Urinary retention -Has a chronic indwelling Flores catheter -Flores exchange ordered by Urology topérez ay -Continue daily Flomax (6) Paroxysmal atrial fibrillation: Paroxysmal atrial fibrillation -History of prior event recorder which showed possible atrial fibrillation versus paroxysmal atrial tachycardia, anticoagulation was not recommended for him -currently in sinus rhythm and regular on exam (7) Chronic osteoarthritis: Chronic low back pain -f/u arranged with pain management -Lidocaine patch ordered (8) Hypertension: Hypertension -Per review of outpatient notes, has not required medications (9) DVT prophylaxis: Code status: Full as per discussion with [POA] on admission DVT prophylaxis: Heparin 5000 units SQ twice daily Disposition:consult PT/OT/case management for help with ultimate disposition, given is having difficulty caring for patient as she is on Hospice Medically stable for discharge at this time, needs possible placement vs home with home health and plan for long goods drier placement possible Subjective DOing well. Has no complaints. Is pleasantly confused. Says he had bilateral flank pain when he first came in but now no pain at all. No hematuria. Is frequently pacing the halls as per RN but not agitated, just like to walk. He is eating, had a large BM this AM. Discussed his case with Urology who does NOT feel he needs to be treated for infection and recommends exchanging his catheter Review of Systems Review of Systems: All systems reviewed & are unremarkable except as noted in HPI & below Physical Exam Constitutional: WD/WN, vitals as above Eyes: + anicteric sclerae ENMT: external ear and nose normal, oropharynx normal Neck: trachea midline, no thyromegaly Respiratory: normal respiratory effort, lungs clear to auscultation Cardiovascular: RRR, no murmur, no edema Gastrointestinal (Abdomen): normal bowel sounds, soft, nontender, no hepatosplenomegaly (with left sided nephrectomy scar, no TTP over flanks bilat) Musculoskeletal: Extremities: extremities normal to inspection; no cyanosis and no clubbing Skin: no rashes, warm and dry Neurologic: moves all extremities and awake; no focal motor deficits Psychiatric: Orientation: alert, oriented to person and cooperative; + not oriented to place and + not oriented to time Genitourinary: Flores catheter in place with clear, yellow urine Results & Data Vital Signs (Past 12 Hours) Vital Signs Temp Pulse Resp BP Pulse Ox 06/06/19 15:28 36.3 C L 51 L 16 123/64 97 Laboratory Results 06/06/19 06/06/19 06/06/19 Range/Units 09:56 06:56 06:56 WBC 8.85 (4.8-10.8) K/uL RBC 4.14 L (4.7-6.1) M/uL Hgb 12.2 L (14.0-18.0) g/dL Hct 37.9 L (42-52) % MCV 91.5 (80-100) fL MCH 29.5 (25-34) pg MCHC 32.2 (32-36) g/dL RDW Std Deviation 46.2 (36.4-46.3) fL RDW Coeff of Thelma 13.9 (11.5-14.5) % Plt Count 235 (130-400) K/uL MPV 10.6 H (7.4-10.4) fL Immature Gran % (Auto) 0.2 % Neut % (Auto) 69.0 % Lymph % (Auto) 21.4 % [place] % (Auto) 7.2 % Eos % (Auto) 1.9 % Baso % (Auto) 0.3 % Immature Gran # (Auto) 0.02 (0.00-0.02) K/uL Neut # (Auto) 6.10 (1.4-6.5) K/uL Lymph # (Auto) 1.89 (1.2-3.4) K/uL [place] # (Auto) 0.64 H (0.11-0.59) K/uL Eos # (Auto) 0.17 (0-0.5) K/uL Baso # (Auto) 0.03 (0-0.2) K/uL Sodium 143 (136-145) mmol/L Potassium 4.0 (3.5-5.1) mmol/L Chloride 110 H (98-107) mmol/L Carbon Dioxide 28 (21-32) mmol/L Anion Gap 5.0 (3-11) BUN 34 H (7-18) mg/dl Creatinine 1.69 H (0.6-1.4) mg/dl Est Cr Clr Drug Dosing 28.0 ml/min Est GFR ( Amer) 41.7 Est GFR (Non-Af Amer) 36.0 BUN/Creatinine Ratio 20.2 H (10-20) Glucose 102 H (70-99) mg/dl Calcium 8.8 (8.5-10.1) mg/dl Urine Color Yellow Urine Appearance Cloudy A (Clear) Urine pH 5.5 (4.5-7.5) Ur Specific [place] 1.015 (1.000-1.030) Urine Protein 2+ H (Negative) Urine Glucose (UA) Negative (Negative) Urine Ketones Negative (Negative) Urine Blood 1+ H (Negative) Urine Nitrite Negative (Negative) Urine Bilirubin Negative (Negative) Urine Urobilinogen Negative (Negative) Ur Leukocyte Esterase 3+ H (Negative) Urine WBC (Auto) >30 H (0-5) /hpf Urine RBC (Auto) 5-10 H (0-4) /hpf U Hyaline Cast (Auto) 5-10 H (0-5) /lpf U Epithel Cells (Auto) 5-10 H (0-5) /lpf Urine Bacteria (Auto) 1+ H (Negative) PG Care Time/CCT Total # of Minutes Spent Total Time Spent with Patient: Total time spent is greater than 50% in coordination of care (as documented) at patient's floor/unit and/or counseling patient: (1) Dementia Dementia behavioral disturbance: without behavioral disturbance Dementia type: vascular dementia Qualified Code(s): F01.50 - Vascular dementia without behavioral disturbance
[2019-06-07] MEDS: DONEPEZIL HCL 5 MG TAB PO SCH (07:36)
[2019-06-07] MEDS: TAMSULOSIN HCL 0.4 MG CAP PO SCH (07:36)
[2019-06-07] MEDS: POLYETHYLENE (MIRALAX) 17 GM PACK PO SCH (07:36)
[2019-06-07] MEDS: HEPARIN SOD 5,000 UNIT/0.5 ML VIAL SQ SCH (07:36)
[2019-06-07] MEDS: LIDOCAINE 5% 1 PATCH TD SCH (07:39)
--- NOTE | 2019-06-07 15:19 | Hospitalist Progress Note ---
Date of Service June 07, 2019 Assessment & Plan (1) Urinary tract infection: Mr. Guevara is a 84-year-old male with a past medical history of prior left-sided nephrectomy, CKD stage IV, dementia, paroxysmal atrial fibrillation [not on anticoagulation], prediabetes, hypertension, and osteoarthritis who was brought to the emergency department due to left-sided abdominal pain and hematuria. His symptoms had resolved even prior to admission. CT abd/pel without obvious cause for pain. UA was abnormal and had leukocytosis of 12k, but with chronic indwelling catheter. ED course: 1.5L normal saline bolus, 2g IV cefepime Urinary tract infection-RULED OUT, has chronic Flynn and will always have abnormal appearing UA. No systemic signs/symptoms of infection -UA positive for blood, nitrites, leukocyte esterase, white cells, bacteria -> urine culture shows mixed organisms -CT abdomen and pelvis revealed right sided urothelial thickening (potentially related to chronic reflux uropathy versus upper urinary tract infection) -Vitals stable in emergency department, benign abdominal exam continues, is doing very well -leukocytosis resolved -Patient has had a history of several hospital admissions due to urosepsis - last urine culture on November 2018 grew pansensitive pseudomonas aeruginosa and Providencia rettgeri -> pt received 2g IV cefepime in ED Urology recommended stopping antibiotics and exchanging Flynn catheter -dcd Cefepime No need to treat for UTI, is likely chronically colonized (2) Prediabetes: -Hemoglobin A1c in October 2018 was 6.3% -continue to monitor, ISS not ordered at this time (3) Dementia: Vascular Dementia/CVA -Continue home donepezil -Per review of outpatient records, patient has had chronic cognitive difficulties, secondary to history of repeat closed head traumas, 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), and microvascular ischemic changes -per nursing, pt becomes belligerent & delirious when left alone - 1:1 sitter ordered but not needed now--he is not agitated and is allowed to frequently walk the halls (4) Chronic kidney disease: Chronic kidney disease, stage IV -Baseline creatinine appears to be in the 1.82.8 range -Creatinine on admission 1.85, consistent with baseline, then down to 1.6 no need to check daily labs here (5) Urinary retention: Urinary retention -Has a chronic indwelling Flynn catheter -Flynn exchange ordered by Urology -Continue daily Flomax (6) Paroxysmal atrial fibrillation: Paroxysmal atrial fibrillation -History of prior event recorder which showed possible atrial fibrillation versu s paroxysmal atrial tachycardia, anticoagulation was not recommended for him -currently in sinus rhythm and regular on exam (7) Chronic osteoarthritis: Chronic low back pain -f/u arranged with pain management -Lidocaine patch ordered (8) Hypertension: Hypertension -Per review of outpatient notes, has not required medications (9) DVT prophylaxis: Code status: Full as per discussion with [POA] on admission DVT prophylaxis: ambulating a lot--> will dc SQ heparin Disposition:consult PT/OT/case management for help with ultimate disposition, given is having difficulty caring for patient as she is on Hospice---> referral made to look for [facility]ci placement at [facility] for dementia--awaiting to hear back to see if spot available Medically stable for discharge Subjective Pt has no complaints. Is working on a [employer] book when I saw him. Says he has some pain in his back llike always. No abd pain.Urine is clear Review of Systems Review of Systems: Unobtainable due to cognitive status Physical Exam Constitutional: WD/WN, vitals as above Eyes: + anicteric sclerae Neck: trachea midline, no thyromegaly Respiratory: normal respiratory effort, lungs clear to auscultation Cardiovascular: RRR, no murmur, no edema Gastrointestinal (Abdomen): normal bowel sounds, soft, nontender, no hepatosplenomegaly (with left sided nephrectomy scar, no TTP over flanks bilat) Musculoskeletal: Extremities: extremities normal to inspection; no cyanosis and no clubbing Skin: no rashes, warm and dry Neurologic: moves all extremities and awake; no focal motor deficits Psychiatric: Orientation: alert, oriented to person and cooperative; + not oriented to place and + not oriented to time Genitourinary: Flynn bag with clear yellow urine PG Care Time/CCT Total # of Minutes Spent Total Time Spent with Patient: Total time spent is greater than 50% in coordination of care (as documented) at patient's floor/unit and/or counseling patient: (1) Dementia Dementia type: vascular dementia Dementia behavioral disturbance: without behavioral disturbance Qualified Code(s): F01.50 - Vascular dementia without behavioral disturbance
--- NOTE | 2019-06-07 17:15 | Discharge Summary ---
Date of Service June 07, 2019 Admission HPI Per Admitting Provider Mr. Guevara is a 84-year-old male with a past medical history of prior left- sided nephrectomy, CKD stage IV, dementia, paroxysmal atrial fibrillation [not on anticoagulation], prediabetes, hypertension, and osteoarthritis who was brought to the emergency department due to left-sided abdominal pain and hematuria. The patient has a history of dementia, and is unable to contribute to his history. He himself denies being in any pain, and is unsure why he is in the emergency department. Family is present at bedside, including his , and son. His states that she brought him in due to left-sided abdominal pain. She states that Mr. Guevara has a chronic indwelling catheter, and she noticed blood in his urine, which was new as of yesterday. She denies him having any fever, chills, vomiting, or diarrhea. She states that he has had decreased appetite, however this is typical for him. With regards to his history of nephrectomy, she states that this was due to trauma to his left kidney, that subsequently required removal. She reports that he follows with Dr. Carr, who is his urologist. Past medical history:prior left-sided nephrectomy, CKD stage IV, dementia, pa roxysmal atrial fibrillation [not on anticoagulation], prediabetes, hypertension, and osteoarthritis Past surgical history: Left-sided nephrectomy, bilateral hernia repair Medications: Donepezil, tamsulosin Allergies: Levaquin, Bactrim, tramadol, penicillin, oral and IV dye Social history: Lives at home with his , in an assisted living facility. His , she has a history of colon cancer, and is having difficulty caring for him. She states that she now has an aide come in from time to time to assist with his care. History of tobacco abuse, however he has quit chewing tobacco and smoking. No recent alcohol or drug use Principal Diagnosis Abdominal pain, hematuria Discharge Exam Constitutional WD/WN, vitals as above Eyes + anicteric sclerae Neck trachea midline, no thyromegaly Respiratory normal respiratory effort, lungs clear to auscultation Cardiovascular RRR, no murmur, no edema Gastrointestinal (Abdomen) normal bowel sounds, soft, nontender, no hepatosplenomegaly (with left sided nephrectomy scar, no TTP over flanks bilat) Musculoskeletal Extremities: extremities normal to inspection; no cyanosis and no clubbing Skin no rashes, warm and dry Neurologic moves all extremities and awake; no focal motor deficits Psychiatric Orientation: alert, oriented to person and cooperative; + not oriented to place and + not oriented to time Genitourinary Flynn catheter in place with clear yellow urine Discharge Data Allergies Allergy/AdvReac Type Severity Reaction Status Date / Time levofloxacin Allergy Intermediate SWELLING Verified 06/05/19 20:52 sulfamethoxazole Allergy Intermediate SWELLING Verified 06/05/19 20:53 trimethoprim Allergy Intermediate SWELLING Verified 06/05/19 20:53 tramadol Allergy Mild PRURITIS Verified 06/05/19 20:53 Bactrim Allergy Unknown SWELLING Verified 11/11/16 17:27 gabapentin Allergy Unknown UNKNOWN Verified 06/05/19 20:54 Iodinated Contrast- Oral and Allergy Unknown IVP DYE - Verified 06/05/19 20:54 IV Dye UNKNOWN REACTION finasteride AdvReac Severe GYNECOMASTI Verified 06/05/19 20:56 A tamsulosin AdvReac Severe GYNECOMASTI Verified 06/05/19 20:56 A Consultations 06/05/19 21:05 ED Decision to Admit Stat 06/05/19 23:23 Consult Case Management - Discharge Planning Routine 06/06/19 09:17 Consult Urology Routine Ordered Studies 06/05/19 18:18 CT abd pelvis wo con Stat CXR Hospital Course (1) Urinary tract infection: Mr. Guevara is a 84-year-old male with a past medical history of prior left-sided nephrectomy, CKD stage IV, dementia, paroxysmal atrial fibrillation [not on anticoagulation], prediabetes, hypertension, and osteoarthritis who was brought to the emergency department due to left-sided abdominal pain and hematuria. His symptoms had resolved even prior to admission. CT abd/pel without obvious cause for pain. UA was abnormal and had leukocytosis of 12k, but with chronic indwelling catheter. ED course: 1.5L normal saline bolus, 2g IV cefepime Urinary tract infection-RULED OUT, has chronic Flynn and will always have abnormal appearing UA. No systemic signs/symptoms of infection -UA positive for blood, nitrites, leukocyte esterase, white cells, bacteria -> urine culture shows mixed organisms -CT abdomen and pelvis revealed right sided urothelial thickening (potentially related to chronic reflux uropathy versus upper urinary tract infection) -Vitals stable in emergency department, benign abdominal exam continues, is doing very well -leukocytosis resolved -Patient has had a history of several hospital admissions due to urosepsis - last urine culture on November 2018 grew pansensitive pseudomonas aeruginosa and Providencia rettgeri -> pt received 2g IV cefepime in ED Urology recommended stopping antibiotics and exchanging Flynn catheter -dcd Cefepime No need to treat for UTI, is likely chronically colonized (2) Prediabetes: -Hemoglobin A1c in October 2018 was 6.3% no meds needed (3) Dementia: Vascular Dementia/CVA -Continue home donepezil -Per review of outpatient records, patient has had chronic cognitive difficulties, secondary to history of repeat closed head traumas, 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), and microvascular ischemic changes no acute issues while in hospital (4) Chronic kidney disease: Chronic kidney disease, stage IV -Baseline creatinine appears to be in the 1.82.8 range -Creatinine on admission 1.85, consistent with baseline, then down to 1.6 (5) Urinary retention: Urinary retention -Has a chronic indwelling Flynn catheter -Flynn exchange ordered by Urology -Continue daily Flomax (6) Paroxysmal atrial fibrillation: Paroxysmal atrial fibrillation -History of prior event recorder which showed possible atrial fibrillation versus paroxysmal atrial tachycardia, anticoagulation was not recommended for him -currently in sinus rhythm and regular on exam (7) Chronic osteoarthritis: Chronic low back pain -f/u arranged with pain management -Lidocaine patch ordered while inaptient (8) Hypertension: Hypertension -Per review of outpatient notes, has not required medications (9) DVT prophylaxis: Heparin SQ was provided, he ambulated a lot Disposition: family chose to bring him home rather than placement in [facility] facility at this time Total Time Total Time Spent Total Time Spent (In Minutes): >30 min Total Time Includes: Examination of the Patient, Discharge Planning and Medication Reconciliation Discharge Plan Discharge Items Patient Disposition: Home - Home Health Services Reason For Visit: UTI Discharge Diagnosis: Hematuria, Abdominal pain Condition on Discharge: Good Activity: Resume your previous activity Bathing: No limitations Non-emergency contact: Primary Care Provider and Urologist Call non-emergency contact if: you have any medication questions, your symptoms worsen, your pain is not controlled, you have a fever and your temperature is above 101 Follow-up/Referrals: Jodee Cueva CRNP [Primary Care Provider] - (Please follow up with your PCP within 1-2 weeks after discharge.) Diet: Regular Addtl Attending Provider Instructions: You were admitted with abdominal pain and some blood in your urine that all cleared up very quickly. A CT scan of your abdomen did not show anything significantly and your Urologist recommended that you have your Flynn catheter changed out and that you did not need antibiotics. Pending Studies at Discharge: No Stand-Alone Forms: My [facility] Medications and DC Order Prescriptions: Continued tamsulosin 0.4 mg capsule 0.4 mg PO DAILY Qty: 30 RF: 2 donepezil [Aricept] 5 mg tablet 5 mg PO DAILY Qty: 30 RF: 5 Discharge Orders: Discharge Order (Routine); Ordered 06/07/19 Ordered By: Caitie Talavera Admission Data Admit Date/Time: 06/05/19 21:57 Attending Provider: Caitie Talavera Admit Provider: Heavenly Denise Primary Care Provider: Jodee Cueva I Other Providers: Santiago Khalil ; Amparo Carr
--- NOTE | 2019-06-13 14:30 | Coding Query ---
5 CODING QUERY To promote full compliance with coding requirements relating to patient care, provider participation is requested in all cases of centrifugal supervisor uncertainty. Please assist us with the question(s) below: Coding Question(s): Patient admitted with abdominal pain and hematuria. Discharge Summary documents no UTI . Please document, if known or suspected, the etiology of the abdominal pain and hematuria. Thank you ! Kael Liu [facility] Physician's Response(s): Flores trauma is cause of hematuria and abdominal pain secondary to constipation Principal Diagnosis: "that condition established after study, to be chiefly responsible for occasioning the admission of the patient to the hospital for care." Co-Existing Principal Diagnosis: "when two or more diagnoses equally meet the criteria for principal diagnosis as determined by the circumstances of admission, diagnostic work up, and/or therapy provided, and the Alphabetic Index, Tabular List, or another coding guideline does not provide sequencing direction, any one of the diagnoses may be sequenced first." "When the physician has documented what appears to be a current diagnosis in the body of the record, but has not included the diagnosis in the final diagnostic statement, the physician should be asked whether the diagnosis should be added." (Source Coding [facility] 2 QTR90. p3-4) FRANCESCA
== END 2019-06-07 17:53 | disposition home health service (06) | DRG 699 ==
LOC: ED 17:45 → 2W 21:57 → SUATTDRO 21:57 → 2W 22:33

== ENCOUNTER 2019-06-18 15:39 | Inpatient (IN) ==
[2019-06-18] MEDS ORDERED: SODIUM CHLORIDE 0.9% 1000ML 1,000 ML IV ONE ×2 (16:25→17:41)
[2019-06-18 16:30] LABS: Basophils # (auto) 0.01 K/uL (0-0.2); Basophils % (auto) 0.1 %; Eosinophils # (auto) 0.07 K/uL (0-0.5); Eosinophils % (auto) 0.4 %; Hematocrit (blood only) 34.2 % (42-52); Hemoglobin 11.5 g/dL (14.0-18.0); Immature Granulocytes # (auto) 0.05 K/uL (0.00-0.02); Immature Granulocytes % (auto) 0.3 %; Lymphocytes # (auto) 0.94 K/uL (1.2-3.4); Lymphocytes % (auto) 5.7 %; Mean Corpuscular Hemoglobin 30.3 pg (25-34); Mean Corpuscular Hgb Conc 33.6 g/dL (32-36); Mean Corpuscular Volume 90.2 fL (80-100); Mean Platelet Volume 10.2 fL (7.4-10.4); Monocytes # (auto) 0.79 K/uL (0.11-0.59); Monocytes % (auto) 4.8 %; Neutrophils # (auto) 14.58 K/uL (1.4-6.5); Neutrophils % (auto) 88.7 %; Platelet Count 247 K/uL (130-400); RDW Coefficient of Variation 13.8 % (11.5-14.5); RDW Standard Deviation 45.8 fL (36.4-46.3); Red Blood Count 3.79 M/uL (4.7-6.1); White Blood Count 16.44 K/uL (4.8-10.8)
[2019-06-18 16:41] LABS: Partial Thromboplastin Ratio 0.9; Partial Thromboplastin Time 24.9 Seconds (21.0-31.0); Prothrombin Time 10.5 Seconds (9.0-12.0)
--- NOTE | 2019-06-18 16:55 | XRay Report ---
XR chest 1V portable CLINICAL HISTORY: 84 years-old Male presenting with Sepsis. TECHNIQUE: Portable upright AP view of the chest was obtained. COMPARISON: 06/05/2019. FINDINGS: Atherosclerosis of the aortic arch. Cardiac silhouette mildly enlarged. Lungs are mildly hyperinflate d. No focal opacity. No pleural effusion or pneumothorax. Degenerative changes of the thoracic spine. Upper abdomen normal. IMPRESSION: 1. Mild cardiomegaly. No other convincing evidence of acute cardiopulmonary disease. Electronically signed by: Kulwant Bledsoe M.D. 06/18/2019 4:54 PM
[2019-06-18 16:59] LABS: Alanine Aminotransferase 12 U/L (12-78); Albumin Globulin Ratio 0.7 (0.9-2); Alkaline Phosphatase 72 U/L (45-117); Aspartate Aminotransferase 15 U/L (15-37); BUN Creatinine Ratio 13.6 (10-20); Bilirubin,Total 0.6 mg/dl (0.2-1); Blood Urea Nitrogen 66 mg/dl (7-18); Calcium 8.4 mg/dl (8.5-10.1); Carbon Dioxide 22 mmol/L (21-32); Chloride 101 mmol/L (98-107); Est GFR (African American) 11.7; Est GFR (Non-African American) 10.1; Globulin 4.1 gm/dl (2.5-4.0); Glucose 108 mg/dl (70-99); Potassium 4.3 mmol/L (3.5-5.1); Sodium 134 mmol/L (136-145); Total Protein 7.1 gm/dl (6.4-8.2)
--- NOTE | 2019-06-18 17:00 | Emergency Department Note ---
Entered by Danette Zuniga acting as a scribe for History of Present Illness General Chief complaint: Pain (Generalized) Stated complaint: PAIN IN BACK, NECK, CANNOT PEE Time Seen by Provider: 06/18/19 16:15 Source: family () History of Present Illness Onset (ago): day(s) (several) Location: abdomen Pain Consistency: + constant Maximum Pain Intensity: 7 Quality: + other (swelling) Associated symptoms: + denies other symptoms (abdominal injury) and + other (groin pain, pain with urination, dementia) The patient is a 84 year old male who presents to the Emergency Room with complaints of constant lower abdominal pain for the past several days. The patient's states the patient has swelling in his abdomen and he has been guarding the area. She also notes the patient has groin pain and pain with urination. She denies the patient having any recent injury to the abdomen. The patient's reports the patient has dementia, and lives at home with her. She states the patient has prostate cancer but is not currently receiving any treatment. The patient's notes the patient has had a catheter for the past several years. Home Medications Home Medications Medication Instructions Recorded Confirmed Type tamsulosin 0.4 mg capsule 0.4 mg PO DAILY #30 cap 03/23/19 06/18/19 Rx donepezil 5 mg tablet 5 mg PO DAILY #30 tab 04/18/19 06/18/19 Rx Allergies Allergy/AdvReac Type Severity Reaction Status Date / Time levofloxacin Allergy Intermediate SWELLING Verified 06/18/19 16:44 sulfamethoxazole Allergy Intermediate SWELLING Verified 06/18/19 16:44 trimethoprim Allergy Intermediate SWELLING Verified 06/18/19 16:44 tramadol Allergy Mild PRURITIS Verified 06/18/19 16:44 Bactrim Allergy Unknown SWELLING Verified 11/11/16 17:27 gabapentin Allergy Unknown UNKNOWN Verified 06/18/19 16:44 Iodinated Contrast Media Allergy Unknown IVP DYE - Verified 06/18/19 16:44 UNKNOWN REACTION finasteride AdvReac Severe GYNECOMASTI Verified 06/18/19 16:44 A tamsulosin AdvReac Severe GYNECOMASTI Verified 06/18/19 16:44 A Past Med/Surg History Medical History Chronic osteoarthritis (Chronic) Obstructive uropathy (Chronic) Paroxysmal atrial fibrillation (Chronic) Found on event recorder in 2013 with short episodes of atrial fibrillation. AC was not recommended History of cholelithiasis (Resolved) Hearing loss (Chronic) No hearing aides Visual impairment of left eye (Chronic) Vitamin D deficiency (Chronic) Not on supplementation. 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 Surgical History History of nephrectomy (Chronic) LEFT Family History Other Family history of cancer of larynx Family history of diabetes mellitus Family history of heart disease Family history of malignant melanoma of skin Family history of prostate cancer Social History Preferred Language: Persian Communication Ability: Effective Visual Impairment: Limited Hearing Ability: Hard of Hearing Oncology Patient Navigator Required: No Beliefs That Will Affect Care: None marital status: Current Living Situation: Spouse Current Living Situation Comment: in apartment with spouse current occupational status: retired Feels Safe at Home: Yes Smoking Status: Former smoker Tobacco Type: smokeless tobacco ; Second Hand Exposure: No ; Hx Alcohol Use: Yes Alcohol type: beer Hx Substance Use: No Review of Systems See HPI for pertinent positives & negatives. and A total of 10 systems reviewed and were otherwise negative Physical Exam Vital Signs Vital Signs - 24 hr 06/18/19 15:44 06/18/19 17:23 06/18/19 17:32 Temperature 37.4 C Temperature Source Oral Sepsis Recent Fever Within 48 Hours No Sepsis New/Unexplained Change in Mental Status No Sepsis Action Taken by Nursing No Action Required Pulse Rate 86 59 L 65 Pulse Rhythm Regular Pulse Strength Normal Respiratory Rate 20 27 H 20 Respiratory Effort / Characteristics Non-Labored Spontaneous Respiratory Depth Normal Respiratory Pattern Regular Blood Pressure 110/64 111/57 L Blood Pressure Mean 79 75 Blood Pressure Position Sitting Pulse Oximetry 96 Oxygen Delivery Method Room Air 06/18/19 18:00 06/18/19 18:02 06/18/19 18:30 Temperature Temperature Source Sepsis Recent Fever Within 48 Hours Sepsis New/Unexplained Change in Mental Status Sepsis Action Taken by Nursing Pulse Rate 73 59 L 71 Pulse Rhythm Pulse Strength Respiratory Rate 20 19 20 Respiratory Effort / Characteristics Respiratory Depth Respiratory Pattern Blood Pressure 122/52 L Blood Pressure Mean 75 Blood Pressure Position Pulse Oximetry Oxygen Delivery Method 06/18/19 19:00 06/18/19 19:30 06/18/19 20:00 Temperature Temperature Source Sepsis Recent Fever Within 48 Hours Sepsis New/Unexplained Change in Mental Status Sepsis Action Taken by Nursing Pulse Rate 64 66 68 Pulse Rhythm Pulse Strength Respiratory Rate 15 20 19 Respiratory Effort / Characteristics Respiratory Depth Respiratory Pattern Blood Pressure Blood Pressure Mean Blood Pressure Position Pulse Oximetry Oxygen Delivery Method General: Non-ill appearing older male in no acute distress. Patient has baseline dementia and is unable to appropriately answer questions. HEENT: Normal cephalic atraumatic. Pupils are equal round and reactive to light. Extraocular movements are intact. Oropharynx is pink with moist mucous membranes. No swelling of the mouth lips or tongue. Neck: Supple with a midline trachea. No meningeal signs or stiffness, no JVD or bruits. No Stridor. Chest: Clear to auscultation bilaterally. No wheezes or rhonchi. No increased work of breathing. Heart: regular rate and rhythm. Abdomen: Moderate tenderness in right lower quadrant. Soft, nondistended without rebound guarding or rigidity. Extremities: No cyanosis clubbing or edema. No calf tenderness or asymmetry Spine/Back. Non tender to palpation. No CVA tenderness Skin: Good turgor without rashes. Neurologic exam: Cranial nerves two through 12 are intact. Motor and sensation are intact and symmetrical throughout. Course 1617: Past medical records reviewed. The patient was evaluated in room A11B. A complete history and physical exam was performed. 1700: Upon reevaluation, the patient was given cefepime for the pain. 1843: I spoke with Dr. Carr - Urology who states the patient does not need surgery tonight. 1850: Upon reevaluation, I discussed findings and results with the patient's family. They verbalized agreement of the treatment plan. I spoke with Dr. Durant of the [facility] Hospitalist [facility]. The patient will be evaluated for further management and care. Administered Medications Heparin Sodium (Porcine) (Heparin Sodium (Porcine)) 5,000 units SQ Q12 IDA Stop: 07/18/19 20:59 Last Admin: 06/18/19 22:11 Dose: Not Given Documented by: [id number] Sodium Chloride (Nss 1000ml) 1,000 mls @ 70 mls/hr IV .[id number] IDA Stop: 07/18/19 20:14 Last Admin: 06/18/19 21:58 Dose: 70 mls/hr Documented by: [id number] Discontinued Medications Sodium Chloride (Nss 1000ml) 1,000 mls @ 999 mls/hr IV .Q1H1M ONE Stop: 06/18/19 17:25 Last Infusion: 06/18/19 18:05 Dose: 0 mls/hr Documented by: [id number] Admin: 06/18/19 17:01 Dose: 999 mls/hr Documented by: [id number] Sodium Chloride (Nss 1000ml) 1,000 mls @ 999 mls/hr IV .Q1H1M ONE Stop: 06/18/19 18:41 Last Infusion: 06/18/19 19:07 Dose: 0 mls/hr Documented by: [id number] Admin: 06/18/19 18:03 Dose: 999 mls/hr Documented by: [id number] Cefepime HCl (Maxipime) 2,000 mg in 20 mls @ 5 mls/min IV NOW STA; Protocol Stop: 06/18/19 17:44 Last Admin: 06/18/19 18:03 Dose: 5 mls/min Documented by: [id number] Medical Decision Making Differential Diagnosis appendicitis, colitis, diverticulitis, sepsis, cancer complication, UTI Medical Records Attestation: I reviewed the patient's medical records. Home Medications Current Medication List: was personally reviewed by me Laboratory Data Attestation: I reviewed the patient's lab results. Result diagrams: 06/18/19 16:11 06/18/19 16:11 Lab Results 06/18/19 06/18/19 06/18/19 Range/Units 16:11 16:11 16:11 WBC 16.44 H (4.8-10.8) K/uL RBC 3.79 L (4.7-6.1) M/uL Hgb 11.5 L (14.0-18.0) g/dL Hct 34.2 L (42-52) % MCV 90.2 (80-100) fL MCH 30.3 (25-34) pg MCHC 33.6 (32-36) g/dL RDW Std Deviation 45.8 (36.4-46.3) fL RDW Coeff of Thelma 13.8 (11.5-14.5) % Plt Count 247 (130-400) K/uL MPV 10.2 (7.4-10.4) fL Immature Gran % (Auto) 0.3 % Neut % (Auto) 88.7 % Lymph % (Auto) 5.7 % Lea % (Auto) 4.8 % Eos % (Auto) 0.4 % Baso % (Auto) 0.1 % Immature Gran # (Auto) 0.05 H (0.00-0.02) K/uL Neut # (Auto) 14.58 H (1.4-6.5) K/uL Lymph # (Auto) 0.94 L (1.2-3.4) K/uL Lea # (Auto) 0.79 H (0.11-0.59) K/uL Eos # (Auto) 0.07 (0-0.5) K/uL Baso # (Auto) 0.01 (0-0.2) K/uL PT 10.5 (9.0-12.0) Seconds INR 1.0 (0.9-1.1) APTT 24.9 (21.0-31.0) Seconds PTT Ratio 0.9 Sodium 134 L (136-145) mmol/L Potassium 4.3 (3.5-5.1) mmol/L Chloride 101 (98-107) mmol/L Carbon Dioxide 22 (21-32) mmol/L Anion Gap 11.0 (3-11) BUN 66 H (7-18) mg/dl Creatinine 4.83 H* (0.6-1.4) mg/dl Est Cr Clr Drug Dosing Not Reportable Est GFR ( Amer) 11.7 Est GFR (Non-Af Amer) 10.1 BUN/Creatinine Ratio 13.6 (10-20) Glucose 108 H (70-99) mg/dl Lactate (0.4-2.0) mmol/L Calcium 8.4 L (8.5-10.1) mg/dl Total Bilirubin 0.6 (0.2-1) mg/dl AST 15 (15-37) U/L ALT 12 (12-78) U/L Alkaline Phosphatase 72 (45-117) U/L Total Protein 7.1 (6.4-8.2) gm/dl Albumin 3.0 L (3.4-5.0) gm/dl Globulin 4.1 H (2.5-4.0) gm/dl Albumin/Globulin Ratio 0.7 L (0.9-2) Procalcitonin (0-0.5) ng/ml 06/18/19 06/18/19 Range/Units 16:11 16:47 WBC (4.8-10.8) K/uL RBC (4.7-6.1) M/uL Hgb (14.0-18.0) g/dL Hct (42-52) % MCV (80-100) fL MCH (25-34) pg MCHC (32-36) g/dL RDW Std Deviation (36.4-46.3) fL RDW Coeff of Thelma (11.5-14.5) % Plt Count (130-400) K/uL MPV (7.4-10.4) fL Immature Gran % (Auto) % Neut % (Auto) % Lymph % (Auto) % Lea % (Auto) % Eos % (Auto) % Baso % (Auto) % Immature Gran # (Auto) (0.00-0.02) K/uL Neut # (Auto) (1.4-6.5) K/uL Lymph # (Auto) (1.2-3.4) K/uL Lea # (Auto) (0.11-0.59) K/uL Eos # (Auto) (0-0.5) K/uL Baso # (Auto) (0-0.2) K/uL PT (9.0-12.0) Seconds INR (0.9-1.1) APTT (21.0-31.0) Seconds PTT Ratio Sodium (136-145) mmol/L Potassium (3.5-5.1) mmol/L Chloride (98-107) mmol/L Carbon Dioxide (21-32) mmol/L Anion Gap (3-11) BUN (7-18) mg/dl Creatinine (0.6-1.4) mg/dl Est Cr Clr Drug Dosing Est GFR ( Amer) Est GFR (Non-Af Amer) BUN/Creatinine Ratio (10-20) Glucose (70-99) mg/dl Lactate 0.8 (0.4-2.0) mmol/L Calcium (8.5-10.1) mg/dl Total Bilirubin (0.2-1) mg/dl AST (15-37) U/L ALT (12-78) U/L Alkaline Phosphatase (45-117) U/L Total Protein (6.4-8.2) gm/dl Albumin (3.4-5.0) gm/dl Globulin (2.5-4.0) gm/dl Albumin/Globulin Ratio (0.9-2) Procalcitonin 1.40 H (0-0.5) ng/ml Imaging Data Radiologist's Impression: Radiology results as stated below per my review and the radiologist's interpretation: CT abd pelvis wo con CLINICAL HISTORY: 84 years-old Male presenting with rlq abd pain, eval for appy. TECHNIQUE: Multidetector CT of the abdomen and pelvis was performed without the use of intravenous contrast. IV contrast: None. One or more dose lowering techniques were used consistent with the principles of ALARA (as low as reasonably achievable), including automatic exposure control, mA or kV adjustment to individual patient size, and/or use of iterative reconstruction. COMPARISON: 06/05/2019. CT DOSE (mGy.cm): The estimated cumulative dose is 390.82 mGycm. FINDINGS: Education Site Manager topogram: Unremarkable. Lung bases: Top normal heart size. Coronary artery calcification. No pericardial or pleural effusion. Minimal dependent changes likely atelectasis. Liver: Normal morphology. Normal density. Biliary: No gross biliary ductal dilatation allowing for noncontrast technique. Gallbladder contains gallstones. Pancreas: Normal noncontrast appearance. Spleen: Normal noncontrast appearance. Adrenal glands: Normal noncontrast appearance. Kidneys and ureters: Postsurgical changes of left nephrectomy. Interval deve lopment of mild right pelvocaliectasis. Significant right urothelial thickening more pronounced on the current exam. Right ureter significantly dilated to the level of the distal ureter. No obstructing calculus or mass is grossly apparent. Moderate perinephric fat infiltration, nonspecific. Normal noncontrast appearance of the right renal parenchyma. No nephrolithiasis. Few cysts suggested. Bladder: Decompressed with a Flores catheter. Circumferential bladder wall thickening. Pelvic organs: Prostate enlargement likely secondary to benign prostatic hyperplasia. Bowel: Diverticulosis of the proximal sigmoid and distal descending colon without wall thickening or pericolonic inflammatory change. Mild wall thickening of the ascending and proximal transverse colon is suspected, which may in part represent intramural fat deposition. Inflammatory changes in the right lower quadrant, however, the appendix is grossly normal, slightly less well delineated than on prior exam. No bowel obstruction. Peritoneal cavity: Trace fluid in the right lower quadrant. Fluid also noted along the proximal inguinal canals. Lymph nodes: No gross lymphadenopathy allowing for noncontrast technique. Vasculature: Atherosclerosis of the normal caliber abdominal aorta. Abdominal wall: Post surgical changes of possible bilateral inguinal hernia repair. Mild body wall edema. Musculoskeletal: Degenerative changes of the spine. IMPRESSION: 1. Interval development of mild right hydroureteronephrosis with worsened urothelial thickening. No evidence of an obstructing calculus or mass. This could potentially relate to reflux uropathy in the setting of chronic bladder outlet obstruction, which is secondary to prostatomegaly. Obstruction of the right ureterovesical junction by median lobe hypertrophy of the prostate or urothelial neoplasm is not excluded. Correlate with urinalysis to exclude infection as a cause for these findings. Urologic consultation for possible cystoscopy. 2. No convincing evidence of appendicitis. 3. Wall thickening of the ascending colon and proximal transverse colon appears to be intramural fat deposition rather than an inflammatory etiology. 4. Diverticulosis coli is no evidence of diverticulitis. Electronically signed by: Kulwant Bledsoe M.D. 06/18/2019 6:12 PM XR chest 1V portable CLINICAL HISTORY: 84 years-old Male presenting with Sepsis. TECHNIQUE: Portable upright AP view of the chest was obtained. COMPARISON: 06/05/2019. FINDINGS: Atherosclerosis of the aortic arch. Cardiac silhouette mildly enlarged. Lungs are mildly hyperinflated. No focal opacity. No pleural effusion or pneumothorax. Degenerative changes of the thoracic spine. Upper abdomen normal. IMPRESSION: 1. Mild cardiomegaly. No other convincing evidence of acute cardiopulmonary disease. Electronically signed by: Kulwant Bledsoe M.D. 06/18/2019 4:54 PM Blood Pressure Blood Pressure Findings: Elevated blood pressure Blood Pressure Disposition: further management by hospitalist [facility] Narrative This patient comes in as described above. He has does have severe dementia and his is concerned that has been complaining of lower abdominal pain. He does have a history of prostate cancer as well as a chronic indwelling Flores. The Flores has been working properly. No fall or trauma. He has felt warm according to the . His temperature is not technically a fever here as he is 37.4. He is tender right lower quadrant. I did a full sepsis work-up on him and I did order additionally a 1 L normal saline bolus as well as multiple blood testing and a noncontrast CAT scan, given the fact that he has an contrast allergy listed. Urinalysis was also obtained. He was reassessed frequently. He tolerated this well and a second liter of IV normal saline was ordered therefore he had over 30 cc/kg fluid bolus. He did receive broad-spectrum antibiotic coverage with cefepime 2 g IV. His white count was elevated 16 however his lactate is not elevated. His creatinine is significantly elevated compared to baseline at 4.83. His urinalysis does suggest infection. His CT shows mild hydronephrosis on that side. I did discuss the case with Dr. Carr, who is the urologist. She did not feel that he needed an acute urologic procedure stenting or surgery this evening but did recommend IV antibiotics and fluids and medical admit. I talked to the medical team and they will admit him for further treatment and evaluation. Impression & Plan Sepsis, Renal failure, Acute UTI, Prostate cancer, Dementia Critical Care Time Critical Care Time: Yes Total Critical Care Time: 35 I have personally spent greater than 35 minutes of critical care time in the direct management of this patient. This includes bedside care, interpretation of diagnostic studies, and testing, discussion with consultants, patient, and family members, and other required patient management activities. This 30 minutes is in excess of all separately billable procedures. Discharge Plan Visit Data *Final* Discharge Date/Time: 06/18/19 20:51 Chief Complaint: Pain (Generalized) Stated Complaint: PAIN IN BACK, NECK, CANNOT PEE ED Provider: Anup Jackson Discharge Problem: Sepsis, Renal failure, Acute UTI, Prostate cancer, Dementia Patient Disposition: Admitted As Inpatient Discharge Instructions Interventions: ED Discharge Assessment Last Done: 06/18/19 20:51 Discharge Problem: Sepsis Qualifiers: Sepsis type: sepsis due to unspecified organism Sepsis acute organ dysfunction status: unspecified Qualified Code(s): A41.9 - Sepsis, unspecified organism Renal failure Qualifiers: Renal failure chronicity: unspecified chronicity Qualified Code(s): N19 - Unspecified kidney failure The scribe's documentation has been prepared under my direction and personally reviewed by me in its entirety. I confirm that the note above accurately reflects all work, treatment, procedures, and medical decision making performed by me.
[2019-06-18] MEDS ORDERED: CEFEPIME 2,000 MG/20 ML VIAL IV STA (17:41)
[2019-06-18 17:45] LABS: Appearance Urine Turbid (Clear); Bilirubin Urine Negative (Negative); Blood Urine 3+ (Negative); Color Urine Yellow; Glucose Urine UA Negative (Negative); Ketones Urine Negative (Negative); Leukocyte Esterase Urine 3+ (Negative); Nitrite Urine Negative (Negative); Protein Urine 2+ (Negative); RBC Urine Automated >30 /hpf (0-4); Specific Gravity Urine 1.013 (1.000-1.030); Urobilinogen Urine Negative (Negative); WBC Urine Automated >30 /hpf (0-5); pH Urine 5.5 (4.5-7.5)
[2019-06-18 18:04] LABS: Cast Urine Automated 0 /lpf (0-5)
[2019-06-18 18:05] LABS: Bacteria Urine Automated 4+ (Negative)
--- NOTE | 2019-06-18 18:13 | CT Scan Report ---
CT abd pelvis wo con CLINICAL HISTORY: 84 years-old Male presenting with rlq abd pain, eval for appy. TECHNIQUE: Multidetector CT of the abdomen and pelvis was performed without the use of intravenous co ntrast. IV contrast: None. One or more dose lowering techniques were used consistent with the princip les of JAYSHREE (as low as reasonably achievable), including automatic exposure control, mA or kV adjust ment to individual patient size, and/or use of iterative reconstruction. COMPARISON: 06/05/2019. CT DOSE (mGy.cm): The estimated cumulative dose is 390.82 mGycm. FINDINGS: Tying In Machine Operator topogram: Unremarkable. Lung bases: Top normal heart size. Coronary artery calcification. No pericardial or pleural effusion. Minimal dependent changes likely atelectasis. Liver: Normal morphology. Normal density. Biliary: No gross biliary ductal dilatation allowing for noncontrast technique. Gallbladder contains gallstones. Pancreas: Normal noncontrast appearance. Spleen: Normal noncontrast appearance. Adrenal glands: Normal noncontrast appearance. Kidneys and ureters: Postsurgical changes of left nephrectomy. Interval development of mild right pel vocaliectasis. Significant right urothelial thickening more pronounced on the current exam. Right ure ter significantly dilated to the level of the distal ureter. No obstructing calculus or mass is gross ly apparent. Moderate perinephric fat infiltration, nonspecific. Normal noncontrast appearance of the right renal parenchyma. No nephrolithiasis. Few cysts suggested. Bladder: Decompressed with a Flores catheter. Circumferential bladder wall thickening. Pelvic organs: Prostate enlargement likely secondary to benign prostatic hyperplasia. Bowel: Diverticulosis of the proximal sigmoid and distal descending colon without wall thickening or pericolonic inflammatory change. Mild wall thickening of the ascending and proximal transverse colon is suspected, which may in part represent intramural fat deposition. Inflammatory changes in the righ t lower quadrant, however, the appendix is grossly normal, slightly less well delineated than on prio r exam. No bowel obstruction. Peritoneal cavity: Trace fluid in the right lower quadrant. Fluid also noted along the proximal ingui nal canals. Lymph nodes: No gross lymphadenopathy allowing for noncontrast technique. Vasculature: Atherosclerosis of the normal caliber abdominal aorta. Abdominal wall: Post surgical changes of possible bilateral inguinal hernia repair. Mild body wall ed nelly. Musculoskeletal: Degenerative changes of the spine. IMPRESSION: 1. Interval development of mild right hydroureteronephrosis with worsened urothelial thickening. No evidence of an obstructing calculus or mass. This could potentially relate to reflux uropathy in the setting of chronic bladder outlet obstruction, which is secondary to prostatomegaly. Obstruction of t he right ureterovesical junction by median lobe hypertrophy of the prostate or urothelial neoplasm is not excluded. Correlate with urinalysis to exclude infection as a cause for these findings. Urologic consultation for possible cystoscopy. 2. No convincing evidence of appendicitis. 3. Wall thickening of the ascending colon and proximal transverse colon appears to be intramural fat deposition rather than an inflammatory etiology. 4. Diverticulosis coli is no evidence of diverticulitis. Electronically signed by: Kulwant Bledsoe M.D. 06/18/2019 6:12 PM
[2019-06-18] MEDS ORDERED: MAGNESIUM HYDROXIDE SUSP 30 ML UDC PO PRN (20:05)
[2019-06-18] MEDS ORDERED: ALUMINUM/MAGNESIUM SUSP 30 ML UDC PO PRN (20:05)
[2019-06-18] MEDS ORDERED: MoRPHine SULFATE 2 MG/ML CARP IV PRN (20:05)
[2019-06-18] MEDS ORDERED: POLYETHYLENE (MIRALAX) 17 GM PACK PO PRN (20:05)
[2019-06-18] MEDS ORDERED: ONDANSETRON INJ 2 MG/ML 2 ML VIAL IV PRN (20:05)
--- NOTE | 2019-06-18 20:21 | History & Physical Report ---
Date of Service June 18, 2019 Assessment & Plan (1) Complicated UTI (urinary tract infection): Admit patient to telemetry Obtain blood cultures and urine cultures Obtain procalcitonin Initiate empiric cefepime Start patient on lactobacillus to prevent C. difficile Vitals per protocol Heparin for DVT prophylaxis renally adjusted (2) Acute metabolic encephalopathy: Likely secondary to above To me he was awake and following commands, not sure about his baseline Order TSH (3) Acute kidney injury superimposed on chronic kidney disease: Likely ATN secondary to decreased oral intake CT scan abdomen did show thickening of ureter that was described in a previous admission but that showed also new mild hydroureter on the right kidney Urologist was consulted will see patient in the morning since there is no calculus or acute obstruction. Flores catheter ordered to be changed (4) Paroxysmal atrial fibrillation: (5) Dementia: Currently rate controlled, not on any anticoagulation Hence we will start patient on heparin for DVT prophylaxis History of Present Illness 84 years old man with past medical history of dementia, paroxysmal atrial fibrillation, not on any anticoagulation, essential hypertension, osteoporosis and chronic kidney disease stage III, status post left-sided nephrectomy. Patient was recently discharged from the hospital on 06/07/2019 at that time urinary tract infection was suspected but was ruled out with negative cultures, urologist recommended changing Flores catheter. After being discharged home gradually patient started becoming lethargic, had significantly decreased oral intake, family said that the urine color became milky they brought him back for evaluation. He was noticed to have normal vitals but creatinine jumped from 1.6 last admission to 4.8. Family reported very poor appetite with decreased oral intake, stated he might only have 1 cup of coffee the whole day. Upon my evaluation he is definitely confused but does not appear to be lethargic to me, he had been hydrated in the emergency room though. History taking is challenging as patient is severely Primary Care Provider: Jorden Samuel MD Allergies Allergy/AdvReac Type Severity Reaction Status Date / Time levofloxacin Allergy Intermediate SWELLING Verified 06/18/19 16:44 sulfamethoxazole Allergy Intermediate SWELLING Verified 06/18/19 16:44 trimethoprim Allergy Intermediate SWELLING Verified 06/18/19 16:44 tramadol Allergy Mild PRURITIS Verified 06/18/19 16:44 Bactrim Allergy Unknown SWELLING Verified 11/11/16 17:27 gabapentin Allergy Unknown UNKNOWN Verified 06/18/19 16:44 Iodinated Contrast Media Allergy Unknown IVP DYE - Verified 06/18/19 16:44 UNKNOWN REACTION finasteride AdvReac Severe GYNECOMASTI Verified 06/18/19 16:44 A tamsulosin AdvReac Severe GYNECOMASTI Verified 06/18/19 16:44 A Home Medications Home Medications Medication Instructions Recorded Confirmed Type tamsulosin 0.4 mg capsule 0.4 mg PO DAILY #30 cap 03/23/19 06/18/19 Rx donepezil 5 mg tablet 5 mg PO DAILY #30 tab 04/18/19 06/18/19 Rx Past Med/Surg History Medical History Chronic osteoarthritis (Chronic) Obstructive uropathy (Chronic) Paroxysmal atrial fibrillation (Chronic) Found on event recorder in 2013 with short episodes of atrial fibrillation. AC was not recommended History of cholelithiasis (Resolved) Hearing loss (Chronic) No hearing aides Visual impairment of left eye (Chronic) Vitamin D deficiency (Chronic) Not on supplementation. 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 Surgical History History of nephrectomy (Chronic) LEFT Family History Other Family history of cancer of larynx Family history of diabetes mellitus Family history of heart disease Family history of malignant melanoma of skin Family history of prostate cancer Social History Preferred Language: Ghanaian Communication Ability: Effective Visual Impairment: Limited Hearing Ability: Hard of Hearing Exercise Equipment Repair Technician Required: No Beliefs That Will Affect Care: None marital status: Current Living Situation: Spouse Current Living Situation Comment: in apartment with spouse current occupational status: retired Feels Safe at Home: Yes Smoking Status: Former smoker Tobacco Type: smokeless tobacco ; Second Hand Exposure: No ; Hx Alcohol Use: Yes Alcohol type: beer Hx Substance Use: No Review of Systems Review of Systems: Due to patient mental status review of system was unobtainable/unreliable We'll attempt to obtain review of system as needed from staff and family Physical Exam Physical Exam: Physical examination General average built appears to be in moderate distress HEENT: Atraumatic , normocephalic /no jaundice /no pallor /anicteric /no dry mucous membrane /normal external ear inspection Neck: Supple /no swelling /central trach Heart: S1/S2 normal/regular rate and rhythm/no gallop /no rub /no murmur Lungs: Clear to auscultation bilaterally/normal chest with expansion/no rhonchi/no rales/no wheezing/no use of accessory muscles of respiration Abdomen: Soft/nontender/no guarding/no rebound/no organomegaly/no pulsatile mass Musculoskeletal: No swelling/no edema/no tenderness/normal range of motion Neuro exam: Awake follows command and moves all extremities but severely demented, confused Psychiatric evaluation: No depressed mood/normal affect Skin: No rash on exposed skin area/no erythema Extremity: Normal pulse/no pitting edema/no clubbing or cyanosis Results & Data Vital Signs (Past 12 Hours) Vital Signs Temp Pulse Resp BP Pulse Ox 06/18/19 19:00 64 15 06/18/19 18:30 71 20 06/18/19 18:02 59 L 19 122/52 L 06/18/19 18:00 73 20 06/18/19 17:32 65 20 06/18/19 17:23 59 L 27 H 111/57 L 06/18/19 15:44 37.4 C 86 20 110/64 96 Code Status & VTE Plan VTE Prophylaxis Plan VTE Prophylaxis will be ordered: Yes PG Care Time/CCT Total # of Minutes Spent Total Time Spent with Patient: 35 minutes total time spent is greater than 50% in coordination of care (as documented) at patient's floor/unit and/or counseling patient/family discussion of care with nursing staff (1) Dementia Dementia type: vascular dementia Dementia behavioral disturbance: without behavioral disturbance Qualified Code(s): F01.50 - Vascular dementia without behavioral disturbance
[2019-06-18] MEDS: SODIUM CHLORIDE 0.9% 1000ML 1,000 ML IV SCH (21:58)
[2019-06-18] MEDS: HEPARIN SOD 5,000 UNIT/0.5 ML VIAL SQ SCH (22:11)
[2019-06-19 07:56] LABS: Basophils # (auto) 0.02 K/uL (0-0.2); Basophils % (auto) 0.2 %; Eosinophils # (auto) 0.13 K/uL (0-0.5); Hematocrit (blood only) 34.9 % (42-52); Hemoglobin 11.3 g/dL (14.0-18.0); Immature Granulocytes # (auto) 0.03 K/uL (0.00-0.02); Immature Granulocytes % (auto) 0.2 %; Lymphocytes # (auto) 1.01 K/uL (1.2-3.4); Lymphocytes % (auto) 7.9 %; Mean Corpuscular Hemoglobin 29.7 pg (25-34); Mean Corpuscular Hgb Conc 32.4 g/dL (32-36); Mean Corpuscular Volume 91.8 fL (80-100); Mean Platelet Volume 10.3 fL (7.4-10.4); Monocytes # (auto) 0.88 K/uL (0.11-0.59); Monocytes % (auto) 6.9 %; Neutrophils # (auto) 10.73 K/uL (1.4-6.5); Neutrophils % (auto) 83.8 %; Platelet Count 244 K/uL (130-400); RDW Coefficient of Variation 13.7 % (11.5-14.5); RDW Standard Deviation 45.6 fL (36.4-46.3)
[2019-06-19] MEDS: TAMSULOSIN HCL 0.4 MG CAP PO SCH (08:00)
[2019-06-19] MEDS: ACETAMINOPHEN 325 MG TAB PO PRN (08:00)
[2019-06-19] MEDS: LACTOBACILLUS ACIDOPHILUS 1 GM PACK PO SCH ×3 (08:00→17:18)
[2019-06-19] MEDS: HEPARIN SOD 5,000 UNIT/0.5 ML VIAL SQ SCH ×2 (08:01→20:51)
[2019-06-19 08:19] LABS: Albumin Level 2.5 gm/dl (3.4-5.0); BUN Creatinine Ratio 15.2 (10-20); Calcium 8.5 mg/dl (8.5-10.1); Creatinine Clr Calc Pharmacy 13.7 ml/min; Est GFR (African American) 17.2; Est GFR (Non-African American) 14.8; Magnesium 2.2 mg/dl (1.8-2.4); Potassium 4.3 mmol/L (3.5-5.1)
[2019-06-19 08:30] LABS: Albumin Globulin Ratio 0.6 (0.9-2); Bilirubin,Total 0.5 mg/dl (0.2-1); Thyroid Stimulating Hormone 0.626 uIu/ml (0.300-4.500); Total Protein 6.5 gm/dl (6.4-8.2)
[2019-06-19] MEDS ORDERED: DONEPEZIL HCL 5 MG TAB PO SCH (09:00)
[2019-06-19] MEDS: SODIUM CHLORIDE 0.9% 1000ML 1,000 ML IV SCH (12:07)
[2019-06-19] MEDS ORDERED: CEFEPIME 2,000 MG in SYRINGE 7.5 ML IV SCH (18:00)
--- NOTE | 2019-06-19 18:18 | Urology Consultation ---
Date of Consultation June 19, 2019 Assessment & Plan (1) Acquired hydroureter: right dqaxd-bvvqjre-bpcirolcy with acute renal insufficiency Upon review of the newest ct scan, I feel the size of the prostate middle lobe will preclude successful placement of a ureteral stent from the bladder. If his family wants his ureteral obstruction treated, He would need a nephrostomy tube placed. I feel this is not a good option as in thin patients the nephrostomy tubes are quit uncomfortable to live with. He would no longer be able to lie on his right side. He would have to travel to [facility] for tube changes every 2 months and more for any tube malfunctions. Patient has serious transportation difficulties and cannot drive himself. I feel he is essentially at end of life due to his dementia and feel hospice should be considered. I have doubts as to whether the invasive procedure of neph tube placement is in his best interest. I do not think he will tolerate living with the nephrostomy tube due to daily pain from the tube, and feel he is unlikely to be able to get the needed post placement care he would need. Present on Admission?: Yes History of Present Illness Reason for Consultation: right hydrouretero-nephrosis Attending Physician: Shubham Mary History of Present Illness I am asked by Dr Mary to evaluate and treat patient for right hydroureteronephrosis. 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 he had recurring urinary retention and outpatient testing showed a non functional bladder muscle and he was not able to do clean self cath so he has been living with fournier. He has a very large prostate. He is admitted with abdominal pain. He points diffusely across the upper abdomen as to location. His CT scan shows new right hydroureteronephrosis to the thick bladder wall. He has large prostate with very bulky intravesical protrusion of the middle lobe of prostate. He had thick cloudy urine at admission but with several hours of iv fluids his urine is a clear yellow now. He ate his dinner without assistance. He pulled out his peripheral iv this evening. He seems to largely leave his fournier catheter alone. It was changed 2 weeks ago. Allergies Allergy/AdvReac Type Severity Reaction Status Date / Time levofloxacin Allergy Intermediate SWELLING Verified 06/18/19 16:44 sulfamethoxazole Allergy Intermediate SWELLING Verified 06/18/19 16:44 trimethoprim Allergy Intermediate SWELLING Verified 06/18/19 16:44 tramadol Allergy Mild PRURITIS Verified 06/18/19 16:44 Bactrim Allergy Unknown SWELLING Verified 11/11/16 17:27 gabapentin Allergy Unknown UNKNOWN Verified 06/18/19 16:44 Iodinated Contrast Media Allergy Unknown IVP DYE - Verified 06/18/19 16:44 UNKNOWN REACTION finasteride AdvReac Severe GYNECOMASTI Verified 06/18/19 16:44 A tamsulosin AdvReac Severe GYNECOMASTI Verified 06/18/19 16:44 A Home Medications Home Medications Medication Instructions Recorded Confirmed Type tamsulosin 0.4 mg capsule 0.4 mg PO DAILY #30 cap 03/23/19 06/18/19 Rx donepezil 5 mg tablet 5 mg PO DAILY #30 tab 04/18/19 06/18/19 Rx Patient History Medical History Chronic osteoarthritis (Chronic) Obstructive uropathy (Chronic) Paroxysmal atrial fibrillation (Chronic) Found on event recorder in 2013 with short episodes of atrial fibrillation. AC was not recommended History of cholelithiasis (Resolved) Hearing loss (Chronic) No hearing aides Visual impairment of left eye (Chronic) Vitamin D deficiency (Chronic) Not on supplementation. 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 Surgical History History of nephrectomy (Chronic) LEFT Family History Other Family history of cancer of larynx Family history of diabetes mellitus Family history of heart disease Family history of malignant melanoma of skin Family history of prostate cancer Social History Preferred Language: Serbian Communication Ability: Effective Visual Impairment: Limited Hearing Ability: Hard of Hearing Linter Operator Required: No Beliefs That Will Affect Care: None marital status: Current Living Situation: Spouse Current Living Situation Comment: in apartment with spouse current occupational status: retired Feels Safe at Home: Yes Smoking Status: Former smoker Tobacco Type: smokeless tobacco ; Second Hand Exposure: No ; Hx Alcohol Use: Yes Alcohol type: beer Hx Substance Use: No Review of Systems Review of Systems: PMH- dementia advanced PSH- bilateral inguinal hernia repair Oct 2018 Allergy- list reviewed, many antibiotics Soc- former tobacco, former beer, lives at home with who is on hospice for advanced colon cancer Fam Hx- not contributory for his advanced age ROS- he answers nearly all questions with yes so I do not feel I can get a accurate review of symptoms from him due to his dementia Physical Exam Physical Exam: gen- lying in bed on his right side with knees bent at 30 degrees. Eyes- makes good eye contact, seems to hear well, but answers all questions with yes. no sceral icterus, EOMI abd- soft with no guarding, no mass, says he is sore across the right and left abdomen. says yes to tenderness with right and left cva percussion. ext- no edema, no cords, no calf tenderness noted. - fournier in place draining light yellow urine with rare debris. There are 400mL in the bag. clear urine in tubing. Psych- he does not follow commands, or answer questions appropriately. He is not oriented to time or place. Results & Data Vital Signs (Past 12 Hours) Vital Signs Temp Pulse Pulse Resp BP Pulse Ox 06/19/19 15:37 36.2 C L 48 L 20 115/63 97 06/19/19 15:28 50 L 06/19/19 11:30 36.5 C 47 L 20 113/63 97 06/19/19 08:00 45 L 06/19/19 07:28 36.5 C 68 18 122/66 95
--- NOTE | 2019-06-19 19:21 | Hospitalist Progress Note ---
Date of Service June 19, 2019 Assessment & Plan (1) Septicemia: GNR, 2nd to UTI. Cont cefepime. Repeat blood cx's. Follow original urine/blood cx's. (2) Complicated UTI (urinary tract infection): 2nd to GNR. Patient with chronic fournier thus "catheter-associated" UTI. This was exchanged day of admission. Follow culture. (3) Acquired hydroureter: right-sided. seen by urology - stenting would be difficult if not impossible. would need percutaneous nephrostomy tube. poor candidate for such. defer for now. cont IV fluids and daily BMP. cause of hydronephrosis/hydroureter uncertain - chronic reflux vs cancer vs other. (4) Acute kidney injury superimposed on chronic kidney disease: Likely sepsis-associated ATN. Cr improved today. Cont IV Fluids. Repeat BMP am. CKD stage 3 at baseline. Baseline Cr 1.6 to 1.8. (5) Acute metabolic encephalopathy: Likely due to sepsis. supportive care. (6) Paroxysmal atrial fibrillation: history of such. none seen on tele since admission. not on chronic anticoagulation. (7) Dementia: mod-severe by history. need to address code status. hold aricept as this can cause bradycardia. (8) Bradycardia: hold aricept since this medication can cause bradycardia. follow. TSH wnl. (9) DVT prophylaxis: heparin SC attempted to call pt's as listed in chart - tried 3 separate times, phone line busy. Subjective patient confused during the visit. did not know where he was, the date or year, etc. could not provide much in the way of meaningful history. he did seem to indicate, however, that his abdomen was bothering him. tele overnight - sinus roshni, occasionally the HR was in the upper 30s/low 40s. Review of Systems Review of Systems: Unobtainable due to cognitive status Physical Exam Constitutional: + thin and + altered mental status; no acute distress ENMT: Mouth: + dry oral mucous membranes Respiratory: normal respiratory effort, lungs clear to auscultation Cardiovascular: RRR, no murmur, no edema Heart Sounds: normal S1 and normal S2 Vessels: posterior tibial pulses present and dorsalis pedis pulses present; no JVD Gastrointestinal (Abdomen): Percussion/Palpation: + abdomen tender (suprapubic region); no guarding, + abdomen not soft and no hepatosplenomegaly Psychiatric: Orientation: alert; + not oriented x 3 Results & Data Vital Signs (Past 12 Hours) Vital Signs Temp Pulse Pulse Resp BP Pulse Ox 06/19/19 15:37 36.2 C L 48 L 20 115/63 97 06/19/19 15:28 50 L 06/19/19 11:30 36.5 C 47 L 20 113/63 97 06/19/19 08:00 45 L 06/19/19 07:28 36.5 C 68 18 122/66 95 Laboratory Results Laboratory Results - last 24 hr 06/18/19 06/19/19 06/19/19 16:11 07:20 07:32 WBC 12.80 H RBC 3.80 L Hgb 11.3 L Hct 34.9 L MCV 91.8 MCH 29.7 MCHC 32.4 RDW Std Deviation 45.6 RDW Coeff of Thelma 13.7 Plt Count 244 MPV 10.3 Immature Gran % (Auto) 0.2 Neut % (Auto) 83.8 Lymph % (Auto) 7.9 [place] % (Auto) 6.9 Eos % (Auto) 1.0 Baso % (Auto) 0.2 Immature Gran # (Auto) 0.03 H Neut # (Auto) 10.73 H Lymph # (Auto) 1.01 L [place] # (Auto) 0.88 H Eos # (Auto) 0.13 Baso # (Auto) 0.02 Sodium 139 Potassium 4.3 Chloride 107 Carbon Dioxide 20 L Anion Gap 12.0 H BUN 53 H Creatinine 3.52 H D Est Cr Clr Drug Dosing 13.7 Est GFR ( Amer) 17.2 Est GFR (Non-Af Amer) 14.8 BUN/Creatinine Ratio 15.2 Glucose 85 Calcium 8.5 Magnesium 2.2 Total Bilirubin 0.5 AST 12 L ALT 10 L Alkaline Phosphatase 70 Total Protein 6.5 Albumin 2.5 L Globulin 4.0 Albumin/Globulin Ratio 0.6 L Procalcitonin 1.40 H TSH 0.626 Diagnostic Findings blood/urine cultures with GNR PG Care Time/CCT Total # of Minutes Spent Total Time Spent with Patient: Total time spent is greater than 50% in community services coordinator rdination of care (as documented) at patient's floor/unit and/or counseling patient: (1) Dementia Dementia type: unspecified type Dementia behavioral disturbance: without behavioral disturbance Qualified Code(s): F03.90 - Unspecified dementia without behavioral disturbance
[2019-06-20] MEDS: SODIUM CHLORIDE 0.9% 1000ML 1,000 ML IV SCH ×2 (04:04→15:44)
[2019-06-20] MEDS: HEPARIN SOD 5,000 UNIT/0.5 ML VIAL SQ SCH ×2 (07:37→20:20)
[2019-06-20] MEDS: TAMSULOSIN HCL 0.4 MG CAP PO SCH (07:37)
[2019-06-20] MEDS: LACTOBACILLUS ACIDOPHILUS 1 GM PACK PO SCH ×3 (07:37→17:22)
[2019-06-20 07:56] LABS: Hematocrit (blood only) 35.7 % (42-52); Hemoglobin 11.7 g/dL (14.0-18.0); Mean Corpuscular Hemoglobin 29.5 pg (25-34); Mean Corpuscular Hgb Conc 32.8 g/dL (32-36); Mean Corpuscular Volume 90.2 fL (80-100); Mean Platelet Volume 9.9 fL (7.4-10.4); Platelet Count 246 K/uL (130-400); RDW Coefficient of Variation 13.8 % (11.5-14.5); RDW Standard Deviation 45.7 fL (36.4-46.3); Red Blood Count 3.96 M/uL (4.7-6.1); White Blood Count 7.03 K/uL (4.8-10.8)
[2019-06-20 08:37] LABS: BUN Creatinine Ratio 16.8 (10-20); Calcium 8.7 mg/dl (8.5-10.1); Creatinine Clr Calc Pharmacy 20.9 ml/min; Est GFR (African American) 28.7; Est GFR (Non-African American) 24.8
[2019-06-20] MEDS: cefTRIAXone SODIUM 2,000 MG in DEXTROSE 5% 50 ML IV SCH (17:22)
--- NOTE | 2019-06-20 20:52 | Hospitalist Progress Note ---
Date of Service June 20, 2019 Assessment & Plan (1) Septicemia: 2nd to e.coli fournier-catheter associated UTI. e.coli is pansensitive. Stop cefepime. Start rocephin 2gm daily starting tonight. Repeat blood cx's thus far negative ensuring sterility. He is recovering nicely from this episode. (2) Complicated UTI (urinary tract infection): 2nd to e.coli, pansensitive. Patient with chronic fournier thus "catheter-associated" UTI. reports fournier in place for 2 years or more. Due to prior prostate ca? Fournier was exchanged day of THIS admission. (3) Acquired hydroureter: right-sided. seen by urology - stenting would be difficult if not impossible. would need percutaneous nephrostomy tube. poor candidate for such. even admits he would "pull it out." defer for now. cause of hydronephrosis/hydroureter uncertain - chronic reflux vs cancer vs other. discussed this finding with family today at bedside. (4) Acute kidney injury superimposed on chronic kidney disease: Likely sepsis-associated ATN. Cr again improved today. Cont IV Fluids but likely can stop tonight/am. Repeat BMP am. CKD stage 3-4 at baseline. Baseline Cr 1.6 to 1.8. (5) Acute metabolic encephalopathy: Likely due to sepsis. resolved. supportive care. (6) Paroxysmal atrial fibrillation: history of such. none seen on tele since admission. not on chronic anticoagulation. see below re: bradycardia. (7) Dementia: mod-severe by history. need to address code status w/ family. hold aricept as this can cause or contribute to bradycardia. (8) Bradycardia: aricept on hold since this medication can cause bradycardia. TSH wnl. monitoring overnight showed intermittent runs of a wide-complex rhythm with rate of 45-50 BPM. this is likely junctional or sub-conjunctional escape rhythm. clearly has conduction disease given the bradycardia, possible escape rhythms, etc. I have asked Dr Guadarrama from cardiology to see in consult. (9) DVT prophylaxis: heparin SC , children extensively updated at bedside on 06/20 PT/OT progressing Subjective patient was quite animated today as his and children were at bedside during my rounds. he was quite talkative but much of his speech was still nonsensical as previous (thought patterns were random, disconnected, etc). family w/ numerous questions about plan of care, "can he come home", etc. they asked about home health. tele overnight with ongoing bradycardia and runs of wide complex rhythm with rate of about 45-50 - junctional rhythm? no AV block or pauses. no apparent symptoms from the above. eating fine. Review of Systems Review of Systems: Unobtainable due to cognitive status Physical Exam Constitutional: + thin and + altered mental status; no acute distress ENMT: Mouth: + poor dentition; no oral mucosal abnormality and oral mucous membranes not dry Respiratory: normal respiratory effort, lungs clear to auscultation Cardiovascular: RRR, no murmur, no edema Heart Sounds: normal S1 and normal S2 Vessels: posterior tibial pulses present and dorsalis pedis pulses present; no JVD Gastrointestinal (Abdomen): Percussion/Palpation: abdomen nontender, no guarding, + abdomen not soft and no hepatosplenomegaly Skin: + pallor Psychiatric: Orientation: alert; + not oriented x 3 Results & Data Vital Signs (Past 12 Hours) Vital Signs Temp Pulse Resp BP Pulse Ox 06/20/19 19:19 37.2 C 61 20 145/62 H 98 06/20/19 15:10 36.7 C 54 L 18 136/70 96 06/20/19 11:19 37.0 C 54 L 19 128/73 96 Laboratory Results Laboratory Results - last 24 hr 06/20/19 06/20/19 07:46 07:46 WBC 7.03 RBC 3.96 L Hgb 11.7 L Hct 35.7 L MCV 90.2 MCH 29.5 MCHC 32.8 RDW Std Deviation 45.7 RDW Coeff of Thelma 13.8 Plt Count 246 MPV 9.9 Sodium 142 Potassium 4.0 Chloride 111 H Carbon Dioxide 22 Anion Gap 8.0 BUN 39 H Creatinine 2.30 H D Est Cr Clr Drug Dosing 20.9 Est GFR ( Amer) 28.7 Est GFR (Non-Af Amer) 24.8 BUN/Creatinine Ratio 16.8 Glucose 98 Calcium 8.7 Diagnostic Findings urine/blood cx's -- pansensitive e.coli repeat blood cx's negative to date PG Care Time/CCT Total # of Minutes Spent Total Time Spent with Patient: Total time spent is greater than 50% in coordination of care (as documented) at patient's floor/unit and/or counseling patient: (1) Dementia Dementia behavioral disturbance: without behavioral disturbance Dementia type: unspecified type Qualified Code(s): F03.90 - Unspecified dementia without behavioral disturbance
[2019-06-21] MEDS: LACTOBACILLUS ACIDOPHILUS 1 GM PACK PO SCH ×3 (07:50→16:32)
[2019-06-21] MEDS: HEPARIN SOD 5,000 UNIT/0.5 ML VIAL SQ SCH ×2 (07:53→21:26)
[2019-06-21 07:57] LABS: BUN Creatinine Ratio 14.9 (10-20); Calcium 8.3 mg/dl (8.5-10.1); Creatinine Clr Calc Pharmacy 26.6 ml/min; Est GFR (African American) 38.4; Est GFR (Non-African American) 33.1; Potassium 3.8 mmol/L (3.5-5.1)
[2019-06-21] MEDS: TAMSULOSIN HCL 0.4 MG CAP PO SCH (08:45)
--- NOTE | 2019-06-21 14:08 | Cardiology Consultation ---
Date of Consultation June 21, 2019 Assessment & Plan (1) Ventricular parasystole: I believe his wide-complex rhythm is a parasystolic focus, it is not a typical escape rhythm in that there are some relatively short intervals and there are longer intervals that do not have a wide-complex escape. In addition supraventricular conducted beats during the rhythm do not reset the timing which is consistent with a protected automatic ventricular focus. There are also fusion beats I believe although that is not obvious. All in all it is most consistent with a parasystolic focus which is not significant and I would not treat it specifically unless it becomes problematic which it has not so far. (2) Bradycardia: He has periods of sinus bradycardia, he is not on medications to slow his heart rate (he was on Aricept but is no longer) and I suspect it is due to sinus node dysfunction, probably has a component of sick sinus syndrome. I do not see any reason to consider pacemaker implantation at this time, but it would agree with holding medications which slow the heart rate. (3) Paroxysmal atrial fibrillation: He has a history of atrial fibrillation, I believe the documentation that was many years ago although I have not reviewed that specifically. He has not had atrial fibrillation during this admission. That may also be a component of tachybradycardia syndrome. History of Present Illness Reason for Consultation: Wide-complex rhythm Attending Physician: Shubham Mary History of Present Illness This is an 84-year-old gentleman with a history of dementia, paroxysmal atrial fibrillation but not anticoagulated, hypertension, chronic kidney disease and recent urinary tract infection for which she was hospitalized. He was readmitted however with acute renal failure, confusion, lethargic and uroseptic with E. coli. He has been on telemetry, he has had periods of bradycardia and at times brief episodes of a wide-complex rhythm at a slow heart rate. Allergies Allergy/AdvReac Type Severity Reaction Status Date / Time levofloxacin Allergy Intermediate SWELLING Verified 06/23/19 13:55 sulfamethoxazole Allergy Intermediate SWELLING Verified 06/23/19 13:55 trimethoprim Allergy Intermediate SWELLING Verified 06/23/19 13:55 tramadol Allergy Mild PRURITIS Verified 06/23/19 13:55 Bactrim Allergy Unknown SWELLING Verified 11/11/16 17:27 gabapentin Allergy Unknown UNKNOWN Verified 06/23/19 13:55 Iodinated Contrast Media Allergy Unknown IVP DYE - Verified 06/23/19 13:55 UNKNOWN REACTION finasteride AdvReac Severe GYNECOMASTI Verified 06/23/19 13:55 A tamsulosin AdvReac Severe GYNECOMASTI Verified 06/23/19 13:55 A Home Medications Home Medications Medication Instructions Recorded Confirmed Type tamsulosin 0.4 mg capsule 0.4 mg PO DAILY #30 cap 03/23/19 06/23/19 Rx Saccharomyces boulardii 250 mg PO DAILY #21 cap 06/22/19 06/23/19 Rx cefdinir 300 mg PO DAILY 21 Days #21 cap 06/22/19 06/23/19 Rx Patient History Medical History Chronic osteoarthritis (Chronic) Obstructive uropathy (Chronic) Paroxysmal atrial fibrillation (Chronic) Found on event recorder in 2013 with short episodes of atrial fibrillation. AC was not recommended History of cholelithiasis (Resolved) Hearing loss (Chronic) No hearing aides Visual impairment of left eye (Chronic) Vitamin D deficiency (Chronic) Not on supplementation. 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 Dementia Surgical History History of nephrectomy (Chronic) LEFT Family History Other Family history of cancer of larynx Family history of diabetes mellitus Family history of heart disease Family history of malignant melanoma of skin Family history of prostate cancer Social History Preferred Language: [place] Communication Ability: Effective Visual Impairment: Limited Hearing Ability: Hard of Hearing Educational Consultant Required: No Beliefs That Will Affect Care: None marital status: Current Living Situation: Spouse Current Living Situation Comment: in apartment with spouse and daughter; is on hospice current occupational status: retired current occupation: was in the [employer]; 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 HEENT: Unremarkable Neck: No jugular venous distention, carotid pulses are normal and equal bilaterally without bruits. Pulmonary: Clear to auscultation bilaterally. Cardiac: Regular rhythm with no murmur, gallop or rub. Abdomen: Soft, nontender with normal bowel sounds. Extremities: No edema. Distal pulses intact. Neurologic: No focal findings. Poor mental status, not oriented. Gait was not tested. Skin: No rash, ecchymoses or petechiae. Results & Data Vital Signs (Past 12 Hours) Vital Signs Temp Pulse Pulse Pulse Resp BP Pulse Ox 06/21/19 09:27 44 L 06/21/19 07:45 36.5 C 06/21/19 07:44 06/21/19 07:30 60 132/74 06/21/19 04:38 36.8 C 49 L 20 148/74 H 96 Pulse Ox 06/21/19 09:27 06/21/19 07:45 06/21/19 07:44 91 06/21/19 07:30 06/21/19 04:38 Diagnostic Findings Electrocardiogram on June 18, 2019 shows sinus rhythm with premature atrial beats, low voltage in the limb leads. Review of telemetry demonstrates sinus node dysfunction with sinus bradycardia as well as premature atrial beats and premature ventricular beats. There is a brief period of time (less than a minute) on June 20, 2019 at 940 in the morning where a wide-complex rhythm was present. The heart rate varied somewhat but was around 55 bpm on average. PG Care Time/CCT Total # of Minutes Spent Total Time Spent with Patient: Total time spent is greater than 50% in coordination of care (as documented) at patient's floor/unit and/or counseling patient:
[2019-06-21] MEDS: cefTRIAXone SODIUM 2,000 MG in DEXTROSE 5% 50 ML IV SCH (17:23)
[2019-06-21] MEDS: ACETAMINOPHEN 325 MG TAB PO PRN (19:35)
--- NOTE | 2019-06-21 20:18 | Hospitalist Progress Note ---
Date of Service June 21, 2019 Assessment & Plan (1) Septicemia: 2nd to e.coli fournier-catheter associated UTI. e.coli is pansensitive. Stopped cefepime. Transitioned to IV rocephin 2gm daily. At d/c will recommend course of omnicef BID. Will perform KATARZYNA to r/o prostatitis tomorrow as this would extend his abx course even longer than 14 days. overall clinically improved on all fronts. Repeat blood cx's continue to be negative ensuring sterility. (2) Complicated UTI (urinary tract infection): 2nd to e.coli, pansensitive. Patient with chronic fournier thus "catheter-associated" UTI. reports fournier in place for 2 years or more. Due to prior prostate ca? Fournier was exchanged day of THIS admission. doing well from UTI standpoint as above in "septicemia" (3) Acquired hydroureter: right-sided. seen by urology - stenting would be difficult if not impossible. would need percutaneous nephrostomy tube. poor candidate for such. even admits he would "pull it out." defer for now. cause of hydronephrosis/hydroureter uncertain - chronic reflux vs cancer vs other. discussed this finding with family earlier this week. (4) Acute kidney injury superimposed on chronic kidney disease: Likely sepsis-associated ATN. creatinine at baseline today. RAFAT resolved. (5) Acute metabolic encephalopathy: Likely due to sepsis. resolved. mental status even better again today. (6) Paroxysmal atrial fibrillation: history of such. none seen on tele since admission. not on chronic anticoagulation. see below re: bradycardia. (7) Dementia: mod-severe by history. need to address code status w/ family. hold aricept at discharge as this can cause or contribute to bradycardia. and doubtful it is helping his dementia at this point. (8) Bradycardia: aricept on hold since it can cause bradycardia. TSH wnl. Dr Guadarrama saw in consult - see his consultation note - nothing to do at this time. wide complex rhythm seen does not require intervention. 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 no issues per staff Review of Systems Review of Systems: Unobtainable due to cognitive status Physical Exam Constitutional: + thin and + altered mental status (but improved relative to prior exams); no acute distress ENMT: Mouth: + poor dentition; no oral mucosal abnormality and oral mucous membranes not dry Respiratory: normal respiratory effort, lungs clear to auscultation Cardiovascular: RRR, no murmur, no edema Heart Sounds: normal S1 and normal S2 Vessels: posterior tibial pulses present and dorsalis pedis pulses present; no JVD Gastrointestinal (Abdomen): Percussion/Palpation: abdomen nontender, no guarding, + abdomen not soft and no hepatosplenomegaly Skin: + pallor Psychiatric: Orientation: alert; + not oriented x 3 Results & Data Vital Signs (Past 12 Hours) Vital Signs Temp Pulse Pulse Resp BP Pulse Ox 06/21/19 15:45 36.5 C 56 L 20 132/58 L 98 06/21/19 15:22 57 L 06/21/19 09:27 44 L Laboratory Results Laboratory Results - last 24 hr 06/21/19 06:55 Sodium 144 Potassium 3.8 Chloride 114 H Carbon Dioxide 23 Anion Gap 7.0 BUN 27 H Creatinine 1.81 H D Est Cr Clr Drug Dosing 26.6 Est GFR ( Amer) 38.4 Est GFR (Non-Af Amer) 33.1 BUN/Creatinine Ratio 14.9 Glucose 96 Calcium 8.3 L PG Care Time/CCT Total # of Minutes Spent Total Time Spent with Patient: Total time spent is greater than 50% in coordination of care (as documented) at patient's floor/unit and/or counseling patient: (1) Dementia Dementia behavioral disturbance: without behavioral disturbance Dementia type: unspecified type Qualified Code(s): F03.90 - Unspecified dementia without behavioral disturbance
[2019-06-22] MEDS: TAMSULOSIN HCL 0.4 MG CAP PO SCH (08:03)
[2019-06-22] MEDS: LACTOBACILLUS ACIDOPHILUS 1 GM PACK PO SCH ×2 (08:03→12:11)
[2019-06-22 08:15] LABS: BUN Creatinine Ratio 13.1 (10-20); Calcium 8.5 mg/dl (8.5-10.1); Creatinine Clr Calc Pharmacy 30.8 ml/min; Est GFR (African American) 44.9; Est GFR (Non-African American) 38.7
[2019-06-22] MEDS: HEPARIN SOD 5,000 UNIT/0.5 ML VIAL SQ SCH (09:00)
--- NOTE | 2019-06-22 12:38 | Discharge Summary ---
Date of Service date of admission - June 18, 2019 date of discharge - June 22, 2019 Admission HPI Per Admitting Provider 84 year old man with past medical history of severe dementia, paroxysmal atrial fibrillation not on anticoagulation, essential hypertension, osteoporosis and chronic kidney disease stage III, and status post left-sided nephrectomy. Patient was recently discharged from the hospital on 06/07/2019 after he had been admitted for concern of urinary tract infection. Although suspected this was ruled out with negative cultures. Fournier catheter was removed and replaced during that admission (patient with chronic fournier for 1-2 years). After being discharged home gradually patient started becoming lethargic, had significantly decreased oral intake, and his family said that the urine color became milky; thus they brought him back to the ER for evaluation. He was noticed to have normal vitals but creatinine jumped from 1.6 last admission to 4.8 this admission. Principal Diagnosis e.coli septicemia 2nd to UTI/prostatitis in setting of chronic fournier catheter Discharge Exam Constitutional + thin and + altered mental status (but improved relative to prior exams); no acute distress ENMT Mouth: + poor dentition; no oral mucosal abnormality and oral mucous membranes not dry Respiratory normal respiratory effort, lungs clear to auscultation Cardiovascular RRR, no murmur, no edema Heart Sounds: normal S1 and normal S2 Vessels: posterior tibial pulses present and dorsalis pedis pulses present; no JVD Gastrointestinal (Abdomen) Percussion/Palpation: abdomen nontender, no guarding, + abdomen not soft and no hepatosplenomegaly Skin + pallor Psychiatric Orientation: alert; + not oriented x 3 Genitourinary prostate enlarged, boggy, and tender to palpation; stool brown Discharge Data Allergies Allergy/AdvReac Type Severity Reaction Status Date / Time levofloxacin Allergy Intermediate SWELLING Verified 06/23/19 13:55 sulfamethoxazole Allergy Intermediate SWELLING Verified 06/23/19 13:55 trimethoprim Allergy Intermediate SWELLING Verified 06/23/19 13:55 tramadol Allergy Mild PRURITIS Verified 06/23/19 13:55 Bactrim Allergy Unknown SWELLING Verified 11/11/16 17:27 gabapentin Allergy Unknown UNKNOWN Verified 06/23/19 13:55 Iodinated Contrast Media Allergy Unknown IVP DYE - Verified 06/23/19 13:55 UNKNOWN REACTION finasteride AdvReac Severe GYNECOMASTI Verified 06/23/19 13:55 A tamsulosin AdvReac Severe GYNECOMASTI Verified 06/23/19 13:55 A Consultations 1. [facility] Urology - Dr Amparo Carr 2. [facility] Cardiology - Dr Theodore Guadarrama 3. PT, OT Ordered Studies CT abd/pelvis - IMPRESSION: 1. Interval development of mild right hydroureteronephrosis with worsened urothelial thickening. No evidence of an obstructing calculus or mass. This could potentially relate to reflux uropathy in the setting of chronic bladder outlet obstruction, which is secondary to prostatomegaly. Obstruction of the right ureterovesical junction by median lobe hypertrophy of the prostate or urothelial neoplasm is not excluded. Correlate with urinalysis to exclude infection as a cause for these findings. Urologic consultation for possible cystoscopy. 2. No convincing evidence of appendicitis. 3. Wall thickening of the ascending colon and proximal transverse colon appears to be intramural fat deposition rather than an inflammatory etiology. 4. Diverticulosis coli is no evidence of diverticulitis. Hospital Course (1) Septicemia: The patient's admission blood cultures were positive for e.coli. This was 2nd to e.coli fournier-catheter associated UTI. e.coli was pansensitive on blood/urine cultures. Initially received cefepime, was transitioned to IV rocephin, then ultimately discharged home on a 3-week course of oral omnicef. KATARZYNA was performed on day of discharge and exam findings were concerning for prostatitis hence the prolonged course of antibiotics. Repeat blood cultures later in his stay were negative thus ensuring sterility. He should follow-up with [facility] Urology for ongoing urological care. Despite the septicemia he remained hemodynamically stable his entire stay. (2) Complicated UTI (urinary tract infection): 2nd to e.coli, pansensitive. Patient with chronic fournier thus "catheter-associated" UTI. reports fournier in place for 2 years or more. Due to prior prostate ca? Fournier was exchanged day of admission. He will need continued exchanges of his fournier about every 30 days. Doing well from UTI standpoint as above in "septicemia". Again he likely had an element of prostatitis. (3) Acquired hydroureter: right-sided. seen by urology - ureteral stenting would be difficult if not impossible. would need percutaneous nephrostomy tube. poor candidate for such due to provider concerns he would pull the tube out. even admits he would "pull it out." thus intervention deferred for now. cause of hydronephrosis/hydroureter uncertain - chronic reflux vs cancer vs other are possibilities. these findings were discussed with the patient's family during the stay. (4) Acute kidney injury superimposed on chronic kidney disease: Likely sepsis-associated ATN. creatinine at baseline at time of discharge. peak Cr was 4.8, improving to 1.5 at discharge. (5) Acute metabolic encephalopathy: Likely due to sepsis. resolved. mental status returned to his normal baseline (significant dementia). (6) Paroxysmal atrial fibrillation: history of such. none seen on tele since admission. not on chronic anticoagulation. see below re: bradycardia. (7) Dementia: mod-severe by history. Aricept was held during the stay and discontinued at discharge as this can cause or contribute to bradycardia. And doubtful it is helping his dementia at this point. (8) Bradycardia: Aricept discontinued since it can cause bradycardia. TSH wnl. Dr Theodore Guadarrama saw in consult for the bradycardia incidentally seen on telemetry. He also had occasional wide complex rhythms seen on monitoring. He felt these represented "ventricular parasystoles" and these do not require intervention. No pauses or AV block seen. Total Time Total Time Spent Total Time Spent (In Minutes): 45 Total Time Includes: Examination of the Patient, Discharge Planning, Medication Reconciliation and Communication With Other Providers Discharge Plan Discharge Items Patient Disposition: Home - Home Health Services Reason For Visit: ACUTE RENAL FAILURE, UTI Discharge Diagnosis: 1. urinary tract infection - resolving 2. bacteremia due to the urinary tract infection (infection in the blood) - resolved 3. suspected prostatitis (infection of prostate gland) 4. chronic fournier catheter - catheter was exchanged on 06/18/2019 5. advanced dementia 6. acute kidney injury - resolved 7. swollen right kidney and right ureter - follow-up recommended with urology Goals: 1. treat UTI 2. treat bloodstream infection Activity: Resume your previous activity Non-emergency contact: Primary Care Provider and Urologist Call non-emergency contact if: you have any medication questions, your symptoms worsen and you have a fever Follow-up/Referrals: Jorden Samuel MD [Primary Care Provider] - 06/30/19 2:30 pm (A follow up appt. has been made for you with Dr. Samuel on Wednesday, 06/30 at 2:30pm.) Amparo Carr MD [Physician] - (see Dr Carr, urology, in 2 weeks ) Diet: Regular Addtl Attending Provider Instructions: You were treated for urinary tract infection, blood stream infection (the bacteria in the urine spread into the blood), and something called acute kidney injury (dehydration often leads to this). All 3 issues improved and/or resolved. Your kidney function is back to your normal (kidney number, also known as "creatinine", is now 1.6 which is your normal level for you). I also performed a prostate exam today and you may have prostatitis (infection of the prostate). Recommendations - 1. take once daily cefdinir (omnicef) 300mg for 21 days. Start this TODAY. 2. take once daily saccharomyces probiotic once daily for 21 days. 3. your fournier catheter was changed on 06/18/19. It will need to be changed in 1 month as usual. 4. please STOP your donepezil. This medication may have been making your heart rate go low at times. It also may not be providing much benefit for your memory at this point. 5. follow-up appointments - see separate section. Return to [facility] if - * you have fever over 100.5 degrees * you have worsening abdominal pain, weakness, chest pain, shortness of breath, vomiting * you have inability to eat or drink * you have any issues with your fournier catheter * any other concerns Pending Studies at Discharge: No Stand-Alone Forms: [facility] Medications and DC Order Prescriptions: New Saccharomyces boulardii 250 mg capsule 250 mg PO DAILY Qty: 21 RF: 0 cefdinir 300 mg capsule 300 mg PO DAILY 21 Days Qty: 21 RF: 0 Continued tamsulosin 0.4 mg capsule 0.4 mg PO DAILY Qty: 30 RF: 2 Discontinued donepezil [Aricept] 5 mg tablet 5 mg PO DAILY Qty: 30 RF: 5 Discharge Orders: Discharge Order (Routine); Ordered 06/22/19 Ordered By: Shubham Mayr Admission Data Admit Date/Time: 06/18/19 20:05 Attending Provider: Shubham Mary Admit Provider: Oliver Nichole Primary Care Provider: Jorden Samuel Other Providers: Amparo Carr ; Theodore Guadarrama Other Interventions: Discharge Summary Assessment (RN) Last Done: 06/22/19 12:05 DC Date/Time DO NOT enter until pt leaves facility: 06/22/19 13:43
== END 2019-06-22 13:43 | disposition home health service (06) | DRG 698 ==
LOC: ED 15:39 → 2W 20:05 → SUATTDRO 20:05 → 2W 20:51
DX: N18.3 Chronic kidney disease, stage 3 (moderate); Z79.899 Other long term (current) drug therapy; R33.9 Retention of urine, unspecified; Y84.6 Urinary catheterization as the cause of abnormal reaction of the patient, or of later complication, without mention of misadventure at the time of the procedure; N17.0 Acute kidney failure with tubular necrosis; G93.41 Metabolic encephalopathy; Y73.1 Therapeutic (nonsurgical) and rehabilitative gastroenterology and urology devices associated with adverse incidents; I48.0 Paroxysmal atrial fibrillation; A41.51 Sepsis due to Escherichia coli [E. coli]; T83.511A Infection and inflammatory reaction due to indwelling urethral catheter, initial encounter; N13.6 Pyonephrosis; F03.90 Unspecified dementia, unspecified severity, without behavioral disturbance, psychotic disturbance, mood disturbance, and anxiety; Z87.891 Personal history of nicotine dependence

== ENCOUNTER 2019-06-23 12:53 | Observation (INO) ==
[2019-06-23 13:52] LABS: Appearance Urine Clear (Clear); Bilirubin Urine Negative (Negative); Blood Urine 1+ (Negative); Color Urine Yellow; Glucose Urine UA Negative (Negative); Ketones Urine Negative (Negative); Leukocyte Esterase Urine Trace (Negative); Nitrite Urine Negative (Negative); Protein Urine 2+ (Negative); Specific Gravity Urine 1.013 (1.000-1.030); Urobilinogen Urine Negative (Negative); pH Urine 5.5 (4.5-7.5)
[2019-06-23 14:05] LABS: Bacteria Urine Automated 1+ (Negative); WBC Urine Automated >30 /hpf (0-5)
--- NOTE | 2019-06-23 15:14 | Emergency Department Note ---
History of Present Illness General Chief complaint: Catheter Replacement Stated complaint: CATH REPLACEMENT Time Seen by Provider: 06/23/19 13:08 Source: patient, family, RN notes reviewed and old records reviewed Mode of arrival: ambulatory Limitations: no limitations History of Present Illness Provider complaint: Pulled fournier catheter out Onset (ago): hour(s) 2 Location: genitals Radiation: non-radiation Severity: mild Pain Consistency: + now resolved Current Pain Intensity: 0 Treatments prior to arrival: none This is an 84-year-old male who was sent in by the patient's home health nurse over concerns of the patient is not taking care of himself and that his is unable to care for him any longer. The patient was discharged from the hospital yesterday and placed on Cefdinir for urinary tract infection. Upon arrival to the emergency department the patient has no complaints however he did pull his Fournier catheter out prior to arrival. I will note that there is no trauma to the area. Home Medications Home Medications Medication Instructions Recorded Confirmed Type tamsulosin 0.4 mg capsule 0.4 mg PO DAILY #30 cap 03/23/19 06/23/19 Rx Saccharomyces boulardii 250 mg PO DAILY #21 cap 06/22/19 06/23/19 Rx cefdinir 300 mg PO DAILY 21 Days #21 cap 06/22/19 06/23/19 Rx Allergies Allergy/AdvReac Type Severity Reaction Status Date / Time levofloxacin Allergy Intermediate SWELLING Verified 06/23/19 13:55 sulfamethoxazole Allergy Intermediate SWELLING Verified 06/23/19 13:55 trimethoprim Allergy Intermediate SWELLING Verified 06/23/19 13:55 tramadol Allergy Mild PRURITIS Verified 06/23/19 13:55 Bactrim Allergy Unknown SWELLING Verified 11/11/16 17:27 gabapentin Allergy Unknown UNKNOWN Verified 06/23/19 13:55 Iodinated Contrast Media Allergy Unknown IVP DYE - Verified 06/23/19 13:55 UNKNOWN REACTION finasteride AdvReac Severe GYNECOMASTI Verified 06/23/19 13:55 A tamsulosin AdvReac Severe GYNECOMASTI Verified 06/23/19 13:55 A Past Med/Surg History Medical History Chronic osteoarthritis (Chronic) Obstructive uropathy (Chronic) Paroxysmal atrial fibrillation (Chronic) Found on event recorder in 2013 with short episodes of atrial fibrillation. AC was not recommended History of cholelithiasis (Resolved) Hearing loss (Chronic) No hearing aides Visual impairment of left eye (Chronic) Vitamin D deficiency (Chronic) Not on supplementation. 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 Dementia Surgical History History of nephrectomy (Chronic) LEFT H/O left inguinal hernia repair S/P inguinal hernia repair Family History Other Family history of cancer of larynx Family history of diabetes mellitus Family history of heart disease Family history of malignant melanoma of skin Family history of prostate cancer Social History Preferred Language: Persian Communication Ability: Effective Visual Impairment: Limited Hearing Ability: Hard of Hearing Hose Seamer Required: No Beliefs That Will Affect Care: None marital status: Current Living Situation: Spouse Current Living Situation Comment: in apartment with spouse and daughter; is on hospice current occupational status: retired current occupation: was in the [employer]; 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 Other Information That Helps Us Care for You: No Feels Safe at Home: Yes Safety Concerns: Feels Safe At This Time Smoking Status: Former smoker Tobacco Type: smokeless tobacco ; Age Quit Using Tobacco: 33 ; Second Hand Exposure: No ; Hx Alcohol Use: Yes Alcohol type: beer Alcohol Intake Frequency Comment: states he no longer drinks; drank heavily in the past Hx Substance Use: No Review of Systems A total of 10 systems reviewed and were otherwise negative Physical Exam Vital Signs Vital Signs - 24 hr 06/23/19 12:57 06/23/19 13:23 06/23/19 13:42 Temperature 36.4 C L Temperature Source Oral Sepsis Recent Fever Within 48 Hours No Sepsis New/Unexplained Change in Mental Status No Sepsis Action Taken by Nursing No Action Required Pulse Rate 73 Pulse Rate [Apical] 68 Pulse Rhythm Regular Pulse Strength Normal Respiratory Rate 20 18 Respiratory Effort / Characteristics Non-Labored Non-Labored Spontaneous Respiratory Depth Normal Normal Respiratory Pattern Regular Blood Pressure 118/72 Blood Pressure [Left Arm] 132/61 Blood Pressure Mean 87 Blood Pressure Mean [Left Arm] 84 Blood Pressure Position Sitting Pulse Oximetry 98 95 96 Oxygen Delivery Method Room Air Room Air Room Air 06/23/19 14:23 Temperature Temperature Source Sepsis Recent Fever Within 48 Hours Sepsis New/Unexplained Change in Mental Status Sepsis Action Taken by Nursing Pulse Rate Pulse Rate [Apical] 58 L Pulse Rhythm Pulse Strength Respiratory Rate 18 Respiratory Effort / Characteristics Non-Labored Respiratory Depth Normal Respiratory Pattern Blood Pressure Blood Pressure [Left Arm] 127/63 Blood Pressure Mean Blood Pressure Mean [Left Arm] 84 Blood Pressure Position Pulse Oximetry 96 Oxygen Delivery Method Room Air GENERAL: Patient is a healthy-appearing well-nourished male HEAD: Normocephalic atraumatic EYES: Ocular movements intact pupils equal and react to light OROPHARYNX mucous membranes are moist no exudates present no erythema or edema present NECK: Supple no nuchal rigidity CHEST: Good equal expansion LUNGS: Clear and equal to auscultation CARDIAC: Normal S1 and S2 ABDOMEN: Soft nontender no guarding BACK: No CVA tenderness EXTREMITIES: No pain upon palpation normal muscle strength in all groups no clubbing cyanosis or edema NEURO: Patient is following commands is answering questions appropriately. Alert and oriented x3 Cranial Nerves 2-12 grossly intact Course Administered Medications Acetaminophen (Tylenol) 650 mg PO Q4H PRN PRN Reason: pain/fever Stop: 07/23/19 18:19 Last Admin: 06/24/19 16:29 Dose: 650 mg Documented by: [id number] Acetaminophen (Tylenol) 1,000 mg PO TID [facility] Stop: 07/24/19 20:59 Last Admin: 06/25/19 21:07 Dose: 1,000 mg Documented by: [id number] Admin: 06/25/19 14:38 Dose: 1,000 mg Documented by: [id number] Admin: 06/25/19 08:33 Dose: 1,000 mg Documented by: [id number] Admin: 06/24/19 20:25 Dose: 1,000 mg Documented by: [id number] Cefdinir (Omnicef Cap) 300 mg PO DAILY [facility] Stop: 07/08/19 08:59 Last Admin: 06/25/19 08:33 Dose: 300 mg Documented by: [id number] Admin: 06/24/19 08:51 Dose: 300 mg Documented by: [id number] Heparin Sodium (Porcine) (Heparin Sodium (Porcine)) 5,000 units SQ Q12 [facility] Stop: 07/23/19 20:59 Last Admin: 06/25/19 21:07 Dose: 5,000 units Documented by: [id number] Cosigned by: [id number] Admin: 06/25/19 08:35 Dose: 5,000 units Documented by: [id number] Cosigned by: [id number] Admin: 06/24/19 20:25 Dose: 5,000 units Documented by: [id number] Cosigned by: [id number] Admin: 06/24/19 08:29 Dose: 5,000 units Documented by: [id number] Cosigned by: [id number] Admin: 06/23/19 22:14 Dose: 5,000 units Documented by: [id number] Cosigned by: [id number] Polyethylene Glycol (Miralax Powder Packet) 17 gm PO DAILY IDA Stop: 07/25/19 14:59 Last Admin: 06/25/19 15:21 Dose: 17 gm Documented by: [id number] Saccharomyces Boulardii (Florastor) 250 mg PO DAILY IDA Stop: 07/24/19 08:59 Last Admin: 06/25/19 08:34 Dose: 250 mg Documented by: [id number] Admin: 06/24/19 08:51 Dose: 250 mg Documented by: [id number] Tamsulosin HCl (Flomax) 0.4 mg PO DAILY IDA Stop: 07/24/19 08:59 Last Admin: 06/25/19 08:34 Dose: 0.4 mg Documented by: [id number] Admin: 06/24/19 08:51 Dose: 0.4 mg Documented by: [id number] Discontinued Medications Bisacodyl (Dulcolax) 5 mg PO ONE ONE Stop: 06/25/19 14:46 Last Admin: 06/25/19 14:40 Dose: 5 mg Documented by: [id number] Oxybutynin Chloride (Ditropan) 2.5 mg PO NOW STA Stop: 06/24/19 14:19 Last Admin: 06/24/19 14:32 Dose: 2.5 mg Documented by: [id number] Medical Decision Making Differential Diagnosis My differential diagnosis includes urinary tract infection, prostate trauma, and encephalitis, sepsis, dementia Medical Records Attestation: I reviewed the patient's medical records. Home Medications Current Medication List: was personally reviewed by me Laboratory Data Attestation: I reviewed the patient's lab results. Result diagrams: 06/23/19 16:46 06/25/19 05:21 Lab Results 06/23/19 06/23/19 06/23/19 Range/Units 13:40 16:46 16:46 WBC 7.46 (4.8-10.8) K/uL RBC 3.83 L (4.7-6.1) M/uL Hgb 11.2 L (14.0-18.0) g/dL Hct 34.6 L (42-52) % MCV 90.3 (80-100) fL MCH 29.2 (25-34) pg MCHC 32.4 (32-36) g/dL RDW Std Deviation 45.6 (36.4-46.3) fL RDW Coeff of Thelma 13.8 (11.5-14.5) % Plt Count 352 (130-400) K/uL MPV 9.6 (7.4-10.4) fL Immature Gran % (Auto) 0.9 % Neut % (Auto) 55.5 % Lymph % (Auto) 33.4 % [place] % (Auto) 6.7 % Eos % (Auto) 2.8 % Baso % (Auto) 0.7 % Immature Gran # (Auto) 0.07 H (0.00-0.02) K/uL Neut # (Auto) 4.14 (1.4-6.5) K/uL Lymph # (Auto) 2.49 (1.2-3.4) K/uL [place] # (Auto) 0.50 (0.11-0.59) K/uL Eos # (Auto) 0.21 (0-0.5) K/uL Baso # (Auto) 0.05 (0-0.2) K/uL Sodium 141 (136-145) mmol/L Potassium 4.2 (3.5-5.1) mmol/L Chloride 108 H (98-107) mmol/L Carbon Dioxide 26 (21-32) mmol/L Anion Gap 7.0 (3-11) BUN 20 H (7-18) mg/dl Creatinine 1.55 H (0.6-1.4) mg/dl Est Cr Clr Drug Dosing 28.6 ml/min Est GFR ( Amer) 46.3 Est GFR (Non-Af Amer) 39.9 BUN/Creatinine Ratio 13.2 (10-20) Glucose 104 H (70-99) mg/dl Calcium 8.9 (8.5-10.1) mg/dl Total Bilirubin 0.2 (0.2-1) mg/dl AST 15 (15-37) U/L ALT 14 (12-78) U/L Alkaline Phosphatase 70 (45-117) U/L Total Protein 6.8 (6.4-8.2) gm/dl Albumin 3.0 L (3.4-5.0) gm/dl Globulin 3.8 (2.5-4.0) gm/dl Albumin/Globulin Ratio 0.8 L (0.9-2) TSH 1.680 (0.300-4.500) uIu/ml Urine Color Yellow Urine Appearance Clear (Clear) Urine pH 5.5 (4.5-7.5) Ur Specific [place] 1.013 (1.000-1.030) Urine Protein 2+ H (Negative) Urine Glucose (UA) Negative (Negative) Urine Ketones Negative (Negative) Urine Blood 1+ H (Negative) Urine Nitrite Negative (Negative) Urine Bilirubin Negative (Negative) Urine Urobilinogen Negative (Negative) Ur Leukocyte Esterase Trace H (Negative) Urine WBC (Auto) >30 H (0-5) /hpf Urine RBC (Auto) 10-30 H (0-4) /hpf U Hyaline Cast (Auto) 1-5 (0-5) /lpf U Epithel Cells (Auto) 10-20 H (0-5) /lpf Urine Bacteria (Auto) 1+ H (Negative) Ur Renal Epithelial Cell Not Reportable Blood Pressure Blood Pressure Findings: Normal blood pressure MDM Narrative This is an 84-year-old male who presents emergency department with over concerns of the family can no longer care for him. Fournier catheter was replaced by nursing staff here in the emergency department. Patient's family is requesting that he go to [facility] therefore physical therapy and Occupational Therapy consults were obtained. The patient was discussed with case management who is at the bedside in discussion with the patient. Unfortunately the patient was unable to be placed so he was discussed with the hospitalist service who agreed to admit the patient. Impression & Plan Acute UTI, Dislodged Fournier catheter Discharge Plan Visit Data *Final* Discharge Date/Time: 06/23/19 17:58 Chief Complaint: Catheter Replacement Stated Complaint: CATH REPLACEMENT ED Provider: Elijah Murguia Discharge Problem: Acute UTI, Dislodged Fournier catheter Patient Disposition: Admitted As Inpatient Discharge Instructions Interventions: ED Discharge Assessment Last Done: 06/23/19 17:58 Discharge Problem: Dislodged Fournier catheter Qualifiers: Encounter type: initial encounter Qualified Code(s): T83.021A - Displacement of indwelling urethral catheter, initial encounter
--- NOTE | 2019-06-23 16:07 | XRay Report ---
XR chest 1V portable HISTORY: 84 years-old Male weakness acute weakness with dementia COMPARISON: Chest radiograph 06/18/2019 TECHNIQUE: Portable AP view of the chest FINDINGS: Cardiac silhouette is enlarged, unchanged. Mild chronic interstitial coarsening of the lung bases. No pneumothorax, pleural effusion, focal airspace consolidation or overt pulmonary edema. Degenerative changes of the shoulders and spine. IMPRESSION: Cardiomegaly without acute process. The above report was generated using voice recognition software. It may contain grammatical, syntax o r spelling errors. Electronically signed by: Sean Hdz M.D. 06/23/2019 4:05 PM
--- NOTE | 2019-06-23 16:43 | History & Physical Report ---
Date of Service June 23, 2019 Assessment & Plan (1) Dislodged Fournier catheter: Exact details of his fournier catheter coming out at home are uncertain but [id number] the ER staff have replaced his fournier without difficulty. His creatinine is stable. There is no evidence of urethral trauma despite the fournier coming out at home. He has had a fournier catheter for about 2 years, presumably due to prior h/o prostate cancer and BPH. Cont flomax. (2) Fall: Reported fall at home last pm due to patient becoming tangled in his fournier catheter tubing. Despite this report I see no injuries on physical exam and his family don't report any injuries. [id number] would have a low threshold for head imaging with any mental status changes, etc. With that said his mental status is very similar to when he was discharged yesterday. (3) Dementia: advanced, severe. aricept d/c during the previous admission due to concerns it was contributing to bradycardia. (4) Bradycardia: seen by Dr Guadarrama during prior admission. mainly sinus bradycardia seen on tele previous admission. no pauses or AV block. he had "ventricular parasystole" on monitoring but no Rx needed for such. (5) Septicemia: treated for such during past hospitalization. 2nd to recent fournier-catheter associated e.coli UTI. repeat blood cx's during prior stay were negative ensuring sterility. he was d/c on a 3-week course of omnicef due to concerns of concomitant prostatitis. continue once daily omnicef. normal wbc count today. no evidence of ongoing infection. (6) Acquired hydroureter: RIGHT. saw [facility] during prior hospital stay - no Rx recommended (ureteral stenting was felt to not be an option - would need percutaneous nephrostomy tube but poor candidate for such). fortunately no signs of obstructive uropathy at this time. (7) Complicated UTI (urinary tract infection): 2nd to e.coli - see above in "septicemia" continue omnicef (8) Chronic kidney disease: stage 3 baseline Cr about 1.5-1.8 creatinine at baseline today BMP in 1-2 days for stability (9) DVT prophylaxis: heparin SC PT, OT evals social work consult to help with disposition (probable SNF placement at [facility]) family updated code status - DNR place on observation status History of Present Illness Chief Complaint: pulled out fournier, fall Primary Care Provider: Jorden Samuel MD 84yo male - well known to me from his recent admission for septicemia 2nd to fournier-catheter associated UTI and discharged home yesterday - presents with his family due to his fournier coming out at home. Apparently the patient typically uses a leg bag at home and the family reports he did not like the catheter bag that was in place when he was discharged yesterday. His states he tripped on the fournier tubing sometime last night and he landed on his knees. He did not suffer any apparent injuries. He did not hit his head. Sometime this am the patient's fournier came out at home. The family believes that he pulled it out however no one actually witnessed the event. At one point his stated "I think he cut it out." (?) A home health nurse came to his home this morning and recommended he either go to the [facility] ER or to [facility] clinic. The family ultimately brought him here as the home health nurse told the family he wasn't safe to be living at home any longer. During my admission assessment the patient kept asking for his clothes so that he could leave to go home. The ER social work staff attempted to get him placed at [facility] in [place] but a bed was not available. Allergies Allergy/AdvReac Type Severity Reaction Status Date / Time levofloxacin Allergy Intermediate SWELLING Verified 06/23/19 13:55 sulfamethoxazole Allergy Intermediate SWELLING Verified 06/23/19 13:55 trimethoprim Allergy Intermediate SWELLING Verified 06/23/19 13:55 tramadol Allergy Mild PRURITIS Verified 06/23/19 13:55 Bactrim Allergy Unknown SWELLING Verified 11/11/16 17:27 gabapentin Allergy Unknown UNKNOWN Verified 06/23/19 13:55 Iodinated Contrast Media Allergy Unknown IVP DYE - Verified 06/23/19 13:55 UNKNOWN REACTION finasteride AdvReac Severe GYNECOMASTI Verified 06/23/19 13:55 A tamsulosin AdvReac Severe GYNECOMASTI Verified 06/23/19 13:55 A Home Medications Home Medications Medication Instructions Recorded Confirmed Type tamsulosin 0.4 mg capsule 0.4 mg PO DAILY #30 cap 03/23/19 06/23/19 Rx Saccharomyces boulardii 250 mg PO DAILY #21 cap 06/22/19 06/23/19 Rx cefdinir 300 mg PO DAILY 21 Days #21 cap 06/22/19 06/23/19 Rx Past Med/Surg History Medical History Chronic osteoarthritis (Chronic) Obstructive uropathy (Chronic) Paroxysmal atrial fibrillation (Chronic) Found on event recorder in 2013 with short episodes of atrial fibrillation. AC was not recommended History of cholelithiasis (Resolved) Hearing loss (Chronic) No hearing aides Visual impairment of left eye (Chronic) Vitamin D deficiency (Chronic) Not on supplementation. 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 Surgical History History of nephrectomy (Chronic) LEFT H/O left inguinal hernia repair S/P inguinal hernia repair Family History Other Family history of cancer of larynx Family history of diabetes mellitus Family history of heart disease Family history of malignant melanoma of skin Family history of prostate cancer Social History Preferred Language: Luxembourger Communication Ability: Effective Visual Impairment: Limited Hearing Ability: Hard of Hearing Tablet Technician Required: No Beliefs That Will Affect Care: None marital status: Current Living Situation: Spouse Current Living Situation Comment: in apartment with spouse and daughter; is on hospice current occupational status: retired current occupation: was in the [employer]; 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 Other Information That Helps Us Care for You: No Feels Safe at Home: Yes Safety Concerns: Feels Safe At This Time Smoking Status: Former smoker Tobacco Type: smokeless tobacco ; Age Quit Using Tobacco: 33 ; Second Hand Exposure: No ; Hx Alcohol Use: Yes Alcohol type: beer Alcohol Intake Frequency Comment: states he no longer drinks; drank heavily in the past Hx Substance Use: No Review of Systems Review of Systems: Unobtainable due to cognitive status reports poor appetite at home yesterday/today; patient with baseline dementia - moderate/severe; no vomiting; no diarrhea; no obvious dyspnea or chest pain Physical Exam Constitutional: + altered mental status (baseline dementia) and + disheveled; no acute distress Eyes: left pupil opague; right pupil reactive, about 3mm ENMT: Mouth: + poor dentition; oral mucous membranes not dry Neck: trachea midline, no thyromegaly Respiratory: normal respiratory effort, lungs clear to auscultation Cardiovascular: Rate/Rhythm: regular rate and regular rhythm Heart Sounds: normal S1 and normal S2; no murmur Vessels: posterior tibial pulses present and dorsalis pedis pulses present; no JVD Extremities: no edema Gastrointestinal (Abdomen): normal bowel sounds, soft, nontender, no hepatosplenomegaly Musculoskeletal: Knee: + knee abnormal to inspection (OA bony changes) hips without signs of trauma, fracture or pain; legs/arms without deformity despite reported history of fall yesterday Skin: no rashes, warm and dry no ecchymosis and no excoriations Trauma: no evidence of skin trauma and no abrasion scalp and neck without signs of trauma or injury Neurologic: deep tendon reflexes 2+ bilaterally, moves all extremities and + confused; no focal motor deficits Psychiatric: Orientation: alert and oriented to person; + not oriented to place and + not oriented to time Genitourinary: fournier in place Lymphatic: no cervical lymphadenopathy Results & Data Vital Signs (Past 12 Hours) Vital Signs Temp Pulse Pulse Resp BP BP Pulse Ox 06/23/19 16:27 71 19 117/68 99 06/23/19 15:30 57 L 14 120/64 97 06/23/19 15:05 56 L 15 120/66 97 06/23/19 15:00 59 L 16 121/64 96 06/23/19 14:30 58 L 13 121/69 96 06/23/19 14:23 59 L 58 L 16 127/63 127/63 96 06/23/19 14:00 61 19 96 06/23/19 13:42 68 18 132/61 96 06/23/19 13:36 64 18 132/61 97 06/23/19 13:30 68 23 06/23/19 13:23 95 06/23/19 13:12 67 13 06/23/19 12:57 36.4 C L 73 20 118/72 98 Laboratory Results Laboratory Results - last 24 hr 06/23/19 06/23/19 06/23/19 13:40 16:46 16:46 WBC 7.46 RBC 3.83 L Hgb 11.2 L Hct 34.6 L MCV 90.3 MCH 29.2 MCHC 32.4 RDW Std Deviation 45.6 RDW Coeff of Thelma 13.8 Plt Count 352 MPV 9.6 Immature Gran % (Auto) 0.9 Neut % (Auto) 55.5 Lymph % (Auto) 33.4 [place] % (Auto) 6.7 Eos % (Auto) 2.8 Baso % (Auto) 0.7 Immature Gran # (Auto) 0.07 H Neut # (Auto) 4.14 Lymph # (Auto) 2.49 [place] # (Auto) 0.50 Eos # (Auto) 0.21 Baso # (Auto) 0.05 Sodium 141 Potassium 4.2 Chloride 108 H Carbon Dioxide 26 Anion Gap 7.0 BUN 20 H Creatinine 1.55 H Est Cr Clr Drug Dosing 28.6 Est GFR ( Amer) 46.3 Est GFR (Non-Af Amer) 39.9 BUN/Creatinine Ratio 13.2 Glucose 104 H Calcium 8.9 Total Bilirubin 0.2 AST 15 ALT 14 Alkaline Phosphatase 70 Total Protein 6.8 Albumin 3.0 L Globulin 3.8 Albumin/Globulin Ratio 0.8 L TSH 1.680 Urine Color Yellow Urine Appearance Clear Urine pH 5.5 Ur Specific [place] 1.013 Urine Protein 2+ H Urine Glucose (UA) Negative Urine Ketones Negative Urine Blood 1+ H Urine Nitrite Negative Urine Bilirubin Negative Urine Urobilinogen Negative Ur Leukocyte Esterase Trace H Urine WBC (Auto) >30 H Urine RBC (Auto) 10-30 H U Hyaline Cast (Auto) 1-5 U Epithel Cells (Auto) 10-20 H Urine Bacteria (Auto) 1+ H Ur Renal Epithelial Cell Not Reportable Diagnostic Findings cxr - no infiltrates Code Status & VTE Plan Code Status DNR/DNI per (she is next of kin) VTE Prophylaxis Plan VTE Prophylaxis will be ordered: Yes PG Care Time/CCT Total # of Minutes Spent Total Time Spent with Patient: Total time spent is greater than 50% in coordination of care (as documented) at patient's floor/unit and/or counseling patient: (1) Dislodged Fournier catheter Encounter type: initial encounter Qualified Code(s): T83.021A - Displacement of indwelling urethral catheter, initial encounter (2) Fall Encounter type: initial encounter Qualified Code(s): W19.XXXA - Unspecified fall, initial encounter (3) Chronic kidney disease Chronic kidney disease stage: stage 3 (moderate) Qualified Code(s): N18.3 - Chronic kidney disease, stage 3 (moderate) (4) Dementia Dementia type: unspecified type Dementia behavioral disturbance: without behavioral disturbance Qualified Code(s): F03.90 - Unspecified dementia without behavioral disturbance
[2019-06-23 17:09] LABS: Basophils # (auto) 0.05 K/uL (0-0.2); Basophils % (auto) 0.7 %; Eosinophils # (auto) 0.21 K/uL (0-0.5); Eosinophils % (auto) 2.8 %; Hematocrit (blood only) 34.6 % (42-52); Hemoglobin 11.2 g/dL (14.0-18.0); Immature Granulocytes # (auto) 0.07 K/uL (0.00-0.02); Immature Granulocytes % (auto) 0.9 %; Lymphocytes # (auto) 2.49 K/uL (1.2-3.4); Lymphocytes % (auto) 33.4 %; Mean Corpuscular Hemoglobin 29.2 pg (25-34); Mean Corpuscular Hgb Conc 32.4 g/dL (32-36); Mean Corpuscular Volume 90.3 fL (80-100); Mean Platelet Volume 9.6 fL (7.4-10.4); Monocytes % (auto) 6.7 %; Neutrophils # (auto) 4.14 K/uL (1.4-6.5); Neutrophils % (auto) 55.5 %; Platelet Count 352 K/uL (130-400); RDW Coefficient of Variation 13.8 % (11.5-14.5); RDW Standard Deviation 45.6 fL (36.4-46.3); Red Blood Count 3.83 M/uL (4.7-6.1); White Blood Count 7.46 K/uL (4.8-10.8)
[2019-06-23 17:26] LABS: BUN Creatinine Ratio 13.2 (10-20); Calcium 8.9 mg/dl (8.5-10.1); Creatinine Clr Calc Pharmacy 28.6 ml/min; Est GFR (African American) 46.3; Est GFR (Non-African American) 39.9; Potassium 4.2 mmol/L (3.5-5.1)
[2019-06-23 17:34] LABS: Albumin Globulin Ratio 0.8 (0.9-2); Bilirubin,Total 0.2 mg/dl (0.2-1); Globulin 3.8 gm/dl (2.5-4.0); Thyroid Stimulating Hormone 1.68 uIu/ml (0.300-4.500); Total Protein 6.8 gm/dl (6.4-8.2)
[2019-06-23] MEDS ORDERED: ALUMINUM/MAGNESIUM SUSP 30 ML UDC PO PRN ×2 (18:20→19:01)
[2019-06-23] MEDS ORDERED: ACETAMINOPHEN 325 MG TAB PO PRN ×2 (18:20→19:01)
[2019-06-23] MEDS ORDERED: MAGNESIUM HYDROXIDE SUSP 30 ML UDC PO PRN ×2 (18:20→19:01)
[2019-06-23] MEDS ORDERED: ONDANSETRON INJ 2 MG/ML 2 ML VIAL IV PRN ×2 (18:20→19:01)
[2019-06-23] MEDS: HEPARIN SOD 5,000 UNIT/0.5 ML VIAL SQ SCH (22:14)
[2019-06-24] MEDS: HEPARIN SOD 5,000 UNIT/0.5 ML VIAL SQ SCH ×2 (08:29→20:25)
[2019-06-24] MEDS: TAMSULOSIN HCL 0.4 MG CAP PO SCH (08:51)
[2019-06-24] MEDS: SACCHAROMYCES BOULARDII 250 MG CAP PO SCH (08:51)
[2019-06-24] MEDS: CEFDINIR 300 MG CAP PO SCH (08:51)
[2019-06-24] MEDS ORDERED: CEFDINIR 300 MG CAP PO SCH (09:00)
[2019-06-24] MEDS ORDERED: SACCHAROMYCES BOULARDII 250 MG CAP PO SCH (09:00)
[2019-06-24] MEDS ORDERED: TAMSULOSIN HCL 0.4 MG CAP PO SCH (09:00)
[2019-06-24] MEDS ORDERED: OXYBUTYNIN CHLORIDE 5 MG TAB PO STA (14:18)
[2019-06-24] MEDS ORDERED: INFLUENZA ADMINISTRATION CHARGE ONE ×2 (20:00)
[2019-06-24] MEDS ORDERED: INFLUENZA VIRUS QUAD VACCINE 0.5 ML SYR IM ONE (20:00)
[2019-06-24] MEDS: ACETAMINOPHEN 500 MG TAB PO SCH (20:25)
--- NOTE | 2019-06-24 20:25 | Hospitalist Progress Note ---
Date of Service June 24, 2019 Assessment & Plan (1) Dislodged Fournier catheter: Exact details of his fournier catheter coming out at home prior to returning to hospital are uncertain. Regardless fournier has been replaced and it is functioning normally. His creatinine is stable. There is no evidence of urethral trauma despite the fournier coming out at home. He has had a fournier catheter for about 2 years, presumably due to prior h/o prostate cancer and BPH. Cont flomax. (2) Fall: Reported fall at home the night before re-admission. Apparently occurred due to patient becoming tangled in his fournier catheter tubing. Despite this report there were no apparent injuries on physical exam. (3) Dementia: advanced, severe. aricept d/c during the previous admission due to concerns it was contributing to bradycardia. no behavioral disturbance at this time. (4) Bradycardia: seen by Dr Guadarrama during prior admission. mainly sinus bradycardia seen on tele previous admission. no pauses or AV block. he had "ventricular parasystole" on monitoring but no Rx needed for such per Dr Guadarrama. (5) Septicemia: treated for such during past hospitalization. 2nd to fournier-catheter associated e.coli UTI. repeat blood cx's during prior stay were negative. he remains on a 3-week course of omnicef due to concerns of concomitant prostatitis. continue once daily omnicef. repeat urine cx from yesterday NEGATIVE. (6) Acquired hydroureter: RIGHT. saw [facility] during prior hospital stay - no Rx recommended (ureteral stenting was felt to not be an option - would need percutaneous nephrostomy tube but poor candidate for such as well). fortunately no signs of obstructive uropathy at this time. Creatinine stable. I believe his transient episodes of bladder pain/RLQ pain could be ureteral spasm on right. (7) Complicated UTI (urinary tract infection): 2nd to e.coli - see above in "septicemia" continue omnicef (8) Chronic kidney disease: stage 3 baseline Cr about 1.5-1.8 BMP am (9) DVT prophylaxis: heparin SC (10) Discharge planning issues: There has been considerable debate and discussion about his disposition. Initially SNF placement was planned for Wednesday, now his family told staff they want to take him home. I have asked for a family meeting for tomorrow AM on [place] to discuss his disposition. He needs 24/ supervision regardless of whether he returns home or goes to facility. Ideally he transitions to SNF with dementia unit. PT/OT evals appreciated; they concur with 24/7 supervision. Subjective per staff he seems to have bladder spasm or some type of transient discomfort of the bladder region/RLQ area. urine via fournier is clear; no hematuria. eating 75-100% of meals. calm, comfortable otherwise. no agitation per staff. last pm at time of hospital admission family wanted patient placed at [facility]. now they have changed their minds and are requesting d/c home. family meeting scheduled for Wednesday to discuss disposition. Review of Systems Review of Systems: Unobtainable due to mental health condition and Unobtainable due to cognitive status Physical Exam Constitutional: cooperative; no acute distress ENMT: Mouth: + poor dentition; no oral mucosal abnormality and oral mucous membranes not dry Respiratory: normal respiratory effort, lungs clear to auscultation Cardiovascular: Rate/Rhythm: regular rate and regular rhythm Heart Sounds: normal S1 and normal S2; no murmur Vessels: posterior tibial pulses present and dorsalis pedis pulses present; no JVD Extremities: no edema Gastrointestinal (Abdomen): normal bowel sounds, soft, nontender, no hepatosplenomegaly Skin: + pallor Psychiatric: Orientation: alert and oriented to person; + not oriented to place and + not oriented to time Results & Data Vital Signs (Past 12 Hours) Vital Signs Temp Pulse Resp BP Pulse Ox 06/24/19 19:00 36.5 C 52 L 18 151/77 H 98 06/24/19 17:48 36.3 C L 49 L 18 128/66 97 Laboratory Results urine cx negative PG Care Time/CCT Total # of Minutes Spent Total Time Spent with Patient: Total time spent is greater than 50% in coordination of care (as documented) at patient's floor/unit and/or counseling patient: (1) Dislodged Fournier catheter Encounter type: initial encounter Qualified Code(s): T83.021A - Displacement of indwelling urethral catheter, initial encounter (2) Fall Encounter type: initial encounter Qualified Code(s): W19.XXXA - Unspecified fall, initial encounter (3) Dementia Dementia type: unspecified type Dementia behavioral disturbance: without behavioral disturbance Qualified Code(s): F03.90 - Unspecified dementia without behavioral disturbance (4) Chronic kidney disease Chronic kidney disease stage: stage 3 (moderate) Qualified Code(s): N18.3 - Chronic kidney disease, stage 3 (moderate)
[2019-06-25 06:33] LABS: BUN Creatinine Ratio 15.3 (10-20); Calcium 8.4 mg/dl (8.5-10.1); Creatinine Clr Calc Pharmacy 25.8 ml/min; Est GFR (African American) 40.8; Est GFR (Non-African American) 35.2; Potassium 4.5 mmol/L (3.5-5.1)
[2019-06-25] MEDS: ACETAMINOPHEN 500 MG TAB PO SCH ×3 (08:33→21:07)
[2019-06-25] MEDS: CEFDINIR 300 MG CAP PO SCH (08:33)
[2019-06-25] MEDS: TAMSULOSIN HCL 0.4 MG CAP PO SCH (08:34)
[2019-06-25] MEDS: SACCHAROMYCES BOULARDII 250 MG CAP PO SCH (08:34)
[2019-06-25] MEDS: HEPARIN SOD 5,000 UNIT/0.5 ML VIAL SQ SCH ×2 (08:35→21:07)
[2019-06-25] MEDS ORDERED: bisacodyL 5 MG TABEC PO ONE (14:45)
[2019-06-25] MEDS: POLYETHYLENE (MIRALAX) 17 GM PACK PO SCH (15:21)
[2019-06-25 15:59] VITALS: TEMP 97.7; O2SAT 98
--- NOTE | 2019-06-26 05:27 | Hospitalist Progress Note ---
Date of Service June 25, 2019 Assessment & Plan (1) Dislodged Fournier catheter: Exact details of his fournier catheter coming out at home prior to returning to hospital are uncertain. The event was unwitnessed. Regardless fournier has been replaced and it is functioning normally. His creatinine is stable. There is no evidence of urethral trauma despite the fournier coming out at home. He has had a fournier catheter for about 2 years, presumably due to prior h/o prostate cancer and BPH. Cont flomax. At some point change the fournier bag to a leg-bag at the family's request. (2) Fall: Reported fall at home the night before re-admission. Apparently occurred due to patient becoming tangled in his fournier catheter tubing. Despite this report there were no apparent injuries on physical exam. (3) Dementia: advanced, severe. aricept d/c during the previous admission due to concerns it was contributing to bradycardia. no behavioral disturbance during the prior admission or this admission. he is typically calm and very directable. when his family is present he sometimes gets quite agitated however. (4) Bradycardia: seen by Dr Guadarrama during prior admission. mainly sinus bradycardia seen on tele previous admission. no pauses or AV block. he had "ventricular parasystole" on monitoring but no Rx needed for such per Dr Guadarrama. (5) Septicemia: treated for such during past hospitalization. 2nd to fournier-catheter associated e.coli UTI. repeat blood cx's during prior stay were negative. he remains on a 3-week course of omnicef due to concerns of concomitant prostatitis. continue once daily omnicef. repeat urine cx from this admission NEGATIVE. (6) Acquired hydroureter: RIGHT. saw [facility] during prior hospital stay - no Rx recommended (ureteral stenting was felt to not be an option - would need percutaneous nephrostomy tube but poor candidate for such as well). fortunately no signs of obstructive uropathy at this time. Creatinine stable. I believe his transient episodes of bladder pain/RLQ pain could be ureteral spasm on right. Uncertain etiology of this hydroureter. Could have urinary tract cancer causing such. Poor candidate for additional work-up. (7) Complicated UTI (urinary tract infection): 2nd to e.coli - see above in "septicemia" continue omnicef (8) Chronic kidney disease: stage 3 baseline Cr about 1.5-1.8 BMP today with Cr 1.7 -- stable (9) DVT prophylaxis: heparin SC (10) Constipation: dulcolax + miralax today consider suppository if necessary (11) Discharge planning issues: Patient needs 24/7 supervision regardless of whether he returns home or goes to facility. Ideally he transitions to SNF with dementia unit. PT/OT evals done; they concur with 24/7 supervision. Lengthy family meeting held today --- see "subjective" portion of this note for meeting details. I LEARN NEW INFORMATION EVERY DAY ABOUT THE PATIENT'S LIVING SITUATION AND I AM QUITE CONCERNED, WAS THE HOME HEALTH NURSE, ABOUT HIM LIVING SAFELY AT HOME W/ HIS . HIS IS TYPICALLY IN A WHEELCHAIR AT THE HOSPITAL WHEN SHE VISITS AND SHE HERSELF IS ON HOSPICE. I HAVE STRONGLY RECOMMENDED SNF PLACEMENT AT [facility]. Nasra Johnson (or other high school social studies teacher) to reach out to office of Aging tomorrow on Wednesday. disposition uncertain following this meeting Subjective lengthy family discussion held with pt's with whom he lives and his children. Nasra Johnson from case management also attended this conference. we called this meeting because of lack of clarity regarding his discharge disposition. at time of admission on Wednesday there were preparations for him to go to [facility] SNF following the hospitalization. in fact the ER social work staff was attempting to get him to [facility] directly on Wednesday but a bed was not available. on Wednesday when Nasra called the pt's she had changed her mind (possibly at urging of other family members) and told Nasra she wished to bring him home. this AM I expressed concerns to the and all children present that I was concerned for him to return home. apparently on Wednesday am (just prior to re-presenting to [facility]) a home health nurse told the family he was not fit to be living at home any longer (there was also reports she said it wasn't safe for him at home). in the context of this information I strongly recommended that he d/c to Health system SNF on Wednesday. mentioned that patient gets upset at home and often wags his fist at her; to date he has never hit her but there have been various threats. this has happened on at least a weekly basis. we discussed his severe dementia and the progressive nature of the dementia. was very focused on his fournier catheter stating that he "likes the leg bag and doesn't like the bag that he has now" (a standard fournier bag). after this long session the stated at least twice "I want to take him home. He will do better at home." Again I reminded her of the home health nurse's concerns, our concerns, etc -- again she declined SNF placement. when the children were asked what they thought they all collectively supported Mr Guevara returning home. patient has had no issues overnight. during my bedside rounds he was attempting to tell me that he wanted to go home and couldn't understand "why he didn't go with his family." staff report no agitation, no pulling at fournier, etc. eating well. Review of Systems Review of Systems: Unobtainable due to cognitive status Physical Exam Constitutional: + altered mental status (baseline dementia), + disheveled and cooperative; no acute distress ENMT: Mouth: + poor dentition; no oral mucosal abnormality and oral mucous membranes not dry Neck: trachea midline, no thyromegaly Respiratory: normal respiratory effort, lungs clear to auscultation Cardiovascular: Rate/Rhythm: regular rate and regular rhythm Heart Sounds: normal S1 and normal S2; no murmur Vessels: posterior tibial pulses present and dorsalis pedis pulses present; no JVD Extremities: no edema Gastrointestinal (Abdomen): Inspection/Auscultation: normal bowel sounds; abdomen not distended Percussion/Palpation: + abdomen tender (lower quadrants b/l ); no guarding and no hepatosplenomegaly Skin: no rashes, warm and dry + pallor; no ecchymosis and no excoriations Trauma: no evidence of skin trauma and no abrasion Neurologic: + confused Psychiatric: Orientation: alert and oriented to person; + not oriented to place and + not oriented to time Results & Data Laboratory Results Laboratory Results - last 24 hr 06/25/19 05:21 Sodium 139 Potassium 4.5 Chloride 107 Carbon Dioxide 29 Anion Gap 3.0 BUN 26 H Creatinine 1.72 H Est Cr Clr Drug Dosing 25.8 Est GFR ( Amer) 40.8 Est GFR (Non-Af Amer) 35.2 BUN/Creatinine Ratio 15.3 Glucose 91 Calcium 8.4 L PG Care Time/CCT Total # of Minutes Spent Total Time Spent with Patient: Total time spent is greater than 50% in coordination of care (as documented) at patient's floor/unit and/or counseling patient: (1) Dislodged Fournier catheter Encounter type: initial encounter Qualified Code(s): T83.021A - Displacement of indwelling urethral catheter, initial encounter (2) Fall Encounter type: initial encounter Qualified Code(s): W19.XXXA - Unspecified fall, initial encounter (3) Dementia Dementia type: unspecified type Dementia behavioral disturbance: without behavioral disturbance Qualified Code(s): F03.90 - Unspecified dementia without behavioral disturbance (4) Chronic kidney disease Chronic kidney disease stage: stage 3 (moderate) Qualified Code(s): N18.3 - Chronic kidney disease, stage 3 (moderate) (5) Constipation Constipation type: other constipation type Qualified Code(s): K59.09 - Other constipation
[2019-06-26 06:42] LABS: Hematocrit (blood only) 35.8 % (42-52); Hemoglobin 11.5 g/dL (14.0-18.0); Mean Corpuscular Hemoglobin 29.7 pg (25-34); Mean Corpuscular Hgb Conc 32.1 g/dL (32-36); Mean Corpuscular Volume 92.5 fL (80-100); Mean Platelet Volume 9.2 fL (7.4-10.4); Platelet Count 391 K/uL (130-400); RDW Coefficient of Variation 13.9 % (11.5-14.5); RDW Standard Deviation 46.9 fL (36.4-46.3); Red Blood Count 3.87 M/uL (4.7-6.1); White Blood Count 7.16 K/uL (4.8-10.8)
[2019-06-26] MEDS: CEFDINIR 300 MG CAP PO SCH (08:14)
[2019-06-26] MEDS: SACCHAROMYCES BOULARDII 250 MG CAP PO SCH (08:14)
[2019-06-26] MEDS: TAMSULOSIN HCL 0.4 MG CAP PO SCH (08:14)
[2019-06-26] MEDS: ACETAMINOPHEN 500 MG TAB PO SCH (08:15)
[2019-06-26] MEDS: POLYETHYLENE (MIRALAX) 17 GM PACK PO SCH (08:15)
[2019-06-26] MEDS: HEPARIN SOD 5,000 UNIT/0.5 ML VIAL SQ SCH (08:16)
[2019-06-26 13:15] VITALS: BP 108/53; PULSE 71
--- NOTE | 2019-06-26 15:41 | Discharge Summary ---
Date of Service June 26, 2019 Admission HPI Per Admitting Provider 84yo male - well known to me from his recent admission for septicemia 2nd to fournier-catheter associated UTI and discharged home yesterday - presents with his family due to his fournier coming out at home. Apparently the patient typically uses a leg bag at home and the family reports he did not like the catheter bag that was in place when he was discharged yesterday. His states he tripped on the fournier tubing sometime last night and he landed on his knees. He did not suffer any apparent injuries. He did not hit his head. Sometime this am the patient's fournier came out at home. The family believes that he pulled it out however no one actually witnessed the event. At one point his stated "I think he cut it out." (?) A home health nurse came to his home this morning and recommended he either go t o the [facility] ER or to [facility] clinic. The family ultimately brought him here as the home health nurse told the family he wasn't safe to be living at home any longer. During my admission assessment the patient kept asking for his clothes so that he could leave to go home. The ER social work staff attempted to get him placed at [facility] in [place] but a bed was not available. Principal Diagnosis Fall causing traumatic removal of urinary catheter Discharge Exam Constitutional WD/WN, vitals as above Eyes PERRL, conjunctivae normal, anicteric sclerae ENMT external ear and nose normal, oropharynx normal Neck trachea midline, no thyromegaly Respiratory normal respiratory effort, lungs clear to auscultation Cardiovascular Rate/Rhythm: regular rhythm and + bradycardic Heart Sounds: normal S1 and normal S2; no murmur Extremities: normal capillary refill; no edema Gastrointestinal (Abdomen) normal bowel sounds, soft, nontender, no hepatosplenomegaly Musculoskeletal no cyanosis or clubbing, extremities motor strength 5/5 Skin no rashes, warm and dry Neurologic patellar DTR's 2+ bilat, sensation intact and PERRL, EOMI, accommodation nl, no face palsy, no dysarthria Psychiatric Orientation: alert, oriented to person and + guarded; + not oriented to place and + not oriented to time Cognition: + recent memory not intact and + remote memory not intact Estimated Intelligence: + below average estimated intelligence Insight: + poor insight Lymphatic no cervical or axillary lymphadenopathy Discharge Data Allergies Allergy/AdvReac Type Severity Reaction Status Date / Time levofloxacin Allergy Intermediate SWELLING Verified 06/23/19 13:55 sulfamethoxazole Allergy Intermediate SWELLING Verified 06/23/19 13:55 trimethoprim Allergy Intermediate SWELLING Verified 06/23/19 13:55 tramadol Allergy Mild PRURITIS Verified 06/23/19 13:55 Bactrim Allergy Unknown SWELLING Verified 11/11/16 17:27 gabapentin Allergy Unknown UNKNOWN Verified 06/23/19 13:55 Iodinated Contrast Media Allergy Unknown IVP DYE - Verified 06/23/19 13:55 UNKNOWN REACTION finasteride AdvReac Severe GYNECOMASTI Verified 06/23/19 13:55 A tamsulosin AdvReac Severe GYNECOMASTI Verified 06/23/19 13:55 A Consultations 06/23/19 16:07 ED Decision to Admit Stat Hospital Course (1) Dislodged Fournier catheter: Exact details of his fournier catheter coming out at home prior to returning to hospital are uncertain. The event was unwitnessed. Regardless fournier has been replaced and it is functioning normally. His creatinine is stable. There is no evidence of urethral trauma despite the fournier coming out at home. He has had a fournier catheter for about 2 years, presumably due to prior h/o prostate cancer and BPH. Cont flomax. converted to leg bag prior to discharge (2) Fall: Reported fall at home the night before re-admission. Apparently occurred due to patient becoming tangled in his fournier catheter tubing. Despite this report there were no apparent injuries on physical exam. (3) Dementia: advanced, severe. aricept d/c during the previous admission due to concerns it was contributing to bradycardia. no behavioral disturbance during the prior admission or this admission. he is typically calm and very directable. when his family is present he sometimes gets quite agitated however. (4) Bradycardia: seen by Dr Guadarrama during prior admission. mainly sinus bradycardia seen on tele previous admission. no pauses or AV block. he had "ventricular parasystole" on monitoring but no Rx needed for such per Dr Guadarrama. Aricept was stopped in case it was contributing to slow rates (5) Septicemia: treated for such during past hospitalization. 2nd to fournier-catheter associated e.coli UTI. repeat blood cx's during prior stay were negative. he remains on a 3-week course of omnicef due to concerns of concomitant prostatitis. continue once daily omnicef. repeat urine cx from this admission NEGATIVE. (6) Acquired hydroureter: RIGHT. saw [facility] during prior hospital stay - no Rx recommended (ureteral stenting was felt to not be an option - would need percutaneous nephrostomy tube but poor candidate for such as well). fortunately no signs of obstructive uropathy at this time. Creatinine stable. I believe his transient episodes of bladder pain/RLQ pain could be ureteral spasm on right. Uncertain etiology of this hydroureter. Could have urinary tract cancer causing such. Poor candidate for additional work-up. (7) Complicated UTI (urinary tract infection): 2nd to e.coli - see above in "septicemia" continue omnicef (8) Chronic kidney disease: stage 3 baseline Cr about 1.5-1.8 BMP 06/25 with Cr 1.7 -- stable (9) DVT prophylaxis: heparin SC (10) Constipation: dulcolax + miralax (11) Discharge planning issues: Patient needs 24/7 supervision regardless of whether he returns home or goes to facility. Ideally he transitions to SNF with dementia unit. PT/OT evals done; they concur with 24/7 supervision. Lengthy family meeting held on 06/[address] Mary patient lives with his who is in a wheelchair, she is on hospice, some days she does not even get out of bed she is very weak and frail herself family and friends feel like the patient should go to SNF, dementia unit patient and his want to go home discussed with CM, no home nursing services will take the patient so no one will be checking on him I discussed with patient and family on 06/26 at the bedside explained that his current living situation is unsafe, that he will likely fall again, could injure himself worse next time his insists on taking him home the only way that he could go home would be if they signed Against Medical Advice form, which the signed CM will arrange for office of aging to visit the house soon and determine if the conditions are safe [facility] is willing to take the patient directly from home if he needs to be forcefully placed in dementia unit Total Time Total Time Spent Total Time Spent (In Minutes): 40 minutes Total Time Includes: Examination of the Patient, Discharge Planning, Medication Reconciliation, Communication With Other Providers (discussed extensively with case management) and Other (long discussion with patient and his about safe discharge plan, AMA disposition) Discharge Plan Discharge Items Disposition: Against Medical Advice Reason For Visit: SEVERE DEMENTIA,RECENT BACTEREMIA Discharge Diagnosis: Traumatic removal of fournier Acute kidney injury, resolved Dementia Condition on Discharge: Good Health Concerns: concerns about falling at home, general safety Goals: improve function and independence Activity: Resume your previous activity Non-emergency contact: Primary Care Provider Call non-emergency contact if: you have any medication questions, your symptoms worsen, your pain is not controlled and you have a fever Follow-up/Referrals: Jorden Samuel MD [Primary Care Provider] - 06/30/19 2:30 pm (Please, follow up with Dr. Samuel on WednesdayJune 30 at 2:30 pm. *If you need to change this appointment, call the office at [phone].) Diet: Regular Addtl Attending Provider Instructions: Medications: no changes Traumatic removal of fournier, no damage done, new fournier in place, will change to leg bag As we discussed, I feel that a safe discharge plan would be for you to go to [facility] Skilled facility in locked unit for dementia you are at risk for falls I have concerns about your 's ability to care for you given her weakened state and hospice other providers and care takers have expressed their worries there are no home agencies that will accept you at this time so there won't be any further services the office of aging will be coming to assess the situation as we discussed, there is a chance that you may be forced to go to [facility] you are being discharged against medical advice because I feel it is not safe to send you home and that you should only go to [facility] half-way facility Pending Studies at Discharge: No Stand-Alone Forms: My [facility] Skilled Items Patient informed of condition?: Yes DNR: Yes Discharge Level of Care: Other Communicable Disease: No Discharge Prognosis: Stable Medications and DC Order Prescriptions: Continued tamsulosin 0.4 mg capsule 0.4 mg PO DAILY Qty: 30 RF: 2 Saccharomyces boulardii 250 mg capsule 250 mg PO DAILY Qty: 21 RF: 0 cefdinir 300 mg capsule 300 mg PO DAILY 21 Days Qty: 21 RF: 0 Discharge Orders: Discharge Order (Routine); Ordered 06/26/19 Ordered By: Valeriano Lilly Admission Data Admit Date/Time: 06/23/19 18:20 Attending Provider: Valeriano Lilly Admit Provider: Shubham Mary Primary Care Provider: Jorden Samuel Other Providers: Shubham Mary Other Interventions: Discharge Summary Assessment (RN) Last Done: 06/26/19 13:14 DC Date/Time DO NOT enter until pt leaves facility: 06/26/19 13:15
== END 2019-06-26 13:15 | disposition left against medical advice (07) ==
LOC: ED 12:53 → 4W 12:53 → SUATTDRO 18:20 → 2N 06-25 06:10

== ENCOUNTER 2020-04-08 17:22 | Inpatient (IN) ==
[2020-04-08 18:19] LABS: Basophils # (auto) 0.03 K/uL (0-0.2); Basophils % (auto) 0.3 %; Eosinophils # (auto) 0.07 K/uL (0-0.5); Eosinophils % (auto) 0.6 %; Hematocrit (blood only) 36.7 % (42-52); Hemoglobin 11.8 g/dL (14.0-18.0); Immature Granulocytes # (auto) 0.02 K/uL (0.00-0.02); Immature Granulocytes % (auto) 0.2 %; Lymphocytes # (auto) 3.72 K/uL (1.2-3.4); Lymphocytes % (auto) 32.2 %; Mean Corpuscular Hemoglobin 29.2 pg (25-34); Mean Corpuscular Hgb Conc 32.2 g/dL (32-36); Mean Corpuscular Volume 90.8 fL (80-100); Mean Platelet Volume 9.4 fL (7.4-10.4); Monocytes # (auto) 0.82 K/uL (0.11-0.59); Monocytes % (auto) 7.1 %; Neutrophils # (auto) 6.88 K/uL (1.4-6.5); Neutrophils % (auto) 59.6 %; Platelet Count 307 K/uL (130-400); RDW Coefficient of Variation 14.4 % (11.5-14.5); RDW Standard Deviation 47.9 fL (36.4-46.3); Red Blood Count 4.04 M/uL (4.7-6.1); White Blood Count 11.54 K/uL (4.8-10.8)
[2020-04-08 18:33] LABS: Albumin Level 2.9 gm/dl (3.4-5.0); BUN Creatinine Ratio 17.6 (10-20); Calcium 8.6 mg/dl (8.5-10.1); Creatinine Clr Calc Pharmacy 17.8 ml/min; Est GFR (African American) 28.2; Est GFR (Non-African American) 24.4; Potassium 3.9 mmol/L (3.5-5.1)
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
[2020-04-08 18:37] LABS: Acetaminophen < 2 ug/ml (10-30); Salicylate < 1.7 mg/dl (2.8-20)
[2020-04-08 18:43] LABS: Albumin Globulin Ratio 0.6 (0.9-2); Bilirubin,Total 0.4 mg/dl (0.2-1); Globulin 4.9 gm/dl (2.5-4.0); Thyroid Stimulating Hormone 2.25 uIu/ml (0.300-4.500); Total Protein 7.8 gm/dl (6.4-8.2)
[2020-04-08] MEDS ORDERED: OLANZAPINE ZYDIS 5 MG ORALLY DIS. TAB PO STA (19:41)
--- NOTE | 2020-04-08 20:16 | History & Physical Report ---
Date of Service April 08, 2020 Assessment & Plan (1) Dementia: Terence Guevara is a 85 y/o male with past medical hx of dementia, CKD, urinary retention, hx of indwelling fournier cath which patient frequently removes himself, who presented to [facility] after concern by office of aging regarding inabil ity to self care at home/concern of him removing his fournier cath again. -Dementia appears advanced, obviously unable to care for self at home. -Will get a CT head to rule out bleed, followed by MRI -UA pending -Leukocytosis mild of 11.54, no clear signs of infection, no need to treat -Zyprexa ordered in ED, not given yet, patient not being cooperative, is redirected -1:1 ordered Dispo: Full admit, Med/surg DVT ppx: SCDs, doubt will be able to tolerate, fall risk for AC FENGI: Regular diet Code: Unable to consent, will defer to Full Code (2) Paroxysmal atrial fibrillation: noted to not be on AC because of fall risk appears in regular rhythm (3) Urinary retention: Fournier cath ordered (4) Chronic kidney disease: Unsure of baseline, appears to be elevated, will give bolus of gentle fluids on floor. High risk for pulling out line (5) Prediabetes: Glucose 101 here, no need for current treatment, was noted in history. History of Present Illness Chief Complaint: [facility] Primary Care Provider: Anup Isaac DO Caveat: History Limited by Dementia Terence Guevara is a 85 y/o male with past medical hx of dementia, CKD, urinary retention, hx of indwelling fournier cath which patient frequently removes himself, who presented to [facility] after concern by office of aging regarding inability to self care at home/concern of him removing his fournier cath again. His PCP and Urologist office were contacted and were instructed to come here to ED. EMS reports that patient's is currently unable to take care of self as floor was covered in urine, smelled of urine and home was filthy. He was oriented to being in a hospital per ED note, now he is only oriented to person. He is eas lg redirected but is agitated also is incoherent. In ED, he had a WBC of 11.54, Creat 2.32, Salicylates/Acetaminophen/EtOH levels were negative. Apparently, there is a court order upcoming with court hearing to place patient in a facility as unable to care for himself at home. There is no evidence of trauma. He denies any pain but is a very unreliable historian because of dementia. Allergies Allergy/AdvReac Type Severity Reaction Status Date / Time levofloxacin Allergy Intermediate SWELLING Verified 04/08/20 19:56 sulfamethoxazole Allergy Intermediate SWELLING Verified 04/08/20 19:56 trimethoprim Allergy Intermediate SWELLING Verified 04/08/20 19:56 tramadol Allergy Mild PRURITIS Verified 04/08/20 19:56 gabapentin Allergy Unknown UNKNOWN Verified 04/08/20 19:56 Iodinated Contrast Media Allergy Unknown IVP DYE - Verified 04/08/20 19:56 UNKNOWN REACTION finasteride AdvReac Severe GYNECOMASTI Verified 04/08/20 19:56 A tamsulosin AdvReac Severe GYNECOMASTI Verified 04/08/20 19:56 A Home Medications Home Medications Medication Instructions Recorded Confirmed Type No Known Home Medications 04/08/20 04/08/20 History Past Med/Surg History Medical History Bradycardia Chronic kidney disease (Acute) Chronic osteoarthritis Dementia Hx of repeated closed head trauma. S/o craniotomy in the past at [facility]. 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 AC was not recommended Prediabetes Elevated HbA1c 6.3% (11/15). 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 Followed by urology, [facility] (Dr. Carr). Ventricular parasystole Visual impairment of left eye Vitamin D deficiency Not on supplementation. Currently Vit D 23 ng/mL (12/12) Surgical History H/O craniotomy aneurysm? H/O left inguinal hernia repair History of nephrectomy LEFT S/P inguinal hernia repair Family History Brother Prostate cancer Laryngeal cancer Father Prostate cancer Mother Heart disease Diabetes Skin cancer Other Family history of cancer of larynx Family history of diabetes mellitus Family history of heart disease Family history of malignant melanoma of skin Family history of prostate cancer Denies family history of Ovarian cancer Myocardial infarction Breast cancer Colorectal cancer Social History Preferred Language: Czech Communication Ability: Effective Visual Impairment: Limited Hearing Ability: Hard of Hearing Group [employer]st Required: No Beliefs That Will Affect Care: None marital status: Current Living Situation: Family Current Living Situation Comment: patient unable to answer current occupational status: retired current occupation: was in the [employer]; 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 Feels Safe at Home: Declines to Answer Smoking Status: Never smoker Tobacco Type: smokeless tobacco ; Age Quit Using Tobacco: 33 ; Cigarettes Per Day: patient unable to answer ; Second Hand Exposure: No ; Hx Alcohol Use: Yes Alcohol type: beer Alcohol Intake Frequency Comment: states he no longer drinks; drank heavily in the past Hx Substance Use: No Childhood Exposure to Second-Hand Smoke: Yes Dental Care, Regularly: No Physical Activity Frequency: Does not Exercise Seatbelt Use: always Sunscreen Use: Yes Review of Systems Review of Systems: Unobtainable due to mental health condition Physical Exam Constitutional: + disheveled; no acute distress and not ill appearing Eyes: PERRL, conjunctivae normal, anicteric sclerae ENMT: external ear and nose normal, oropharynx normal Neck: normal visual inspection and trachea midline Respiratory: normal respiratory effort, lungs clear to auscultation Cardiovascular: RRR, no murmur, no edema Gastrointestinal (Abdomen): Percussion/Palpation: abdomen soft; abdomen nontender, no guarding and abdomen not rigid Musculoskeletal: Head/Neck/Chest: normocephalic and head atraumatic no spinal bony tenderness Skin: no rashes, warm and dry Neurologic: moves all extremities and awake Psychiatric: Orientation: alert and oriented to person; + not oriented to place (cannot recall name of building, type of buidling,cannot recall name of city) and + not oriented to time (does not know year, does not know current president) Apperance: + disheveled Eye Contact: + fair eye contact Motor Behavior: n EPS Affect: + irritable affect Mood: + irritable mood Thought Process: + incoherent thought process Cognition: + recent memory not intact, + remote memory not intact, + attention not intact and + language not intact Insight: + severely impaired insight Judgement: + severely impaired judgement Results & Data Results & Data ([facility]) Vital Signs (Past 12 Hours) Vital Signs Temp Pulse Resp BP Pulse Ox 04/08/20 17:44 37 C 62 18 119/68 100 Laboratory Results Laboratory Results - last 24 hr 04/08/20 04/08/20 04/08/20 17:55 17:55 17:55 WBC 11.54 H RBC 4.04 L Hgb 11.8 L Hct 36.7 L MCV 90.8 MCH 29.2 MCHC 32.2 RDW Std Deviation 47.9 H RDW Coeff of Thelma 14.4 Plt Count 307 MPV 9.4 Immature Gran % (Auto) 0.2 Neut % (Auto) 59.6 Lymph % (Auto) 32.2 Worth % (Auto) 7.1 Eos % (Auto) 0.6 Baso % (Auto) 0.3 Neut # (Auto) 6.88 H Lymph # (Auto) 3.72 H Worth # (Auto) 0.82 H Eos # (Auto) 0.07 Baso # (Auto) 0.03 Immature Gran # (Auto) 0.02 Sodium 140 Potassium 3.9 Chloride 108 H Carbon Dioxide 22 Anion Gap 10.0 BUN 41 H Creatinine 2.32 H Est Cr Clr Drug Dosing 17.8 Est GFR ( Amer) 28.2 Est GFR (Non-Af Amer) 24.4 BUN/Creatinine Ratio 17.6 Glucose 109 H Calcium 8.6 Total Bilirubin 0.4 AST 15 ALT 14 Alkaline Phosphatase 84 Total Protein 7.8 Albumin 2.9 L Globulin 4.9 H Albumin/Globulin Ratio 0.6 L TSH 2.250 Urine Color Urine Appearance Urine pH Ur Specific Ramona Urine Protein Urine Glucose (UA) Urine Ketones Urine Blood Urine Nitrite Urine Bilirubin Urine Urobilinogen Ur Leukocyte Esterase Salicylates < 1.7 L Urine Opiates Screen Ur Methadone, Qual Acetaminophen < 2 L Urine Barbiturates Ur Phencyclidine (PCP) U Amphetamin/Meth Scrn MDMA (Ecstasy) Screen U Benzodiazepines Scrn Ur Cocaine Metabolite U Marijuana (THC) Screen Ethyl Alcohol mg/dL 04/08/20 04/08/20 04/08/20 17:55 19:40 19:40 WBC RBC Hgb Hct MCV MCH MCHC RDW Std Deviation RDW Coeff of Thelma Plt Count MPV Immature Gran % (Auto) Neut % (Auto) Lymph % (Auto) Worth % (Auto) Eos % (Auto) Baso % (Auto) Neut # (Auto) Lymph # (Auto) Worth # (Auto) Eos # (Auto) Baso # (Auto) Immature Gran # (Auto) Sodium Potassium Chloride Carbon Dioxide Anion Gap BUN Creatinine Est Cr Clr Drug Dosing Est GFR ( Amer) Est GFR (Non-Af Amer) BUN/Creatinine Ratio Glucose Calcium Total Bilirubin AST ALT Alkaline Phosphatase Total Protein Albumin Globulin Albumin/Globulin Ratio TSH Urine Color Pending Urine Appearance Pending Urine pH Pending Ur Specific Ramona Pending Urine Protein Pending Urine Glucose (UA) Pending Urine Ketones Pending Urine Blood Pending Urine Nitrite Pending Urine Bilirubin Pending Urine Urobilinogen Pending Ur Leukocyte Esterase Pending Salicylates Urine Opiates Screen Pending Ur Methadone, Qual Pending Acetaminophen Urine Barbiturates Pending Ur Phencyclidine (PCP) Pending U Amphetamin/Meth Scrn Pending MDMA (Ecstasy) Screen Pending U Benzodiazepines Scrn Pending Ur Cocaine Metabolite Pending U Marijuana (THC) Screen Pending Ethyl Alcohol mg/dL < 3.0 Supervising Physician Co-Signing Physician Notes Attending addendum: I have physically seen this patient, have supervised the medical residents activities, and agree with the H&P unless as otherwise noted. Assessment and Plan: Dementia with agitation- Metabolic work-up negative to this point Order CT head to rule out bleed acutely, will ultimately need MRI. Follow urine culture and sensitivity One-to-one observation Zyprexa 5 mg IM every 4 hours as needed agitation Office of aging involved. Urinary retention- Fournier catheter placed in ED Follow urine culture and sensitivities CKD- creatinine 2.32 upon admission, with unclear baseline. NSS at 80 mils per hour Repeat laboratories in a.m. Remainder of orders and notations as noted. Resident Activity Tracking Resident Involvement: Resident Care Provided Care Provided: Adult Hospital Medicine (1) Dementia Dementia behavioral disturbance: without behavioral disturbance Dementia type: unspecified type Qualified Code(s): F03.90 - Unspecified dementia without behavioral disturbance (2) Chronic kidney disease Chronic kidney disease stage: stage 3 (moderate) Qualified Code(s): N18.3 - Chronic kidney disease, stage 3 (moderate)
[2020-04-08 20:22] LABS: Appearance Urine Turbid (Clear); Bacteria Urine Automated Negative (Negative); Bilirubin Urine Negative (Negative); Blood Urine 2+ (Negative); Color Urine Yellow; Glucose Urine UA Negative (Negative); Ketones Urine Negative (Negative); Leukocyte Esterase Urine 3+ (Negative); Nitrite Urine Negative (Negative); Protein Urine 2+ (Negative); Specific Gravity Urine 1.011 (1.000-1.030); Urobilinogen Urine Negative (Negative); WBC Urine Automated >30 /hpf (0-5); pH Urine 6.5 (4.5-7.5)
[2020-04-08] MEDS ORDERED: HALOPERIDOL LACTATE 5 MG/ML 1 ML VIAL IM STA (20:33)
[2020-04-08] MEDS ORDERED: HALOPERIDOL LACTATE 5 MG/ML 1 ML VIAL ONE (20:34)
[2020-04-08 20:44] LABS: Amphetamines+Metham, Urine Neg (Neg); Barbiturates, Urine Neg (Neg); Benzodiazepine, Urine Neg (Neg); Cocaine, Urine Neg (Neg); MDMA (Ecstacy), Urine Neg (Neg); Methadone, Urine Neg (Neg); Opiate, Urine Neg (Neg); Phencyclidine, Urine Neg (Neg)
[2020-04-08] MEDS ORDERED: LORazepam 1 MG/2 ML VIAL IV PRN (20:50)
[2020-04-08] MEDS ORDERED: LORazepam 1 MG/2 ML VIAL IV STA (20:51)
[2020-04-08] MEDS ORDERED: LORazepam 2 MG/4 ML VIAL ONE (20:55)
[2020-04-08] MEDS ORDERED: ALUMINUM/MAGNESIUM SUSP 30 ML UDC PO PRN (22:00)
[2020-04-08] MEDS ORDERED: ONDANSETRON INJ 2 MG/ML 2 ML VIAL IV PRN (22:00)
[2020-04-08] MEDS ORDERED: HALOPERIDOL LACTATE 5 MG/ML 1 ML VIAL IM PRN (22:00)
[2020-04-08] MEDS ORDERED: POLYETHYLENE (MIRALAX) 17 GM PACK PO PRN (22:00)
[2020-04-08] MEDS ORDERED: MAGNESIUM HYDROXIDE SUSP 30 ML UDC PO PRN (22:00)
[2020-04-08] MEDS ORDERED: SODIUM CHLORIDE 0.9% 1000ML 500 ML IV ONE (22:00)
--- NOTE | 2020-04-09 06:46 | CT Scan Report ---
CT head/brain wo con CLINICAL HISTORY: Acute change in mental status COMPARISON STUDY: 08/09/2019 TECHNIQUE: Axial CT of the brain is performed from the vertex to the skull base. IV contrast was not administered for this examination. A dose lowering technique was utilized adhering to the principles of ALARA. CT DOSE: 537.48 mGy.cm FINDINGS: No intra or extra-axial mass lesions are visualized. There is no CT evidence of acute cortical infarc tion. There is no evidence of midline shift. There is no acute hemorrhage. No calvarial fractures ar e visualized. There are patchy white matter hypodensities likely on a small vessel basis. There is an old left fron liam infarct. There is prominent extra-axial CSF space similar to the prior study and likely secondary to volume loss. There is no evidence of pathologic ventricular dilatation. There is compensatory dilatation of the le ft lateral ventricle secondary to the left frontal infarct. There is no evidence of acute sinusitis IMPRESSION: No acute intracranial findings ACT 112: Negative or not required by law. Electronically signed by: Laz Wilson M.D. 04/09/2020 6:45 AM
[2020-04-09] MEDS ORDERED: SODIUM CHLORIDE 0.9% 1000ML 1,000 ML IV SCH (10:00)
[2020-04-09] MEDS: cefTRIAXone SODIUM 1,000 MG in DEXTROSE 5% 50 ML IV SCH (11:50)
--- NOTE | 2020-04-09 11:50 | Magnetic Resonance Report ---
MRI OF THE BRAIN WITHOUT CONTRAST CLINICAL HISTORY: altered mental status,h/o CVA COMPARISON STUDY: Noncontrast head CT dated 04/08/2020 FINDINGS: The patient was combative and the entire sequence could not be completed. The study consists of sagit liam T1, axial diffusion, and axial T1-weighted images. No intra or extra-axial mass lesions are visualized Axial diffusion-weighted images reveal no evidence of acute or subacute infarction. There is mild ventricular dilatation, finding which is felt to be secondary to volume loss. There is an old left frontal infarct with compensatory dilatation of the left lateral ventricle. Ther e are probable old hemorrhagic products present within the area of encephalomalacia. There is prominent bilateral extra-axial CSF unchanged from the prior CT scan. This could represent c hronic subdural hygromas, or dilated subarachnoid space secondary to atrophy IMPRESSION: 1. Technically limited study 2. No mass lesions identified 3. No evidence of acute infarction 4. 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 ACT 112: Negative or not required by law. Electronically signed by: Laz Wilson M.D. 04/09/2020 11:48 AM
--- NOTE | 2020-04-09 12:34 | XRay Report ---
XR chest 1V portable CLINICAL HISTORY: r/o PNA dyspnea COMPARISON STUDY: 06/23/2019 FINDINGS: The bones soft tissues and hemidiaphragms are normal. The cardiomediastinal silhouette is n ormal. The lungs are clear. The pulmonary vasculature is normal. IMPRESSION: Negative chest. ACT 112: Negative or not required by law. The above report was generated using voice recognition software. It may contain grammatical, syntax or spelling errors. Electronically signed by: Norberto Haddad M.D. 04/09/2020 12:33 PM
--- NOTE | 2020-04-09 14:02 | Electrocardiogram Report ---
Test Reason : Blood Pressure : / mmHG Vent. Rate : 051 BPM Atrial Rate : 051 BPM P-R Int : 182 ms QRS Dur : 078 ms QT Int : 436 ms P-R-T Axes : 070 015 065 degrees QTc Int : 401 ms Sinus bradycardia Otherwise normal ECG When compared with ECG of 23-JUN-2019 16:36, Premature ventricular complexes are no longer Present Premature atrial complexes are no longer Present Confirmed by Alexandru Aguilar ([id number]) on 04/09/2020 2:02:30 PM Referred By: REFERRED SELF Confirmed By:Guru Aguilar
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
[2020-04-09 15:57] LABS: Basophils # (auto) 0.02 K/uL (0-0.2); Basophils % (auto) 0.3 %; Eosinophils # (auto) 0.13 K/uL (0-0.5); Eosinophils % (auto) 1.8 %; Hemoglobin 11.2 g/dL (14.0-18.0); Immature Granulocytes # (auto) 0.02 K/uL (0.00-0.02); Immature Granulocytes % (auto) 0.3 %; Lymphocytes # (auto) 2.05 K/uL (1.2-3.4); Lymphocytes % (auto) 28.9 %; Mean Corpuscular Hemoglobin 29.2 pg (25-34); Mean Corpuscular Volume 91.4 fL (80-100); Mean Platelet Volume 9.3 fL (7.4-10.4); Monocytes # (auto) 0.59 K/uL (0.11-0.59); Monocytes % (auto) 8.3 %; Neutrophils # (auto) 4.29 K/uL (1.4-6.5); Neutrophils % (auto) 60.4 %; Platelet Count 272 K/uL (130-400); RDW Coefficient of Variation 14.6 % (11.5-14.5); RDW Standard Deviation 48.9 fL (36.4-46.3); Red Blood Count 3.83 M/uL (4.7-6.1)
[2020-04-09 16:15] LABS: BUN Creatinine Ratio 16.9 (10-20); Calcium 8.5 mg/dl (8.5-10.1); Creatinine Clr Calc Pharmacy 20.8 ml/min; Est GFR (African American) 30.4; Est GFR (Non-African American) 26.3
[2020-04-10] MEDS: cefTRIAXone SODIUM 1,000 MG in DEXTROSE 5% 50 ML IV SCH (10:53)
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
--- NOTE | 2020-04-10 20:00 | Billing Data ---
Date of Service April 10, 2020 Coding Level of Care Code 99925 Initial Inpt Care Lvl 2
[2020-04-11] MEDS: cefTRIAXone SODIUM 1,000 MG in DEXTROSE 5% 50 ML IV SCH (10:35)
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
[2020-04-11] MEDS ORDERED: ALUMINUM/MAGNESIUM SUSP 18 ML, LIDOCAINE HCL VISCOUS 2% 6 ML, BARCODE IDENTIFIER 1 EA PO ONE (16:58)
[2020-04-11 17:21] LABS: Basophils # (auto) 0.03 K/uL (0-0.2); Basophils % (auto) 0.4 %; Eosinophils # (auto) 0.22 K/uL (0-0.5); Eosinophils % (auto) 2.7 %; Hematocrit (blood only) 33.2 % (42-52); Hemoglobin 10.7 g/dL (14.0-18.0); Immature Granulocytes # (auto) 0.02 K/uL (0.00-0.02); Immature Granulocytes % (auto) 0.2 %; Lymphocytes # (auto) 3.11 K/uL (1.2-3.4); Lymphocytes % (auto) 38.8 %; Mean Corpuscular Hemoglobin 29.6 pg (25-34); Mean Corpuscular Hgb Conc 32.2 g/dL (32-36); Mean Corpuscular Volume 91.7 fL (80-100); Mean Platelet Volume 9.5 fL (7.4-10.4); Monocytes # (auto) 0.59 K/uL (0.11-0.59); Monocytes % (auto) 7.4 %; Neutrophils # (auto) 4.04 K/uL (1.4-6.5); Neutrophils % (auto) 50.5 %; Platelet Count 295 K/uL (130-400); RDW Coefficient of Variation 14.7 % (11.5-14.5); RDW Standard Deviation 49.3 fL (36.4-46.3); Red Blood Count 3.62 M/uL (4.7-6.1); White Blood Count 8.01 K/uL (4.8-10.8)
[2020-04-11 17:38] LABS: Alanine Aminotransferase 11 U/L (12-78); Albumin Level 2.3 gm/dl (3.4-5.0); Aspartate Aminotransferase 14 U/L (15-37); BUN Creatinine Ratio 18.9 (10-20); Blood Urea Nitrogen 39 mg/dl (7-18); Calcium 8.1 mg/dl (8.5-10.1); Carbon Dioxide 28 mmol/L (21-32); Chloride 107 mmol/L (98-107); Creatinine Clr Calc Pharmacy 21.6 ml/min; Est GFR (African American) 32.8; Est GFR (Non-African American) 28.3; Glucose 86 mg/dl (70-99); Potassium 4.1 mmol/L (3.5-5.1); Sodium 139 mmol/L (136-145)
[2020-04-11 17:43] LABS: Albumin Globulin Ratio 0.5 (0.9-2); Alkaline Phosphatase 68 U/L (45-117); Bilirubin,Total 0.2 mg/dl (0.2-1); Globulin 4.3 gm/dl (2.5-4.0); Total Protein 6.6 gm/dl (6.4-8.2); Troponin I < 0.015 ng/ml (0-0.045)
[2020-04-11] MEDS ORDERED: OLANZapine 5 MG TABLET PO ONE (21:03)
[2020-04-11] MEDS ORDERED: LORazepam 1 MG/2 ML VIAL IV STA (21:15)
[2020-04-12] MEDS: CEFDINIR 300 MG CAP PO SCH (09:03)
--- NOTE | 2020-04-12 11:26 | Electrocardiogram Report ---
Test Reason : Blood Pressure : / mmHG Vent. Rate : 051 BPM Atrial Rate : 051 BPM P-R Int : 186 ms QRS Dur : 072 ms QT Int : 442 ms P-R-T Axes : 070 003 062 degrees QTc Int : 407 ms Poor data quality, interpretation may be adversely affected Sinus bradycardia Low voltage QRS Abnormal ECG When compared with ECG of 08-APR-2020 18:19, No significant change was found Confirmed by Alexandru Aguilar ([id number]) on 04/12/2020 11:26:38 AM Referred By: REFERRED SELF Confirmed By:Guru Aguilar
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
[2020-04-13] MEDS: CEFDINIR 300 MG CAP PO SCH (08:09)
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
[2020-04-13] MEDS: haloperidoL 1 MG TAB PO PRN (18:29)
[2020-04-14] MEDS: haloperidoL 1 MG TAB PO PRN (01:06)
[2020-04-14] MEDS: CEFDINIR 300 MG CAP PO SCH (09:01)
[2020-04-14 09:53] LABS: BUN Creatinine Ratio 27.2 (10-20); Calcium 8.5 mg/dl (8.5-10.1); Creatinine Clr Calc Pharmacy 24.1 ml/min; Est GFR (African American) 36.4; Est GFR (Non-African American) 31.4; Potassium 4.8 mmol/L (3.5-5.1)
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
[2020-04-16 05:50] LABS: Basophils # (auto) 0.06 K/uL (0-0.2); Eosinophils # (auto) 0.35 K/uL (0-0.5); Eosinophils % (auto) 5.8 %; Hematocrit (blood only) 37.9 % (42-52); Hemoglobin 11.9 g/dL (14.0-18.0); Immature Granulocytes # (auto) 0.01 K/uL (0.00-0.02); Immature Granulocytes % (auto) 0.2 %; Lymphocytes # (auto) 2.59 K/uL (1.2-3.4); Mean Corpuscular Hemoglobin 29.2 pg (25-34); Mean Corpuscular Hgb Conc 31.4 g/dL (32-36); Mean Corpuscular Volume 92.9 fL (80-100); Mean Platelet Volume 9.4 fL (7.4-10.4); Monocytes # (auto) 0.49 K/uL (0.11-0.59); Monocytes % (auto) 8.1 %; Neutrophils # (auto) 2.52 K/uL (1.4-6.5); Neutrophils % (auto) 41.9 %; Platelet Count 345 K/uL (130-400); RDW Coefficient of Variation 14.9 % (11.5-14.5); RDW Standard Deviation 50.8 fL (36.4-46.3); Red Blood Count 4.08 M/uL (4.7-6.1); White Blood Count 6.02 K/uL (4.8-10.8)
[2020-04-16 06:23] LABS: Albumin Level 2.7 gm/dl (3.4-5.0); Creatinine Clr Calc Pharmacy 19.6 ml/min; Est GFR (African American) 28.4; Est GFR (Non-African American) 24.5; Potassium 4.5 mmol/L (3.5-5.1)
[2020-04-16 06:26] LABS: Albumin Globulin Ratio 0.6 (0.9-2); Bilirubin,Total 0.2 mg/dl (0.2-1); Globulin 4.6 gm/dl (2.5-4.0); Total Protein 7.3 gm/dl (6.4-8.2)
[2020-04-16] MEDS ORDERED: SODIUM CHLORIDE 0.9% 1000ML 1,000 ML IV SCH (09:00)
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
[2020-04-17 06:57] LABS: Basophils # (auto) 0.05 K/uL (0-0.2); Basophils % (auto) 0.8 %; Eosinophils # (auto) 0.32 K/uL (0-0.5); Eosinophils % (auto) 4.8 %; Hematocrit (blood only) 35.1 % (42-52); Hemoglobin 11.2 g/dL (14.0-18.0); Immature Granulocytes # (auto) 0.01 K/uL (0.00-0.02); Immature Granulocytes % (auto) 0.2 %; Lymphocytes # (auto) 2.98 K/uL (1.2-3.4); Mean Corpuscular Hemoglobin 29.6 pg (25-34); Mean Corpuscular Hgb Conc 31.9 g/dL (32-36); Mean Corpuscular Volume 92.6 fL (80-100); Mean Platelet Volume 9.5 fL (7.4-10.4); Monocytes # (auto) 0.48 K/uL (0.11-0.59); Monocytes % (auto) 7.3 %; Neutrophils # (auto) 2.78 K/uL (1.4-6.5); Neutrophils % (auto) 41.9 %; Platelet Count 339 K/uL (130-400); RDW Coefficient of Variation 14.9 % (11.5-14.5); RDW Standard Deviation 50.6 fL (36.4-46.3); Red Blood Count 3.79 M/uL (4.7-6.1); White Blood Count 6.62 K/uL (4.8-10.8)
[2020-04-17 07:27] LABS: BUN Creatinine Ratio 27.2 (10-20); Calcium 8.2 mg/dl (8.5-10.1); Est GFR (African American) 32.6; Est GFR (Non-African American) 28.1; Potassium 4.8 mmol/L (3.5-5.1)
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
[2020-04-19] MEDS: haloperidoL 1 MG TAB PO PRN (19:17)
[2020-04-19] MEDS ORDERED: MELATONIN 3 MG TAB PO PRN (21:23)
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
[2020-04-20] MEDS: haloperidoL 1 MG TAB PO PRN (21:17)
[2020-04-21] MEDS: ACETAMINOPHEN 325 MG TAB PO PRN ×3 (02:14→22:06)
[2020-04-21 02:42] LABS: Appearance Urine Turbid (Clear); Bacteria Urine Automated Negative (Negative); Bilirubin Urine Negative (Negative); Blood Urine 3+ (Negative); Color Urine Dark Yellow; Epithelial Cell Urine Auto >30 /lpf (0-5); Glucose Urine UA Negative (Negative); Ketones Urine Negative (Negative); Leukocyte Esterase Urine 3+ (Negative); Nitrite Urine Negative (Negative); Protein Urine 2+ (Negative); RBC Urine Automated 0-4 /hpf (0-4); Specific Gravity Urine 1.012 (1.000-1.030); Urobilinogen Urine Negative (Negative); WBC Urine Automated >30 /hpf (0-5); pH Urine 6.5 (4.5-7.5)
[2020-04-21 03:03] LABS: Cast Urine Automated 0 /lpf (0-5)
[2020-04-21 07:37] LABS: Hematocrit (blood only) 39.3 % (42-52); Hemoglobin 12.5 g/dL (14.0-18.0); Mean Corpuscular Hemoglobin 29.6 pg (25-34); Mean Corpuscular Hgb Conc 31.8 g/dL (32-36); Mean Corpuscular Volume 92.9 fL (80-100); Mean Platelet Volume 9.5 fL (7.4-10.4); Platelet Count 367 K/uL (130-400); RDW Coefficient of Variation 15.2 % (11.5-14.5); RDW Standard Deviation 51.5 fL (36.4-46.3); Red Blood Count 4.23 M/uL (4.7-6.1); White Blood Count 15.87 K/uL (4.8-10.8)
[2020-04-21 08:00] LABS: BUN Creatinine Ratio 26.4 (10-20); Calcium 9.3 mg/dl (8.5-10.1); Creatinine Clr Calc Pharmacy 17.9 ml/min; Est GFR (African American) 25.4; Est GFR (Non-African American) 21.9; Potassium 5.5 mmol/L (3.5-5.1)
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
[2020-04-21] MEDS ORDERED: cefTRIAXone SODIUM 1,000 MG in DEXTROSE 5% 50 ML IV SCH (14:00)
[2020-04-21] MEDS: SODIUM CHLORIDE 0.9% 1000ML 1,000 ML IV SCH (16:12)
[2020-04-22] MEDS: SODIUM CHLORIDE 0.9% 1000ML 1,000 ML IV SCH (00:46)
[2020-04-22 10:23] LABS: Hematocrit (blood only) 37.7 % (42-52); Hemoglobin 11.8 g/dL (14.0-18.0); Mean Corpuscular Hemoglobin 29.4 pg (25-34); Mean Corpuscular Hgb Conc 31.3 g/dL (32-36); Mean Platelet Volume 9.5 fL (7.4-10.4); Platelet Count 314 K/uL (130-400); RDW Coefficient of Variation 15.3 % (11.5-14.5); RDW Standard Deviation 52.8 fL (36.4-46.3); Red Blood Count 4.01 M/uL (4.7-6.1); White Blood Count 10.97 K/uL (4.8-10.8)
[2020-04-22 11:14] LABS: BUN Creatinine Ratio 25.6 (10-20); Calcium 8.5 mg/dl (8.5-10.1); Creatinine Clr Calc Pharmacy 17.4 ml/min; Est GFR (African American) 24.6; Est GFR (Non-African American) 21.2; Magnesium 2.3 mg/dl (1.8-2.4); Potassium 5.3 mmol/L (3.5-5.1)
[2020-04-22 11:15] LABS: Phosphorus 2.8 mg/dl (2.5-4.9)
[2020-04-22] MEDS ORDERED: CEFDINIR 300 MG CAP PO ONE (11:30)
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
== END 2020-04-22 13:13 | DRG 884 ==
LOC: ED 17:22 → SUATTDRO 20:51 → 3N 20:51